=== PATIENT | female | born 1995 ===

== ENCOUNTER 2019-10-18 20:45 | Outpatient (REF) | payer BC, SELFPAY ==
[2019-10-18 21:41] LABS: HCT 42.5 % (36.0-46.0); HGB 13.4 g/dL (11.2-15.7); MCH 28.6 pg (27.0-33.0); MCHC 31.5 % (32.0-36.0); MCV 90.8 fL (80-95); MPV 10.8 fL (8.0-11.0); Platelet Count 353 10^3/uL (130-400); RBC 4.68 10^6/uL (3.93-5.22); RDW 13.4 % (11.7-14.6); RDW-SD 44.8 fL; WBC 8.22 10^3/uL (4.4-10.8)
[2019-10-18 22:00] LABS: Hemoglobin A1C 5.5 % (3.8-5.6)
[2019-10-18 22:03] LABS: TSH (W/Ref FT4) 2.41 uIU/mL (0.36-3.74)
== END 2019-10-18 21:05 ==
LOC: NCHCN 20:45
PROVIDERS: Visit Provider Nurse Practitioner Community Health
DX: F41.9 Anxiety disorder, unspecified (principal)
CPT/HCPCS: 85027; 83036; 84443

== ENCOUNTER 2020-11-20 17:23 | Outpatient (REF) | payer BC, SELFPAY ==
--- NOTE | 2020-11-20 17:05 | PAPFT_PTH ---
PATIENT: Saulo Mace LOC: [facility]#:[id number] AGE/SX: 24/F ROOM: RE11/20/[address]: Nova Pichardo : 1995 BED: DIS: 11/20/2020 SPEC #: [id number] RECD: 11/21/20 12:56 STATUS: CONNIE REQ #: [id number] JESSICA: 11/20/20 17:[address]: Nova Pichardo DEPT: [facility] Cytology RECD BY: Lyndsey Dutton ENTERED: 11/21/20 12:56 SP TYPE: PAPFT OTHR DR: Unknown,Unknown Tissues: 1 - CX/ENDOCX FOR PAP SMEARS Procedures: PAP THIN PREP/[facility] Screening Comments: [id number]
== END 2020-11-20 17:24 | disposition home or self-care (01) ==
LOC: NCHCN 17:23
PROVIDERS: Visit Provider Nurse Practitioner Community Health
DX: Z00.00 Encounter for general adult medical examination without abnormal findings (principal); Z12.4 Encounter for screening for malignant neoplasm of cervix
CPT/HCPCS: 88142

== ENCOUNTER 2021-01-01 16:48 | Outpatient (REF) | payer BC, SELFPAY ==
[2021-01-03 14:26] LABS: COVID-19 RT-PCR UVMMC Result Negative (Negative)
== END 2021-01-01 16:49 | disposition home or self-care (01) ==
LOC: NCHCN 16:48
PROVIDERS: Visit Provider Nurse Practitioner Community Health
DX: Z20.822 Contact with and (suspected) exposure to COVID-19 (principal); R05.8 Other specified cough
CPT/HCPCS: U0003

== ENCOUNTER 2021-07-23 20:17 | Outpatient (REF) | payer BC, SELFPAY ==
[2021-07-23 21:39] LABS: HCT 44.7 % (36.0-46.0); HGB 14.4 g/dL (11.2-15.7); MCH 28.6 pg (27.0-33.0); MCHC 32.2 % (32.0-36.0); MCV 89 fL (80-95); MPV 10.5 fL (8.0-11.0); Platelet Count 359 10^3/uL (130-400); RBC 5.03 10^6/uL (3.93-5.22); RDW 13.2 % (11.7-14.6); RDW-SD 43.1 fL; WBC 9.51 10^3/uL (4.4-10.8)
[2021-07-23 21:55] LABS: Hemoglobin A1C 5.6 % (<5.7)
[2021-07-23 22:16] LABS: Ferritin 44 ng/mL (8-252); TSH 2.12 uIU/mL (0.36-3.74)
== END 2021-07-23 20:18 | disposition home or self-care (01) ==
LOC: NCHCN 20:17
PROVIDERS: Visit Provider Internal Medicine
DX: R53.83 Other fatigue (principal)
CPT/HCPCS: 85027; 82728; 83036; 84443

== ENCOUNTER 2021-12-25 19:38 | Outpatient (REF) | payer BC, SELFPAY | END 2021-12-25 19:39 | disposition home or self-care (01) | LOC: NCHCN 19:38 | PROVIDERS: Visit Provider Family Medicine | DX: R30.0 Dysuria (principal); N89.8 Other specified noninflammatory disorders of vagina | CPT/HCPCS: 87086; 87480; 87510; 87660 ==

== ENCOUNTER 2021-12-27 13:57 | Outpatient (REF) | payer BC, SELFPAY | END 2021-12-27 13:58 | disposition home or self-care (01) | LOC: NCHCN 13:57 | PROVIDERS: Visit Provider Family Medicine | DX: R30.0 Dysuria (principal) | CPT/HCPCS: 87086 ==

== ENCOUNTER 2022-03-19 14:42 | Outpatient (REF) | payer BC, SELFPAY | END 2022-03-19 14:43 | disposition home or self-care (01) | LOC: NCHCN 14:42 | PROVIDERS: Visit Provider Nurse Practitioner Family | DX: J06.9 Acute upper respiratory infection, unspecified (principal) | CPT/HCPCS: 87081 ==

== ENCOUNTER 2024-01-26 18:09 | Outpatient (REF) | payer MEDICAID, SELFPAY ==
[2024-01-26 16:07] LABS: TSH 8.17 uIU/mL (0.36-3.74)
== END 2024-01-26 18:10 | disposition home or self-care (01) ==
LOC: NCHCN 18:09
PROVIDERS: Visit Provider Nurse Practitioner Family
DX: R94.6 Abnormal results of thyroid function studies (principal)
CPT/HCPCS: 84443

== ENCOUNTER 2024-02-18 12:47 | Outpatient (REF) | payer MEDICAID, SELFPAY ==
--- OUTSIDE RECORDS SUMMARY | 2024-02-18 12:49 | XMS_ITS | Clinical Summary ---
Author Organization [facility] Address [address] [place] [address] Care Team Providers Care Police Magistrate Name Role Phone Helen Carrion ANESTHESIOLOGY TECHNOLOGIST Primary Care Provider Allergies No known active allergies Medications norgestimate-eth inyl estradioL (ORTHO TRI-CYCLEN, 28,) 0.18/0.215/0.25 mg-35 mcg (28) tablet Take 1 Tab by mouth daily. 84 Tab 1 08/25/2019 Active Levothyroxine 100 mcg capsule Take 100 mcg by mouth daily. Active citalopram (CELEXA) 20 mg tablet Take 1 Tablet by mouth daily. Active VIT 10-IRON FUM-FOLIC ORAL Take by mouth. Active Active Problems Problem Noted Date Diagnosed Date Uterine leiomyoma 01/06/2024 Poor growth affecting management of mother in third trimester 05/07/2023 Overview (05/07/2023): Referred from [facility] suspected-pt thought needed induction 37 wks for FGR 05/07: AC 10% EFW 12% doppler nl [O] q3 wk grwoth with visit to follow Disc at this point routine care re: delivery timing; we will fu growth q3 wks and do fu to comment on delivery timing based on EFW Assessment & Plan (05/07/2023 15:24 EST): Referred from [facility] suspected-pt thought needed induction 37 wks for FGR 05/07: AC 10% EFW 12% doppler nl [O] q3 wk grwoth with visit to follow Disc at this point routine care re: delivery timing; we will fu growth q3 wks and do fu to comment on delivery timing based on EFW Uterine fibroid during , antepartum 07/2022 Overview (05/07/2023): 05/07: stable size Assessment & Plan (05/07/2023 15:24 EST): 05/07: stable size Encounters Date Type Department Care Team Description 02/13/2024 13:00 EST Office Visit [facility] OBGYN Services [address] [address] Ceferino Aguilera MD Abnormal uterine bleeding (AUB) (Primary Dx) 02/10/2024 15:20 EST - 02/10/2024 16:09 EST Hospital Encounter [facility] Pre-Surgical Testing [address] [place] [id number] 01/06/2024 Telephone [facility] OBGYN [facility] [address] [address] Ceferino Aguilera MD Follow-up 12/31/2023 17:55 EDT - 12/31/2023 23:59 EDT Hospital Encounter Steph Frye [facility] [address] [place] [address] Uterine leiomyoma, unspecified location Discharge Disposition: Home or Self Care 12/29/2023 Lab Requisition [facility] Pathology & Laboratory Medicine - [address] [address] Faith Mesa CNM Encounter for screening for malignant neoplasm of cervix 12/02/2023 Orders Only [facility] Radiology - [address] [address] Stevie Petty MD 12/01/2023 15:00 EDT Initial consult [facility] [address] [address] Ceferino Aguilera MD Uterine leiomyoma, unspecified location (Primary Dx) 12/01/2023 13:12 EDT - 12/01/2023 23:59 EDT Hospital Encounter [facility] OBGYN Services - [address] [address] Uterine leiomyoma, unspecified location Discharge Disposition: Home or Self Care from Last 3 Months Surgical History Surgery Date Site/Laterality Comments SECTION 06/30/2023 02/10/24-noted WISDOM TOOTH EXTRACTION 02/10/24-noted Medical History Medical History Date Comments 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13, no issues at this time some clicking History of epidural anesthesia 1 04/12/23- no issues Exercise involving walking - walks daily Exercise involving housework 02/10/24- able to do all housework Exercise involving jogging - noted sometimes Anxiety 02/10/24- well ma naged with medication Hypothyroidism Social History Tobacco Use Types Packs/Day Years Used Date Smoking Tobacco: Never Smokeless Tobacco: Never Tobacco Cessation:Counseling Given: Not Answered Alcohol Use Standard Drinks/Week Comments Not Currently 0 (1 standard drink = 0.6 oz pur e alcohol) Interpersonal Safety Answer Date Record ed Physically Hurt Never 10/10/2019 Verbally Threaten Not on file 10/10/2019 Comments No Sex and Gender Information Value Date Recorded Sex Assigned at Female 02/13/2024 9:15 EST Legal Sex Female 18:08 EST Gender Identity Female 08/31/2019 11:19 EDT Sexual Orientation Not on file Obstetrics History Para Term AB IAB SAB Ectopic Multiple Livin g Live Births 1 Date Outcome GA Total Labor Labor/2nd/3rd Weight Sex Type Anes PTL Luisana A1 A5 Name Clin Last Filed Vital Signs Vital Sign Reading Time Taken Comments Blood Pressure 122/86 02/13/2024 1254 EST Pulse 125 08/31/2019 1137 EDT Temperature 37.9 ??C (100.3 ??F) 08/31/2019 1137 EDT Respiratory Rate - - Oxygen Saturation 98% 08/31/2019 1137 EDT Inhaled Oxygen Concentration - - Weight 93.4 kg (206 lb) 02/13/2024 1254 EST Height 164.6 cm (5' 4.8) 02/10/2024 1512 EST Body Mass Index 34.49 02/10/2024 1512 EST Plan of Treatment Upcoming Encounters Date Type Department Care Team (Late st Contact Info) Description 02/19/2024 8:25 EST Hospital Encounter [facility] OR [address] [place] [phone] Ceferino Aguilera MD [address] [place] [address] [phone] 02/19/2024 8:25 EST - 02/19/2024 11:[address] [facility] OR [address] [place] [phone] Ceferino Aguilera MD [address] [place] [address] [phone] abdominal myomectomy [36323 (CPT??)] 03/08/2024 10:45 EST Post-op Visit [facility] OBGYN Services - [address] [id number] Ceferino Aguilera MD [address] [place] [address] [phone] Scheduled Procedures Name Priority Associated Diagnoses Date/Ti me MYOMECTOMY, UTERUS, 1-4 LEIOMYOMATA, ABDOMINAL APPROACH, FOR UTERUS 250 GRAMS OR LESS Uterine leiomyoma, unspecified location 02/19/2024 8:25 EST Health Maintenance Due Date Last Done Comments Hepatitis B Vaccine (1 of - 19+ 3-dose series) 11/21 COVID-19 Vaccine (2023- season) 2023 Hepatitis C Screen Completed 11/14/2022 Procedures Procedure Name Priority Date/Time Associated Diagnosis Comments SURGICAL PATHOLOGY STAT 02/13/2024 14 :16 EST Abnormal uterine bleeding (AUB) MR FEMALE PELVIS W WO CONTRAST Routine 12/31/2023 18:44 EDT Uterine leiomyoma, unspecified location PAP TEST Today 12/29/2023 18:10 EDT Encounter for screening for malignant neoplasm of cervix US PELVIS TRANSABDOMINAL AND TRANSVAGINAL COMPLETE Routine 12/01/2023 14:30 EDT Uterine leiomyoma, unspecified location HEPATITIS C AB W REFLEX TO HCV RNA BY PCR Routine 11/14/2022 15:17 EDT from Last 3 Months or Most Recently Relevant to Health Maintenance Results * SURGICAL PATHOLOGY (02/13/2024 14:16 EST) Note to Patient The following pathology results have been interpreted by your pathologist and may be available to you before your health provider has had the opportunity to review them. Please allow time for your provider to receive these results and explore management options, if applicable. 02/18/2024 11:11 [facility] Final Diagnosis A. ENDOMETRIUM, BIOPSY: - Menstrual-type endometrium. 02/18/2024 11:11 [facility] Attestation There was significant resident/fellow involvement in the diagnostic evaluation of this case. By the signature below, the attending physician certifies that they have personally conducted a gross and/or microscopic examination of the described specimens and rendered or confirmed the above diagnosis. 02/18/2024 11:11 [facility] at 1111 Clinical History Abnormal uterine bleeding; clinical diagnosis code: N93.9 02/18/2024 11:11 [facility] Gross Description A. Received in formalin labelled with proper patient identification (initials R, M) and endometrium is a 2.1 x 1.6 x 0.8 cm aggregate of john mucus. The specimen is entirely submitted in A1. CHAPO CALIX(ASCP) 02/16/2024 14:37 02/18/2024 11:11 [facility] Resident/Jovon w: Jacques Crabtree MD 02/18/2024 11:11 EST [facility] Performing Lab [facility] 02/18/2024 11:11 EST [facility] Scanned Images 02/18/2024 11:11 EST [facility] Tissue ENDOMETRIAL STRUCTURE / Unknown Collection, Other / Unknown 02/13/2024 14:16 EST 02/16/2024 13:11 EST us Ceferino Aguilera MD PATHOLOGY ORDERABLES Final Re sult [facility] [address] [place] [address] * MR FEMALE PELVIS W WO CONTRAST (12/31/2023 18:44 EDT) Anatomical Region Laterality Modality Body, Pelvis Magnetic Resonan ce 01/01/2024 11:5 8 EDT Impressions 01/01/2024 11:58 EDT Large centrally hemorrhagic mass arising from the anterior uterine body. The imaging features are most suggestive of a apoplectic type leiomyoma. Large size and central necrosis can be seen in leiomyosarcoma, however there are no additional suspicious features to suggest leiomyosarcoma. [id number] Narrative 01/01/2024 11:58 EDT MR FEMALE PELVIS W WO CONTRAST ??12/31/2023 6:09 PM Signs and Symptoms/Comments: fibroid uterus; fibroid uterus Technique: MR of the pelvis obtained with and without intravenous gadolinium. Comparison: Ultrasound December 01, 2023 Findings: Uterus/ Cervix: Arising from the anterior body there is a approximately 15 x 13 x 10 cm mass with heterogeneous peripheral T2 signal intensity, peripheral homogeneous enhancement, and a large area of central nonenhancing T1 and T2 heterogeneously hyperintense signal. No extrauterine invasive features. The lesion is subserosal and less than 50% intramural. No additional myometrial lesions. Endometrial stripe is normal for age at 0.8 cm in double thickness. Junctional zone is normal thickness at 0.7 cm. Vagina: Normal. Adnexa: Normal for age. Ureters, bladder, urethra: Normal. Bowel: Included bowel demonstrates no obstruction. Peritoneal cavity: Small amount of physiologic free fluid. Lymph nodes: No lymphadenopathy. Vascular: Extrinsic compression of the common iliac veins at the level of their confluence in the presacral space by the enlarged uterus. Pelvic wall/groin: Healed transverse incision in the suprapubic abdominal wall suggestive of prior . Musculoskeletal: No suspicious osseous lesion. Transitional anatomy at the lumbosacral junction. Localizer: No additional finding. Resulting Agency Comment [id number] Procedure Note Nathan Aquino MD - 01/01/2024 MR FEMALE PELVIS W WO CONTRAST 12/31/2023 6:09 PM Signs and Symptoms/Comments: fibroid uterus; fibroid uterus Technique: MR of the pelvis obtained with and without intravenousgadolinium. Comparison: Ultrasound December 01, 2023 Findings: Uterus/ Cervix: Arising from the anterior body there is a approximately 15x 13 x 10 cm mass with heterogeneous peripheral T2 signal intensity,peripheral homogeneous enhancement, and a large area of centralnonenhancing T1 and T2 heterogeneously hyperintense signal. Noextrauterine invasive features. The lesion is subserosal and less than 50%intramural. No additional myometrial lesions. Endometrial stripe is normalfor age at 0.8 cm in double thickness. Junctional zone is normal thicknessat 0.7 cm. Vagina: Normal. Adnexa: Normal for age. Ureters, bladder, urethra: Normal. Bowel: Included bowel demonstrates no obstruction. Peritoneal cavity: Small amount of physiologic free fluid. Lymph nodes: No lymphadenopathy. Vascular: Extrinsic compression of the common iliac veins at the level oftheir confluence in the presacral space by the enlarged uterus. Pelvic wall/groin: Healed transverse incision in the suprapubic abdominalwall suggestive of prior . Musculoskeletal: No suspicious osseous lesion. Transitional anatomy at thelumbosacral junction. Localizer: No additional finding. IMPRESSION Large centrally hemorrhagic mass arising from the anterior uterine body.The imaging features are most suggestive of a apoplectic type VIleiomyoma. Large size and central necrosis can be seen in leiomyosarcoma,however there are no additional suspicious features to suggestleiomyosarcoma. [id number] us Ceferino Aguilera MD IM MRI ORDERABLES Final Resu lt * PAP TEST (12/29/2023 18:10 EDT) Specimens A. Cervix and/or Endocervix , ThinPrep Imaging System with Manual Evaluation 01/06/2024 12:09 T [facility] Specimen Adequacy Satisfactory for Evaluation - transformation zone component present Scant squamous epithelial component 01/06/2024 12:09 EDT [facility] General Categorization Negative for intraepithelial lesion or malignancy 01/06/2024 12:09 T [facility] Attestation . 01/06/2024 12:09 T [facility] at 1209 Clinical History Clinical History, Signs, Symptoms, Chief Complaint, Pertaining to This Order: SEE BELOW Last Menstral Period: 12/27/2023 Hormone/Contracep tive Use?: Yes ?: No Post-?: No 01/06/2024 12:09 T [facility] Performing Lab [facility] 01/06/2024 12:09 T [facility] Scanned Images 01/06/2024 12:09 EDT [facility] Pap Test CERVIX UTERI STRUCTURE / Unknown 12/29/2023 18:10 EDT 12/30/2023 14:33 EDT Faith Mesa [facility] PATHOLOGY ORDERABLES Final R esult [facility] [address] [place] [address] * US PELVIS TRANSABDOMINAL AND TRANSVAGINAL COMPLETE (12/01/2023 14:30 EDT) Anatomical Region Laterality Modality Pelvis, Body Ultrasound 12/01/2023 13:5 5 EDT Narrative 12/01/2023 14:56 EDT Indication ======== Fibroid follow-up (21 x 17 x 17 cm in ) Assessment Contraception: Combined oral contraceptive pill Uterus ====== Uterus: ?Visualized Uterus position: ?? Axial Myometrium: ?Fibroid Endometrium: ?? Clearly visualized and no apparent abnormalities Cervix details: ?Normal appearance Uterus length ??185.6 mm Uterus width ?? 50.7 mm Uterus height ??118.3 mm Endometrial thickness, total ?? 8.1 mm Uterine fibroid D1 122.1 mm Uterine fibroid D2 109.5 mm Uterine fibroid D3 159.9 mm Uterine fibroid mean ?? 130.5 mm Uterine fibroid vol ?1,119.537 cm cubed Uterine fibroids findings: 6 - Subserosal < 50% Intramural, anterior fundal Right Ovary ========= Rt ovary: ??Visualized, normal appearance Outline: ?? Smooth Rt ovary morphology: ?? Normal physiologic changes, multifollicular Rt ovary D1 ?39.7 mm Rt ovary D2 ?20.0 mm Rt ovary D3 ?20.4 mm Rt ovary Vol ?? 8.5 cm cubed Left Ovary ======== Lt ovary: ??Visualized Outline: ?? Smooth Lt ovary morphology: ?? Normal physiologic changes, multifollicular Lt ovary D1 ?25.8 mm Lt ovary D2 ?24.8 mm Lt ovary D3 ?20.9 mm Lt ovary Vol ?? 7.0 cm cubed Cul de Sac ========= Appears normal. No free fluid visualized Method ====== Transabdominal and transvaginal ultrasound examination, Transducer # 7. View: Sufficient Impression ========= Transvaginal T Transabdominal (Limited) Pelvic - 26305 T [id number] 1. Uterus with fibroid as reported above (12 x 11 x 16 cm), significant interval decrease in size 2. Cervix is unremarkable. 3. Endometrium is unremarkable. 4. Bilateral ovaries are unremarkable in size and contour. Follow-up ======== Scheduled with Dr. Aguilera this afternoon. Comment ======== Ultrasound findings discussed w/patient. Prior ultrasounds reviewed and compared to today's ultrasound. Uterine leiomyoma, unspecified location [D25.9 DATE OF SERVICE: 12/01/2023 Procedure Note Josselyn Chang MD - 12/01/2023 Indication ======== Fibroid follow-up (21 x 17 x 17 cm in ) Assessment Contraception: Combined oral contraceptive pill Uterus ====== Uterus: Visualized Uterus position: Axial Myometrium: Fibroid Endometrium: Clearly visualized and no apparent abnormalities Cervix details: Normal appearance Uterus length 185.6 mm Uterus width 50.7 mm Uterus height 118.3 mm Endometrial thickness, total 8.1 mm Uterine fibroid D1 122.1 mm Uterine fibroid D2 109.5 mm Uterine fibroid D3 159.9 mm Uterine fibroid mean 130.5 mm Uterine fibroid vol 1,119.537 cm cubed Uterine fibroids findings: 6 - Subserosal < 50% Intramural, anteriorfundal Right Ovary ========= Rt ovary: Visualized, normal appearance Outline: Smooth Rt ovary morphology: Normal physiologic changes, multifollicular Rt ovary D1 39.7 mm Rt ovary D2 20.0 mm Rt ovary D3 20.4 mm Rt ovary Vol 8.5 cm cubed Left Ovary ======== Lt ovary: Visualized Outline: Smooth Lt ovary morphology: Normal physiologic changes, multifollicular Lt ovary D1 25.8 mm Lt ovary D2 24.8 mm Lt ovary D3 20.9 mm Lt ovary Vol 7.0 cm cubed Cul de Sac ========= Appears normal. No free fluid visualized Method ====== Transabdominal and transvaginal ultrasound examination, Transducer # 7.View: Sufficient Impression ========= Transvaginal T Transabdominal (Limited) Pelvic - 70183 T 24910 1. Uterus with fibroid as reported above (12 x 11 x 16 cm), significantinterval decrease in size 2. Cervix is unremarkable. 3. Endometrium is unremarkable. 4. Bilateral ovaries are unremarkable in size and contour. Follow-up ======== Scheduled with Dr. Aguilera this afternoon. Comment ======== Ultrasound findings discussed w/patient. Prior ultrasounds reviewed andcompared to today's ultrasound. Uterine leiomyoma, unspecified location [D25.9 DATE OF SERVICE: 12/01/2023 us Faith Mesa CNM IMG US OB ORDERABLES Final R esult * HEPATITIS C AB W REFLEX TO HCV RNA BY PCR (11/14/2022 15:17 EDT) Hep C Antibody Negative Negative 11/15/2022 10:05 EDT [facility] Blood VENOUS BLOOD / Unknown 11/14/2022 15:17 EDT 11/14/2022 21:40 EDT us Provider Outr Resulting Lab CHEMISTRY & BLOOD GA S ORDERABLES Final Result [facility] [address] [place] [address] from Last 3 Months or Most Recently Relevant to Health Maintenance Insurance [place]ICAID [place] [address] [place] [address] Care Teams Police Magistrate Relationship Specialty Start Date End Date Helen Carrion FNP [address] [place] [phone] PCP - General Family Medicine - Primary Care 02/13/24
--- OUTSIDE RECORDS SUMMARY | 2024-02-18 12:49 | XMS_ITS | Referral Summary ---
Author Organization [facility] Address [address] [place] [address] Care Team Providers Care Departmental Secretary Name Role Phone Helen Carrion [facility] Primary Care Provider [phone] Encounters Date Type Department Care Team Description 02/13/2024 13:00 EST Office Visit [facility] OBGYN Services - [facility] [address] [place], [place] [address] Ceferino Aguilera MD Abnormal uterine bleeding (AUB) (Primary Dx) 02/10/2024 15:20 EST - 02/10/2024 16:09 EST Hospital Encounter [facility] Pre-Surgical Testing [address] [place], [place] [address] 01/06/2024 Telephone [facility] [address] [place], [place] [address] Ceferino Aguilera MD Follow-up 12/31/2023 17:55 EDT - 12/31/2023 23:59 EDT Hospital Encounter [facility] [address] [place] [address] Uterine leiomyoma, unspecified location Discharge Disposition: Home or Self Care 12/29/2023 Lab Requisition [facility] Pathology & Laboratory Medicine - [facility] [address] [place] [address] Faith Mesa CNM Encounter for screening for malignant neoplasm of cervix 12/02/2023 Orders Only [facility] Radiology - [facility] [address] [place], [place] [address] [phone] Stevie Petty MD 12/01/2023 15:00 EDT Initial consult [facility] [address] [address] Ceferino Aguilera MD Uterine leiomyoma, unspecified location (Primary Dx) 12/01/2023 13:12 EDT - 12/01/2023 23:59 EDT Hospital Encounter [facility] [address] [address] Uterine leiomyoma, unspecified location Discharge Disposition: Home or Self Care from Last 3 Months Allergies No known active allergies Medications norgestimate-eth [...] Plan (05/07/2023 15:24 EST): 05/07: stable size Social History Tobacco Use Types Packs/Day Years [...] 11:19 EDT Sexual Orientation Not on file Last Filed Vital Signs Vital Sign Reading [...] Info) Description 02/19/2024 8:25 EST Hospital Encounter [facility] OR [address] [place] [phone] Ceferino Aguilera MD [address] [place] [address], Level [address] [place] [address] 02/19/2024 8:25 EST - 02/19/2024 11:55 EST Surgery [facility] OR [address] [place], [place] [phone] Ceferino Aguilera MD 111 [facility], [facility] 4 [place] [address] abdominal myomectomy [98145 (CPT??)] 03/08/2024 10:45 EST Post-op Visit [facility] - [address] [phone] Ceferino Aguilera MD 111 [facility], [facility] 4 [place] [address] Scheduled Procedures Name Priority Associated Diagnoses Date/Ti me MYOMECTOMY, UTERUS, 1-4 LEIOMYOMATA, ABDOMINAL APPROACH, FOR UTERUS 250 GRAMS OR LESS Uterine leiomyoma, unspecified location 02/19/2024 8:25 EST Procedures Procedure Name Priority Date/Time Associated Diagnosis [...] explore management options, if applicable. 02/18/2024 11:11 [facility] Final Diagnosis A. ENDOMETRIUM, BIOPSY: - Menstrual-type endometrium. 02/18/2024 11:11 [facility] Attestation There was significant resident/fellow involvement in the diagnostic evaluation of this case. By the signature below, the attending physician certifies that they have personally conducted a gross and/or microscopic examination of the described specimens and rendered or confirmed the above diagnosis. 02/18/2024 11:11 [facility] at 1111 Clinical History Abnormal uterine bleeding; clinical diagnosis code: N93.9 02/18/2024 11:11 [facility] Gross Description A. Received in formalin labelled with proper patient identification (initials R, M) and endometrium is a 2.1 x 1.6 x 0.8 cm aggregate of john mucus. The specimen is entirely submitted in A1. CHAPO CALIX(ASCP) 02/16/2024 14:37 02/18/2024 11:11 [facility] Resident/Jovon w: Jacques Crabtree MD 02/18/2024 11:11 [facility] Performing Lab [facility] [[email or web address] LAB 02/18/2024 11:11 [facility] Scanned Images 02/18/2024 11:11 [facility] Tissue ENDOMETRIAL STRUCTURE / Unknown Collection, Other / Unknown 02/13/2024 14:16 EST 02/16/2024 13:11 EST us Ceferino Aguilera MD PATHOLOGY ORDERABLES Final Re sult [facility] [address] [place] [address] * MR FEMALE PELVIS W WO CONTRAST [...] no additional suspicious features to suggest leiomyosarcoma. [id number] Narrative 01/01/2024 11:58 EDT MR FEMALE PELVIS [...] Localizer: No additional finding. Resulting Agency Comment [id number] Procedure Note Nathan Aquino MD - 01/01/2024 [...] are no additional suspicious features to suggestleiomyosarcoma. [id number] us Ceferino Aguilera MD IM MRI ORDERABLES Final Resu lt * PAP TEST (12/29/2023 18:10 EDT) Specimens A. Cervix and/or Endocervix , ThinPrep Imaging System with Manual Evaluation 01/06/2024 12:09 [facility] Specimen Adequacy Satisfactory for Evaluation - transformation zone component present Scant squamous epithelial component 01/06/2024 12:09 [facility] General Categorization Negative for intraepithelial lesion or malignancy 01/06/2024 12:09 [facility] Attestation . 01/06/2024 12:09 [facility] at 1209 Clinical History Clinical History, Signs, Symptoms, Chief Complaint, Pertaining to This Order: SEE BELOW Last Menstral Period: 12/27/2023 Hormone/Contracep tive Use?: Yes ?: No Post-?: No 01/06/2024 12:09 [facility] Performing Lab [facility] [[email or web address]] LAB 01/06/2024 12:09 [facility] Scanned Images 01/06/2024 12:09 EDT [facility] Pap Test CERVIX UTERI STRUCTURE / Unknown 12/29/2023 18:10 EDT 12/30/2023 14:33 EDT us Faith Mesa CNM PATHOLOGY ORDERABLES Final R esult [facility] [address] [place] [address] * US PELVIS TRANSABDOMINAL AND TRANSVAGINAL COMPLETE [...] ========= Transvaginal T Transabdominal (Limited) Pelvic - 78857 T 26453 1. Uterus with fibroid as reported above [...] ========= Transvaginal T Transabdominal (Limited) Pelvic - 91714 T 39986 1. Uterus with fibroid as reported above [...] unspecified location [D25.9 DATE OF SERVICE: 12/01/2023 Faith Mesa [facility] US OB ORDERABLES Final R esult * HEPATITIS C AB W REFLEX TO HCV RNA BY PCR (11/14/2022 15:17 EDT) Hep C Antibody Negative Negative 11/15/2022 10:05 EDT [facility] Blood VENOUS BLOOD / Unknown 11/14/2022 15:17 EDT 11/14/2022 21:40 EDT us Provider Outr Resulting Lab CHEMISTRY & BLOOD GA S ORDERABLES Final Result [facility] [address] [place] [address] from Last 3 Months or Most Recently Relevant to Health Maintenance Insurance [place] [address] [place] [address] Care Teams Departmental Secretary Relationship Specialty Start Date End Date Helen Carrion FNP [address] [place] [address] PCP - General Family Medicine - Primary Care 02/13/24
--- OUTSIDE RECORDS SUMMARY | 2024-02-18 12:50 | XMS_ITS | Encounter Summary ---
Author Organization [facility] Address [address] [place] [address] Care Team Providers Care Insulator Tester Name Role Phone Dari Yang [facility] Primary Care Provider [phone] Helen Carrion TALLOW PUMPER Primary Care Provider Encounter Details Date Type Department Care Team (Late st Contact Info) Description 11/14/2022 Lab Requisition [facility] Pathology & Laboratory Medicine - [address] [address] Outr Resulting Lab, Provider Social History Tobacco Use Types Packs/Day Years Used Date Smoking Tobacco: Never Assessed Interpersonal Safety Answer Date Record ed Physically Hurt Never 10/10/2019 Verbally Threaten Not on file 10/10/2019 Comments Unknown Sex and Gender Information Value Date Recorded Sex Assigned at Female 02/13/2024 9:15 EST Legal Sex Female 18:08 EST Gender Identity Female 08/31/2019 11:19 EDT Sexual Orientation Not on file documented as of this encounter Plan of Treatment Upcoming Encounters Date Type Department Care Team (Late st Contact Info) Description 02/19/2024 8:25 EST Hospital Encounter [facility] OR [address] [place], [place] [phone] Ceferino Aguilera MD 111 [facility], Level [address] [place] [phone] 02/19/2024 8:25 EST - 02/19/2024 11:55 EST Surgery [facility] OR [address] [place] [id number] Ceferino Aguilera MD [address] [place] [phone] abdominal myomectomy [06020 (CPT??)] 03/08/2024 10:45 EST Post-op Visit [facility] OBGYN Services - [address] [address] Ceferino Aguilera MD [address] [place] [address] Scheduled Procedures Name Priority Associated Diagnoses Date/Ti me MYOMECTOMY, UTERUS, 1-4 LEIOMYOMATA, ABDOMINAL APPROACH, FOR UTERUS 250 GRAMS OR LESS Uterine leiomyoma, unspecified location 02/19/2024 8:25 EST documented as of this encounter Procedures Procedure Name Priority Date/Time Associated Diagnosis Comments HEPATITIS B SURFACE ANTIGEN Routine 11/14/2022 15:17 EDT documented in this encounter Results * HEPATITIS B SURFACE ANTIGEN (11/14/2022 15:17 EDT) Hep B Surface Ag Negative Negative 11/15/2022 9:[address] [facility] Blood VENOUS BLOOD / Unknown 11/14/2022 15:17 EDT 11/14/2022 21:40 EDT us Provider Outr Resulting Lab CHEMISTRY & BLOOD GA S ORDERABLES Final Result [facility] [address] [place] [address] documented in this encounter Visit Diagnoses Not on filedocumented in this encounter Care Teams Insulator Tester Relationship Specialty Start Date End Date Celia [facility] [address] [place], [place] [phone] PCP - General 08/31/19 02/12/24 Helen Carrion FNP [address] [place] [phone] PCP - General Family Medicine - Primary Care 02/13/24 documented as of this encounter
--- OUTSIDE RECORDS SUMMARY | 2024-02-18 12:50 | XMS_ITS | Encounter Summary ---
Author Organization [facility] Address [address] [place] [address] Care Team Providers Care Veterinary Laboratory Technician Name Role Phone Dari Deutsch [facility]- Primary Care Provider [phone] Reason for Visit * Reason Onset Date Comments Coordination Of Care 05/15/2023 Encounter Details Date Type Department Care Team (Late st Contact Info) Description 05/15/2023 Telephone [facility] OBGYN Services - [facility] [address] [place], [place] [address] Sandra Lua MD 111 [facility], Level [address] [place] [address] Coordination Of Care Social History Tobacco Use Types Packs/Day Years Used Date Smoking Tobacco: Never Assessed Interpersonal Safety Answer Date Record ed Physically Hurt Never 10/10/2019 Verbally Threaten Not on file 10/10/2019 Comments Yes Sex and Gender Information Value Date Recorded Sex Assigned at Female 02/13/2024 9:15 EST Legal Sex Female 18:08 EST Gender Identity Female 08/31/2019 11:19 EDT Sexual Orientation Not on file documented as of this encounter Miscellaneous Notes * Telephone Encounter - Justine Chu RN - 05/15/2023 1043 EST Call back to Pt (34+2). No answer. Voicemail full. Weottat message sent. * Telephone Encounter - Ofe Gallo - 05/15/2023 1005 EST Pt is currently seen at [facility] for care and has seen us for some scans. She would like to continue seeing them for , but is interested in delivering here due to the fibroid she has. Wanted to see if she needs DIEUDONNE or how this could work. She is 34+2. Call [phone], detailed VM ok. Call anytime. documented in this encounter Plan of Treatment Upcoming Encounters Date Type Department Care Team (Late st Contact Info) Description 02/19/2024 8:25 EST Hospital Encounter [facility] OR [address] [place] [phone] Ceferino Aguilera MD [address] [place] [phone] 02/19/2024 8:25 EST - 02/19/2024 11:55 EST Surgery [facility] OR [address] [place] [phone] Ceferino Aguilera MD [address] [place] [phone] abdominal myomectomy [13086 (CPT??)] 03/08/2024 10:45 EST Post-op Visit [facility] OBGYN Services - [address] [phone] Ceferino Aguilera MD [address] [place] [phone] Scheduled Procedures Name Priority Associated Diagnoses Date/Ti me MYOMECTOMY, UTERUS, 1-4 LEIOMYOMATA, ABDOMINAL APPROACH, FOR UTERUS 250 GRAMS OR LESS Uterine leiomyoma, unspecified location 02/19/2024 8:25 EST documented as of this encounter Visit Diagnoses Not on filedocumented in this encounter Care Teams Veterinary Laboratory Technician Relationship Specialty Start Date End Date Celia [facility] [address] [place] [address] PCP - General 08/31/19 02/12/24 documented as of this encounter
--- OUTSIDE RECORDS SUMMARY | 2024-02-18 12:50 | XMS_ITS | Encounter Summary ---
Author Organization [facility] Address [address] [place] [address] Care Team Providers Care Gear Design Engineer Name Role Phone Dari Yang [facility]- Primary Care Provider [phone] Encounter Details Date Type Department Care Team (Late st Contact Info) Description 12/02/2023 Orders Only [facility] Radiology - [facility] [address] [place], [place] [phone] Stevie Petty MD [address] [place] [address] [address] [place] [address] Social History Tobacco Use Types Packs/Day Years [...] Info) Description 02/19/2024 8:25 EST Hospital Encounter [facility] OR [address] [place], [place] [phone] Ceferino Aguilera MD 111 [facility], [facility], Level [address] [place] [phone] 02/19/2024 8:25 EST - 02/19/2024 11:55 EST Surgery [facility] OR [address] [place] [phone] Ceferino Aguilera MD [address] [place] [address], [facility] 4 [place] [phone] abdominal myomectomy [43686 (CPT??)] 03/08/2024 10:45 EST Post-op Visit [facility] OBGYN Services - [address] [phone] Ceferino Aguilera MD [address] [place] [address], [facility] 4 [place] [phone] Scheduled Procedures Name Priority Associated Diagnoses Date/Ti me MYOMECTOMY, UTERUS, 1-4 LEIOMYOMATA, ABDOMINAL APPROACH, FOR UTERUS 250 GRAMS OR LESS Uterine leiomyoma, unspecified location 02/19/2024 8:25 EST documented as of this encounter Visit Diagnoses Not on filedocumented in this encounter Care Teams Gear Design Engineer Relationship Specialty Start Date End Date [facility] 4 [facility] [place] [address] PCP - General 08/31/19 02/12/24 documented as of this encounter
--- OUTSIDE RECORDS SUMMARY | 2024-02-18 12:50 | XMS_ITS | Encounter Summary ---
Author Organization [facility] Address [address] [place] [address] Care Team Providers Care Supervisory Geographer Name Role Phone Nick Qureshi MD Primary Care Provider [phone] Unknown, Provider Primary Care Provider Unava ilable Encounter Details Date Type Department Care Team (Late st Contact Info) Description 11/01/2016 Historical Results Only [facility] [address] [place] [address] Luis Felipe Reyes MD [address] [place] [phone] Social History Tobacco Use Types Packs/Day Years Used Date Smoking Tobacco: Never Assessed Comments Unknown Sex and Gender Information Value Date Recorded Sex Assigned at Female 02/13/2024 9:15 EST Legal Sex Female 18:08 EST Gender Identity Female 08/31/2019 11:19 EDT Sexual Orientation Not on file documented as of this encounter Plan of Treatment Upcoming Encounters Date Type Department Care Team (Late st Contact Info) Description 02/19/2024 8:25 EST Hospital Encounter [facility] OR [address] [place], [place] [phone] Ceferino Aguilera MD 111 [facility], Level [address] [place] [phone] 02/19/2024 8:25 EST - 02/19/2024 11:55 EST Surgery [facility] OR [address] [place] [phone] Ceferino Aguilera MD [address] [place] [address], [facility], [facility] 4 [place] [address] abdominal myomectomy [79712 (CPT??)] 03/08/2024 10:45 EST Post-op Visit [facility] OBGYN Services - [address] [phone] Ceferino Aguilera MD [address] [place] [address], [facility], [facility] [address] [place] [address] Scheduled Procedures Name Priority Associated Diagnoses Date/Ti me MYOMECTOMY, UTERUS, 1-4 LEIOMYOMATA, ABDOMINAL APPROACH, FOR UTERUS 250 GRAMS OR LESS Uterine leiomyoma, unspecified location 02/19/2024 8:25 EST documented as of this encounter Procedures Procedure Name Priority Date/Time Associated Diagnosis Comments CHLAMYDIA/N. GONORRHOEAE AMPLIFIED RNA, URINE Routine 11/01/2016 9:38 EDT documented in this encounter Results * CHLAMYDIA/N. GONORRHOEAE AMPLIFIED RNA, URINE (11/01/2016 9:38 EDT) MICRO SPECIMEN DESCRIPTION - PMC urine 11/05/2016 14:21 EDT [facility] Chlamydia trachomatis Result Negative Negative 11/05/2016 15:10 EDT [facility] Comment: This test was developed and its performance characteristics determined by [facility]. It has not been cleared or approved by the US Food and Drug Administration. FDA does not require this test to go through premarket FDA review. This test is used for clinical purposes. It should not be regarded as investigational or for research. This laboratory is certified under the Clinical Laboratory Improvement Amendments (CLIA) as qualified to perform high complexity clinical laboratory testing. A first catch urine specimen is acceptable for detection of Gonorrhea and Chlamydia, but might detect up to 10% fewer infections when compared with vaginal and endocervical swab samples. GC Result Negative 11/05/2016 15:10 EDT [facility] Comment: This test was developed and its performance characteristics determined by [facility]. It has not been cleared or approved by the US Food and Drug Administration. FDA does not require this test to go through premarket FDA review. This test is used for clinical purposes. It should not be regarded as investigational or for research. This laboratory is certified under the Clinical Laboratory Improvement Amendments (CLIA) as qualified to perform high complexity clinical laboratory testing. A first catch urine specimen is acceptable for detection of Gonorrhea and Chlamydia, but might detect up to 10% fewer infections when compared with vaginal and endocervical swab samples. Test Performed by: [place] [address] [employer] Lead: Rubens Alston MD , Ph D 11/01/2016 9:38 EDT 11/01/2016 9:38 EDT Luis Felipe Ashley Anderson MD MICROBIOLOGY - GENERAL ORDERABLES Final Result [facility] [address] [place] [address] documented in this encounter Visit Diagnoses Not on filedocumented in this encounter Care Teams Supervisory Geographer Relationship Specialty Start Date End Date Nick Qureshi MD PCP - General 01/15/15 11/18/17 Unknown, ProviderMD PCP - General 11/19/17 08/30/19 documented as of this encounter
--- OUTSIDE RECORDS SUMMARY | 2024-02-18 12:50 | XMS_ITS | Encounter Summary ---
Author Organization Health system Address [address] [place] [address] Care Team Providers Care Apple Sorter Name Role Phone Dari Yang [facility]- Primary Care Provider [phone] [phone] Encounter Details Date Type Department Care Team (Late st Contact Info) Description 02/10/2024 15:20 EST - 02/10/2024 16:09 EST Hospital Encounter [facility] Pre-Surgical Testing [address] [place] [address] Social History Tobacco Use Types Packs/Day Years [...] on file documented as of this encounter Last Filed Vital Signs Vital Sign Reading Time Taken Comments Blood Pressure - - Pulse - - Temperature - - Respiratory Rate - - Oxygen Saturation - - Inhaled Oxygen Concentration - - Weight 86.2 kg (190 lb) 02/10/2024 1512 EST Height 164.6 cm (5' 4.8) 02/10/2024 1512 EST Body Mass Index 31.81 02/10/2024 1512 EST documented in this encounter Medications at Time of Discharge citalopram (CELEXA) 20 mg tablet Take 1 Tablet by mouth daily. Levothyroxine 100 mcg capsule Take 100 mcg by mouth daily. norgestimate-ethi nyl estradioL (ORTHO TRI-CYCLEN, 28,) 0.18/0.215/0.25 mg-35 mcg (28) tablet Take 1 Tab by mouth daily. 84 Tab 1 08/25/2019 VIT 10-IRON FUM-FOLIC ORAL Take by mouth. documented as of this encounter OR Notes * Preprocedure Instructions - Jeffrey Weeks LPN - 02/10/2024 1520 EST Seracassiecarlosdeepthi Nakita has been instructed as follows regarding medication administration for the day of the scheduled procedure. Date of Surgery: 02/19/2024 Instructions for Taking Medications Day of Surgery Medication Dose and frequency Last Dose Hold Day of Surgery Take Day of Surgery citalopram (CELEXA) 20 mg tablet Take 1 Tablet by mouth daily. take Levothyroxine 100 mcg capsule Take 100 mcg by mouth daily. take norgestimate-ethinyl estradioL (ORTHO TRI-CYCLEN, 28,) 0.18/0.215/0.25 mg-35 mcg (28) tablet Take 1Tab by mouth daily. take VIT 10-IRON FUM-FOLIC ORAL Take by mouth. 02/11/24 hold JEFFREY WEEKS LPN Please call the PAT department at [phone] if you start any new medications or if you are taking any medications that were not reported at the time of your call Instructions: Call your surgeon prior to surgery date IF: You become ill. You have any new skin problems near the area where your surgery will be, such as a rash, blister, or infection. Your surgeon may have given you specific instructions to prepare for surgery. Please follow surgeonspecific instructions & call surgeon's office with any questions. Fasting: Follow the eating and drinking instructions below unless otherwise instructed by your surgeon. No solid food or liquids containing fats, including milk*, after midnight. On the day of your procedure, you should only have clear liquids (see ???Acceptable Liquids?? listed below). Stop drinking 2 hours before your arrival time to the hospital. Acceptable Liquids: DO NOT ADD THICKENERS TO ANY LIQUIDS Water Clear apple juice Clear white grape juice Clear sports drinks / Pedialyte (no protein or coconut water based sports drinks) *Children under 3 years of age: Water- up to 4 hours before surgical time Clear apple juice- up to 4 hours before surgical time Clear white grape juice- up to 4 hours before surgical time Clear sports drinks / Pedialyte- up to 4 hours before surgical time Breast milk - up to 4 hours before surgical time - *do not add cereals Non-human milk or formula - up to 6 hours before surgical time *do not add cereal or use formula with cereal already added Shower: with an ANTIBACTERIAL SOAP (or scrub sponge if provided by your surgeon's office) the nightbefore surgery and the morning of surgery. Do not shave your surgical site for 3 days prior to surgery. After your morning shower avoid using creams, lotion, powders, deodorant, makeup, hairspray, perfumes or colognes. Remove all fingernail sierra [place], makeup, jewelery and body piercings before surgery. Ride Home: We require you have a responsible adult to drive you home after surgery or to accompany you if getting home via Taxi or Bus. If your ride cannot wait for you at the hospital, they still need to come in to pick you up, to assist with medication pecan picker from pharmacy, review of discharge instructions and surgical consult. We ask that your ride stay within 15 minutes of the hospital for pecan picker. Medications: Take as directed above with a sip of water on day of surgery. (If a medication must betaken with something other than clear liquids or sips of water, please call the PreAdmission Testing Clinic at for guidance.) Bring a list of your medications to the hospital. Please list when you last took each of medication. Leave actual medications at home unless told otherwise. CPAP/BiPAP: Bring your cleaned CPAP/BiPAP machine into preop on the day of your surgery. Be sure toempty the water chamber prior to transport Smoking: Stop smoking tobacco and marijuana prior to surgery as much as possible, avoiding it for aminimum of 24 hours prior to surgery. Legal Guardianship: BRING Proof of Guardianship on Day of Surgery. Legal Guardian must be availableon the Day of Surgery by Telephone if not physically present on the Day of Surgery. Clothing: Wear loose fitting and comfortable clothing. For arm and hand surgery wear a zip up or button up shirt with short sleeves. For eye surgery, do not wear a shirt that pulls over the head unless it has a wide neck opening. Valuables: Do not bring any on day of surgery, except money you may need for you hospital co-pay orto purchase any prescriptions. Visitation: Typically, two visitors are allowed in the Preop and Recovery areas. Each area of the hospital may have different visitation guidelines. Contact Information: Prior to Day of Surgery, call Pre-Admission Testing Clinic: [phone]. PAT toll Free Number . For Day of Surgery: [facility]: [phone] [facility]; [phone]. Visit our website for more information: [email or web address] Advance Directives: You can get the forms in a doctor's office, a hospital, a law office, a state or local office for the aging, a senior center, a senior care, or online. For more information, including forms for your state, see the [employer] website (www.[employer].org/planning/advance-directives/). If not already done, please bring a signed copy of your Advance Directive with you to the hospital so that it may scanned into your electronic health record. documented in this encounter Plan of Treatment Upcoming Encounters Date Type Department Care Team (Late st Contact Info) Description 02/19/2024 8:25 EST Hospital Encounter [facility] OR [address] [place] [address] [id number] Ceferino Aguilera MD [address] [place] [address], [address] [place] [phone] 02/19/2024 8:25 EST - 02/19/2024 11:55 EST Surgery [facility] OR [address] [place] [address] [id number] Ceferino Aguilera MD [address] [facility] [address] [place] [phone] abdominal myomectomy [82702 (CPT??)] 03/08/2024 10:45 EST Post-op Visit [facility] OBGYN Services - [address] [id number] Ceferino Aguilera MD [address] [place] [address] 4 [place] [phone] Scheduled Procedures Name Priority Associated Diagnoses Date/Ti me MYOMECTOMY, UTERUS, 1-4 LEIOMYOMATA, ABDOMINAL APPROACH, FOR UTERUS 250 GRAMS OR LESS Uterine leiomyoma, unspecified location 02/19/2024 8:25 EST documented as of this encounter Visit Diagnoses Not on filedocumented in this encounter Historical Medications * This list may reflect changes made after this encounter. VIT 10-IRON FUM-FOLIC ORAL Take by mouth. added in this encounter Care Teams Apple Sorter Relationship Specialty Start Date End Date Celia [facility] [address] [place] [address] PCP - General 08/31/19 02/12/24 documented as of this encounter
--- OUTSIDE RECORDS SUMMARY | 2024-02-18 12:50 | XMS_ITS | Encounter Summary ---
Author Organization [facility] Address [address] [place] [address] Care Team Providers Care Bonded Strand Operator Name Role Phone Dari Yang [facility] Primary Care Provider [phone] Helen Carrion LEATHER TACKER Primary Care Provider Encounter Details Date Type Department Care Team (Late st Contact Info) Description 11/14/2022 Lab Requisition [facility] Pathology & Laboratory Medicine - [address] [address] Outr Resulting Lab, Provider Social History Tobacco [...] Info) Description 02/19/2024 8:25 EST Hospital Encounter [facility] OR [address] [place], [place] [phone] Ceferino Aguilera MD 111 [facility], Level [address] [place] [phone] 02/19/2024 8:25 EST - 02/19/2024 11:55 EST Surgery [facility] OR [address] [place], [place] 3432[address] Ceferino Aguilera MD [address] [place] [phone] abdominal myomectomy [67591 (CPT??)] 03/08/2024 10:45 EST Post-op Visit [facility] OBGYN Services - [address] [id number] Ceferino Aguilera MD [address] [place] [phone] Scheduled Procedures Name Priority Associated Diagnoses Date/Ti me MYOMECTOMY, UTERUS, 1-4 LEIOMYOMATA, ABDOMINAL APPROACH, FOR UTERUS 250 GRAMS OR LESS Uterine leiomyoma, unspecified location 02/19/2024 8:25 EST documented as of this encounter Procedures Procedure Name Priority Date/Time Associated Diagnosis Comments CHLAMYDIA/N. GONORRHOEAE AMPLIFIED NUCLEIC ACID Routine 11/14/2022 15:00 EDT documented in this encounter Results * CHLAMYDIA/N. GONORRHOEAE AMPLIFIED RNA (11/14/2022 15:00 EDT) Neisseria gonorrhoeae Result Negative Negative 11/15/2022 13:13 EDT [facility] Chlamydia trachomatis Result Negative Negative 11/15/2022 13:13 EDT [facility] Swab ENDOCERVICAL STRUCTURE / Unknown 11/14/2022 15:00 EDT 11/14/2022 22:44 EDT us Provider Outr Resulting Lab MICROBIOLOGY - GENER AL ORDERABLES Final Result [facility] [address] [place] [address] documented in this encounter Visit Diagnoses Not on filedocumented in this encounter Care Teams Bonded Strand Operator Relationship Specialty Start Date End Date [facility] [address] [place] [address] PCP - General 08/31/19 02/12/24 Helen Carrion FNP [address] [place] [phone] PCP - General Family Medicine - Primary Care 02/13/24 documented as of this encounter
--- OUTSIDE RECORDS SUMMARY | 2024-02-18 12:50 | XMS_ITS | Encounter Summary ---
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) - Authorization Not Required Specialty Diagnoses / Procedures [facility]erred To Contact Diagnoses Uterine leiomyoma, unspecified location Procedures US PELVIS TRANSABDOMINAL AND TRANSVAGINAL COMPLETE US PELVIS TRANSVAGINAL COMPLETE Faith Mesa, SARAH [address] [address] Phone: tel: fax: [facility] PHYSICAL GEOGRAPHER/ABDULKADIR Referral ID Status Reason Start Date Expiration Date Visits Requested Visits Authorized [id number] Authorization Not Required 08/19/2023 1 1 Encounter Details Date Type Department Care Team (Latest Contact Info) Description 12/01/2023 13:12 EDT - 12/01/2023 23:59 EDT Hospital Encounter [facility] OBGYN Services - Main [place] [address] [place], [place] [phone] Uterine leiomyoma, unspecified location Discharge Disposition: Home or Self Care Social History Tobacco Use Types Packs/Day [...] on file documented as of this encounter Medications at Time of Discharge citalopram (CELEXA) 20 mg tablet Take 1 Tablet by mouth daily. Levothyroxine 100 mcg capsule Take 100 mcg by mouth daily. norgestimate-ethi nyl estradioL (ORTHO TRI-CYCLEN, 28,) 0.18/0.215/0.25 mg-35 mcg (28) tablet Take 1 Tab by mouth daily. 84 Tab 1 08/25/2019 documented as of this encounter Discharge Disposition Disposition Code Departure Means Destination Home or Self Care documented in this encounter Plan of Treatment Upcoming Encounters Date Type Department Care Team (Late st Contact Info) Description 02/19/2024 8:25 EST Hospital Encounter [facility] [place] [address] [place] [address] [id number] Ceferino Aguilera MD [address] [place] [phone] 02/19/2024 8:25 EST - 02/19/2024 11:55 EST Surgery [facility] [place] [address] [place] [address] [id number] Ceferino Aguilera MD [address] [place] [phone] abdominal myomectomy [47824 (CPT??)] 03/08/2024 10:45 EST Post-op Visit [facility] OBGYN Services - [address] [phone] Ceferino Aguilera MD [address] [place] [phone] Scheduled Procedures Name Priority Associated Diagnoses Date/Ti me MYOMECTOMY, UTERUS, 1-4 LEIOMYOMATA, ABDOMINAL APPROACH, FOR UTERUS 250 GRAMS OR LESS Uterine leiomyoma, unspecified location 02/19/2024 8:25 EST documented as of this encounter Procedures Procedure Name Priority Date/Time Associated Diagnosis Comments US PELVIS TRANSABDOMINAL AND TRANSVAGINAL COMPLETE Routine 12/01/2023 14:30 EDT Uterine leiomyoma, unspecified location documented in this encounter Results * US PELVIS TRANSABDOMINAL AND TRANSVAGINAL COMPLETE [...] ========= Transvaginal T Transabdominal (Limited) Pelvic - 16906 T 48982 1. Uterus with fibroid as reported above [...] ========= Transvaginal T Transabdominal (Limited) Pelvic - 27003 T 95844 1. Uterus with fibroid as reported above [...] IMG US OB ORDERABLES Final R esult documented in this encounter Visit Diagnoses Diagnosis Uterine leiomyoma, unspecified location Uterine leiomyoma, unspecified location documented in this encounter Care Teams Janitor And Cleaner Relationship Specialty Start Date End Date Celia, [facility] 4 [facility] [place] [address] PCP - General 08/31/19 02/12/24 documented as of this encounter
--- OUTSIDE RECORDS SUMMARY | 2024-02-18 12:50 | XMS_ITS | Encounter Summary ---
Author Organization [facility] Address [address] [place] [address] Care Team Providers Care Exercise Manager Name Role Phone Dari Yang [facility] Primary Care Provider [phone] Helen Carrion PROMOTIONS DIRECTOR Primary Care Provider Encounter Details Date Type Department Care Team (Late st Contact Info) Description 12/29/2023 Lab Requisition [facility] Pathology & Laboratory Medicine - [facility] [address] [place] [address] Faith Mesa, CN [address] [facility] [address] [place] [address] Encounter for screening for malignant neoplasm of cervix Social History Tobacco Use Types Packs/Day Years [...] Info) Description 02/19/2024 8:25 EST Hospital Encounter [facility] OR [address] [place], [place] [phone] Ceferino Aguilera MD 111 [facility], [address] [place] [phone] 02/19/2024 8:25 EST - 02/19/2024 11:55 EST Surgery [facility] OR [address] [place] [phone] Ceferino Aguilera MD [address] [place] [address], [facility] 4 [place] [phone] abdominal myomectomy [71943 (CPT??)] 03/08/2024 10:45 EST Post-op Visit [facility] OBGYN Services - [address] [phone] Ceferino Aguilera MD [address] [place] [address], [facility] 4 [place] [phone] Scheduled Procedures Name Priority Associated Diagnoses Date/Ti mo MYOMECTOMY, UTERUS, 1-4 LEIOMYOMATA, ABDOMINAL APPROACH, FOR UTERUS 250 GRAMS OR LESS Uterine leiomyoma, unspecified location 02/19/2024 8:25 EST documented as of this encounter Procedures Procedure Name Priority Date/Time Associated Diagnosis Comments PAP TEST Today 12/29/2023 18:10 EDT Encounter for screening for malignant neoplasm of cervix documented in this encounter Results * PAP TEST (12/29/2023 18:10 EDT) Specimens A. Cervix and/or Endocervix , ThinPrep Imaging System with Manual Evaluation 01/06/2024 12:09 EDT [facility] Specimen Adequacy Satisfactory for Evaluation - transformation zone component present Scant squamous epithelial component 01/06/2024 12:09 EDT [facility] General Categorization Negative for intraepithelial lesion or malignancy 01/06/2024 12:09 T [facility] Attestation . 01/06/2024 12:09 EDT [facility] at 1209 Clinical History Clinical History, Signs, Symptoms, Chief Complaint, Pertaining to This Order: SEE BELOW Last Menstral Period: 12/27/2023 Hormone/Contracep tive Use?: Yes ?: No Post-?: No 01/06/2024 12:09 EDT [facility] Performing Lab [facility] 01/06/2024 12:09 EDT [facility] Scanned Images 01/06/2024 12:09 EDT [facility] Pap Test CERVIX UTERI STRUCTURE / Unknown 12/29/2023 18:10 EDT 12/30/2023 14:33 EDT us Faith BURRELL PATHOLOGY ORDERABLES Final R esult [facility] [address] [place], [place] [address] documented in this encounter Visit Diagnoses Diagnosis Encounter for screening for malignant neoplasm of cervix Screening for malignant neoplasm of the cervix Uterine leiomyoma, unspecified location documented in this encounter Care Teams Exercise Manager Relationship Specialty Start Date End Date [facility] [address] [place] [address] PCP - General 08/31/19 02/12/24 Helen Carrion FNP [address] [place] [phone] PCP - General Family Medicine - Primary Care 02/13/24 documented as of this encounter
--- OUTSIDE RECORDS SUMMARY | 2024-02-18 12:50 | XMS_ITS | Encounter Summary ---
Author Organization [facility] Address [address] [place] [address] Care Team Providers Care Educational Assistant Teacher Name Role Phone Celia [facility]- Primary Care Provider [phone] Reason for Referral * SQL ANALYST (Routine/Next Available) - Authorization Not Required Specialty Diagnoses / Procedures Referred By Contac t Referred To Contact Diagnoses Uterine fibroid during , antepartum Poor growth affecting management of mother in third trimester, single or unspecified fetus Procedures US OB UMB ART DOPPLER Sandra Lua MD Phone: tel: fax: [facility] Referral ID Status Reason Start Date Expiration Date Visits Requested Visits Authorized [id number] Authorization Not Required 05/07/2023 2 2 * SQL ANALYST (Routine/Next Available) - Authorization Not Required Specialty Diagnoses / Procedures Referred By Contac t Referred To Contact Diagnoses Uterine fibroid during , antepartum Poor growth affecting management of mother in third trimester, single or unspecified fetus Procedures US OB FOLLOWUP Sandra Lua MD Phone: tel: fax: [facility] Referral ID Status Reason Start Date Expiration Date Visits Requested Visits Authorized [id number] Authorization Not Required 05/07/2023 2 2 Reason for Visit * Reason Comments Advice Only Patient reports +FM. Denies any LOF/VB or contractions. Encounter Details Date Type Department Care Team (Late st Contact Info) Description 05/07/2023 14:15 EST Office Visit [facility] - [address] [phone] Sandra Lua MD [address] [facility], [address] [place] [address] Uterine fibroid during , antepartum (Primary Dx); Poor growth affecting management of mother in third trimester, single or unspecified fetus Social History Tobacco Use Types Packs/Day Years [...] Sign Reading Time Taken Comments Blood Pressure 110/70 05/07/2023 1518 EST Pulse - - Temperature - - Respiratory Rate - - Oxygen Saturation - - Inhaled Oxygen Concentration - - Weight - - Height - - Body Mass Index - - documented in this encounter Progress Notes * Sandra Lua MD - 05/07/2023 1415 EST [facility] FU Dear Ms Mesa, Thank you for asking MFM to see Saulo Mace She is a 27 y.o. at 33w1d with suspected FGR on outside scan (per pt). She through needed induction 37 wks for FGR. Today on US the fibroid is essentially unchanged. EFW is 12% AC 10% dopplers normal BP 110/70 LMP 09/07/2022 . At this point recommend: Routine OB care and timing of delivery at this point Will plan for fu growth [facility] q3 wks so we can assess all at one visit and comment on changes in delivery planning based on interval growth These US are scheduled MFMS Attending I saw and examined the patient. I agree with impression and plan as noted above. I spent 20-29 minutes of total time today on the encounter. In addition to providing routine care, I spent a total of 20-29 minutes on the date of this encounter actively managing one or more chronic medical conditions pre-dating the , including dose adjustment of at least one prescription medication, as described above. This time statement reflects only the proportion of my total time spent meeting with the patient, reviewing documentation and coordinating care that is directly attributable to the pre- condition(s). Sandra Lua MD documented in this encounter Miscellaneous Notes * Assessment & Plan Note - Sandra Lua MD - 05/07/2023 1524 ESTAssociated Problem(s): Uterine fibroid during , antepartum 05/07: stable size * Assessment & Plan Note - Sandra Lua MD - 05/07/2023 1524 ESTAssociated Problem(s): Poor growth affecting management of mother in third trimester Referred from [facility] FGR suspected-pt thought needed induction 37 wks for FGR 05/07: AC 10% EFW 12% doppler nl [O] q3 wk grwoth with visit to follow Disc at this point routine care re: delivery timing; we will fu growth q3 wks and do fu to comment on delivery timing based on EFW documented in this encounter Plan of Treatment Upcoming Encounters Date Type Department Care Team (Late st Contact Info) Description 02/19/2024 8:25 EST Hospital Encounter [facility] OR [address] [place] [address] Ceferino Aguilera MD [address] [facility], [address] [place] [address] 02/19/2024 8:25 EST - 02/19/2024 11:55 EST Surgery [facility] OR [address] [place] [phone] Ceferino Aguilera MD [address] [place] [phone] abdominal myomectomy [60143 (CPT??)] 03/08/2024 10:45 EST Post-op Visit [facility] - [address] [address] Ceferino Aguilera MD [address] [place] [phone] Scheduled Orders Name Type Priority Associated Diagnoses Orde r Schedule US OB FOLLOWUP Imaging Routine Uterine fibroid during , antepartum Poor growth affecting management of mother in third trimester, single or unspecified fetus q3 for 2 Occurrences starting 05/07/2023 until 05/28/2024, 1 completed US OB UMB ART DOPPLER Imaging Routine Uterine fibroid during , antepartum Poor growth affecting management of mother in third trimester, single or unspecified fetus q3 for 2 Occurrences starting 05/07/2023 until 05/07/2024, 1 completed Scheduled Procedures Name Priority Associated Diagnoses Date/Ti me MYOMECTOMY, UTERUS, 1-4 LEIOMYOMATA, ABDOMINAL APPROACH, FOR UTERUS 250 GRAMS OR LESS Uterine leiomyoma, unspecified location 02/19/2024 8:25 EST documented as of this encounter Results * US OB UMB ART DOPPLER (05/29/2023 10:39 EDT) Anatomical Region Laterality Modality Pelvis Ultrasound 05/29/2023 10:0 8 EDT Addenda Addendum by Parker Hoskins MD on 05/30/2023 9:05 EDT Addendum ========= Added the characterization of the fibroid as pedunculated. Indication ======== large fundal fibroid, EFW 10% on outside scan History ====== General History Height 163 cm Height (ft) ?5 ft Height (in) ?4 in Previous Outcomes ?1 Para ?? 0 Pregnancies delivered at term (T) ??0 Pregnancies delivered (P) ??0 Abortions (A) ??0 Living children (L) ?0 ========= Number of fetuses: 1 Maternal Assessment Height 163 cm Height (ft) ?5 ft Height (in) ?4 in Physical Exam Initial weight 104 kg Initial weight (lb) ?229 lb Initial BMI ?39.31 kg/m?? Dating ====== LMP on: ?09/07/2022 GA by LMP ??37 w + 5 d ROLA by LMP : ? 06/14/2023 Previous Ultrasound on: ?11/14/2022 Type of prior assessment: ??GA GA at prior assessment date ?8 w + 2 d GA by previous U/S 36 w + 2 d ROLA by previous Ultrasound: ?06/24/2023 Ultrasound examination on: 05/29/2023 GA by U/S based upon: ??AC, BPD, Femur, HC GA by U/S ??35 w + 3 d ROLA by U/S: ?06/30/2023 Assigned: ??based on ultrasound (GA), selected on 02/10/2023 Assigned GA ?36 w + 2 d Assigned ROLA: ??06/24/2023 General Evaluation Cardiac activity Present. FHR 144 bpm. movements: visualized Amniotic fluid: Amount of AF: normal. MVP 6.3 cm. EMILIANO 14.4 cm. Q1 2.5 cm, Q2 1.2 cm, Q3 4.4 cm, Q4 6.3 cm Anatomy Cranium: ?? normal Lateral ventricles: ?normal Midline falx: ??normal Head / Neck Cranium: ?? normal shape and size 4-chamber view: ?normal Stomach: ?? normal Kidneys: ?? normal Bladder: ?? normal sex: male Wants to know sex: ?? yes Biometry Standard BPD ?92.5 mm 37w 4d 89% Hadlock OFD ?112.8 mm ?38w 3d 78% Jose Miguel HC 324.7 mm ?36w 0d 45% Chervenak AC 308.8 mm ?34w 6d 21% Hadlock Femur ??64.7 mm 33w 1d 7% Jose Miguel Humerus ?58.1 mm 33w 4d 13% Jose Miguel HC / AC ?1.05 EFW ?2,544 g ??22% Anderson EFW (lb) ?? 5 lb EFW (oz) ?? 10 oz EFW by: ?Hadlock ([id number]) Extended Applied Computer Science Professor 7.3 mm Head / Face / Neck Cephalic index 0.82 ? 56% Nicolaides Extremities / Bony Struc FL / BPD ?? 0.70 FL / HC ?0.20 FL / AC ?0.21 Other Structures FHR ?144 bpm Doppler Arterial Umbilical A PI 1.01 ? 83% Henry Umbilical A RI 0.65 ? 83% Henry Umbilical A PS -36.53 cm/s Umbilical A ?ED ?-12.63 cm/s Umbilical A TAmax ??-23.61 cm/s Umbilical A MD -11.08 cm/s Umbilical A S / D ??2.91 ? 78% Henry Umbilical A HR 138 bpm Impression: ?Normal Doppler study Maternal Structures Uterus / Cervix Fibroids: ??Fibroids identified Uterine fibroid D1 209.2 mm Uterine fibroid D2 170.9 mm Uterine fibroid D3 170.2 mm Uterine fibroid mean ?? 183.4 mm Uterine fibroid vol ?3,186.118 cm cubed Uterine fibroids findings: Posterior. Fundal, Pedunculated Growth Overview Exam date ??GA ??BPD (mm) ?HC (mm) AC (mm) FL (mm) HL (mm) EFW (g) 02/10/2023 ??20w 6d ??52.9 ?89% 189.5 ?? 61% 156.2 ?? 41% 31.8 ?28% 31.8 ? 38% 359 05/07/2023 33w 1d ??87 ??92% 323.4 ?? 88% 274.1 ?? 10% 58.8 ?7% ??52.7 ?7% ?? 1885 ?12% 05/29/2023 36w 2d ??92.5 ?89% 324.7 ?? 45% 308.8 ?? 21% 64.7 ?7% ??58.1 ? 13% 2544 ?22% Method ====== Transabdominal ultrasound examination, Voluson E22. View: Sufficient Impression ========= [id number] Follow-up obstetrical ultrasound This is a jones gestation. Composite biometry is consistent with prior dating with the abdominal circumference 21%. The EFW is at the 22%. Except where noted above, the anatomy was not reviewed in detail as this is a follow-up study and the anatomy was previously assessed. Normal fluid and movement are noted. The previously identified fibroid is again noted, and that is unlikely to obstruct labor. It appears likely to be pedunculated. [id number] Umbilical artery Doppler study Doppler waveforms of the umbilical artery are normal. Follow-up ======== She has had EFW at 10% or larger for her last 2 scans, so I would discontinue further Doppler assessment. DATE OF SERVICE: ././<OBR Addendum by Parker Hoskins MD on 05/29/2023 11:22 EDT Addendum ========= Added the characterization of the fibroid as pedunculated. Indication ======== large fundal fibroid, EFW 10% on outside scan History ====== General History Height 163 cm Height (ft) ?5 ft Height (in) ?4 in Previous Outcomes ?1 Para ?? 0 Pregnancies delivered at term (T) ??0 Pregnancies delivered (P) ??0 Abortions (A) ??0 Living children (L) ?0 ========= Number of fetuses: 1 Maternal Assessment Height 163 cm Height (ft) ?5 ft Height (in) ?4 in Physical Exam Initial weight 104 kg Initial weight (lb) ?229 lb Initial BMI ?39.31 kg/m?? Dating ====== LMP on: ?09/07/2022 GA by LMP ??37 w + 5 d ROLA by LMP : ? 06/14/2023 Previous Ultrasound on: ?11/14/2022 Type of prior assessment: ??GA GA at prior assessment date ?8 w + 2 d GA by previous U/S 36 w + 2 d ROLA by previous Ultrasound: ?06/24/2023 Ultrasound examination on: 05/29/2023 GA by U/S based upon: ??AC, BPD, Femur, HC GA by U/S ??35 w + 3 d ROLA by U/S: ?06/30/2023 Assigned: ??based on ultrasound (GA), selected on 02/10/2023 Assigned GA ?36 w + 2 d Assigned ROLA: ??06/24/2023 General Evaluation Cardiac activity Present. FHR 144 bpm. movements: visualized Amniotic fluid: Amount of AF: normal. MVP 6.3 cm. EMILIANO 14.4 cm. Q1 2.5 cm, Q2 1.2 cm, Q3 4.4 cm, Q4 6.3 cm Anatomy Cranium: ?? normal Lateral ventricles: ?normal Midline falx: ??normal Head / Neck Cranium: ?? normal shape and size 4-chamber view: ?normal Stomach: ?? normal Kidneys: ?? normal Bladder: ?? normal sex: male Wants to know sex: ?? yes Biometry Standard BPD ?92.5 mm 37w 4d 89% Hadlock OFD ?112.8 mm ?38w 3d 78% Jose Miguel HC 324.7 mm ?36w 0d 45% Chervenak AC 308.8 mm ?34w 6d 21% Hadlock Femur ??64.7 mm 33w 1d 7% Jose Miguel Humerus ?58.1 mm 33w 4d 13% Jose Miguel HC / AC ?1.05 EFW ?2,544 g ??22% Anderson EFW (lb) ?? 5 lb EFW (oz) ?? 10 oz EFW by: ?Hadlock ([id number]) Extended Applied Computer Science Professor 7.3 mm Head / Face / Neck Cephalic index 0.82 ? 56% Nicolaides Extremities / Bony Struc FL / BPD ?? 0.70 FL / HC ?0.20 FL / AC ?0.21 Other Structures FHR ?144 bpm Doppler Arterial Umbilical A PI 1.01 ? 83% Henry Umbilical A RI 0.65 ? 83% Henry Umbilical A PS -36.53 cm/s Umbilical A ?ED ?-12.63 cm/s Umbilical A TAmax ??-23.61 cm/s Umbilical A MD -11.08 cm/s Umbilical A S / D ??2.91 ? 78% Henry Umbilical A HR 138 bpm Impression: ?Normal Doppler study Maternal Structures Uterus / Cervix Fibroids: ??Fibroids identified Uterine fibroid D1 20.9 mm Uterine fibroid D2 17.1 mm Uterine fibroid D3 17.2 mm Uterine fibroid mean ?? 18.4 mm Uterine fibroid vol ?3.219 cm cubed Uterine fibroids findings: Posterior. Fundal, Pedunculated Growth Overview Exam date ??GA ??BPD (mm) ?HC (mm) AC (mm) FL (mm) HL (mm) EFW (g) 02/10/2023 ??20w 6d ??52.9 ?89% 189.5 ?? 61% 156.2 ?? 41% 31.8 ?28% 31.8 ? 38% 359 05/07/2023 33w 1d ??87 ??92% 323.4 ?? 88% 274.1 ?? 10% 58.8 ?7% ??52.7 ?7% ?? 1885 ?12% 05/29/2023 36w 2d ??92.5 ?89% 324.7 ?? 45% 308.8 ?? 21% 64.7 ?7% ??58.1 ? 13% 2544 ?22% Method ====== Transabdominal ultrasound examination, Voluson E22. View: Sufficient Impression ========= [id number] Follow-up obstetrical ultrasound This is a jones gestation. Composite biometry is consistent with prior dating with the abdominal circumference 21%. The EFW is at the 22%. Except where noted above, the anatomy was not reviewed in detail as this is a follow-up study and the anatomy was previously assessed. Normal fluid and movement are noted. The previously identified fibroid is again noted, and that is unlikely to obstruct labor. It appears likely to be pedunculated. [id number] Umbilical artery Doppler study Doppler waveforms of the umbilical artery are normal. Follow-up ======== She has been 10% of larger for her last 2 scans, so I would discontinue further Doppler assessment. DATE OF SERVICE: .7/.1/<OBR Narrative 05/29/2023 11:11 EDT Indication ======== large fundal fibroid, EFW 10% on outside scan History ====== General History Height 163 cm Height (ft) ?5 ft Height (in) ?4 in Previous Outcomes ?1 Para ?? 0 Pregnancies delivered at term (T) ??0 Pregnancies delivered (P) ??0 Abortions (A) ??0 Living children (L) ?0 ========= Number of fetuses: 1 Maternal Assessment Height 163 cm Height (ft) ?5 ft Height (in) ?4 in Physical Exam Initial weight 104 kg Initial weight (lb) ?229 lb Initial BMI ?39.31 kg/m?? Dating ====== LMP on: ?09/07/2022 GA by LMP ??37 w + 5 d ROLA by LMP : ? 06/14/2023 Previous Ultrasound on: ?11/14/2022 Type of prior assessment: ??GA GA at prior assessment date ?8 w + 2 d GA by previous U/S 36 w + 2 d ROLA by previous Ultrasound: ?06/24/2023 Ultrasound examination on: 05/29/2023 GA by U/S based upon: ??AC, BPD, Femur, HC GA by U/S ??35 w + 3 d ROLA by U/S: ?06/30/2023 Assigned: ??based on ultrasound (GA), selected on 02/10/2023 Assigned GA ?36 w + 2 d Assigned ROLA: ??06/24/2023 General Evaluation Cardiac activity Present. FHR 144 bpm. movements: visualized Amniotic fluid: Amount of AF: normal. MVP 6.3 cm. EMILIANO 14.4 cm. Q1 2.5 cm, Q2 1.2 cm, Q3 4.4 cm, Q4 6.3 cm Anatomy Cranium: ?? normal Lateral ventricles: ?normal Midline falx: ??normal Head / Neck Cranium: ?? normal shape and size 4-chamber view: ?normal Stomach: ?? normal Kidneys: ?? normal Bladder: ?? normal sex: male Wants to know sex: ?? yes Biometry Standard BPD ?92.5 mm 37w 4d 89% Hadlock OFD ?112.8 mm ?38w 3d 78% Jose Miguel HC 324.7 mm ?36w 0d 45% Chervenak AC 308.8 mm ?34w 6d 21% Hadlock Femur ??64.7 mm 33w 1d 7% Jose Miguel Humerus ?58.1 mm 33w 4d 13% Jose Miguel HC / AC ?1.05 EFW ?2,544 g ??22% Anderson EFW (lb) ?? 5 lb EFW (oz) ?? 10 oz EFW by: ?Hadlock ([id number]) Extended Applied Computer Science Professor 7.3 mm Head / Face / Neck Cephalic index 0.82 ? 56% Nicolaides Extremities / Bony Struc FL / BPD ?? 0.70 FL / HC ?0.20 FL / AC ?0.21 Other Structures FHR ?144 bpm Doppler Arterial Umbilical A PI 1.01 ? 83% Henry Umbilical A RI 0.65 ? 83% Henry Umbilical A PS -36.53 cm/s Umbilical A ?ED ?-12.63 cm/s Umbilical A TAmax ??-23.61 cm/s Umbilical A MD -11.08 cm/s Umbilical A S / D ??2.91 ? 78% Henry Umbilical A HR 138 bpm Impression: ?Normal Doppler study Maternal Structures Uterus / Cervix Fibroids: ??Fibroids identified Uterine fibroid D1 20.9 mm Uterine fibroid D2 17.1 mm Uterine fibroid D3 17.2 mm Uterine fibroid mean ?? 18.4 mm Uterine fibroid vol ?3.219 cm cubed Uterine fibroids findings: Posterior. Fundal, Pedunculated Growth Overview Exam date ??GA ??BPD (mm) ?HC (mm) AC (mm) FL (mm) HL (mm) EFW (g) 02/10/2023 ??20w 6d ??52.9 ?89% 189.5 ?? 61% 156.2 ?? 41% 31.8 ?28% 31.8 ?38% 359 05/07/2023 33w 1d ??87 ??92% 323.4 ?? 88% 274.1 ?? 10% 58.8 ?7% ??52.7 ?7% ??1885 ?12% 05/29/2023 36w 2d ??92.5 ?89% 324.7 ?? 45% 308.8 ?? 21% 64.7 ?7% ??58.1 ?13% 2544 ?22% Method ====== Transabdominal ultrasound examination, Voluson E22. View: Sufficient Impression ========= 28680 Follow-up obstetrical ultrasound This is a jones gestation. Composite biometry is consistent with prior dating with the abdominal circumference 21%. The EFW is at the 22%. Except where noted above, the anatomy was not reviewed in detail as this is a follow-up study and the anatomy was previously assessed. Normal fluid and movement are noted. The previously identified fibroid is again noted, and that is unlikely to obstruct labor. [id number] Umbilical artery Doppler study Doppler waveforms of the umbilical artery are normal. Follow-up ======== She has been 10% of larger for her last 2 scans, so I would discontinue further Doppler assessment. DATE OF SERVICE: .7/.1/<OBR Procedure Note Parker Hoskins MD - 05/29/2023 Indication ======== large fundal fibroid, EFW 10% on outside scan History ====== General History Height 163 cm Height (ft) 5 ft Height (in) 4 in Previous Outcomes 1 Para 0 Pregnancies delivered at term (T) 0 Pregnancies delivered (P) 0 Abortions (A) 0 Living children (L) 0 ========= Number of fetuses: 1 Maternal Assessment Height 163 cm Height (ft) 5 ft Height (in) 4 in Physical Exam Initial weight 104 kg Initial weight (lb) 229 lb Initial BMI 39.31 kg/m?? Dating ====== LMP on: 09/07/2022 GA by LMP 37 w + 5 d ROLA by LMP : 06/14/2023 Previous Ultrasound on: 11/14/2022 Type of prior assessment: GA GA at prior assessment date 8 w + 2 d GA by previous U/S 36 w + 2 d ROLA by previous Ultrasound: 06/24/2023 Ultrasound examination on: 05/29/2023 GA by U/S based upon: AC, BPD, Femur, HC GA by U/S 35 w + 3 d ROLA by U/S: 06/30/2023 Assigned: based on ultrasound (GA), selected on 02/10/2023 Assigned GA 36 w + 2 d Assigned ROLA: 06/24/2023 General Evaluation Cardiac activity Present. FHR 144 bpm. movements: visualized Amniotic fluid: Amount of AF: normal. MVP 6.3 cm. EMILIANO 14.4 cm. Q1 2.5 cm,Q2 1.2 cm, Q3 4.4 cm, Q4 6.3 cm Anatomy Cranium: normal Lateral ventricles: normal Midline falx: normal Head / Neck Cranium: normal shape and size 4-chamber view: normal Stomach: normal Kidneys: normal Bladder: normal sex: male Wants to know sex: yes Biometry Standard BPD 92.5 mm 37w 4d 89% Hadlock OFD 112.8 mm 38w 3d 78% Jose Miguel HC 324.7 mm 36w 0d 45% Chervenak AC 308.8 mm 34w 6d 21% Hadlock Femur 64.7 mm 33w 1d 7% Jose Miguel Humerus 58.1 mm 33w 4d 13% Jose Miguel HC / AC 1.05 EFW 2,544 g 22% Anderson EFW (lb) 5 lb EFW (oz) 10 oz EFW by: Hadlock ([id number]) Extended Applied Computer Science Professor 7.3 mm Head / Face / Neck Cephalic index 0.82 56% Nicolaides Extremities / Bony Struc FL / BPD 0.70 FL / HC 0.20 FL / AC 0.21 Other Structures FHR 144 bpm Doppler Arterial Umbilical A PI 1.01 83% Henry Umbilical A RI 0.65 83% Henry Umbilical A PS -36.53 cm/s Umbilical A ED -12.63 cm/s Umbilical A TAmax -23.61 cm/s Umbilical A MD -11.08 cm/s Umbilical A S / D 2.91 78% Henry Umbilical A HR 138 bpm Impression: Normal Doppler study Maternal Structures Uterus / Cervix Fibroids: Fibroids identified Uterine fibroid D1 20.9 mm Uterine fibroid D2 17.1 mm Uterine fibroid D3 17.2 mm Uterine fibroid mean 18.4 mm Uterine fibroid vol 3.219 cm cubed Uterine fibroids findings: Posterior. Fundal, Pedunculated Growth Overview Exam date GA BPD (mm) HC (mm) AC (mm) FL (mm) HL (mm) EFW (g) 02/10/2023 20w 6d 52.9 89% 189.5 61% 156.2 41% 31.8 28% 31.838% 359 05/07/2023 33w 1d 87 92% 323.4 88% 274.1 10% 58.8 7% 52.7 7%1885 12% 05/29/2023 36w 2d 92.5 89% 324.7 45% 308.8 21% 64.7 7% 58.113% 2544 22% Method ====== Transabdominal ultrasound examination, Voluson E22. View: Sufficient Impression ========= 34096 Follow-up obstetrical ultrasound This is a jones gestation. Composite biometry is consistent with prior dating with theabdominal circumference 21%. The EFW is at the 22%. Except where noted above, the anatomy was not reviewed in detail asthis is a follow-up study and the anatomy was previously assessed. Normal fluid and movement are noted. The previously identified fibroid is again noted, and that is unlikely toobstruct labor. 56532 Umbilical artery Doppler study Doppler waveforms of the umbilical artery are normal. Follow-up ======== She has been 10% of larger for her last 2 scans, so I would discontinuefurther Doppler assessment. DATE OF SERVICE: .//<OBR us Sandra Lua MD IMG US OB ORDERABLES Edited Result - Final * US OB FOLLOWUP (05/29/2023 10:39 EDT) Anatomical Region Laterality Modality Pelvis Ultrasound 05/29/2023 10:0 8 EDT Addenda Addendum by Parker Hoskins MD on 05/30/2023 9:05 EDT Addendum ========= Added the characterization of the fibroid as pedunculated. Indication ======== large fundal fibroid, EFW 10% on outside scan History ====== General History Height 163 cm Height (ft) ?5 ft Height (in) ?4 in Previous Outcomes ?1 Para ?? 0 Pregnancies delivered at term (T) ??0 Pregnancies delivered (P) ??0 Abortions (A) ??0 Living children (L) ?0 ========= Number of fetuses: 1 Maternal Assessment Height 163 cm Height (ft) ?5 ft Height (in) ?4 in Physical Exam Initial weight 104 kg Initial weight (lb) ?229 lb Initial BMI ?39.31 kg/m?? Dating ====== LMP on: ?09/07/2022 GA by LMP ??37 w + 5 d ROLA by LMP : ? 06/14/2023 Previous Ultrasound on: ?11/14/2022 Type of prior assessment: ??GA GA at prior assessment date ?8 w + 2 d GA by previous U/S 36 w + 2 d ROLA by previous Ultrasound: ?06/24/2023 Ultrasound examination on: 05/29/2023 GA by U/S based upon: ??AC, BPD, Femur, HC GA by U/S ??35 w + 3 d ROLA by U/S: ?06/30/2023 Assigned: ??based on ultrasound (GA), selected on 02/10/2023 Assigned GA ?36 w + 2 d Assigned ROLA: ??06/24/2023 General Evaluation Cardiac activity Present. FHR 144 bpm. movements: visualized Amniotic fluid: Amount of AF: normal. MVP 6.3 cm. EMILIANO 14.4 cm. Q1 2.5 cm, Q2 1.2 cm, Q3 4.4 cm, Q4 6.3 cm Anatomy Cranium: ?? normal Lateral ventricles: ?normal Midline falx: ??normal Head / Neck Cranium: ?? normal shape and size 4-chamber view: ?normal Stomach: ?? normal Kidneys: ?? normal Bladder: ?? normal sex: male Wants to know sex: ?? yes Biometry Standard BPD ?92.5 mm 37w 4d 89% Hadlock OFD ?112.8 mm ?38w 3d 78% Jose Miguel HC 324.7 mm ?36w 0d 45% Chervenak AC 308.8 mm ?34w 6d 21% Hadlock Femur ??64.7 mm 33w 1d 7% Jose Miguel Humerus ?58.1 mm 33w 4d 13% Jose Miguel HC / AC ?1.05 EFW ?2,544 g ??22% Anderson EFW (lb) ?? 5 lb EFW (oz) ?? 10 oz EFW by: ?Hadlock ([id number]) Extended Applied Computer Science Professor 7.3 mm Head / Face / Neck Cephalic index 0.82 ? 56% Nicolaides Extremities / Bony Struc FL / BPD ?? 0.70 FL / HC ?0.20 FL / AC ?0.21 Other Structures FHR ?144 bpm Doppler Arterial Umbilical A PI 1.01 ? 83% Henry Umbilical A RI 0.65 ? 83% Henry Umbilical A PS -36.53 cm/s Umbilical A ?ED ?-12.63 cm/s Umbilical A TAmax ??-23.61 cm/s Umbilical A MD -11.08 cm/s Umbilical A S / D ??2.91 ? 78% Henry Umbilical A HR 138 bpm Impression: ?Normal Doppler study Maternal Structures Uterus / Cervix Fibroids: ??Fibroids identified Uterine fibroid D1 209.2 mm Uterine fibroid D2 170.9 mm Uterine fibroid D3 170.2 mm Uterine fibroid mean ?? 183.4 mm Uterine fibroid vol ?3,186.118 cm cubed Uterine fibroids findings: Posterior. Fundal, Pedunculated Growth Overview Exam date ??GA ??BPD (mm) ?HC (mm) AC (mm) FL (mm) HL (mm) EFW (g) 02/10/2023 ??20w 6d ??52.9 ?89% 189.5 ?? 61% 156.2 ?? 41% 31.8 ?28% 31.8 ? 38% 359 05/07/2023 33w 1d ??87 ??92% 323.4 ?? 88% 274.1 ?? 10% 58.8 ?7% ??52.7 ?7% ?? 1885 ?12% 05/29/2023 36w 2d ??92.5 ?89% 324.7 ?? 45% 308.8 ?? 21% 64.7 ?7% ??58.1 ? 13% 2544 ?22% Method ====== Transabdominal ultrasound examination, Voluson E22. View: Sufficient Impression ========= [id number] Follow-up obstetrical ultrasound This is a jones gestation. Composite biometry is consistent with prior dating with the abdominal circumference 21%. The EFW is at the 22%. Except where noted above, the anatomy was not reviewed in detail as this is a follow-up study and the anatomy was previously assessed. Normal fluid and movement are noted. The previously identified fibroid is again noted, and that is unlikely to obstruct labor. It appears likely to be pedunculated. 30236 Umbilical artery Doppler study Doppler waveforms of the umbilical artery are normal. Follow-up ======== She has had EFW at 10% or larger for her last 2 scans, so I would discontinue further Doppler assessment. DATE OF SERVICE: ../<OBR Addendum by Parker Hoskins MD on 05/29/2023 11:22 EDT Addendum ========= Added the characterization of the fibroid as pedunculated. Indication ======== large fundal fibroid, EFW 10% on outside scan History ====== General History Height 163 cm Height (ft) ?5 ft Height (in) ?4 in Previous Outcomes ?1 Para ?? 0 Pregnancies delivered at term (T) ??0 Pregnancies delivered (P) ??0 Abortions (A) ??0 Living children (L) ?0 ========= Number of fetuses: 1 Maternal Assessment Height 163 cm Height (ft) ?5 ft Height (in) ?4 in Physical Exam Initial weight 104 kg Initial weight (lb) ?229 lb Initial BMI ?39.31 kg/m?? Dating ====== LMP on: ?09/07/2022 GA by LMP ??37 w + 5 d ROLA by LMP : ? 06/14/2023 Previous Ultrasound on: ?11/14/2022 Type of prior assessment: ??GA GA at prior assessment date ?8 w + 2 d GA by previous U/S 36 w + 2 d ROLA by previous Ultrasound: ?06/24/2023 Ultrasound examination on: 05/29/2023 GA by U/S based upon: ??AC, BPD, Femur, HC GA by U/S ??35 w + 3 d ROLA by U/S: ?06/30/2023 Assigned: ??based on ultrasound (GA), selected on 02/10/2023 Assigned GA ?36 w + 2 d Assigned ROLA: ??06/24/2023 General Evaluation Cardiac activity Present. FHR 144 bpm. movements: visualized Amniotic fluid: Amount of AF: normal. MVP 6.3 cm. EMILIANO 14.4 cm. Q1 2.5 cm, Q2 1.2 cm, Q3 4.4 cm, Q4 6.3 cm Anatomy Cranium: ?? normal Lateral ventricles: ?normal Midline falx: ??normal Head / Neck Cranium: ?? normal shape and size 4-chamber view: ?normal Stomach: ?? normal Kidneys: ?? normal Bladder: ?? normal sex: male Wants to know sex: ?? yes Biometry Standard BPD ?92.5 mm 37w 4d 89% Hadlock OFD ?112.8 mm ?38w 3d 78% Jose Miguel HC 324.7 mm ?36w 0d 45% [place] AC 308.8 mm ?34w 6d 21% Hadlock Femur ??64.7 mm 33w 1d 7% Jose Miguel Humerus ?58.1 mm 33w 4d 13% Jose Miguel HC / AC ?1.05 EFW ?2,544 g ??22% Anderson EFW (lb) ?? 5 lb EFW (oz) ?? 10 oz EFW by: ?Hadlock ([id number]) Extended Applied Computer Science Professor 7.3 mm Head / Face / Neck Cephalic index 0.82 ? 56% Nicolaides Extremities / Bony Struc FL / BPD ?? 0.70 FL / HC ?0.20 FL / AC ?0.21 Other Structures FHR ?144 bpm Doppler Arterial Umbilical A PI 1.01 ? 83% Henry Umbilical A RI 0.65 ? 83% Henry Umbilical A PS -36.53 cm/s Umbilical A ?ED ?-12.63 cm/s Umbilical A TAmax ??-23.61 cm/s Umbilical A MD -11.08 cm/s Umbilical A S / D ??2.91 ? 78% Henry Umbilical A HR 138 bpm Impression: ?Normal Doppler study Maternal Structures Uterus / Cervix Fibroids: ??Fibroids identified Uterine fibroid D1 20.9 mm Uterine fibroid D2 17.1 mm Uterine fibroid D3 17.2 mm Uterine fibroid mean ?? 18.4 mm Uterine fibroid vol ?3.219 cm cubed Uterine fibroids findings: Posterior. Fundal, Pedunculated Growth Overview Exam date ??GA ??BPD (mm) ?HC (mm) AC (mm) FL (mm) HL (mm) EFW (g) 02/10/2023 ??20w 6d ??52.9 ?89% 189.5 ?? 61% 156.2 ?? 41% 31.8 ?28% 31.8 ? 38% 359 05/07/2023 33w 1d ??87 ??92% 323.4 ?? 88% 274.1 ?? 10% 58.8 ?7% ??52.7 ?7% ?? 1885 ?12% 05/29/2023 36w 2d ??92.5 ?89% 324.7 ?? 45% 308.8 ?? 21% 64.7 ?7% ??58.1 ? 13% 2544 ?22% Method ====== Transabdominal ultrasound examination, Voluson E22. View: Sufficient Impression ========= [id number] Follow-up obstetrical ultrasound This is a jones gestation. Composite biometry is consistent with prior dating with the abdominal circumference 21%. The EFW is at the 22%. Except where noted above, the anatomy was not reviewed in detail as this is a follow-up study and the anatomy was previously assessed. Normal fluid and movement are noted. The previously identified fibroid is again noted, and that is unlikely to obstruct labor. It appears likely to be pedunculated. [id number] Umbilical artery Doppler study Doppler waveforms of the umbilical artery are normal. Follow-up ======== She has been 10% of larger for her last 2 scans, so I would discontinue further Doppler assessment. DATE OF SERVICE: ../<OBR Narrative 05/29/2023 11:11 EDT Indication ======== large fundal fibroid, EFW 10% on outside scan History ====== General History Height 163 cm Height (ft) ?5 ft Height (in) ?4 in Previous Outcomes ?1 Para ?? 0 Pregnancies delivered at term (T) ??0 Pregnancies delivered (P) ??0 Abortions (A) ??0 Living children (L) ?0 ========= Number of fetuses: 1 Maternal Assessment Height 163 cm Height (ft) ?5 ft Height (in) ?4 in Physical Exam Initial weight 104 kg Initial weight (lb) ?229 lb Initial BMI ?39.31 kg/m?? Dating ====== LMP on: ?09/07/2022 GA by LMP ??37 w + 5 d ROLA by LMP : ? 06/14/2023 Previous Ultrasound on: ?11/14/2022 Type of prior assessment: ??GA GA at prior assessment date ?8 w + 2 d GA by previous U/S 36 w + 2 d ROLA by previous Ultrasound: ?06/24/2023 Ultrasound examination on: 05/29/2023 GA by U/S based upon: ??AC, BPD, Femur, HC GA by U/S ??35 w + 3 d ROLA by U/S: ?06/30/2023 Assigned: ??based on ultrasound (GA), selected on 02/10/2023 Assigned GA ?36 w + 2 d Assigned ROLA: ??06/24/2023 General Evaluation Cardiac activity Present. FHR 144 bpm. movements: visualized Amniotic fluid: Amount of AF: normal. MVP 6.3 cm. EMILIANO 14.4 cm. Q1 2.5 cm, Q2 1.2 cm, Q3 4.4 cm, Q4 6.3 cm Anatomy Cranium: ?? normal Lateral ventricles: ?normal Midline falx: ??normal Head / Neck Cranium: ?? normal shape and size 4-chamber view: ?normal Stomach: ?? normal Kidneys: ?? normal Bladder: ?? normal sex: male Wants to know sex: ?? yes Biometry Standard BPD ?92.5 mm 37w 4d 89% Hadlock OFD ?112.8 mm ?38w 3d 78% Jose Miguel HC 324.7 mm ?36w 0d 45% Cher[place] AC 308.8 mm ?34w 6d 21% Hadlock Femur ??64.7 mm 33w 1d 7% Jose Miguel Humerus ?58.1 mm 33w 4d 13% Jose Miguel HC / AC ?1.05 EFW ?2,544 g ??22% Anderson EFW (lb) ?? 5 lb EFW (oz) ?? 10 oz EFW by: ?Hadlock ([id number]) Extended Applied Computer Science Professor 7.3 mm Head / Face / Neck Cephalic index 0.82 ? 56% Nicolaides Extremities / Bony Struc FL / BPD ?? 0.70 FL / HC ?0.20 FL / AC ?0.21 Other Structures FHR ?144 bpm Doppler Arterial Umbilical A PI 1.01 ? 83% Henry Umbilical A RI 0.65 ? 83% Henry Umbilical A PS -36.53 cm/s Umbilical A ?ED ?-12.63 cm/s Umbilical A TAmax ??-23.61 cm/s Umbilical A MD -11.08 cm/s Umbilical A S / D ??2.91 ? 78% Henry Umbilical A HR 138 bpm Impression: ?Normal Doppler study Maternal Structures Uterus / Cervix Fibroids: ??Fibroids identified Uterine fibroid D1 20.9 mm Uterine fibroid D2 17.1 mm Uterine fibroid D3 17.2 mm Uterine fibroid mean ?? 18.4 mm Uterine fibroid vol ?3.219 cm cubed Uterine fibroids findings: Posterior. Fundal, Pedunculated Growth Overview Exam date ??GA ??BPD (mm) ?HC (mm) AC (mm) FL (mm) HL (mm) EFW (g) 02/10/2023 ??20w 6d ??52.9 ?89% 189.5 ?? 61% 156.2 ?? 41% 31.8 ?28% 31.8 ?38% 359 05/07/2023 33w 1d ??87 ??92% 323.4 ?? 88% 274.1 ?? 10% 58.8 ?7% ??52.7 ?7% ??1885 ?12% 05/29/2023 36w 2d ??92.5 ?89% 324.7 ?? 45% 308.8 ?? 21% 64.7 ?7% ??58.1 ?13% 2544 ?22% Method ====== Transabdominal ultrasound examination, Voluson E22. View: Sufficient Impression ========= [id number] Follow-up obstetrical ultrasound This is a jones gestation. Composite biometry is consistent with prior dating with the abdominal circumference 21%. The EFW is at the 22%. Except where noted above, the anatomy was not reviewed in detail as this is a follow-up study and the anatomy was previously assessed. Normal fluid and movement are noted. The previously identified fibroid is again noted, and that is unlikely to obstruct labor. 89987 Umbilical artery Doppler study Doppler waveforms of the umbilical artery are normal. Follow-up ======== She has been 10% of larger for her last 2 scans, so I would discontinue further Doppler assessment. DATE OF SERVICE: ../<OBR Procedure Note Parker Hoskins MD - 05/29/2023 Indication ======== large fundal fibroid, EFW 10% on outside scan History ====== General History Height 163 cm Height (ft) 5 ft Height (in) 4 in Previous Outcomes 1 Para 0 Pregnancies delivered at term (T) 0 Pregnancies delivered (P) 0 Abortions (A) 0 Living children (L) 0 ========= Number of fetuses: 1 Maternal Assessment Height 163 cm Height (ft) 5 ft Height (in) 4 in Physical Exam Initial weight 104 kg Initial weight (lb) 229 lb Initial BMI 39.31 kg/m?? Dating ====== LMP on: 09/07/2022 GA by LMP 37 w + 5 d ROLA by LMP : 06/14/2023 Previous Ultrasound on: 11/14/2022 Type of prior assessment: GA GA at prior assessment date 8 w + 2 d GA by previous U/S 36 w + 2 d ROLA by previous Ultrasound: 06/24/2023 Ultrasound examination on: 05/29/2023 GA by U/S based upon: AC, BPD, Femur, HC GA by U/S 35 w + 3 d ROLA by U/S: 06/30/2023 Assigned: based on ultrasound (GA), selected on 02/10/2023 Assigned GA 36 w + 2 d Assigned ROLA: 06/24/2023 General Evaluation Cardiac activity Present. FHR 144 bpm. movements: visualized Amniotic fluid: Amount of AF: normal. MVP 6.3 cm. EMILIANO 14.4 cm. Q1 2.5 cm,Q2 1.2 cm, Q3 4.4 cm, Q4 6.3 cm Anatomy Cranium: normal Lateral ventricles: normal Midline falx: normal Head / Neck Cranium: normal shape and size 4-chamber view: normal Stomach: normal Kidneys: normal Bladder: normal sex: male Wants to know sex: yes Biometry Standard BPD 92.5 mm 37w 4d 89% Hadlock OFD 112.8 mm 38w 3d 78% Jose Miguel HC 324.7 mm 36w 0d 45% Cher[place]ak AC 308.8 mm 34w 6d 21% Hadlock Femur 64.7 mm 33w 1d 7% Jose Miguel Humerus 58.1 mm 33w 4d 13% Jose Miguel HC / AC 1.05 EFW 2,544 g 22% Anderson EFW (lb) 5 lb EFW (oz) 10 oz EFW by: Hadlock ([id number]) Extended Applied Computer Science Professor 7.3 mm Head / Face / Neck Cephalic index 0.82 56% Nicolaides Extremities / Bony Struc FL / BPD 0.70 FL / HC 0.20 FL / AC 0.21 Other Structures FHR 144 bpm Doppler Arterial Umbilical A PI 1.01 83% Henry Umbilical A RI 0.65 83% Henry Umbilical A PS -36.53 cm/s Umbilical A ED -12.63 cm/s Umbilical A TAmax -23.61 cm/s Umbilical A MD -11.08 cm/s Umbilical A S / D 2.91 78% Henry Umbilical A HR 138 bpm Impression: Normal Doppler study Maternal Structures Uterus / Cervix Fibroids: Fibroids identified Uterine fibroid D1 20.9 mm Uterine fibroid D2 17.1 mm Uterine fibroid D3 17.2 mm Uterine fibroid mean 18.4 mm Uterine fibroid vol 3.219 cm cubed Uterine fibroids findings: Posterior. Fundal, Pedunculated Growth Overview Exam date GA BPD (mm) HC (mm) AC (mm) FL (mm) HL (mm) EFW (g) 02/10/2023 20w 6d 52.9 89% 189.5 61% 156.2 41% 31.8 28% 31.838% 359 05/07/2023 33w 1d 87 92% 323.4 88% 274.1 10% 58.8 7% 52.7 7%1885 12% 05/29/2023 36w 2d 92.5 89% 324.7 45% 308.8 21% 64.7 7% 58.113% 2544 22% Method ====== Transabdominal ultrasound examination, Voluson E22. View: Sufficient Impression ========= 37236 Follow-up obstetrical ultrasound This is a jones gestation. Composite biometry is consistent with prior dating with theabdominal circumference 21%. The EFW is at the 22%. Except where noted above, the anatomy was not reviewed in detail asthis is a follow-up study and the anatomy was previously assessed. Normal fluid and movement are noted. The previously identified fibroid is again noted, and that is unlikely toobstruct labor. 62463 Umbilical artery Doppler study Doppler waveforms of the umbilical artery are normal. Follow-up ======== She has been 10% of larger for her last 2 scans, so I would discontinuefurther Doppler assessment. DATE OF SERVICE: ..1/<OBR us Sandra Lua MD [facility] OB ORDERABLES Edited Result - Final documented in this encounter Visit Diagnoses Diagnosis Uterine fibroid during , antepartum- Primary Poor growth affecting management of mother in third trimester, single or unspecified fetus Uterine fibroid during , antepartum Poor growth affecting management of mother in third trimester, single or unspecified fetus Uterine leiomyoma, unspecified location documented in this encounter Care Teams Educational Assistant Teacher Relationship Specialty Start Date [facility] [address] [place] [address] PCP - General 08/31/19 02/12/24 documented as of this encounter
--- OUTSIDE RECORDS SUMMARY | 2024-02-18 12:50 | XMS_ITS | Encounter Summary ---
Author Organization [facility] Address [address] [place] [address] Care Team Providers Care Slot Machine Key Person Name Role Phone [facility] Primary Care Provider [phone] Helen Carrion [employer]ACATION PLANNER Primary Care Provider [phone] Encounter Details Date Type Department Care Team (Late st Contact Info) Description 11/14/2022 Lab Requisition [facility] Pathology & Laboratory Medicine - [address] [address] Outr Resulting Lab, Provider Social History Tobacco [...] Info) Description 02/19/2024 8:25 EST Hospital Encounter [facility] OR [address] [place], [place] [id number] Ceferino Aguilera MD [address] [facility], [address] [place] [phone] 02/19/2024 8:25 EST - 02/19/2024 11:55 EST Surgery [facility] OR [address] [place], [place] [address] Ceferino Aguilera MD [address] [place] [phone] abdominal myomectomy [05037 (CPT??)] 03/08/2024 10:45 EST Post-op Visit [facility] OBGYN Services - [address] [id number] Ceferino Aguilera MD [address] [place] [phone] Scheduled Procedures Name Priority Associated Diagnoses Date/Ti me MYOMECTOMY, UTERUS, 1-4 LEIOMYOMATA, ABDOMINAL APPROACH, FOR UTERUS 250 GRAMS OR LESS Uterine leiomyoma, unspecified location 02/19/2024 8:25 EST documented as of this encounter Procedures Procedure Name Priority Date/Time Associated Diagnosis Comments HIV 1/2 ANTIGEN AND ANTIBODY, 4TH GENERATION Routine 11/14/2022 15:17 EDT documented in this encounter Results * HIV 1/2 ANTIGEN AND ANTIBODY, 4TH GENERATION (11/14/2022 15:17 EDT) HIV 1 and 2 Antibody/p24 Antigen, 4th Generation Negative Negative 11/15/2022 10:29 EDT [facility] Comment:If acute HIV-1 infec tion is suspected in a high risk patient, submit plasma specimen for HIV-1 RNA quantitation test. Blood VENOUS BLOOD / Unknown 11/14/2022 15:17 EDT 11/14/2022 21:40 EDT Narrative [facility] - 11/15/2022 10:29 EDT Fourth Generation assay performed on the Whyteboardaur XPT. us Provider Outr Resulting Lab IMMUNOLOGY AND SEROL OGY ORDERABLES Final Result [facility] [address] [place] [address] documented in this encounter Visit Diagnoses Not on filedocumented in this encounter Care Teams Slot Machine Key Person Relationship Specialty Start Date End [facility] [address] [place] [address] PCP - General 08/31/19 02/12/24 Helen Carrion FNP [address] [place] [address] PCP - General Family Medicine - Primary Care 02/13/24 documented as of this encounter
--- OUTSIDE RECORDS SUMMARY | 2024-02-18 12:50 | XMS_ITS | Encounter Summary ---
Author Organization [facility] Address [address] [place] [address] Care Team Providers Care Business Systems Analyst Name Role Phone Dari [facility] Primary Care Provider [phone] Helen Carrion [facility] Primary Care Provider Encounter Details Date Type Department Care Team (Late st Contact Info) Description 11/23/2020 Lab Requisition [facility] Pathology & Laboratory Medicine - [facility] [address] [place] [address] Nova Pichardo FNP [address], [address] [place] [address] Encounter for general adult medical examination without abnormal findings; Encounter for screening for malignant neoplasm of [...] Description 02/19/2024 8:25 EST Hospital Encounter [facility] OR [address] [place] [address] Ceferino Aguilera MD 111 [facility], Main [address] [phone] 02/19/2024 8:25 EST - 02/19/2024 11:55 EST Surgery [facility] OR [address] [place] [id number] Ceferino Aguilera MD [address] [place] [phone] abdominal myomectomy [68499 (CPT??)] 03/08/2024 10:45 EST Post-op Visit [facility] OBGYN Services - [address] [address] Ceferino Aguilera MD [address] [place] [phone] Scheduled Procedures Name Priority Associated Diagnoses Date/Ti me MYOMECTOMY, UTERUS, 1-4 LEIOMYOMATA, ABDOMINAL APPROACH, FOR UTERUS 250 GRAMS OR LESS Uterine leiomyoma, unspecified location 02/19/2024 8:25 EST documented as of this encounter Procedures Procedure Name Priority Date/Time Associated Diagnosis Comments PAP TEST Today 11/20/2020 17:05 EDT Encounter for general adult medical examination without abnormal findings Encounter for screening for malignant neoplasm of cervix documented in this encounter Results * PAP TEST (11/20/2020 17:05 EDT) Specimens A. Cervix and/or Endocervix , ThinPrep Imaging System with Manual Evaluation 12/04/2020 10:[address] [facility] Specimen Adequacy Satisfactory for Evaluation - transformation zone component present 12/04/2020 10:[address] [facility] General Categorization Negative for intraepithelial lesion or malignancy 12/04/2020 10:15 [facility] Descriptive Diagnosis Reactive cellular changes associated with inflammation present (includes repair). 12/04/2020 10:15 [facility] Attestation By the signature below, the attending physician certifies that they have personally conducted a gross and/or microscopic examination of the described specimens and rendered or confirmed the above diagnosis. 12/04/2020 10:[address] [facility] at 1015 Clinical History See below 12/05/19 21 10:[address] [facility] Performing Lab [facility] 12/04/2020 10:[address] [facility] Scanned Images 12/04/2020 10:[address] [facility] Papanicolaou smear specimen (specimen) CERVIX UTERI STRUCTURE / Unknown 11/20/2020 17:05 EDT 11/23/2020 8:45 EDT us Nova Pichardo FINISHING RANGE OPERATOR PATHOLOGY ORDERABLES Final R esult Performing Organization Address City/State/[facility] Co de Phone Number [facility] [address] [place] [address] documented in this encounter Visit Diagnoses Diagnosis Encounter for general adult medical examination without abnormal findings Unspecified general medical examination Encounter for screening for malignant neoplasm of cervix Screening for malignant neoplasm of the cervix Uterine leiomyoma, unspecified location documented in this encounter Care Teams Business Systems Analyst Relationship Specialty Start Date End Date [facility] [address] [place] [address] PCP - General 08/31/19 02/12/24 Helen Carrion FNP [address] [place] [address] PCP - General Family Medicine - Primary Care 02/13/24 documented as of this encounter
--- OUTSIDE RECORDS SUMMARY | 2024-02-18 12:50 | XMS_ITS | Encounter Summary ---
Author Organization [facility] Address [address] [place] [address] Care Team Providers Care Molecular Pathologist Name Role Phone Dari Yang [facility]- Primary Care Provider [phone] Encounter Details Date Type Department Care Team (Latest Contact Info) Description 02/10/2023 12:44 EST - 02/10/2023 23:59 EST Hospital Encounter [facility] - [facility] [address] [place] [address] Medication exposure during first trimester of ; Obesity in ; Morbid obesity ([facility]ER[facility]) Discharge Disposition: Home or Self Care Social [...] Info) Description 02/19/2024 8:25 EST Hospital Encounter [facility] OR [address] [place] [id number] Ceferino Aguilera MD [address] [place] [phone] 02/19/2024 8:25 EST - 02/19/2024 11:55 EST Surgery [facility] OR [address] [place] [id number] Ceferino Aguilera MD [address] [place] [phone] abdominal myomectomy [26486 (CPT??)] 03/08/2024 10:45 EST Post-op Visit [facility] - [address] [phone] Ceferino Aguilera MD [address] [place] [phone] Scheduled Procedures Name Priority Associated Diagnoses Date/Ti me MYOMECTOMY, UTERUS, 1-4 LEIOMYOMATA, ABDOMINAL APPROACH, FOR UTERUS 250 GRAMS OR LESS Uterine leiomyoma, unspecified location 02/19/2024 8:25 EST documented as of this encounter Procedures Procedure Name Priority Date/Time Associated Diagnosis Comments US OB DETAILED Routine 02/10/2023 13:49 EST Medication exposure during first trimester of Obesity in Morbid obesity (HCC-CMS) documented in this encounter Results * US OB DETAILED (02/10/2023 13:49 EST) Anatomical Region Laterality Modality Pelvis Ultrasound 02/10/2023 13:0 9 EST Narrative 02/10/2023 16:03 EST Indication ======== BMI 39.3 Large fibroid History ====== General History Height 163 cm Height (ft) ?5 ft Height (in) ?4 in Previous Outcomes ?1 Para ?? 0 Pregnancies delivered at term (T) ??0 Pregnancies delivered (P) ??0 Abortions (A) ??0 Living children (L) ?0 Maternal Assessment Height 163 cm Height (ft) ?5 ft Height (in) ?4 in Physical Exam Initial weight 104 kg Initial weight (lb) ?229 lb Initial BMI ?39.31 kg/m?? ========= Number of fetuses: 1 Dating ====== LMP on: ?09/07/2022 GA by LMP ??22 w + 2 d ROLA by LMP : ? 06/14/2023 Method of dating: ??based on ultrasound Previous Ultrasound on: ?11/14/2022 Type of prior assessment: ??GA GA at prior assessment date ?8 w + 2 d GA by previous U/S 20 w + 6 d ROLA by previous Ultrasound: ?06/24/2023 Ultrasound examination on: 02/10/2023 GA by U/S based upon: ??AC, BPD, Femur, HC GA by U/S ??21 w + 0 d ROLA by U/S: ?06/23/2023 Assigned: ??based on ultrasound (GA), selected on 02/10/2023 Assigned GA ?20 w + 6 d Assigned ROLA: ??06/24/2023 General Evaluation Cardiac activity Present. FHR 152 bpm. movements: visualized. Presentation: cephalic Placenta: anterior Umbilical cord: Cord vessels: 3 vessel cord. Insertion site: placental insertion: normal Amniotic fluid: Amount of AF: normal. MVP 4.0 cm Biometry Standard BPD ?52.9 mm 22w 0d 89% Hadlock OFD ?65.8 mm 22w 1d 90% Jose Miguel HC 189.5 mm ?21w 2d 61% [place] Cerebellum tr ??21.4 mm 21w 0d 44% Wells Nuchal fold ?3.4 mm AC 156.2 mm ?20w 5d 41% Hadlock Femur ??31.8 mm 20w 0d 28% Jose Miguel Humerus ?31.8 mm 20w 4d 38% Jose Miguel HC / AC ?1.21 ? 85% Hadlock EFW ?359 g EFW (lb) ?? 0 lb EFW (oz) ?? 13 oz EFW by: ?Hadlock ([id number]) Extended Tibia ??30.4 mm 21w 1d 63% Jose Miguel Fibula 28.7 mm 20w 2d 33% Jose Miguel Foot ?? 33.8 mm ??29% Chitty Radius 27.3 mm 20w 1d 43% Jose Miguel Ulna ?? 29.8 mm 21w 1d 40% Jose Miguel Visitor Services Specialist 7.3 mm CM 5.7 mm ?? 66% Nicolaides Nasal bone 6.0 mm Rt Renal pelvis ap 1.5 mm Lt Renal pelvis ap 1.6 mm Head / Face / Neck Cephalic index 0.80 ? 69% Nicolaides Nasal bone: ?present Extremities / Bony Struc FL / BPD ?? 0.60 ? <1% Hadlock FL / HC ?0.17 ? <1% Hadlock FL / AC ?0.20 ? 8% Hadlock Other Structures FHR ?152 bpm Anatomy Cranium: ?? normal Lateral ventricles: ?normal Choroid plexus: ?normal Midline falx: ??normal Cavum septi pellucidi: normal Cerebellum: ?normal Cisterna magna: ?normal Head / Neck Parenchyma: ?normal Cerebellar lobes: ??normal Vermis: ?normal Neck: ??normal Nuchal fold: ?? normal Lips: ??normal Profile: ?? normal Nose: ??normal Face Nasal bone: ?present Maxilla: ?? normal Mandible: ??normal 4-chamber view: ?normal RVOT view: normal LVOT view: normal 3-vessel view: normal 3-mcnbwa-xscjzxc view: normal Heart / Thorax Aortic arch view: ??not adequately visualized SVC: ?? normal IVC: ?? normal Rt lung: ?? normal Lt lung: ?? normal Diaphragm: normal Cord insertion: ?normal Stomach: ?? normal Bladder: ?? normal Genitals: ??normal Abdomen Abdom. wall: ?? normal Rt kidney: normal Lt kidney: normal Liver: normal Cervical spine: ?normal Thoracic spine: ?normal Lumbar spine: ??normal Sacral spine: ??normal Arms: ??normal Legs: ??normal Rt arm: ?normal Lt arm: ?normal Rt hand: ?? normal Lt hand: ?? normal Rt leg: ?normal Lt leg: ?normal Rt foot: ?? normal Lt foot: ?? normal Skeleton: ??normal sex: male Wants to know sex: ?? yes Aneuploidy Screening Age ?27 yrs Echogenic focus: ?? no Include: ?? intracardiac echogenic focus Include: ?? ventriculomegaly Include: ?? nuchal fold Include: ?? echogenic bowel Include: ?? mild hydronephrosis Ventriculomegaly: ??no Nuchal fold: ?? normal Echogenic bowel: ?? no Pyelectasis: ?? no Short femur: ?? no Include: ?? short humerus Include: ?? nasal bone Short humerus: no Nasal bone: ?present Display risk: ??Risk at time of screening Maternal Structures Uterus / Cervix Uterus: ?Appears normal Fibroids: ??Fibroids identified Uterine fibroid D1 188.8 mm Uterine fibroid D2 102.7 mm Uterine fibroid D3 121.5 mm Uterine fibroid mean ?? 137.7 mm Uterine fibroid vol ?1,233.145 cm cubed Uterine fibroids findings: 7 - Subserosal Pedunculated. Fundal Cervix: ?Appears normal Cervical length ?37.2 mm Ovaries / Tubes / Adnexa Rt ovary: ??Visualized, normal appearance Rt ovary D1 ?25.8 mm Rt ovary D2 ?21.3 mm Rt ovary D3 ?15.0 mm Rt ovary Vol ?? 4.3 cm cubed Lt ovary: ??Visualized, normal appearance Lt ovary D1 ?34.5 mm Lt ovary D2 ?17.2 mm Lt ovary D3 ?15.7 mm Lt ovary Vol ?? 4.9 cm cubed Method ====== Transabdominal ultrasound examination, Voluson E22. View: Sufficient Impression ========= [id number] Obstetrical ultrasound with and maternal evaluation, including detailed anatomic examination This is a jones gestation. Biometry is consistent with prior ultrasound dating. The aortic arch was poorly visualized but appeared normal. Anatomy otherwise appears normal as noted above; however, ultrasound cannot detect all anomalies. As per the SMFM guidelines, the following were evaluated and were normal unless noted above: the cerebellum (including lobes and vermis), facial profile, the chest (including examination for masses, effusion, integrity of both sides of the diaphragm and lung parenchyma), abdomen for ascites, 12-long bones with normal architecture/position of limbs, hands and feet, placental insertion site of the umbilical cord and placenta for masses. The amniotic fluid volume is normal. There is trunk and extremity movement noted. A large fundal fibroid is seen as noted above. Follow-up ======== Patient has a consult with M to follow to discuss the large, fundal fibroid. DATE OF SERVICE: 02/10/2023 Procedure Note Candice Scott MD - 02/10/2023 Indication ======== BMI 39.3 Large fibroid History ====== General History Height 163 cm Height (ft) 5 ft Height (in) 4 in Previous Outcomes 1 Para 0 Pregnancies delivered at term (T) 0 Pregnancies delivered (P) 0 Abortions (A) 0 Living children (L) 0 Maternal Assessment Height 163 cm Height (ft) 5 ft Height (in) 4 in Physical Exam Initial weight 104 kg Initial weight (lb) 229 lb Initial BMI 39.31 kg/m?? ========= Number of fetuses: 1 Dating ====== LMP on: 09/07/2022 GA by LMP 22 w + 2 d ROLA by LMP : 06/14/2023 Method of dating: based on ultrasound Previous Ultrasound on: 11/14/2022 Type of prior assessment: GA GA at prior assessment date 8 w + 2 d GA by previous U/S 20 w + 6 d ROLA by previous Ultrasound: 06/24/2023 Ultrasound examination on: 02/10/2023 GA by U/S based upon: AC, BPD, Femur, HC GA by U/S 21 w + 0 d ROLA by U/S: 06/23/2023 Assigned: based on ultrasound (GA), selected on 02/10/2023 Assigned GA 20 w + 6 d Assigned ROLA: 06/24/2023 General Evaluation Cardiac activity Present. FHR 152 bpm. movements: visualized.Presentation: cephalic Placenta: anterior Umbilical cord: Cord vessels: 3 vessel cord. Insertion site: placentalinsertion: normal Amniotic fluid: Amount of AF: normal. MVP 4.0 cm Biometry Standard BPD 52.9 mm 22w 0d 89% Hadlock OFD 65.8 mm 22w 1d 90% Jsoe Miguel HC 189.5 mm 21w 2d 61% Chervenak Cerebellum tr 21.4 mm 21w 0d 44% Wells Nuchal fold 3.4 mm AC 156.2 mm 20w 5d 41% Hadlock Femur 31.8 mm 20w 0d 28% Jose Miguel Humerus 31.8 mm 20w 4d 38% Jose Miguel HC / AC 1.21 85% Hadlock EFW 359 g EFW (lb) 0 lb EFW (oz) 13 oz EFW by: Hadlock ([id number]) Extended Tibia 30.4 mm 21w 1d 63% Jose Miguel Fibula 28.7 mm 20w 2d 33% Jose Miguel Foot 33.8 mm 29% Chitty Radius 27.3 mm 20w 1d 43% Jose Miguel Ulna 29.8 mm 21w 1d 40% Jose Miguel Visitor Services Specialist 7.3 mm CM 5.7 mm 66% Nicolaides Nasal bone 6.0 mm Rt Renal pelvis ap 1.5 mm Lt Renal pelvis ap 1.6 mm Head / Face / Neck Cephalic index 0.80 69% Nicolaides Nasal bone: present Extremities / Bony Struc FL / BPD 0.60 <1% Hadlock FL / HC 0.17 <1% Hadlock FL / AC 0.20 8% Hadlock Other Structures FHR 152 bpm Anatomy Cranium: normal Lateral ventricles: normal Choroid plexus: normal Midline falx: normal Cavum septi pellucidi: normal Cerebellum: normal Cisterna magna: normal Head / Neck Parenchyma: normal Cerebellar lobes: normal Vermis: normal Neck: normal Nuchal fold: normal Lips: normal Profile: normal Nose: normal Face Nasal bone: present Maxilla: normal Mandible: normal 4-chamber view: normal RVOT view: normal LVOT view: normal 3-vessel view: normal 8-abdhzz-srewebn view: normal Heart / Thorax Aortic arch view: not adequately visualized SVC: normal IVC: normal Rt lung: normal Lt lung: normal Diaphragm: normal Cord insertion: normal Stomach: normal Bladder: normal Genitals: normal Abdomen Abdom. wall: normal Rt kidney: normal Lt kidney: normal Liver: normal Cervical spine: normal Thoracic spine: normal Lumbar spine: normal Sacral spine: normal Arms: normal Legs: normal Rt arm: normal Lt arm: normal Rt hand: normal Lt hand: normal Rt leg: normal Lt leg: normal Rt foot: normal Lt foot: normal Skeleton: normal sex: male Wants to know sex: yes Aneuploidy Screening Age 27 yrs Echogenic focus: no Include: intracardiac echogenic focus Include: ventriculomegaly Include: nuchal fold Include: echogenic bowel Include: mild hydronephrosis Ventriculomegaly: no Nuchal fold: normal Echogenic bowel: no Pyelectasis: no Short femur: no Include: short humerus Include: nasal bone Short humerus: no Nasal bone: present Display risk: Risk at time of screening Maternal Structures Uterus / Cervix Uterus: Appears normal Fibroids: Fibroids identified Uterine fibroid D1 188.8 mm Uterine fibroid D2 102.7 mm Uterine fibroid D3 121.5 mm Uterine fibroid mean 137.7 mm Uterine fibroid vol 1,233.145 cm cubed Uterine fibroids findings: 7 - Subserosal Pedunculated. Fundal Cervix: Appears normal Cervical length 37.2 mm Ovaries / Tubes / Adnexa Rt ovary: Visualized, normal appearance Rt ovary D1 25.8 mm Rt ovary D2 21.3 mm Rt ovary D3 15.0 mm Rt ovary Vol 4.3 cm cubed Lt ovary: Visualized, normal appearance Lt ovary D1 34.5 mm Lt ovary D2 17.2 mm Lt ovary D3 15.7 mm Lt ovary Vol 4.9 cm cubed Method ====== Transabdominal ultrasound examination, Voluson E22. View: Sufficient Impression ========= [id number] Obstetrical ultrasound with and maternal evaluation, includingdetailed anatomic examination This is a jones gestation. Biometry is consistent with prior ultrasound dating. The aortic arch waspoorly visualized but appeared normal. Anatomy otherwise appears normal asnoted above; however, ultrasound cannot detect all anomalies. As per the SMFM guidelines, the following were evaluated and were normalunless noted above: the cerebellum (including lobes and vermis), facialprofile, the chest (including examination for masses, effusion, integrity of both sides ofthe diaphragm and lung parenchyma), abdomen for ascites, 12-long boneswith normal architecture/position of limbs, hands and feet, placental insertion siteof the umbilical cord and placenta for masses. The amniotic fluid volume is normal. There is trunk and extremitymovement noted. A large fundal fibroid is seen as noted above. Follow-up ======== Patient has a consult with MFM to follow to discuss the large, fundalfibroid. DATE OF SERVICE: 02/10/2023 Faith Mesa CNM [facility] OB ORDERABLES Final R esult documented in this encounter Visit Diagnoses Diagnosis Medication exposure during first trimester of Supervision of other high-risk Obesity in Obesity complicating , childbirth, or the puerperium, unspecified as to episode of care or not applicable Morbid obesity ([facility]) Morbid obesity Uterine leiomyoma, unspecified location documented in this encounter Care Teams Molecular Pathologist Relationship Specialty Start Date End [facility] [address] [place] [id number] PCP - General 08/31/19 02/12/24 documented as of this encounter
--- OUTSIDE RECORDS SUMMARY | 2024-02-18 12:50 | XMS_ITS | Encounter Summary ---
Author Organization [facility] Address [address] [place] [address] Care Team Providers Care Cad Administrator Name Role Phone Nick Qureshi MD Primary Care Provider [phone] Unknown, Provider MD Primary Care Provider Unava ilable Encounter Details Date Type Department Care Team (Late st Contact Info) Description 10/17/2015 Historical Results Only [facility] [address] [place], [place] [phone] Lyndsey Freeman MD [facility] [place] [phone] Social History Tobacco Use Types Packs/Day Years [...] Hospital Encounter [facility] OR [address] [place], [place] [phone] Ceferino Aguilera MD [address] [facility], Level [address] [phone] 02/19/2024 8:25 EST - 02/19/2024 11:55 EST Surgery [facility] OR [address] [place], [place] [phone] Ceferino Aguilera MD [address] [place] [address], [facility] [address] [place] [phone] abdominal myomectomy [83082 (CPT??)] 03/08/2024 10:45 EST Post-op Visit [facility] OBGYN Services - [address] [phone] Ceferino Aguilera MD [address] [place] [address] 4 [place] [phone] Scheduled Procedures Name Priority Associated Diagnoses Date/Ti nj MYOMECTOMY, UTERUS, 1-4 LEIOMYOMATA, ABDOMINAL APPROACH, FOR UTERUS 250 GRAMS OR LESS Uterine leiomyoma, unspecified location 02/19/2024 8:25 EST documented as of this encounter Procedures Procedure Name Priority Date/Time Associated Diagnosis Comments FASTING GLUCOSE - [facility] Routine 10/17/2015 17:50 EDT HIV 1/2 AB (=/> 11 YRS OLD) - [facility] Routine 10/17/2015 17:50 EDT SYPHILIS SEROLOGY Routine 10/17/2015 17: 50 EDT HEMOGLOBIN A1C Routine 10/17/2015 17:50 EDT HEPATIC FUNCTION PANEL (ALB,ALK PHOS,ALT,AST,DBIL,TO T JORGE L,TOT PROT) Routine 10/17/2015 17:50 EDT LIPID PROFILE (INCLUDES CHOLESTEROL, TRIGLYCERIDES, HDL, LDL) Routine 10/17/2015 17:50 EDT documented in this encounter Results * (ABNORMAL) LIPID PROFILE (INCLUDES CHOLESTEROL, TRIGLYCERIDES, HDL, LDL) (10/17/2015 17:50 EDT) Triglyceride 105 <149 10/17/2015 19:07 [facility] Cholesterol 207(H) 0 - 200 10/17/2015 19:07 [facility] Comment: INTERPRETATION (NCEP GUIDELINES) Desirable: ? <200 mg/dL Borderline High: ??200-239 High: ? =/> 240 HDL 68 >/= 40 10/17/2015 19:07 [facility] Comment: INTERPRETATION (NCEP GUIDELINES) Low: ?<40 mg/dL Normal: ? 40-60 mg/dL Desirable: ??=/>60 mg/dL LDL, Calculated 118 <130 6 19:07 [facility] Comment: INTERPRETATION (NCEP GUIDELINES) Optimal: ?<100 mg/dL Low Risk: ?100-129 mg/dL Borderline High: 130-159 mg/dL High: ?160-189 mg/dL Very High: ? >/= 190 mg/dL Chol/HDL Ratio 3.04 10/17/2015 19:07 [facility] Non HDL Cholesterol 139(H) <130 10/17/2015 19:07 [facility] Comment: NCEP cutpoints for non-HDL cholesterol were set to be 30 mg/dL above the LDL-cholesterol cutpoints based on an assumed triglyceride level of 150 mg/dL. Desirable: ??100-129 mg/dl Borderline: 130-159 mg/dl High: ? 160-189 mg/dl Very High: ??>/= 190 mg/dl 10/17/2015 17:5 0 EDT 10/17/2015 17:58 EDT us Lyndsey Freeman MD CHEMISTRY & BLOOD GAS ORDERA BLES Final Result [facility] [address] [place] [address] * FASTING GLUCOSE - PMC (10/17/2015 17:50 EDT) FASTING GLUCOSE - PMC 81 70 - 99 10/17/2015 19:07 [facility] 10/17/2015 17:5 0 EDT 10/17/2015 17:58 EDT Lyndsey Freeman MD CHEMISTRY & BLOOD GAS ORDERA BLES Final Result [facility] [address] [place] [address] * (ABNORMAL) HEPATIC FUNCTION PANEL (ALB,ALK PHOS,ALT,AST,DBIL,TOT JORGE L,TOT PROT) (10/17/2015 17:50 EDT) BILIRUBIN - PMC 0.30 0.00 - 1.00 10/17/2015 19:07 [facility] DIRECT BILIRUBIN - PMC 0.10 0.00 - 0.30 10/17/2015 19:07 [facility] INDIRECT BILIRUBIN - PMC 0.20 0.00 - 0.80 10/17/2015 19:07 [facility] AST 13(L) 15 - 37 10/17/2015 19:07 [facility] ALT 23 12 - 78 10/17/2015 19:07 [facility] Alkaline Phosphatase 57 46 - 116 10/17/2015 19:07 [facility] Total Protein 7.6 6.4 - 8.2 10/17/2015 19:07 [facility] Albumin 3.8 3.4 - 5.0 10/17/2015 19:07 [facility] GLOBULIN - PMC 3.8 10/17/2015 19:07 [facility] ALBUMIN/GLOBULIN RATIO - PMC 1.0 10/17/2015 19:07 [facility] 10/17/2015 17:5 0 EDT 10/17/2015 17:58 EDT us Lyndsey Freeman MD CHEMISTRY & BLOOD GAS ORDERA BLES Final Result [facility] [address] [place] [address] * HIV 1/2 AB (=/> 11 YRS OLD) - PMC (10/17/2015 17:50 EDT) [facility] HIV (1 2) ANTIBODY RAPID - PMC Nonreactive Nonreactive 10/17/2015 19:57 EDT [facility] HIV P24 ANTIGEN - PMC Nonreactive Nonreactive 10/17/2015 19:57 EDT [facility] 10/17/2015 17:5 0 EDT 10/17/2015 17:57 EDT Lyndsey Freeman MD CHEMISTRY & BLOOD GAS ORDERA BLES Final Result Performing Organization Address [facility] Co de Phone Number [facility] [address] [place] [phone] * SYPHILIS SEROLOGY (10/17/2015 17:50 EDT) [facility] Syphilis Serology Negative () 10/19/2015 13:26 EDT [facility] Comment: Reference Range: Negative Test Performed by: [place] [address] Occupational Health Nurse Manager: Rubens Alston MD , Ph D 10/17/2015 17:5 0 EDT 10/17/2015 17:58 EDT Lyndsey Freeman MD IMMUNOLOGY AND SEROLOGY ORDE RABLES Final Result Performing Organization Address [facility]/ZIP Co de Phone Number [facility] [address] [place] [address] * HEMOGLOBIN A1C (10/17/2015 17:50 EDT) [facility] Hemoglobin A1c 5.2 4.8 - 5.6 10/17/2015 18:45 EDT [facility] Comment: INTERPRETIVE DATA (ADA Guidelines) ?<5.7% Normal 5.7-6.4% Increased risk for diabetes ?? =>6.5% Diagnostic for diabetes (if confirmed) The A1c goal for non adults in general is <7%. The A1c goal for selected patients may be significantly lower than 7% if this can be achieved without significant hypoglycemia or other adverse effects of treatment. EAG - PMC 103 70 - 180 10/17/2015 18:45 EDT [facility] 10/17/2015 17:5 0 EDT 10/17/2015 17:57 EDT us Lyndsey Freeman MD CHEMISTRY & BLOOD GAS ORDERA BLES Final Result [facility] [address] [place] [address] documented in this encounter Visit Diagnoses Not on filedocumented in this encounter Care Teams Cad Administrator Relationship Specialty Start Date End Date Nick Qureshi MD PCP - General 01/15/15 11/18/17 Unknown, MD Liane PCP - General 11/19/17 08/30/19 documented as of this encounter
--- OUTSIDE RECORDS SUMMARY | 2024-02-18 12:50 | XMS_ITS | Encounter Summary ---
Author Organization [facility] Address [address] [place] [address] Care Team Providers Care Liquid Waste Treatment Plant Operator Name Role Phone [facility] Primary Care Provider [phone] Helen Carrion WAREHOUSE MANAGER Primary Care Provider Encounter Details Date Type Department Care Team (Late st Contact Info) Description 11/14/2022 Lab Requisition [facility] Pathology & Laboratory Medicine - [address] [address] Outr Resulting Lab, Provider Social History Tobacco [...] Info) Description 02/19/2024 8:25 EST Hospital Encounter [facility] OR [address] [place], [place] [phone] Ceferino Aguilera MD [address] [facility], Level [address] [place] [phone] 02/19/2024 8:25 EST - 02/19/2024 11:55 EST Surgery [facility] OR [address] [place], [place] [phone] Ceferino Aguilera MD [address] [place] [phone] abdominal myomectomy [14772 (CPT??)] 03/08/2024 10:45 EST Post-op Visit [facility] OBGYN Services - [address] [phone] Ceferino Aguilera MD [address] [place] [phone] Scheduled Procedures Name Priority Associated Diagnoses Date/Ti me MYOMECTOMY, UTERUS, 1-4 LEIOMYOMATA, ABDOMINAL APPROACH, FOR UTERUS 250 GRAMS OR LESS Uterine leiomyoma, unspecified location 02/19/2024 8:25 EST documented as of this encounter Procedures Procedure Name Priority Date/Time Associated Diagnosis Comments RUBELLA IGG ANTIBODY Routine 11/14/2022 15:17 EDT documented in this encounter Results * RUBELLA IGG ANTIBODY (11/14/2022 15:17 EDT) Rubella IgG Ab Positive See Note 11/15/2022 10:03 EDT [facility] Comment:Positive for IgG ant ibodies to Rubella virus. Blood VENOUS BLOOD / Unknown 11/14/2022 15:17 EDT 11/14/2022 21:40 EDT us Provider Outr Resulting Lab CHEMISTRY & BLOOD GA S ORDERABLES Final Result [facility] [address] [place] [address] documented in this encounter Visit Diagnoses Not on filedocumented in this encounter Care Teams Liquid Waste Treatment Plant Operator Relationship Specialty Start Date End Date [facility] [address] [place] [address] PCP - General 08/31/19 02/12/24 Helen Carrion FNP [address] [place] [address] PCP - General Family Medicine - Primary Care 02/13/24 documented as of this encounter
--- OUTSIDE RECORDS SUMMARY | 2024-02-18 12:50 | XMS_ITS | Encounter Summary ---
Author Organization [facility] Address [address] [place] [address] Care Team Providers Care Heel Curver Name Role Phone Helen Carrion GRINDING WHEEL OPERATOR Primary Care Provider Reason for Visit * Reason Comments Pre-procedure Encounter Details Date Type Department Care Team (Late st Contact Info) Description 02/13/2024 13:00 EST Office Visit [facility] OBGYN Services - [address] [phone] Ki Aguilera MD [address] [facility], Level [address] [place] [address] Abnormal uterine bleeding (AUB) (Primary Dx) Social History Tobacco Use Types Packs/Day Years [...] Blood Pressure 122/86 02/13/2024 1254 EST Pulse - - Temperature - - Respiratory Rate - - Oxygen Saturation - - Inhaled Oxygen Concentration - - Weight 93.4 kg (206 lb) 02/13/2024 1254 EST Height - - Body Mass Index 34.49 02/10/2024 1512 EST documented in this encounter Progress Notes * Ki Aguilera MD - 02/13/2024 1300 EST CC: Pre-procedure HPI: Saulo Mace is a 28 y.o. who presents for pre op visit prior to scheduled abdominal myomectomy. Patient reports since last visit is having continued issues with bleeding changing tampon q2hr, for up to 7 days. No issues with bowel or bladder function. Continues to feel pressure/fullness in lower pelvis. Certain that she would like to proceed with surgery. No changes in health sincelast visit. Uterus/ Cervix: Arising from the anterior body there is a approximately 15 x 13 x 10 cm mass with heterogeneous peripheral T2 signal intensity, peripheral homogeneous enhancement, and a large area ofcentral nonenhancing T1 and T2 heterogeneously hyperintense signal. [...] the lumbosacral junction. Localizer: No additional finding. IMPRESSION Large centrally hemorrhagic mass arising from the anterior uterine body. The imaging features are most suggestive of a apoplectic type leiomyoma. Large size and central necrosis can be seen in leiomyosarcoma, however there are no additional suspicious features to suggest leiomyosarcoma. 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13, no issues at this time some clicking Past Surgical History: Procedure Laterality Date SECTION 06/30/2023 02/10/24-noted WISDOM TOOTH EXTRACTION 02/10/24-noted Obstetric History Gynecologic History OB History Para Term AB Living 1 SAB IAB Ectopic Multiple Live Births # Outcome Date GA Lbr Miguel/2nd Weight Sex Type Anes PTL Lv 1 Menses: As noted above Cervical cancer screening: NILM 2020 due with primary gynecogist for repeat pap Social History Family History Social History Tobacco Use Smoking status: Never Smokeless tobacco: Never Substance Use Topics Alcohol use: Not Currently Drug use: Not Currently Denies any history of known cancers or genetic conditions that run in her family. Medications Allergies Current Outpatient Medications Medication citalopram (CELEXA) 20 mg tablet Levothyroxine 100 mcg capsule norgestimate-ethinyl estradioL (ORTHO TRI-CYCLEN, 28,) 0.18/0.215/0.25 mg-35 mcg (28) tablet VIT 10-IRON FUM-FOLIC ORAL No current facility-administered medications for this visit. No Known Allergies Objective: BP 122/86 Wt 93.4 kg (206 lb) LMP 02/08/2024 (Exact Date) BMI 34.49 kg/m?? Physical Exam GEN: No acute distress CV: Regular rate and rhythm, no murmurs/rubs/gallops PULM: Clear to auscultation bilaterally, normal respiratory effort ABD: Soft, non-tender, palpable fibroid appreciated at level of umbilicus Pelvic exam: Normal appearing external genitalia without masses, tenderness or lesions. Normal appearing urethral meatus without masses or prolapse. Speculum exam reveals normal appearing vagina withnormal color and discharge, no lesions. Normal appearing cervix without discharge or lesions. On bimanual exam, uterus is enlarged with palpable mobile fibroid encompassing entire pelvis appreciated. EXT: Warm, well perfused, no edema Endometrial biopsy procedure note: Verbal informed consent obtained, risks and possible side effects reviewed. The patient has been informed and understands the information and situation provided to them about the procedure. They have capacity and ability to weigh risks, goals and benefits as well as the alternatives of proposed treatments including the option of not undergoing the procedure. The patient has expressed their rationale and executed the choice to proceed forward with the procedure with no undue influence or coercion. If the patient is DNR, a required reconsideration has been completed? N/A A timeout immediately prior to incision/procedure has been conducted by the attending provider/proceduralist, including all members of the surgical/procedural team as appropriate to their involvementin the procedure. The patient's identity, procedure, and when applicable the: fire risk assessment,pre-procedure checklist, side/site, patient position, medication strength and labeling, availability of implants and any special equipment or special requirements was verbally confirmed prior to the procedure. Speculum inserted, cervix cleansed with betadine x 3 Tenaculum placed on anterior lip of cervix Endometrial biopsy canula: 3 mm pipelle inserted through os, stopper withdrawn Curette rotated and withdrawn for collection of sample. Sample expressed into formalin Tenaculum removed. No bleeding from tenaculum sites. Speculum removed. Patient tolerated procedure well. ASSESSMENT: 28 y.o. with symptomatic large fibroid uterus presenting for pre op visit prior to scheduled abdominal myomectomy. Counseled patient extensively on the risks/benefits of this procedure. Reviewed potential for increased blood loss and requirement of blood transfusion. Discussed very small potential for hysterectomy in the setting if uncontrolled bleeding were to be encountered. PLAN: - Patient requires preop labs w/ CBC - plan for ancef on day of procedure and SCD for VTE prophylaxis - EMB performed today, will f/u results - Patient does not need preoperative clearance with her PCP - Patient does not need preoperative clearance with Anesthesia. We discussed the risks of surgery include, but are not limited to: 1) bleeding that may require a blood transfusion 2) infection of the surgical incision sites, lungs, urine, kidneys or IV site that may compromise healing or require IV antibiotics 3) injury to surrounding structures including the bladder, bowel, ureters, urethra, blood vessels, or nerves that may result in a loss of function 4) blood clots of the lower extermity or lungs 5) Very rarely seizures, paralysis or We discussed that to minimize risk of these complications she will receive IV antibiotics prior to skin incision in the operating room. She will also have sequential compression devices placed to avoid blood clots. Early ambulation will also be encouraged.Patient verbalized understanding and is in agreement of plan. Ki Aguilera MD documented in this encounter Miscellaneous Notes * Addendum Note - Ki Aguilera MD - 02/13/2024 1300 ESTAddended by: KI AGUILERA on: 02/13/2024 22:30 Modules accepted: Level of Service documented in this encounter Plan of Treatment Upcoming Encounters Date Type Department Care Team (Late st Contact Info) Description 02/19/2024 8:25 EST Hospital Encounter [facility] OR [address] [place] [address] [phone] Ki Aguilera MD [address] [place] [phone] 02/19/2024 8:25 EST - 02/19/2024 11:55 EST Surgery [facility] OR [address] [place] [address] [phone] Ki Aguilera MD [address] [place] [address] [phone] abdominal myomectomy [25843 (CPT??)] 03/08/2024 10:45 EST Post-op Visit [facility] OBGYN Services - [address] [phone] Ki Aguilera MD [address] [place] [phone] Scheduled Orders Name Type Priority Associated Diagnoses Orde r Schedule COMPLETE BLOOD COUNT AND DIFFERENTIAL Lab Routine Abnormal uterine bleeding (AUB) Expected: 02/13/2024 (Approximate), Expires: 02/12/2025 Scheduled Procedures Name Priority Associated Diagnoses Date/Ti me MYOMECTOMY, UTERUS, 1-4 LEIOMYOMATA, ABDOMINAL APPROACH, FOR UTERUS 250 GRAMS OR LESS Uterine leiomyoma, unspecified location 02/19/2024 8:25 EST documented as of this encounter Procedures Procedure Name Priority Date/Time Associated Diagnosis Comments SURGICAL PATHOLOGY STAT 02/13/2024 14 :16 EST Abnormal uterine bleeding (AUB) documented in this encounter Results * SURGICAL PATHOLOGY (02/13/2024 14:16 EST) Note to Patient The following pathology results have been interpreted by your pathologist and may be available to you before your health provider has had the opportunity to review them. Please allow time for your provider to receive these results and explore management options, if applicable. 02/18/2024 11:11 [facility] Final Diagnosis A. ENDOMETRIUM, BIOPSY: - Menstrual-type endometrium. 02/18/2024 11:11 [facility] Attestation There was significant resident/fellow involvement in the diagnostic evaluation of this case. By the signature below, the attending physician certifies that they have personally conducted a gross and/or microscopic examination of the described specimens and rendered or confirmed the above diagnosis. 02/18/2024 11:11 [facility] at 1111 Clinical History Abnormal uterine bleeding; clinical diagnosis code: N93.9 02/18/2024 11:11 [facility] Gross Description A. Received in formalin labelled with proper patient identification (initials R, M) and endometrium is a 2.1 x 1.6 x 0.8 cm aggregate of john mucus. The specimen is entirely submitted in A1. CHAPO CALIX(ASCP) 02/16/2024 14:37 02/18/2024 11:11 [facility] Resident/Jovon w: Jacques Crabtree MD 02/18/2024 11:11 [facility] Performing Lab [facility] 02/18/2024 11:11 [facility] Scanned Images 02/18/2024 11:11 [facility] Tissue ENDOMETRIAL STRUCTURE / Unknown Collection, Other / Unknown 02/13/2024 14:16 EST 02/16/2024 13:11 EST us Ki Aguilera MD PATHOLOGY ORDERABLES Final Re sult [facility] [address] [place], [place] [phone] documented in this encounter Visit Diagnoses Diagnosis Uterine leiomyoma- Primary Leiomyoma of uterus, unspecified Abnormal uterine bleeding (AUB)- Primary Uterine leiomyoma, unspecified location documented in this encounter Care Teams Heel Curver Relationship Specialty Start Date End Date Helen Carrion FNP [address] [place] [phone] PCP - General Family Medicine - Primary Care 02/13/24 documented as of this encounter
--- OUTSIDE RECORDS SUMMARY | 2024-02-18 12:50 | XMS_ITS | Encounter Summary ---
Author Organization [facility] Address [address] [place] [address] Care Team Providers Care Executive Producer Name Role Phone Dari Yang [facility]- Primary Care Provider [phone] Reason for Visit * Reason Comments Sore Throat Patient reports she developed a sore throat and swollen glands one day ago. Encounter Details Date Type Department Care Team (Late st Contact Info) Description 08/31/2019 11:30 EDT Office Visit [facility] [address] [place] [address] [phone] Zachary Cowan, RAILROAD DINING CAR STEWARD/STEWARDESS [address] [facility] [address] [place], [place] [phone] Exudative tonsillitis (Primary Dx) Social History Tobacco Use Types [...] Taken Comments Blood Pressure - - Pulse 125 08/31/2019 1137 EDT Temperature 37.9 ??C (100.3 ??F) 08/31/2019 1137 EDT Respiratory Rate - - Oxygen Saturation 98% 08/31/2019 1137 EDT Inhaled Oxygen Concentration - - Weight - - Height - - Body Mass Index - - documented in this encounter Patient Instructions * Patient Instructions* Zachary Cowan, VISION THERAPIST - 08/31/2019 11:30 EDT Images from the original note were not included. [facility] Patient Instructions Strep Throat: Care Instructions Your Care Instructions Strep throat is a bacterial infection that causes sudden, severe sore throat and fever. Strep throat, which is caused by bacteria called streptococcus, is treated with antibiotics. Sometimes a strep test is necessary to tell if the sore throat is caused by strep bacteria. Treatment can help ease symptoms and may prevent future problems. Follow-up care is a lindsey part of your treatment and safety. Be sure to make and go to all appointments, and call your doctor if you are having problems. It's also a good idea to know your test resultsand keep a list of the medicines you take. How can you care for yourself at home? ?? Take your antibiotics as directed. Do not stop taking them just because you feel better. You need to take the full course of antibiotics. ?? Strep throat can spread to others until 24 hours after you begin taking antibiotics. During thistime, you should avoid contact with other people at work or home, especially infants and children. Do not sneeze or cough on others, and wash your hands often. Keep your drinking glass and eating utensils separate from those of others, and wash these items well in hot, soapy water. ?? Gargle with warm salt water at least once each hour to help reduce swelling and make your throatfeel better. Use 1 teaspoon of salt mixed in 8 fluid ounces of warm water. ?? Take an qhkn-vzt-kqqqtmo pain medication, such as acetaminophen (Tylenol), ibuprofen (Advil, Motrin), or naproxen (Aleve). Read and follow all instructions on the label. ?? Try an iqdw-vmq-spvkwqg anesthetic throat spray or throat lozenges, which may help relieve throat pain. ?? Drink plenty of fluids. Fluids may help soothe an irritated throat. Hot fluids, such as tea or soup, may help your throat feel better. ?? Eat soft solids and drink plenty of clear liquids. Flavored ice pops, ice cream, scrambled eggs,sherbet, and gelatin dessert (such as Jell-O) may also soothe the throat. ?? Get lots of rest. ?? Do not smoke, and avoid secondhand smoke. If you need help quitting, talk to your doctor about stop-smoking programs and medicines. These can increase your chances of quitting for good. ?? Use a vaporizer or humidifier to add moisture to the air in your bedroom. Follow the directions for cleaning the machine. When should you call for help? Call your doctor now or seek immediate medical care if: ? You have a new or higher fever. ? You have a fever with a stiff neck or severe headache. ? You have new or worse trouble swallowing. ? Your sore throat gets much worse on one side. ? Your pain becomes much worse on one side of your throat. ??Watch closely for changes in your health, and be sure to contact your doctor if: ? You are not getting better after 2 days (48 hours). ? You do not get better as expected. Where can you learn more? Go to https://www.[employer].net/[employer] or log into your [employer] account at https://[email or web address] Enter K625 in the search box to learn more about Strep Throat: Care Instructions. Current as of: October 04, 2018Content Version: 12.4 ?? [employer]. Care instructions adapted under license by [facility]. If you have questions about a medical condition or this instruction, always ask your healthcare professional. [employer] disclaims any warranty or liability for your use of this information. documented in this encounter Ordered Prescriptions Prescription Sig Dispense Quantity Refills Last Filled Start Date End Date penicillin v potassium (VEETID) 500 mg tabletIndications:E xudative tonsillitis Take 1 Tab by mouth 2 times daily for 10 days. 20 Tab 08/31/2019 09/10/2019 documented in this encounter Progress Notes * Mile Schultz, KAZ - 08/31/2019 1130 EDT Covid Screening: Fever, chills, body aches: No Vomiting or diarrhea: No New or unusual cough, SOB: No Decrease/change in sense of taste or smell: No Sore throat or headache: Sore throat Have you been in close contact (less than 6 ft for more than 15 minutes) with suspected or confirmed person with Covid-19 in past 14 days: No Travel outside of [place] in last 14 days: No If yes, was it to a low risk location? Reference [facility] Travel Map to see if the location falls within a low risk area (<400 casesper million): https://accd.[place].gov/covid-19/restart/qunzw-tuntl-dbboor CC: Sore throat HPI: Patient reports she developed a sore throat and swollen glands one day ago. Healthcare worker: No Immunocompromised or on dialysis: No Previous Testing for Covid-19: No PMH: None Asthma/COPD/use of bronchodilators: No Smoking: No Work hx: PCP: [facility] Elen Yang Assessed patient's safety at home on 08/31/19. Patient reports that she feels safe at home. MILE SCHULTZ RN 08/31/19 11:26 * Zachary Cowan, VISION THERAPIST - 08/31/2019 1130 EDT [facility] Chief Complaint(s): Sore Throat (Patient reports she developed a sore throat and swollen glands oneday ago.) HPI: Reason for referral to [facility]: sore throat, fever Where patient was examined: [facility] tent Screened from: [facility] Saulo presents with boyfriend to [facility] for c/o sore throat, painful swallowing, and swollen glandssince yesterday. She reports that she had a history of frequent strep throat as a child, but no tonsillectomy. Symptoms consistent with strep throat for her. Denies choking/drooling, but very painful swallowing. No breathing concerns. She did not take anything prior to coming because she didn't want to mask her symptoms and not be treated. I have reviewed current problem list and current medications. ROS: Review of Systems Constitutional: Positive for fever. HENT: Positive for sore throat. Negative for congestion and sinus pain. Respiratory: Negative for shortness of breath. Skin: Negative for rash. Neurological: Positive for headaches. Negative for dizziness. Examination: Vitals: Pulse (!) 125 Temp 37.9 ??C (100.3 ??F) SpO2 98% Physical Exam Constitutional: She appears well-developed and well-nourished. She is cooperative. She appears ill.No distress. HENT: Head: Normocephalic. Nose: Nose normal. Mouth/Throat: Uvula is midline. Mucous membranes are not pale. No oral lesions. No trismus in the jaw. Uvula swelling present. Oropharyngeal exudate, posterior oropharyngeal edema and posterior oropharyngeal erythema present. No tonsillar abscesses. Tonsils are 3+ on the right. Tonsils are 3+ on the left. Tonsillar exudate. Neck: Normal range of motion. Neck supple. Pulmonary/Chest: Effort normal. Lymphadenopathy: She has cervical adenopathy. Neurological: She is alert. Skin: Skin is warm and dry. No rash noted. She is not diaphoretic. No pallor. Psychiatric: She has a normal mood and affect. Her behavior is normal. Nursing note reviewed. AGE (3-14yo = 1, 15-44yo = 0, >/=45yo = -1) EXUDATIVE TONSILS (yes = 1, no = 0) PRESENCE OF LAD (yes = 1, no = 0) ABSENCE OF COUGH (yes = 1, no = 0) FEVER > 38c (yes = 1, no = 0) SCORE = 4 = 51% - 53% likelihood of strep Results for orders placed or performed in visit on 08/31/19 POCT RAPID STREP SCREEN Result Value Ref Range Rapid Strep Test, POC Negative Negative Background Clear? Yes Control Line Present Yes Rgt A + Rgt B= Yellow: Culture Sent to Lab? Yes Assessment & Plan: 1. Exudative tonsillitis Saulo is a pleasant 23yo female with exudative pharyngitis c/w strep throat. Her RST is negative. Would be suspicious for Non-GAS. Culture is sent, but I recommended starting treatment today due to the severity of symptoms. Patient was encouraged to do supportive measures including salt water gargles, plenty of clear fluids, Ibuprofen or Tylenol as needed for pain or fever. Probiotic foods with antibiotics. Cepacol lozenges are also helpful for pain. Throw away toothbrush, sterilize anything shared that goes in the mouth. Patient was instructed to follow up if not turning a corner with treatment in 2- 3 days, or sooner for worsening or new symptoms or concerns such as difficulty handling secretions, dehydration, breathing concerns, or severe pain. Her concerns and questions today where sought and answered and she agrees to the above plan of care. - POCT RAPID STREP SCREEN - penicillin v potassium (VEETID) 500 mg tablet; Take 1 Tab by mouth 2 times daily for 10 days. Dispense: 20 Tab; Refill: 0 - GROUP A STREP CULTURE documented in this encounter Plan of Treatment Upcoming Encounters Date Type Department Care Team (Late st Contact Info) Description 02/19/2024 8:25 EST Hospital Encounter [facility] OR [address] [place] [address] [phone] Ceferino Aguilera MD [address] [place] [address] [phone] 02/19/2024 8:25 EST - 02/19/2024 11:55 EST Surgery [facility] OR [address] [place] [address] [phone] Ceferino Aguilera MD [address] [place] [address] [phone] abdominal myomectomy [23950 (CPT??)] 03/08/2024 10:45 EST Post-op Visit [facility] OBGYN Services - [address] [phone] Ceferino Aguilera MD [address] [place] [address] [phone] Scheduled Orders Name Type Priority Associated Diagnoses Orde r Schedule GROUP A STREP CULTURE Microbiology Routine Exudative tonsillitis Ordered: 08/31/2019 Scheduled Procedures Name Priority Associated Diagnoses Date/Ti me MYOMECTOMY, UTERUS, 1-4 LEIOMYOMATA, ABDOMINAL APPROACH, FOR UTERUS 250 GRAMS OR LESS Uterine leiomyoma, unspecified location 02/19/2024 8:25 EST documented as of this encounter Procedures Procedure Name Priority Date/Time Associated Diagnosis Comments PHARYNGITIS SCREEN - CV Routine 08/31/2019 11:50 EDT Exudative tonsillitis POCT RAPID STREP SCREEN Routine 08/31/2019 Exudative tonsillitis documented in this encounter Results * PHARYNGITIS SCREEN - CV (08/31/2019 11:50 EDT) BETA HEMOLYTIC STREP NOT GRP A - [facility] RISK [facility]CH 09/02/2019 11:16 EDT [facility] QUANT - [facility] MANY 09/02/2019 11:16 EDT [facility] USUAL ORAL/PHARYNGEA L VASILE - [facility] UTF 09/02/2019 11:16 EDT [facility] - [facility] PRESENT 09/02/2019 11:16 EDT [facility] Specimen from throat (specimen) 08/31/2019 11:50 EDT 08/31/2019 14:46 EDT us Zachary Cowan NP CHEMISTRY & BLOOD GAS ORDER GREGG Final Result Performing Organization Address City/[facility]/ZIP Co de Phone Number [facility] [address] [place] [address] * POCT RAPID STREP SCREEN (08/31/2019) Rapid Strep Test, POC Negative Negative [facility] Background Clear? Yes [facility] Control Line Present Yes [facility] Rgt A + Rgt B= Yellow: [facility] Culture Sent to Lab? Yes [facility] Swab ENTIRE PHARYNX / Unknown 08/31/2019 us Zachary Cowan NP POINT OF CARE TEST ORDERABL ES Final Result [facility] documented in this encounter Visit Diagnoses Diagnosis Exudative tonsillitis- Primary Uterine leiomyoma, unspecified location documented in this encounter Care Teams Executive Producer Relationship Specialty Start Date End Date Celia [facility] [address] [place] [address] PCP - General 08/31/19 02/12/24 documented as of this encounter
--- OUTSIDE RECORDS SUMMARY | 2024-02-18 12:50 | XMS_ITS | Encounter Summary ---
Author Organization [facility] Address [address] [place] [address] Care Team Providers Care Cashier Courtesy Booth Name Role Phone Dari Yang [facility]- Primary Care Provider [phone] Reason for Visit * Reason Comments Routine Visit Encounter Details Date Type Department Care Team (Late st Contact Info) Description 05/29/2023 11:45 EDT Office Visit [facility] Obstetrics & Midwifery - [facility] [address] [place], [place] [id number] Sheryl Yin MD [address] [place] [address], [address] [place] [address] Uterine fibroid during , antepartum (Primary Dx) Social History Tobacco Use Types [...] Sign Reading Time Taken Comments Blood Pressure 131/75 05/29/2023 1052 EDT Pulse - - Temperature - - Respiratory Rate - - Oxygen Saturation - - Inhaled Oxygen Concentration - - Weight 103.2 kg (227 lb 9.6 oz) 05/29/2023 1052 EDT Height - - Body Mass Index - - documented in this encounter Progress Notes * Sheryl Yin MD - 05/29/2023 1145 EDT Dear Dennis Mesa, Thank you for referring Ms Mace back to the Maternal Medicine clinic for follow up discussion around delivery planning. As you know, Ms Mace is a 27 year old at 36+2 weeks with a large fundal fibroid whom we have followed with serial ultrasound assessment. Her ultrasound is reported separately. Briefly, the EFW is at the 22% with a normal EMILIANO. The fibroid is virtually unchanged and appears pedunculated at the fundus. Blood pressure 131/75, weight (!) 103.2 kg (227 lb 9.6 oz), last menstrual period 09/07/2022. The fibroid is not expected to obstruct labor. There is no indication for induction of labor. Routine care is indicated at this time. Delivery is Lyndon is appropriate. I spent a total of 10 minutes on the date of this encounter meeting with the patient and reviewing documentation/coordinating care as described in the above note. This was separate from any procedures performed at the time of the visit. Sincerely, Sheryl Yin MD documented in this encounter Plan of Treatment Upcoming Encounters Date Type Department Care Team (Late st Contact Info) Description 02/19/2024 8:25 EST Hospital Encounter [facility] OR [address] [place] [id number] Ceferino Aguilera MD [address] [place] [phone] 02/19/2024 8:25 EST - 02/19/2024 11:55 EST Surgery [facility] OR [address] [place] [id number] Ceferino Aguilera MD [address] [place] [phone] abdominal myomectomy [34892 (CPT??)] 03/08/2024 10:45 EST Post-op Visit [facility] OBGYN Services - [facility] [address] [place], [place] [address] Ceferino Aguilera MD 111 [facility], Level 4 [place] [phone] Scheduled Procedures Name Priority Associated Diagnoses Date/Ti me MYOMECTOMY, UTERUS, 1-4 LEIOMYOMATA, ABDOMINAL APPROACH, FOR UTERUS 250 GRAMS OR LESS Uterine leiomyoma, unspecified location 02/19/2024 8:25 EST documented as of this encounter Visit Diagnoses Diagnosis Uterine fibroid during , antepartum- Primary Uterine leiomyoma, unspecified location documented in this encounter Care Teams Cashier Courtesy Booth Relationship Specialty Start Date End Date [facility] [place] [address] PCP - General 08/31/19 02/12/24 documented as of this encounter
--- OUTSIDE RECORDS SUMMARY | 2024-02-18 12:50 | XMS_ITS | Encounter Summary ---
Author Organization [facility] Address [address] [place] [address] Care Team Providers Care Topstitcher Zigzag Name Role Phone Nick Qureshi MD Primary Care Provider [phone] Unknown, Provider MD Primary Care Provider Unava ilable Encounter Details Date Type Department Care Team (Late st Contact Info) Description 09/14/2016 Historical Results Only [facility] [address] [place] [address] Luis Felipe Reyes MD [address] [place] [phone] Social History Tobacco Use Types Packs/Day [...] Description 02/19/2024 8:25 EST Hospital Encounter [facility] OR [address] [place], [place] [address] Ceferino Aguilera MD 111 [facility], Level [address] [place] [phone] 02/19/2024 8:25 EST - 02/19/2024 11:55 EST Surgery [facility] OR [address] [place] [id number] Ceferino Aguilera MD [address] [place] [address], [facility], [facility] [address] [place] [phone] abdominal myomectomy [01021 (CPT??)] 03/08/2024 10:45 EST Post-op Visit [facility] OBGYN Services - [address] [address] Ceferino Aguilera MD [address] [place] [address], [facility], [facility] [address] [place] [address] Scheduled Procedures Name Priority Associated Diagnoses Date/Ti me MYOMECTOMY, UTERUS, 1-4 LEIOMYOMATA, ABDOMINAL APPROACH, FOR UTERUS 250 GRAMS OR LESS Uterine leiomyoma, unspecified location 02/19/2024 8:25 EST documented as of this encounter Procedures Procedure Name Priority Date/Time Associated Diagnosis Comments BACTERIAL CULTURE, THROAT Routine 09/14/2016 11:08 EDT documented in this encounter Results * BACTERIAL CULTURE, THROAT (09/14/2016 11:08 EDT) BACTERIA THROAT CULT - PM[facility] No Beta hemolytic streptococci or 09/16/2016 10:30 EDT [facility] BACTERIA THROAT CULT - [facility] Arcanobacterium haemolyticum isolated. 09/16/2016 10:30 EDT [facility] 09/14/2016 11:0 8 EDT 09/14/2016 11:08 EDT Comment:SWAB us Luis Felipe Anderson MD MICROBIOLOGY - GENERAL ORDERABLES Final Result [facility] [address] [place] [address] documented in this encounter Visit Diagnoses Not on filedocumented in this encounter Care Teams Topstitcher Zigzag Relationship Specialty Start Date End Date Nick Qureshi MD PCP - General 01/15/15 11/18/17 Unknown, Provider, PCP - General 11/19/17 08/30/19 documented as of this encounter
--- OUTSIDE RECORDS SUMMARY | 2024-02-18 12:50 | XMS_ITS | Encounter Summary ---
Author Organization [facility] Address [address] [place] [address] Care Team Providers Care Safety Spec Name Role Phone Dari Yang [facility]- Primary Care Provider [phone] Reason for Visit * Reason Onset Date Comments Follow-up 01/06/2024 Encounter Details Date Type Department Care Team (Late st Contact Info) Description 01/06/2024 Telephone [facility] OBGYN Services - [facility] [address] [place], [place] [phone] Ceferino Aguilera MD 111 [facility], [address] [place] [address] Follow-up Social History Tobacco Use Types Packs/Day Years [...] encounter Miscellaneous Notes * Telephone Encounter - Shanika Meredith - 01/12/2024 1100 EST TC from pt, following up to schedule surgery with Dr. Aguilera, as she had previously been instructed to reach out to the office if she had not heard by the end of the week. Per MD ANAY is reviewing cases for limited OR time, and pt will receive a call when more info is available. * Telephone Encounter - Ceferino Aguilera MD - 01/06/2024 1516 EDT Called patient and discussed MRI results. Discussed next steps for fibroid management and advised open abdominal myomectomy given size of fibroid. Will have patient return for pre op visit, does not require PCP clearance. RTC for pre op Ceferino Aguilera MD documented in this encounter Plan of Treatment Upcoming Encounters Date Type Department Care Team (Late st Contact Info) Description 02/19/2024 8:25 EST Hospital Encounter [facility] OR [address] [place] [phone] Ceferino Aguilera MD [address] [place] [phone] 02/19/2024 8:25 EST - 02/19/2024 11:55 EST Surgery [facility] OR [address] [place] [phone] Ceferino Aguilera MD [address] [place] [phone] abdominal myomectomy [[id number] (CPT??)] 03/08/2024 10:45 EST Post-op Visit [facility] OBGYN Services - [address] [address] Ceferino Aguilera MD [address] [place] [phone] Scheduled Procedures Name Priority Associated Diagnoses Date/Ti me MYOMECTOMY, UTERUS, 1-4 LEIOMYOMATA, ABDOMINAL APPROACH, FOR UTERUS 250 GRAMS OR LESS Uterine leiomyoma, unspecified location 02/19/2024 8:25 EST documented as of this encounter Visit Diagnoses Diagnosis Uterine leiomyoma, unspecified location- Primary Uterine leiomyoma- Primary Leiomyoma of uterus, unspecified Uterine leiomyoma, unspecified location documented in this encounter Orders Case Request Count Last Ordered Date First Orde red Date CASE REQUEST OPERATING ROOM 1 01/06/2024 documented in this encounter Care Teams Safety Spec Relationship Specialty Start Date End Date Celia [facility] 4 [facility] [place] [address] PCP - General 08/31/19 02/12/24 documented as of this encounter
--- OUTSIDE RECORDS SUMMARY | 2024-02-18 12:50 | XMS_ITS | Encounter Summary ---
Author Organization [facility] Address [address] [place] [address] Care Team Providers Care Personnel Scheduler Name Role Phone Dari Yang [facility] Primary Care Provider [phone] Helen Carrion COMMUNICATIONS PROFESSOR Primary Care Provider [phone] Reason for Visit * Reason Onset Date Comments Strep Throat 08/31/2019 Encounter Details Date Type Department Care Team (Late st Contact Info) Description 08/31/2019 Telephone [facility] [address] [place] [address] Luis Felipe Reyes MD [address] [place] [address] Strep Throat Social History Tobacco Use Types Packs/Day Years Used Date Smoking Tobacco: Never Assessed Comments Unknown Sex and Gender Information Value Date Recorded Sex Assigned at Female 02/13/2024 9:15 EST Legal Sex Female 18:08 EST Gender Identity Female 08/31/2019 11:19 EDT Sexual Orientation Not on file documented as of this encounter Miscellaneous Notes * Telephone Encounter - Shruthi Huerta RN - 08/31/2019 0992 EDT TC to Saulo and recommended she be seen at [facility]. Thanked for the call. * Telephone Encounter - Patrica Lee - 08/31/2019 0943 EDT Patient contacted office, aware that she is over the age, but her new PCP office ([facility]) won't see her for strep throat because it is one of the symptoms for COVID. Patient was than transferred to their COVID line who relayed to her that she doesn't qualify to be tested for COVID because she doesn't have 2 symptoms or more. Patient relayed to her new PCP that she gets strep a couple times a year and she just needs to be evaluated to get treatment but is unable to and that she should contact Peds since we have seen her in the past. Patient is unsure what direction to go to get treated. Please advise and call patient at [phone] documented in this encounter Plan of Treatment Upcoming Encounters Date Type Department Care Team (Late st Contact Info) Description 02/19/2024 8:25 EST Hospital Encounter [facility] OR [address] [place] [phone] Ceferino Aguilera MD [address] [place] [phone] 02/19/2024 8:25 EST - 02/19/2024 11:55 EST Surgery [facility] OR [address] [place] [phone] Ceferino Aguilera MD [address] [place] [phone] abdominal myomectomy [34793 (CPT??)] 03/08/2024 10:45 EST Post-op Visit [facility] OBGYN Services - [address] [phone] Ceferino Aguilera MD [address] [place] [phone] Scheduled Procedures Name Priority Associated Diagnoses Date/Ti me MYOMECTOMY, UTERUS, 1-4 LEIOMYOMATA, ABDOMINAL APPROACH, FOR UTERUS 250 GRAMS OR LESS Uterine leiomyoma, unspecified location 02/19/2024 8:25 EST documented as of this encounter Visit Diagnoses Not on filedocumented in this encounter Care Teams Personnel Scheduler Relationship Specialty Start Date End Date [facility] [address] [place] [address] PCP - General 08/31/19 02/12/24 Helen Carrion FNP [address] [place] [phone] PCP - General Family Medicine - Primary Care 02/13/24 documented as of this encounter
--- OUTSIDE RECORDS SUMMARY | 2024-02-18 12:50 | XMS_ITS | Encounter Summary ---
Author Organization [facility] Address [address] [place] [address] Care Team Providers Care Manager Sales Support Name Role Phone [facility]- Primary Care Provider [phone] Reason for Referral * Radiology Services (Routine/Next Available) - Authorization Not Required Specialty Diagnoses / Procedures Referred By Contac t Referred To Contact Radiology Diagnoses Uterine leiomyoma, unspecified location Procedures MR FEMALE PELVIS W WO CONTRAST Ceferino Aguilera MD Phone: tel: fax: [facility] Referral ID Status Reason Start Date Expiration Date Visits Requested Visits Authorized [id number] Authorization Not Required 12/01/2023 1 1 Reason for Visit * Reason Comments Consult * Consult (Routine) - Pending Review Specialty Diagnoses / Procedures Referred By Contact Referred To Contact Obstetrics & Gynecology Diagnoses Subserous leiomyoma of uterus Faith Mesa, [address],[facility] [address] [place] [address] Phone: tel: fax: [facility] OBGYN Services - [facility] [address] [place] [address] Phone: tel: fax: Referral ID Status Reason Start Date Expiration Date V isits Requested Visits Authorized [id number] Pending Review 1 1 Encounter Details Date Type Department Care Team (Late st Contact Info) Description 12/01/2023 15:00 EDT Initial consult [facility] OBGYN Services - [facility] [address] [place], [place] [phone] Ceferino Aguilera MD 111 [facility], [facility], Level [address] [place] [address] Uterine leiomyoma, unspecified location (Primary Dx) Social History Tobacco Use Types [...] Sign Reading Time Taken Comments Blood Pressure 118/80 12/01/2023 1451 EDT Pulse - - Temperature - - Respiratory Rate - - Oxygen Saturation - - Inhaled Oxygen Concentration - - Weight - - Height 164.6 cm (5' 4.8) 12/01/2023 1451 EDT Body Mass Index - - documented in this encounter Progress Notes * Ceferino Aguilera MD - 12/01/2023 1500 EDT CC: No chief complaint on file. HPI: Saulo Mace is a 28 y.o. who presents for evaluation of large fibroid uterus. Fibroid uterus was discovered during first scan of patients . She states that before shemaybe felt some pressure/fullness but was unaware that she had fibroid. After she continues to feel issues with pressure/fullness. She is able to palpate the large fibroid when she is touching her stomach. States she intermittently has issues with not having daily BM but states she does not have constipation. Denies urinary concerns. Currently on GERONIMO which has been regulating cycles well with minimal bleeding. States outside of did not have issues with cycles and has been onCOC with good management of bleeding. Uterus: Visualized Uterus position: Axial Myometrium: Fibroid [...] anterior fundal Right Ovary ========= Rt ovary: Visualized, normal [...] ========= Transvaginal T Transabdominal (Limited) Pelvic - 01203 T 92154 1. Uterus with fibroid as reported above (12 x 11 x 16 cm), significant interval decrease in size 2. Cervix is unremarkable. 3. Endometrium is unremarkable. 4. Bilateral ovaries are unremarkable in size and contour. Past Medical History Past Surgical History No past medical history on file. No past surgical history on file. C/s Obstetric History Gynecologic History OB History Para Term AB Living 1 SAB IAB Ectopic Multiple Live Births # Outcome Date GA Lbr Miguel/2nd Weight Sex Type Anes PTL Lv 1 Current C/s x1 Menses: As noted above Cervical cancer screening: NILM 2020 due with primary gynecogist for repeat pap Social History Family History Denies any history of known cancers or genetic conditions that run in her family. Medications Allergies Current Outpatient Medications Medication citalopram (CELEXA) 20 mg tablet Levothyroxine 100 mcg capsule norgestimate-ethinyl estradioL (ORTHO TRI-CYCLEN, 28,) 0.18/0.215/0.25 mg-35 mcg (28) tablet No current facility-administered medications for this visit. No Known Allergies Objective: BP 118/80 Ht 164.6 cm (64.8) LMP 09/07/2022 BMI 38.11 kg/m?? Physical Exam GEN: No acute distress ABD: Soft, non-tender, fibroid palpated extending to umbilicus, encompasses entire pelvis, c/s [facility] Pelvic exam: Normal appearing external genitalia without masses, tenderness or lesions. Normal appearing urethral meatus without masses or prolapse. Speculum exam reveals normal appearing vagina withnormal color and discharge, no lesions. Normal appearing cervix without discharge or lesions. On bimanual exam, uterus is markedly enlarged given fibroid unable to discretely feel fibroid and uterus separately, fibroid overall mobile Adnexa are nontender and no masses are palpated. Bladder is nontender without masses. Exam transition rn declined. EXT: Warm, well perfused, no edema A/P 28 y.o. who presents for evaluation of large fibroid uterus. -today we reviewed her imaging notable for large fundal fibroid measuring [id number] -we discussed management options for fibroid uterus, given size of fibroid discussed that surgical intervention with myomectomy would be beneficial as patient desires future pregnancies -will obtain MRI for better characterization of fibroid. Discussed that if the fibroid is on a smaller stalk then there is potential for robotic intervention, removal of fibroid from stalk, and morcellation through minilap. Discussed is fibroid has broader base given size of fibroid would likely recommend open surgery -advised pt to reach out to jarod for her operative report from her c/s to see if they were able to exteriorize her uterus during the surgery as this will aid in my ability to understand if using her previous pfannenstiel would be an options or whether we would need to use a vertical midline incision for open surgery -will contact pt with results of MRI and coordinate care after imaging Ceferino Aguilera MD documented in this encounter Plan of Treatment Upcoming Encounters Date Type Department Care Team (Late st Contact Info) Description 02/19/2024 8:25 EST Hospital Encounter [facility] [place] [address] [place] [phone] Ceferino Aguilera MD [address] [place] [address], [facility] 4 [place] [phone] 02/19/2024 8:25 EST - 02/19/2024 11:55 EST Surgery [facility] OR [address] [place] [phone] Ceferino Aguilera MD [address] [place] [address], [facility] 4 [place] [phone] abdominal myomectomy [56358 (CPT??)] 03/08/2024 10:45 EST Post-op Visit [facility] OBGYN Services - [address] [address] Ceferino Aguilera MD [address] [place] [address], [address] [phone] Scheduled Procedures Name Priority Associated Diagnoses Date/Ti ct MYOMECTOMY, UTERUS, 1-4 LEIOMYOMATA, ABDOMINAL APPROACH, FOR UTERUS 250 GRAMS OR LESS Uterine leiomyoma, unspecified location 02/19/2024 8:25 EST documented as of this encounter Results * MR FEMALE PELVIS W WO CONTRAST [...] no additional suspicious features to suggest leiomyosarcoma. [id number] Narrative 01/01/2024 11:58 EDT MR FEMALE PELVIS [...] Localizer: No additional finding. Resulting Agency Comment [id number] Procedure Note Nathan Aquino MD - 01/01/2024 [...] are no additional suspicious features to suggestleiomyosarcoma. [id number] us Ceferino Aguilera MD IMG MRI ORDERABLES Final Resu lt documented in this encounter Visit Diagnoses Diagnosis Uterine leiomyoma, unspecified location- Primary Uterine leiomyoma, unspecified location Uterine leiomyoma, unspecified location documented in this encounter Care Teams Manager Sales Support Relationship Specialty Start Date End Date [facility] [address] [place] [address] PCP - General 08/31/19 02/12/24 documented as of this encounter
--- OUTSIDE RECORDS SUMMARY | 2024-02-18 12:50 | XMS_ITS | Encounter Summary ---
Author Organization [facility] Address [address] [place] [address] Care Team Providers Care Administrator Pesticide Name Role Phone [facility] Primary Care Provider [phone] Helen Carrion BLOCK CLEANER Primary Care Provider Encounter Details Date Type Department Care Team (Late st Contact Info) Description 01/02/2021 Lab Requisition [facility] Pathology & Laboratory Medicine - [address] [id number] Outr Resulting Lab, Provider Social History Tobacco [...] Info) Description 02/19/2024 8:25 EST Hospital Encounter [facility] OR [address] [place], [place] [phone] Ceferino Aguilera MD [address] [facility], [address] [place] [phone] 02/19/2024 8:25 EST - 02/19/2024 11:55 EST Surgery [facility] OR [address] [place] [phone] Ceferino Agiulera MD [address] [place] [phone] abdominal myomectomy [71767 (CPT??)] 03/08/2024 10:45 EST Post-op Visit [facility] OBGYN Services - [address] [phone] Ceferino Aguilera MD [address] [place] [phone] Scheduled Procedures Name Priority Associated Diagnoses Date/Ti me MYOMECTOMY, UTERUS, 1-4 LEIOMYOMATA, ABDOMINAL APPROACH, FOR UTERUS 250 GRAMS OR LESS Uterine leiomyoma, unspecified location 02/19/2024 8:25 EST documented as of this encounter Procedures Procedure Name Priority Date/Time Associated Diagnosis Comments ZZCOVID-19 TEST [facility] PCR Today 01/01/2021 16:15 EDT COVID-19 TESTING Routine 01/01/2021 16:1 5 EDT documented in this encounter Results * COVID-19 TEST [facility] PCR (01/01/2021 16:15 EDT) Swab ENTIRE NASOPHARYNX / Unknown 01/01/2021 16:15 EDT 01/02/2021 15:33 EDT us Provider Outr Resulting Lab MICROBIOLOGY - GENER AL ORDERABLES Final Result [facility] [address] [place] [address] * COVID-19 TESTING (01/01/2021 16:15 EDT) COVID-19 rt-PCR Result Negative Negative 01/03/2021 14:21 EDT [facility] Comment: This test has not been FDA cleared or approved. This test has been authorized by FDA under an EUA for use by authorized laboratories. This test has been authorized only for detection of nucleic acid from 2019-nCoV, not for any other viruses or pathogens. This test is only authorized for the duration of the declaration that circumstances exist justifying the authorization of emergency use of in vitro diagnostic tests for detection and/or diagnosis of 2019-nCoV under section 564(b)(1) of Act, 21 U.S.C ?? 360bbb-3(b) (1), unless the authorization is terminated or revoked sooner. Negative results do not preclude 2019-nCoV infection and should not be used as the sole basis for treatment or other patient management decisions. Negative results must be combined with clinical observations, patient history, and epidemiological information. This test was developed and its performance characteristics determined by [facility]. It has not been cleared or approved by the US Food and Drug Administration. FDA does not require this test to go through premarket FDA review. This test is used for clinical purposes. It should not be regarded as investigational or for research. This laboratory is certified under the Clinical Laboratory Improvement Amendments (CLIA) as qualified to perform high complexity clinical laboratory testing. This test is based on the CDC COVID-19 Emergency Use Authorization (EUA) assay, with minor modification as defined by the FDA Performed on the [employer] 7 Pro RT-PCR System. Performing Lab [facility] 01/03/2021 14:21 EDT [facility] Swab 01/01/2021 16:1 5 EDT 01/02/2021 15:33 EDT us Provider Outr Resulting Lab MICROBIOLOGY - GENER AL ORDERABLES Final Result [facility] [address] [place] [address] documented in this encounter Visit Diagnoses Not on filedocumented in this encounter Care Teams Administrator Pesticide Relationship Specialty Start Date [facility] [address] [place] [address] PCP - General 08/31/19 02/12/24 Helen Carrion, BLOCK CLEANER [address] [place] [phone] PCP - General Family Medicine - Primary Care 02/13/24 documented as of this encounter
--- OUTSIDE RECORDS SUMMARY | 2024-02-18 12:50 | XMS_ITS | Encounter Summary ---
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 Primary Care Provider Encounter Details Date Type Department Care Team (Late st Contact Info) Description 12/12/2022 Lab Requisition [facility] Pathology & Laboratory Medicine - [address] [address] Outr Resulting Lab, Provider Social History Tobacco [...] Info) Description 02/19/2024 8:25 EST Hospital Encounter [facility] OR [address] [place], [place] [phone] Ceferino Aguilera MD [address] [facility], [address] [place] [phone] 02/19/2024 8:25 EST - 02/19/2024 11:55 EST Surgery [facility] OR [address] [place], [place] [phone] Ceferino Aguilera MD [address] [phone] abdominal myomectomy [02392 (CPT??)] 03/08/2024 10:45 EST Post-op Visit [facility] OBGYN Services - [address] [address] Ceferino Aguilera MD [address] [place] [phone] Scheduled Procedures Name Priority Associated Diagnoses Date/Ti me MYOMECTOMY, UTERUS, 1-4 LEIOMYOMATA, ABDOMINAL APPROACH, FOR UTERUS 250 GRAMS OR LESS Uterine leiomyoma, unspecified location 02/19/2024 8:25 EST documented as of this encounter Procedures Procedure Name Priority Date/Time Associated Diagnosis Comments VARICELLA IGG ANTIBODY Routine 12/12/2022 11:00 EDT documented in this encounter Results * VARICELLA IGG ANTIBODY (12/12/2022 11:00 EDT) Varicella IgG Ab Negative See Note 12/13/2022 11:15 EDT [facility] Comment:Absence of detectabl e Varicella Zoster virus IgG antibodies. A negative result generally indicates no detectable antibody, but does not rule out acute infection. If VZV exposure is suspected, a second sample should be collected and tested no less than one or two weeks later. Blood VENOUS BLOOD / Unknown 12/12/2022 11:00 EDT 12/12/2022 18:03 EDT us Provider Outr Resulting Lab IMMUNOLOGY AND SEROL OGY ORDERABLES Final Result [facility] [address] [place] [address] documented in this encounter Visit Diagnoses Not on filedocumented in this encounter Care Teams Electric Organ Assembler Relationship Specialty Start Date End Date [facility] [address] [place] [address] PCP - General 08/31/19 02/12/24 Helen Carrion FNP [address] [place] [phone] PCP - General Family Medicine - Primary Care 02/13/24 documented as of this encounter
--- OUTSIDE RECORDS SUMMARY | 2024-02-18 12:50 | XMS_ITS | Encounter Summary ---
Author Organization [facility] Address [address] [place] [address] Care Team Providers Care Executive Officer Special Warfare Team Name Role Phone Dari Yang [facility]- Primary Care Provider [phone] Encounter Details Date Type Department Care Team (Latest Contact Info) Description 05/07/2023 14:15 EST - 05/07/2023 23:59 EST Hospital Encounter [facility] - [facility] [address] [place] [address] Uterine fibroid in ; Uterine size-date discrepancy in third trimester; Obesity (BMI 35.0-39.9 without comorbidity) Discharge Disposition: Home or Self Care Social [...] Info) Description 02/19/2024 8:25 EST Hospital Encounter [facility] OR [address] [place] [address] [phone] Ceferino Aguilera MD [address] [place] [address] [phone] 02/19/2024 8:25 EST - 02/19/2024 11:55 EST Surgery [facility] OR [address] [place] [address] [phone] Ceferino Aguilera MD [address] [place] [address] [phone] abdominal myomectomy [40457 (CPT??)] 03/08/2024 10:45 EST Post-op Visit [facility] - [address] [address] Ceferino Aguilera MD [address] [place] [phone] Scheduled Procedures Name Priority Associated Diagnoses Date/Ti me MYOMECTOMY, UTERUS, 1-4 LEIOMYOMATA, ABDOMINAL APPROACH, FOR UTERUS 250 GRAMS OR LESS Uterine leiomyoma, unspecified location 02/19/2024 8:25 EST documented as of this encounter Procedures Procedure Name Priority Date/Time Associated Diagnosis Comments US OB FOLLOWUP Routine 05/07/2023 14:57 EST Uterine fibroid in Uterine size-date discrepancy in third trimester Obesity (BMI 35.0-39.9 without comorbidity) US OB UMB ART DOPPLER Routine 05/07/2023 14:57 EST Uterine fibroid in Uterine size-date discrepancy in third trimester Obesity (BMI 35.0-39.9 without comorbidity) documented in this encounter Results * US OB UMB ART DOPPLER (05/07/2023 14:57 EST) Anatomical Region Laterality Modality Pelvis Ultrasound 05/07/2023 14:3 3 EST Addenda Addendum by Sandra Lua MD on 05/23/2023 18:08 EDT Indication ======== large fundal fibroid, EFW [...] ====== LMP on: ?09/07/2022 GA by LMP ??34 w + 4 d ROLA by LMP : ? 06/14/2023 Previous Ultrasound on: ?11/14/2022 Type of prior assessment: ??GA GA at prior assessment date ?8 w + 2 d GA by previous U/S 33 w + 1 d ROLA by previous Ultrasound: ?06/24/2023 Ultrasound examination on: 05/07/2023 GA by U/S based upon: ??AC, BPD, Femur, HC GA by U/S ??33 w + 2 d ROLA by U/S: ?06/23/2023 Assigned: ??based on ultrasound (GA), selected on 02/10/2023 Assigned GA ?33 w + 1 d Assigned ROLA: ??06/24/2023 General Evaluation Cardiac activity Present. FHR 148 bpm. movements: visualized, visualized. Presentation: cephalic Placenta: Anterior Amniotic fluid: Amount of AF: normal, normal. MVP 6.0 cm. EMILIANO 13.8 cm. Q1 1.4 cm, Q2 2.9 cm, Q3 6.0 cm, Q4 3.5 cm Anatomy Cranium: ?? normal Lateral ventricles: ?normal Midline falx: ??normal Head / Neck Cranium: ?? normal shape and size, normal shape and size 4-chamber view: ?normal Stomach: ?? normal Kidneys: ?? normal Bladder: ?? normal Abdomen Rt kidney: not adequately visualized sex: male Wants to know sex: ?? yes Biometry Standard BPD ?87.0 mm 35w 1d 92% Hadlock OFD ?114.8 mm ?39w 6d >99% Jose Miguel HC 323.4 mm ?35w 5d 88% Chervenak AC 274.1 mm ?31w 3d 10% Hadlock Femur ??58.8 mm 30w 4d 7% Jose Miguel Humerus ?52.7 mm 30w 5d 7% Jose Miguel HC / AC ?1.18 EFW ?1,885 g ??12% Anderson EFW (lb) ?? 4 lb EFW (oz) ?? 2 oz EFW by: ?Hadlock ([id number]) Extended Video Games Mechanic 8.1 mm Lt Renal pelvis ap 2.0 mm Head / Face / Neck Cephalic index 0.76 ? 11% Nicolaides Extremities / Bony Struc FL / BPD ?? 0.68 FL / HC ?0.18 FL / AC ?0.21 Other Structures FHR ?148 bpm Doppler Arterial Umbilical A PI 0.85 ? 43% Henry Umbilical A RI 0.59 ? 45% Henry Umbilical A PS 39.44 cm/s ?? 11% Ebbing Umbilical A ?ED ?16.13 cm/s Umbilical A TAmax ??27.53 cm/s ?? 21% Ebbing Umbilical A MD 15.70 cm/s Umbilical A S / D ??2.45 ? 39% Henry Umbilical A HR 143 bpm Impression: ?Normal Doppler study Maternal Structures Uterus / Cervix Fibroids: ??Fibroids identified Uterine fibroid D1 197.0 mm Uterine fibroid D2 226.0 mm Uterine fibroid D3 143.0 mm Uterine fibroid mean ?? 188.7 mm Uterine fibroid vol ?3,333.568 cm cubed Uterine fibroids findings: Fundal subserosal Growth Overview Exam date ??GA ??BPD (mm) ?HC (mm) AC (mm) FL (mm) HL (mm) EFW (g) 02/10/2023 ??20w 6d ??52.9 ?89% 189.5 ?? 61% 156.2 ?? 41% 31.8 ?28% 31.8 ? 38% 359 05/07/2023 33w 1d ??87 ??92% 323.4 ?? 88% 274.1 ?? 10% 58.8 ?7% ??52.7 ?7% ?? 1885 ?12% Method ====== Transabdominal ultrasound examination, Voluson E22. View: Sufficient Impression ========= 11244 Follow-up obstetrical ultrasound This is a jones gestation. Composite biometry is consistent with prior dating with the abdominal circumference 10%. The EFW is at the 12%. Except where noted above, the anatomy was not reviewed in detail as this is a follow-up study and the anatomy was previously assessed. Normal fluid and movement are noted. There is a [place]al subser[place] fib[place]. 50066 Umbilical artery Doppler study Doppler waveforms of the umbilical artery are normal. Follow-up ======== Follow-up growth and doppler [facility] q3 wks due to concerns but planing to deliver at [facility]. See ote. DATE OF SERVICE: .7/.1/<OBR Narrative 05/07/2023 17:23 EST Indication ======== large fundal fibroid, EFW 10% [...] ====== LMP on: ?09/07/2022 GA by LMP ??34 w + 4 d ROLA by LMP : ? 06/14/2023 Previous Ultrasound on: ?11/14/2022 Type of prior assessment: ??GA GA at prior assessment date ?8 w + 2 d GA by previous U/S 33 w + 1 d ROLA by previous Ultrasound: ?06/24/2023 Ultrasound examination on: 05/07/2023 GA by U/S based upon: ??AC, BPD, Femur, HC GA by U/S ??33 w + 2 d ROLA by U/S: ?06/23/2023 Assigned: ??based on ultrasound (GA), selected on 02/10/2023 Assigned GA ?33 w + 1 d Assigned ROLA: ??06/24/2023 General Evaluation Cardiac activity Present. FHR 148 bpm. movements: visualized, visualized. Presentation: cephalic Placenta: Anterior Amniotic fluid: Amount of AF: normal, normal. MVP 6.0 cm. EMILIANO 13.8 cm. Q1 1.4 cm, Q2 2.9 cm, Q3 6.0 cm, Q4 3.5 cm Anatomy Cranium: ?? normal Lateral ventricles: ?normal Midline falx: ??normal Head / Neck Cranium: ?? normal shape and size, normal shape and size 4-chamber view: ?normal Stomach: ?? normal Kidneys: ?? normal Bladder: ?? normal Abdomen Rt kidney: not adequately visualized sex: male Wants to know sex: ?? yes Biometry Standard BPD ?87.0 mm 35w 1d 92% Hadlock OFD ?114.8 mm ?39w 6d >99% Jose Miguel HC 323.4 mm ?35w 5d 88% Chervenak AC 274.1 mm ?31w 3d 10% Hadlock Femur ??58.8 mm 30w 4d 7% Jose Miguel Humerus ?52.7 mm 30w 5d 7% Jose Miguel HC / AC ?1.18 EFW ?1,885 g ??12% Anderson EFW (lb) ?? 4 lb EFW (oz) ?? 2 oz EFW by: ?Hadlock ([id number]) Extended Video Games Mechanic 8.1 mm Lt Renal pelvis ap 2.0 mm Head / Face / Neck Cephalic index 0.76 ? 11% Nicolaides Extremities / Bony Struc FL / BPD ?? 0.68 FL / HC ?0.18 FL / AC ?0.21 Other Structures FHR ?148 bpm Doppler Arterial Umbilical A PI 0.85 ? 43% Henry Umbilical A RI 0.59 ? 45% Henry Umbilical A PS 39.44 cm/s ?? 11% Ebbing Umbilical A ?ED ?16.13 cm/s Umbilical A TAmax ??27.53 cm/s ?? 21% Ebbing Umbilical A MD 15.70 cm/s Umbilical A S / D ??2.45 ? 39% Henry Umbilical A HR 143 bpm Impression: ?Normal Doppler study Maternal Structures Uterus / Cervix Fibroids: ??Fibroids identified Uterine fibroid D1 19.7 mm Uterine fibroid D2 22.6 mm Uterine fibroid D3 14.3 mm Uterine fibroid mean ?? 18.9 mm Uterine fibroid vol ?3.334 cm cubed Uterine fibroids findings: Fundal subserosal Growth Overview Exam date ??GA ??BPD (mm) ?HC (mm) AC (mm) FL (mm) HL (mm) EFW (g) 02/10/2023 ??20w 6d ??52.9 ?89% 189.5 ?? 61% 156.2 ?? 41% 31.8 ?28% 31.8 ?38% 359 05/07/2023 33w 1d ??87 ??92% 323.4 ?? 88% 274.1 ?? 10% 58.8 ?7% ??52.7 ?7% ??1885 ?12% Method ====== Transabdominal ultrasound examination, Voluson E22. View: Sufficient Impression ========= 05609 Follow-up obstetrical ultrasound This is a jones gestation. Composite biometry is consistent with prior dating with the abdominal circumference 10%. The EFW is at the 12%. Except where noted above, the anatomy was not reviewed in detail as this is a follow-up study and the anatomy was previously assessed. Normal fluid and movement are noted. There is a fundal subserosal fibroid. 17990 Umbilical artery Doppler study Doppler waveforms of the umbilical artery are normal. Follow-up ======== Follow-up growth and doppler [facility] q3 wks due to concerns but planing to deliver at [facility]. See ote. DATE OF SERVICE: .7/.1/<OBR Procedure Note Sandra Lua MD - 05/07/2023 Indication ======== large fundal fibroid, EFW 10% [...] ====== LMP on: 09/07/2022 GA by LMP 34 w + 4 d ROLA by LMP : 06/14/2023 Previous Ultrasound on: 11/14/2022 Type of prior assessment: GA GA at prior assessment date 8 w + 2 d GA by previous U/S 33 w + 1 d ROLA by previous Ultrasound: 06/24/2023 Ultrasound examination on: 05/07/2023 GA by U/S based upon: AC, BPD, Femur, HC GA by U/S 33 w + 2 d ROLA by U/S: 06/23/2023 Assigned: based on ultrasound (GA), selected on 02/10/2023 Assigned GA 33 w + 1 d Assigned ROLA: 06/24/2023 General Evaluation Cardiac activity Present. FHR 148 bpm. movements: visualized,visualized. Presentation: cephalic Placenta: Anterior Amniotic fluid: Amount of AF: normal, normal. MVP 6.0 cm. EMILIANO 13.8 cm. Q11.4 cm, Q2 2.9 cm, Q3 6.0 cm, Q4 3.5 cm Anatomy Cranium: normal Lateral ventricles: normal Midline falx: normal Head / Neck Cranium: normal shape and size, normal shape and size 4-chamber view: normal Stomach: normal Kidneys: normal Bladder: normal Abdomen Rt kidney: not adequately visualized sex: male Wants to know sex: yes Biometry Standard BPD 87.0 mm 35w 1d 92% Hadlock OFD 114.8 mm 39w 6d >99% Jose Miguel HC 323.4 mm 35w 5d 88% Chervenak AC 274.1 mm 31w 3d 10% Hadlock Femur 58.8 mm 30w 4d 7% Jose Miguel Humerus 52.7 mm 30w 5d 7% Jose Miguel HC / AC 1.18 EFW 1,885 g 12% Anderson EFW (lb) 4 lb EFW (oz) 2 oz EFW by: Hadlock ([id number]) Extended Video Games Mechanic 8.1 mm Lt Renal pelvis ap 2.0 mm Head / Face / Neck Cephalic index 0.76 11% Nicolaides Extremities / Bony Struc FL / BPD 0.68 FL / HC 0.18 FL / AC 0.21 Other Structures FHR 148 bpm Doppler Arterial Umbilical A PI 0.85 43% Henry Umbilical A RI 0.59 45% Henry Umbilical A PS 39.44 cm/s 11% Ebbing Umbilical A ED 16.13 cm/s Umbilical A TAmax 27.53 cm/s 21% Ebbing Umbilical A MD 15.70 cm/s Umbilical A S / D 2.45 39% Henry Umbilical A HR 143 bpm Impression: Normal Doppler study Maternal Structures Uterus / Cervix Fibroids: Fibroids identified Uterine fibroid D1 19.7 mm Uterine fibroid D2 22.6 mm Uterine fibroid D3 14.3 mm Uterine fibroid mean 18.9 mm Uterine fibroid vol 3.334 cm cubed Uterine fibroids findings: Fundal subserosal Growth Overview Exam date GA BPD (mm) HC (mm) AC (mm) FL (mm) HL (mm) EFW (g) 02/10/2023 20w 6d 52.9 89% 189.5 61% 156.2 41% 31.8 28% 31.838% 359 05/07/2023 33w 1d 87 92% 323.4 88% 274.1 10% 58.8 7% 52.7 7%1885 12% Method ====== Transabdominal ultrasound examination, Voluson E22. View: Sufficient Impression ========= 61335 Follow-up obstetrical ultrasound This is a jones gestation. Composite biometry is consistent with prior dating with theabdominal circumference 10%. The EFW is at the 12%. Except where noted above, the anatomy was not reviewed in detail asthis is a follow-up study and the anatomy was previously assessed. Normal fluid and movement are noted. There is a fundal subserosalfibroid. 80691 Umbilical artery Doppler study Doppler waveforms of the umbilical artery are normal. Follow-up ======== Follow-up growth and doppler [facility] q3 wks due to concerns but planing to[facility]iver [facility]. See ote. DATE OF SERVICE: ../<OBR us Faith Mesa CNM IMG US OB ORDERABLES Edited Result - Final * US OB FOLLOWUP (05/07/2023 14:57 EST) Anatomical Region Laterality Modality Pelvis Ultrasound 05/07/2023 14:3 3 EST Addenda Addendum by Sandra Lua MD on 05/23/2023 18:08 EDT Indication ======== large fundal fibroid, EFW [...] ====== LMP on: ?09/07/2022 GA by LMP ??34 w + 4 d ROLA by LMP : ? 06/14/2023 Previous Ultrasound on: ?11/14/2022 Type of prior assessment: ??GA GA at prior assessment date ?8 w + 2 d GA by previous U/S 33 w + 1 d ROLA by previous Ultrasound: ?06/24/2023 Ultrasound examination on: 05/07/2023 GA by U/S based upon: ??AC, BPD, Femur, HC GA by U/S ??33 w + 2 d ROLA by U/S: ?06/23/2023 Assigned: ??based on ultrasound (GA), selected on 02/10/2023 Assigned GA ?33 w + 1 d Assigned ROLA: ??06/24/2023 General Evaluation Cardiac activity Present. FHR 148 bpm. movements: visualized, visualized. Presentation: cephalic Placenta: Anterior Amniotic fluid: Amount of AF: normal, normal. MVP 6.0 cm. EMILIANO 13.8 cm. Q1 1.4 cm, Q2 2.9 cm, Q3 6.0 cm, Q4 3.5 cm Anatomy Cranium: ?? normal Lateral ventricles: ?normal Midline falx: ??normal Head / Neck Cranium: ?? normal shape and size, normal shape and size 4-chamber view: ?normal Stomach: ?? normal Kidneys: ?? normal Bladder: ?? normal Abdomen Rt kidney: not adequately visualized sex: male Wants to know sex: ?? yes Biometry Standard BPD ?87.0 mm 35w 1d 92% Hadlock OFD ?114.8 mm ?39w 6d >99% Jose Miguel HC 323.4 mm ?35w 5d 88% Chervenak AC 274.1 mm ?31w 3d 10% Hadlock Femur ??58.8 mm 30w 4d 7% Jose Miguel Humerus ?52.7 mm 30w 5d 7% Jose Miguel HC / AC ?1.18 EFW ?1,885 g ??12% Anderson EFW (lb) ?? 4 lb EFW (oz) ?? 2 oz EFW by: ?Hadlock ([id number]) Extended Video Games Mechanic 8.1 mm Lt Renal pelvis ap 2.0 mm Head / Face / Neck Cephalic index 0.76 ? 11% Nicolaides Extremities / Bony Struc FL / BPD ?? 0.68 FL / HC ?0.18 FL / AC ?0.21 Other Structures FHR ?148 bpm Doppler Arterial Umbilical A PI 0.85 ? 43% Henry Umbilical A RI 0.59 ? 45% Henry Umbilical A PS 39.44 cm/s ?? 11% Ebbing Umbilical A ?ED ?16.13 cm/s Umbilical A TAmax ??27.53 cm/s ?? 21% Ebbing Umbilical A MD 15.70 cm/s Umbilical A S / D ??2.45 ? 39% Henry Umbilical A HR 143 bpm Impression: ?Normal Doppler study Maternal Structures Uterus / Cervix Fibroids: ??Fibroids identified Uterine fibroid D1 197.0 mm Uterine fibroid D2 226.0 mm Uterine fibroid D3 143.0 mm Uterine fibroid mean ?? 188.7 mm Uterine fibroid vol ?3,333.568 cm cubed Uterine fibroids findings: Fundal subserosal Growth Overview Exam date ??GA ??BPD (mm) ?HC (mm) AC (mm) FL (mm) HL (mm) EFW (g) 02/10/2023 ??20w 6d ??52.9 ?89% 189.5 ?? 61% 156.2 ?? 41% 31.8 ?28% 31.8 ? 38% 359 05/07/2023 33w 1d ??87 ??92% 323.4 ?? 88% 274.1 ?? 10% 58.8 ?7% ??52.7 ?7% ?? 1885 ?12% Method ====== Transabdominal ultrasound examination, Voluson E22. View: Sufficient Impression ========= 39805 Follow-up obstetrical ultrasound This is a jones gestation. Composite biometry is consistent with prior dating with the abdominal circumference 10%. The EFW is at the 12%. Except where noted above, the anatomy was not reviewed in detail as this is a follow-up study and the anatomy was previously assessed. Normal fluid and movement are noted. There is a fundal subserosal fibroid. 66905 Umbilical artery Doppler study Doppler waveforms of the umbilical artery are normal. Follow-up ======== Follow-up growth and doppler [facility] q3 wks due to concerns but planing to deliver at [facility]. See ote. DATE OF SERVICE: ../<OBR Narrative 05/07/2023 17:23 EST Indication ======== large fundal fibroid, EFW 10% [...] ====== LMP on: ?09/07/2022 GA by LMP ??34 w + 4 d ROLA by LMP : ? 06/14/2023 Previous Ultrasound on: ?11/14/2022 Type of prior assessment: ??GA GA at prior assessment date ?8 w + 2 d GA by previous U/S 33 w + 1 d ROLA by previous Ultrasound: ?06/24/2023 Ultrasound examination on: 05/07/2023 GA by U/S based upon: ??AC, BPD, Femur, HC GA by U/S ??33 w + 2 d ROLA by U/S: ?06/23/2023 Assigned: ??based on ultrasound (GA), selected on 02/10/2023 Assigned GA ?33 w + 1 d Assigned ROLA: ??06/24/2023 General Evaluation Cardiac activity Present. FHR 148 bpm. movements: visualized, visualized. Presentation: cephalic Placenta: Anterior Amniotic fluid: Amount of AF: normal, normal. MVP 6.0 cm. EMILIANO 13.8 cm. Q1 1.4 cm, Q2 2.9 cm, Q3 6.0 cm, Q4 3.5 cm Anatomy Cranium: ?? normal Lateral ventricles: ?normal Midline falx: ??normal Head / Neck Cranium: ?? normal shape and size, normal shape and size 4-chamber view: ?normal Stomach: ?? normal Kidneys: ?? normal Bladder: ?? normal Abdomen Rt kidney: not adequately visualized sex: male Wants to know sex: ?? yes Biometry Standard BPD ?87.0 mm 35w 1d 92% Hadlock OFD ?114.8 mm ?39w 6d >99% Jose Miguel HC 323.4 mm ?35w 5d 88% Chervenak AC 274.1 mm ?31w 3d 10% Hadlock Femur ??58.8 mm 30w 4d 7% Jose Miguel Humerus ?52.7 mm 30w 5d 7% Jose Miguel HC / AC ?1.18 EFW ?1,885 g ??12% Anderson EFW (lb) ?? 4 lb EFW (oz) ?? 2 oz EFW by: ?Hadlock ([id number]) Extended Video Games Mechanic 8.1 mm Lt Renal pelvis ap 2.0 mm Head / Face / Neck Cephalic index 0.76 ? 11% Nicolaides Extremities / Bony Struc FL / BPD ?? 0.68 FL / HC ?0.18 FL / AC ?0.21 Other Structures FHR ?148 bpm Doppler Arterial Umbilical A PI 0.85 ? 43% Henry Umbilical A RI 0.59 ? 45% Henry Umbilical A PS 39.44 cm/s ?? 11% Ebbing Umbilical A ?ED ?16.13 cm/s Umbilical A TAmax ??27.53 cm/s ?? 21% Ebbing Umbilical A MD 15.70 cm/s Umbilical A S / D ??2.45 ? 39% Henry Umbilical A HR 143 bpm Impression: ?Normal Doppler study Maternal Structures Uterus / Cervix Fibroids: ??Fibroids identified Uterine fibroid D1 19.7 mm Uterine fibroid D2 22.6 mm Uterine fibroid D3 14.3 mm Uterine fibroid mean ?? 18.9 mm Uterine fibroid vol ?3.334 cm cubed Uterine fibroids findings: Fundal subserosal Growth Overview Exam date ??GA ??BPD (mm) ?HC (mm) AC (mm) FL (mm) HL (mm) EFW (g) 02/10/2023 ??20w 6d ??52.9 ?89% 189.5 ?? 61% 156.2 ?? 41% 31.8 ?28% 31.8 ?38% 359 05/07/2023 33w 1d ??87 ??92% 323.4 ?? 88% 274.1 ?? 10% 58.8 ?7% ??52.7 ?7% ??1885 ?12% Method ====== Transabdominal ultrasound examination, Voluson E22. View: Sufficient Impression ========= 13838 Follow-up obstetrical ultrasound This is a jones gestation. Composite biometry is consistent with prior dating with the abdominal circumference 10%. The EFW is at the 12%. Except where noted above, the anatomy was not reviewed in detail as this is a follow-up study and the anatomy was previously assessed. Normal fluid and movement are noted. There is a fundal subserosal fibroid. 33497 Umbilical artery Doppler study Doppler waveforms of the umbilical artery are normal. Follow-up ======== Follow-up growth and doppler [facility] q3 wks due to concerns but planing to deliver at [facility]. See ote. DATE OF SERVICE: /<OBR Procedure Note Sandra Lua MD - 05/07/2023 Indication ======== large fundal fibroid, EFW 10% [...] ====== LMP on: 09/07/2022 GA by LMP 34 w + 4 d ROLA by LMP : 06/14/2023 Previous Ultrasound on: 11/14/2022 Type of prior assessment: GA GA at prior assessment date 8 w + 2 d GA by previous U/S 33 w + 1 d ROLA by previous Ultrasound: 06/24/2023 Ultrasound examination on: 05/07/2023 GA by U/S based upon: AC, BPD, Femur, HC GA by U/S 33 w + 2 d ROLA by U/S: 06/23/2023 Assigned: based on ultrasound (GA), selected on 02/10/2023 Assigned GA 33 w + 1 d Assigned ROLA: 06/24/2023 General Evaluation Cardiac activity Present. FHR 148 bpm. movements: visualized,visualized. Presentation: cephalic Placenta: Anterior Amniotic fluid: Amount of AF: normal, normal. MVP 6.0 cm. EMILIANO 13.8 cm. Q11.4 cm, Q2 2.9 cm, Q3 6.0 cm, Q4 3.5 cm Anatomy Cranium: normal Lateral ventricles: normal Midline falx: normal Head / Neck Cranium: normal shape and size, normal shape and size 4-chamber view: normal Stomach: normal Kidneys: normal Bladder: normal Abdomen Rt kidney: not adequately visualized sex: male Wants to know sex: yes Biometry Standard BPD 87.0 mm 35w 1d 92% Hadlock OFD 114.8 mm 39w 6d >99% Jose Miguel HC 323.4 mm 35w 5d 88% Chervenak AC 274.1 mm 31w 3d 10% Hadlock Femur 58.8 mm 30w 4d 7% Jose Miguel Humerus 52.7 mm 30w 5d 7% Jose Miguel HC / AC 1.18 EFW 1,885 g 12% Anderson EFW (lb) 4 lb EFW (oz) 2 oz EFW by: Hadlock ([id number]) Extended Video Games Mechanic 8.1 mm Lt Renal pelvis ap 2.0 mm Head / Face / Neck Cephalic index 0.76 11% Nicolaides Extremities / Bony Struc FL / BPD 0.68 FL / HC 0.18 FL / AC 0.21 Other Structures FHR 148 bpm Doppler Arterial Umbilical A PI 0.85 43% Henry Umbilical A RI 0.59 45% Henry Umbilical A PS 39.44 cm/s 11% Ebbing Umbilical A ED 16.13 cm/s Umbilical A TAmax 27.53 cm/s 21% Ebbing Umbilical A MD 15.70 cm/s Umbilical A S / D 2.45 39% Henry Umbilical A HR 143 bpm Impression: Normal Doppler study Maternal Structures Uterus / Cervix Fibroids: Fibroids identified Uterine fibroid D1 19.7 mm Uterine fibroid D2 22.6 mm Uterine fibroid D3 14.3 mm Uterine fibroid mean 18.9 mm Uterine fibroid vol 3.334 cm cubed Uterine fibroids findings: Fundal subserosal Growth Overview Exam date GA BPD (mm) HC (mm) AC (mm) FL (mm) HL (mm) EFW (g) 02/10/2023 20w 6d 52.9 89% 189.5 61% 156.2 41% 31.8 28% 31.838% 359 05/07/2023 33w 1d 87 92% 323.4 88% 274.1 10% 58.8 7% 52.7 7%1885 12% Method ====== Transabdominal ultrasound examination, Voluson E22. View: Sufficient Impression ========= 77622 Follow-up obstetrical ultrasound This is a jones gestation. Composite biometry is consistent with prior dating with theabdominal circumference 10%. The EFW is at the 12%. Except where noted above, the anatomy was not reviewed in detail asthis is a follow-up study and the anatomy was previously assessed. Normal fluid and movement are noted. There is a fundal subserosalfibroid. 48246 Umbilical artery Doppler study Doppler waveforms of the umbilical artery are normal. Follow-up ======== Follow-up growth and doppler [facility] q3 wks due to concerns but planing to[facility]iver at [facility]. See ote. DATE OF SERVICE: ..1/<OBR Faith Mesa CNM [facility] OB ORDERABLES Edited Result - Final documented in this encounter Visit Diagnoses Diagnosis Uterine fibroid in Tumors of body of uterus, unspecified as to episode of care in Uterine size-date discrepancy in third trimester Uterine size date discrepancy, antepartum condition or complication Obesity (BMI 35.0-39.9 without comorbidity) Obesity, unspecified Uterine leiomyoma, unspecified location documented in this encounter Care Teams Executive Officer Special Warfare Team Relationship Specialty Start Date End Date Celia [facility] [place] [id number] PCP - General 08/31/19 02/12/24 documented as of this encounter
--- OUTSIDE RECORDS SUMMARY | 2024-02-18 12:50 | XMS_ITS | Encounter Summary ---
Author Organization [facility] Address [address] [place] [address] Care Team Providers Care Enterprise Solutions Architect Name Role Phone Dari Yang [facility] Primary Care Provider [phone] Helen Carrion SEXUAL ASSAULT COUNSELLOR Primary Care Provider Encounter Details Date Type Department Care Team (Late st Contact Info) Description 11/14/[address] [facility] Pathology & Laboratory Medicine - [address] [address] Outr Resulting Lab, Provider Social History Tobacco [...] Info) Description 02/19/2024 8:25 EST Hospital Encounter [facility] OR [address] [place], [place] [phone] Ceferino Aguilera MD 111 [facility], Level [address] [place] [phone] 02/19/2024 8:25 EST - 02/19/2024 11:55 EST Surgery [facility] OR [address] [place] [id number] Ceferino Aguilera MD [address] [place] [phone] abdominal myomectomy [12737 (CPT??)] 03/08/2024 10:45 EST Post-op Visit [facility] OBGYN Services - [address] [phone] Ceferino Aguilera MD [address] [place] [phone] Scheduled Procedures Name Priority Associated Diagnoses Date/Ti me MYOMECTOMY, UTERUS, 1-4 LEIOMYOMATA, ABDOMINAL APPROACH, FOR UTERUS 250 GRAMS OR LESS Uterine leiomyoma, unspecified location 02/19/2024 8:25 EST documented as of this encounter Procedures Procedure Name Priority Date/Time Associated Diagnosis Comments SYPHILIS SEROLOGY Routine 11/14/2022 15: 17 EDT documented in this encounter Results * SYPHILIS SEROLOGY (11/14/2022 15:17 EDT) Syphilis Serology Negative Negative 11/15/2022 9:58 EDT [facility] Blood VENOUS BLOOD / Unknown 11/14/2022 15:17 EDT 11/14/2022 21:40 EDT us Provider Outr Resulting Lab IMMUNOLOGY AND SEROL OGY ORDERABLES Final Result [facility] [address] [place] [address] documented in this encounter Visit Diagnoses Not on filedocumented in this encounter Care Teams Enterprise Solutions Architect Relationship Specialty Start Date End Date Celia [facility] [address] [place], [place] [address] PCP - General 08/31/19 02/12/24 Helen Carrion FNP [address] [place] [address] PCP - General Family Medicine - Primary Care 02/13/24 documented as of this encounter
--- OUTSIDE RECORDS SUMMARY | 2024-02-18 12:50 | XMS_ITS | Encounter Summary ---
Author Organization [facility] Address [address] [place] [address] Care Team Providers Care Building Custodial Supervisor Name Role Phone Nick Qureshi MD Primary Care Provider [phone] Unknown, Provider Primary Care Provider Unava ilable Encounter Details Date Type Department Care Team (Late st Contact Info) Description 11/18/2017 Historical Results Only [facility] Lab [address] [place] [address] Luis Felipe Reyes MD [address] [place] [phone] Social History Tobacco Use Types Packs/Day [...] Info) Description 02/19/2024 8:25 EST Hospital Encounter [facility] OR [address] [place], [place] [address] Ceferino Aguilera MD 111 [facility], Level [address] [place] [phone] 02/19/2024 8:25 EST - 02/19/2024 11:55 EST Surgery [facility] OR [address] [place] [phone] Ceferino Aguilera MD [address] [place] [address], [facility] [address] [place] [address] abdominal myomectomy [53169 (CPT??)] 03/08/2024 10:45 EST Post-op Visit [facility] OBGYN Services - [address] [address] Ceferino Aguilera MD [address] [place] [address], [address] [phone] Scheduled Procedures Name Priority Associated Diagnoses Date/Ti me MYOMECTOMY, UTERUS, 1-4 LEIOMYOMATA, ABDOMINAL APPROACH, FOR UTERUS 250 GRAMS OR LESS Uterine leiomyoma, unspecified location 02/19/2024 8:25 EST documented as of this encounter Procedures Procedure Name Priority Date/Time Associated Diagnosis Comments CHLAMYDIA/CG AMP RNA,GENITAL - PMC Routine 11/18/2017 19:36 EDT THIN PREP PAP W HPV - PMC Routine 11/18/2017 19:36 EDT documented in this encounter Results * THIN PREP PAP W HPV - PMC (11/18/2017 19:36 EDT) THIN PREP PAP SMEAR - PMC Results Below 11/26/2017 13:44 EDT [facility] Comment: CYTOPATHOLOGY REPORT Disclaimers: 1) ??Reports generated via electronic interface contain original data; however they are lacking the format of the original report. Caution should be taken when reading/interpreting unformatted reports. 2) ??Please reference the paper report if the text (End of Report) is not displayed. Name: ? LIDA, MELODY ? Accession #: ? [id number] : ? 1995 (Age: 21) ??F ?Collect Date: ? 11/18/2017 Location: ? [facility] ? Receive Date: ? 11/20/2017 Provider: ?LUIS FELIPE CEJA MD Copy to: Specimen/Source: ?Pap Test, Endocervix, ThinPrep Imaging System with manual evaluation Last Menstrual Period: UNKNOWN Hormonal/Contraceptive Status: Yes Other: Additional clinical information: Z11.3 Z01.419 SPECIMEN ADEQUACY ? Satisfactory for Evaluation - transformation zone component absent GENERAL CATEGORIZATION ? Negative for Intraepithelial Lesion or Malignancy Document reviewed and electronically signed by: ? Sumeet Gomez, CT(ASCP) ? Report Date: ??11/26/2017 13:27 End of Report Test Performed by: THE [address] [id number] 11/18/2017 19:3 6 EDT 11/18/2017 19:37 EDT Narrative [facility] - 11/26/2017 13:44 EDT Collection Time reflects the Date and Time specimen was received by Lab. No time was indicated on specimen. us Luis Felipe Anderson MD CHEMISTRY & BL OOD GAS ORDERABLES Final Result [facility] [address] [place] [address] * CHLAMYDIA/CG AMP RNA,GENITAL - PMC (11/18/2017 19:36 EDT) MICRO SPECIMEN DESCRIPTION - PMC endocervical 11/20/2017 14:01 EDT [facility] Chlamydia trachomatis Result Negative Negative 11/20/2017 14:01 EDT [facility] GC Result Negative Negative 11/20/2017 14:05 EDT [facility] Comment: Test Performed by: THE [address] [id number] 11/18/2017 19:3 6 EDT 11/18/2017 19:37 EDT Narrative [facility] - 11/20/2017 14:05 EDT Collection Time reflects the Date and Time specimen was received by Lab. No time was indicated on specimen. us Luis Felipe Anderson MD MICROBIOLOGY - GENERAL ORDERABLES Final Result [facility] [address] [place] [address] documented in this encounter Visit Diagnoses Not on filedocumented in this encounter Care Teams Building Custodial Supervisor Relationship Specialty Start Date End Date Nick Qureshi MD PCP - General 01/15/15 11/18/17 Unknown, ProviderMD PCP - General 11/19/17 08/30/19 documented as of this encounter
--- OUTSIDE RECORDS SUMMARY | 2024-02-18 12:50 | XMS_ITS | Encounter Summary ---
Author Organization [facility] Address [address] [place] [address] Care Team Providers Care Denture Waxer Name Role Phone Dari Yang [facility]- Primary Care Provider [phone] Reason for Visit * Reason Comments Advice Only * Consult (Routine) - Receiving Office to Obtain Authorization Specialty Diagnoses / Procedures Referred By Contkeith t Referred To Contact Obstetrics Diagnoses Uterine fibroids affecting in second trimester Faith Mesa CNM [address] [place] [address] Phone: tel: fax: [facility] [address] [address] Phone: tel: fax: Referral ID Status Reason Start Date Expiration Date Visits Requested Visits Authorized [id number] Receiving Office to Obtain Authorization 1 1 Encounter Details Date Type Department Care Team (Late st Contact Info) Description 02/10/2023 14:00 EST Initial consult [facility] [address] 828[address] Michelle Romero MD [address] [place] [address], [facility] [address] [place] [phone] Uterine fibroid during , antepartum (Primary Dx) [...] Sign Reading Time Taken Comments Blood Pressure 139/79 02/10/2023 1432 EST Pulse - - Temperature - - Respiratory Rate - - Oxygen Saturation - - Inhaled Oxygen Concentration - - Weight 101.2 kg (223 lb) 02/10/2023 1432 EST Height - - Body Mass Index - - documented in this encounter Progress Notes * Analia Chavez MD - 02/10/2023 1400 EST Dear Faith Mesa CNM Many thanks for referring Saulo Mace ( 1995) for MFM consultation at the [facility] MFM office. As you know, Saulo is a 27 y.o. at 20w6d gestation (dated by 8 wk ultrasound) with a complicated by a new finding of a large uterine fibroid at her initial ultrasound.She has not had any symptoms of abnormal uterine bleeding or bulk symptoms prior to this ultrasounddiagnosis in . No pain from this area in . PFSH ??? Past medical history: o Anxiety - taking citalopram 20mg, feeling stable in . Has good support o Hypothyroidism - taking 100mcg synthroid ??? Past surgical history: none ??? Contraceptive history: OCP's until current ??? Contraceptive plan: plans to resume OCP's ??? Denies h/o abnormal paps ??? Denies h/o STI's, genital HSV ??? 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 Lives with partner and step-son, no pets at home. ??? Patient's sister had preeclampsia in a recent , recently diagnosed with Graves Disease. ? ? Denies FHx of VTE <50-yo ??? FOB has webbed toes. Otherwise patient and partner deny family hx of structural anomalies, chromosomal aberrations or genetic syndromes Exposures ??? Caffeine: rare cup of coffee ??? Alcohol: none ??? Nicotine: none ??? Marijuana: none ??? Illicit substances: none OB History Para Term AB Living 1 SAB IAB Ectopic Multiple Live Births # Outcome Date GA Lbr Miguel/2nd Weight Sex Delivery Anes PTL Lv 1 Current Current Outpatient Medications: ?? Citalopram (CELEXA) 20 mg tablet, Take 1 Tablet by mouth daily., Disp: , Rfl: ?? Levothyroxine 100 mcg capsule, Take 100 mcg by mouth daily., Disp: , Rfl: ?? vitamin No Known Allergies BP 139/79 Wt (!) 101.2 kg (223 lb) LMP 09/07/2022 Ultrasound: Ibarra IUP in cephalic presentation. FHR 152 bpm. Anterior placenta. EFW 359g. Subserosal pedunculated fundal fibroid measuring 18.9 cm x 10.3 cm x 12.2 cm Assessment/Discussion: 1. Uterine Fibroid Ultrasound revealed that Jacob has a large subserosal pedunculated fibroid at the fundus measuring nearly 19 cm at its largest dimension. Given the extramural/pedunculated location of this fibroid, she is not at increased risk of complications such as growth restriction, pretermlabor, malposition. Given its current location, I suspect she will not have any issues havinga vaginal delivery and is at baseline risk for hemorrhage. The fibroid is not obstructing the lower uterine segment, nor does the ultrasound show any impingement on the uterine myometrium,thus it will likely retain is function in labor and , and I do not suspect she is significantly increased risk of uterine atony. We did discuss the risk of her fibroid to grow and/or degenerate in this . We recommend she be followed with monthly growth ultrasounds starting at 28 weeks to monitor the size of the fetus (given difficulty of fundal height measurements) and the fibroid. Additionally, we discussed the symptoms of fibroid degeneration including pain above the fundus, should this occur later in . She requested additional information regarding optimal timing for resection of the fibroid and if this is necessary. We discussed that resection surrounding delivery is suboptimal, and instead the earliest recommended time for myomectomy would be 8-12 weeks after her delivery. However, we also discussed that this would only be worthwhile if it were thought to likely improve outcomes in a future , which she desires, or for symptom resolution. It would be reasonable to undergo steeping press tender ultrasound after 8-12 weeks , and potential consultation with the MIGS service to discuss inter- fibroid resection pending her symptoms. Recommendations ??? Continue care at [facility]. Saulo can safely delivery at [facility]. Should you or she desire transfer of care to [facility] for delivery, she can follow with a low risk practice. ??? We recommend follow up growth ultrasounds monthly at 28, 32, and 36 weeks. These can be done [facility] or at [facility]. ??? Recommend referral back to [facility] [employer] Inspector imaging for ultrasound at 8-12 weeks , and subsequent consultation with minimally invasive steeping press tender surgery team for possible myomectomy pending symptoms . Thank you for the opportunity to participate in the care of Saulo. Please let me know if you have any questions or concerns. This patient was seen and discussed with Dr. Michelle Romero. Yours sincerely, Analia Chavez MD PGY5 Maternal Medicine Fellow [facility] 02/10/23 14:47 Attestation statement: I performed or was present during the lindsey or critical portions of the visit and participated in the management of the patient. I agree with the findings and plan of care documented in the resident's/fellow's note. Michelle Rmoero MD I spent a total of 15 minutes on the date of this encounter meeting with the patient and reviewing documentation/coordinating care as described in the above note. This was separate from any procedures performed at the time of the visit. documented in this encounter Plan of Treatment Upcoming Encounters Date Type Department Care Team (Late st Contact Info) Description 02/19/2024 8:25 EST Hospital Encounter [facility] OR [address] [place], [place] [phone] Ceferino Aguilera MD 111 [facility], Level [address] [place] [phone] 02/19/2024 8:25 EST - 02/19/2024 11:55 EST Surgery [facility] OR [address] [place], [place] [address] Ceferino Aguilera MD [address] [place] [address] 4 [place] [phone] abdominal myomectomy [20589 (CPT??)] 03/08/2024 10:45 EST Post-op Visit [facility] OBGYN Services - [address] [phone] Ceferino Aguilera MD [address] [place] [phone] Scheduled Procedures Name Priority Associated Diagnoses Date/Ti me MYOMECTOMY, UTERUS, 1-4 LEIOMYOMATA, ABDOMINAL APPROACH, FOR UTERUS 250 GRAMS OR LESS Uterine leiomyoma, unspecified location 02/19/2024 8:25 EST documented as of this encounter Visit Diagnoses Diagnosis Uterine fibroid during , antepartum- Primary Uterine leiomyoma, unspecified location documented in this encounter Historical Medications * This list may reflect changes made after this encounter. citalopram (CELEXA) 20 mg tablet Take 1 Tablet by mouth daily. Levothyroxine 100 mcg capsule Take 100 mcg by mouth daily. added in this encounter Care Teams Denture Waxer Relationship Specialty Start Date End Date [facility] 4 [facility] [place] [address] PCP - General 08/31/19 02/12/24 documented as of this encounter
--- OUTSIDE RECORDS SUMMARY | 2024-02-18 12:50 | XMS_ITS | Encounter Summary ---
Author Organization [facility] Address [address] [place] [address] Care Team Providers Care Crm Specialist Name Role Phone Unknown, Provider MD Primary Care Provider Unava ilable Reason for Visit * Reason Onset Date Comments Medications Refill 08/25/2019 Encounter Details Date Type Department Care Team (Late st Contact Info) Description 08/25/2019 Telephone [facility] Pediatric Primary Care [address] [place], [place] [phone] Luis Felipe Reyes MD [address] [place] [phone] Medications Refill Social History Tobacco Use Types Packs/Day Years Used Date Smoking Tobacco: Never Assessed Comments Unknown Sex and Gender Information Value Date Recorded Sex Assigned at Female 02/13/2024 9:15 EST Legal Sex Female 18:08 EST Gender Identity Female 08/31/2019 11:19 EDT Sexual Orientation Not on file documented as of this encounter Ordered Prescriptions Prescription Sig Dispense Quantity Refills Last Filled Start Date End Date norgestimate-ethiny l estradioL (ORTHO TRI-CYCLEN, 28,) 0.18/0.215/0.25 mg-35 mcg (28) tablet Take 1 Tab by mouth daily. 84 Tab 1 08/25/2019 norgestimate-ethiny l estradioL (ORTHO TRI-CYCLEN LO) 0.18/0.215/0.25 mg-25 mcg tablet Take 1 Tab by mouth daily. 84 Tab 1 08/25/2019 08/25/2019 documented in this encounter Miscellaneous Notes * Addendum Note - Bette Jim RN - 08/25/2019 1429 EDTAddended by: BETTE JIM on: 08/25/2019 14:29 Modules accepted: Orders * Telephone Encounter - Bette Jim RN - 08/25/2019 1420 EDT Last script 06/09/18 for #168 refill x 3. Last PE 11/18/17. Call to pt and let her know we sent in script. * Telephone Encounter - Waleska Partida - 08/25/2019 1414 EDT Pharmacy: [facility] Callers Name: Saulo Mace Relationship to patient: Self Medication: Control Message left on Refill Line: No Note: Patient called advising that she hasn't been seen hear for a year+. Patient advised that her control Rx has . Patient advised that she's currently seeking a new PCP, and wondering if DR SCRUGGS will refill her Rx one last time before switching. Please advise. documented in this encounter Plan of Treatment Upcoming Encounters Date Type Department Care Team (Late st Contact Info) Description 02/19/2024 8:25 EST Hospital Encounter [facility] OR [address] [place] [phone] Ceferino Aguilera MD [address] [place] [address], Level [address] [place] [phone] 02/19/2024 8:25 EST - 02/19/2024 11:55 EST Surgery [facility] OR [address] [place] [phone] Ceferino Aguilera MD 111 [facility] 4 [place] [phone] abdominal myomectomy [75569 (CPT??)] 03/08/2024 10:45 EST Post-op Visit [facility] OBGYN Services - [address] [phone] Ceferino Aguilera MD [address] [place] [phone] Scheduled Procedures Name Priority Associated Diagnoses Date/Ti me MYOMECTOMY, UTERUS, 1-4 LEIOMYOMATA, ABDOMINAL APPROACH, FOR UTERUS 250 GRAMS OR LESS Uterine leiomyoma, unspecified location 02/19/2024 8:25 EST documented as of this encounter Visit Diagnoses Not on filedocumented in this encounter Discontinued Medications Medication Sig Discontinue Reason Start Date End Da te norgestimate-ethinyl estradioL (ORTHO TRI-CYCLEN LO) 0.18/0.215/0.25 mg-25 mcg tablet Take 1 Tab by mouth daily. 08/25/2019 08/25/2019 documented as of this encounter Care Teams Crm Specialist Relationship Specialty Start Date End Date Unknown, Provider, PCP - General 11/19/17 08/30/19 documented as of this encounter
--- OUTSIDE RECORDS SUMMARY | 2024-02-18 12:50 | XMS_ITS | Encounter Summary ---
Author Organization [facility] Address [address] [place] [address] Care Team Providers Care Retail Receiving Clerk Name Role Phone Celia [facility]- Primary Care Provider [phone] Reason for Referral * Radiology Services (Routine/Next Available) - Authorization Not Required Specialty Diagnoses / Procedures Referred By Contac t Referred To Contact Radiology Diagnoses Uterine leiomyoma, unspecified location Procedures MR FEMALE PELVIS W WO CONTRAST Ceferino Aguilera MD Phone: tel: fax: [facility] Referral ID Status Reason Start Date Expiration Date Visits Requested Visits Authorized [id number] Authorization Not Required 12/01/2023 1 1 Reason for Visit * Radiology Services (Routine/Next Available) - Authorization Not Required Specialty Diagnoses / Procedures Referred By Contac t Referred To Contact Radiology Diagnoses Uterine leiomyoma, unspecified location Procedures MR FEMALE PELVIS W WO CONTRAST Ceferino Aguilera MD Phone: tel: fax: [facility] Referral ID Status Reason Start Date Expiration Date Visits Requested Visits Authorized [id number] Authorization Not Required 12/01/2023 1 1 Encounter Details Date Type Department Care Team (Latest Contact Info) Description 12/31/2023 17:55 EDT - 12/31/2023 23:59 EDT Hospital Encounter [facility] [address] [place], [place] [address] Uterine leiomyoma, unspecified location Discharge Disposition: Home [...] Info) Description 02/19/2024 8:25 EST Hospital Encounter [facility] OR [address] [place] [phone] Ceferino Aguilera MD [address] [place] [phone] 02/19/2024 8:25 EST - 02/19/2024 11:55 EST Surgery [facility] OR [address] [place] [phone] Ceferino Aguilera MD [address] [place] [phone] abdominal myomectomy [89111 (CPT??)] 03/08/2024 10:45 EST Post-op Visit [facility] OBGYN Services - [address] [phone] Ceferino Aguilera MD [address] [place] [address], Level [address] [place] [phone] Scheduled Procedures Name Priority Associated Diagnoses Date/Ti de MYOMECTOMY, UTERUS, 1-4 LEIOMYOMATA, ABDOMINAL APPROACH, FOR UTERUS 250 GRAMS OR LESS Uterine leiomyoma, unspecified location 02/19/2024 8:25 EST documented as of this encounter Procedures Procedure Name Priority Date/Time Associated Diagnosis Comments MR FEMALE PELVIS W WO CONTRAST Routine 12/31/2023 18:44 EDT Uterine leiomyoma, unspecified location documented in this encounter Results * MR FEMALE PELVIS [...] no additional suspicious features to suggest leiomyosarcoma. [id number] Narrative 01/01/2024 11:58 EDT MR FEMALE PELVIS [...] Localizer: No additional finding. Resulting Agency Comment [id number] Procedure Note Nathan Aquino MD - 01/01/2024 [...] are no additional suspicious features to suggestleiomyosarcoma. [id number] us Ceferino Aguilera MD IMG MRI ORDERABLES Final Resu lt documented in this encounter Visit Diagnoses Diagnosis Uterine leiomyoma, unspecified location Uterine leiomyoma, unspecified location documented in this encounter Administered Medications Inactive Administered Medications - up to 3 most recent administrations Medication Order MAR Action Action Date Dose Rate Site gadoterate meglumine solution 1-30 mL 1-30 mL, intravenous, Once in imaging, 1 dose, Starting on Fri12/31/23 at 1844, Until Fri12/31/23 at 1845, Routine, Imaging Protocol Orders Given 12/31/2023 18:45 EDT 20 mL documented in this encounter Orders Medications Ordered That Zurdo ht Not Have Been Administered Count Last Ordered Date First Ordered Date gadoterate meglumine solution 1-30 mL 1 documented in this encounter Care Teams Retail Receiving Clerk Relationship Specialty Start Date End Date [facility] [address] [place] [address] PCP - General 08/31/19 02/12/24 documented as of this encounter
--- OUTSIDE RECORDS SUMMARY | 2024-02-18 12:50 | XMS_ITS | Encounter Summary ---
Author Organization [facility] Address [address] [place] [address] Care Team Providers Care Director Of Social Work Name Role Phone Celia [facility]- Primary Care Provider [phone] [phone] Reason for Referral * CUSTOMS AND IMMIGRATION OFFICER (Routine/Next Available) - Authorization Not Required Specialty Diagnoses / Procedures Referred By Contac t Referred To Contact Diagnoses Uterine fibroid during , antepartum Poor growth affecting management of mother in third trimester, single or unspecified fetus Procedures US OB UMB ART DOPPLER Sandra Lua MD Phone: tel: fax: [facility] Referral ID Status Reason Start Date Expiration Date Visits Requested Visits Authorized [id number] Authorization Not Required 05/07/2023 2 2 * CUSTOMS AND IMMIGRATION OFFICER (Routine/Next Available) - Authorization Not Required Specialty Diagnoses / Procedures Referred By Contac t Referred To Contact Diagnoses Uterine fibroid during , antepartum Poor growth affecting management of mother in third trimester, single or unspecified fetus Procedures US OB FOLLOWUP Sandra Lua MD Phone: tel: fax: [facility] Referral ID Status Reason Start Date Expiration Date Visits Requested Visits Authorized [id number] Authorization Not Required 05/07/2023 2 2 Reason for Visit * CUSTOMS AND IMMIGRATION OFFICER (Routine/Next Available) - Authorization Not Required Specialty Diagnoses / Procedures Referred By Contac t Referred To Contact Diagnoses Uterine fibroid during , antepartum Poor growth affecting management of mother in third trimester, single or unspecified fetus Procedures US OB FOLLOWUP Sandra Lua MD Phone: tel: fax: [facility] Referral ID Status Reason Start Date Expiration Date Visits Requested Visits Authorized [id number] Authorization Not Required 05/07/2023 2 2 Encounter Details Date Type Department Care Team (Latest Contact Info) Description 05/29/2023 10:01 EDT - 05/29/2023 23:59 EDT Hospital Encounter [facility] Obstetrics Services - [address] [address] Uterine fibroid during , antepartum; Poor growth affecting management of mother in third trimester, single or unspecified fetus Discharge Disposition: Home or Self Care Social [...] Info) Description 02/19/2024 8:25 EST Hospital Encounter [facility] OR [address] [place] [address] Ceferino Aguilera MD [address] [place] [address], [facility] [address] [place] [address] 02/19/2024 8:25 EST - 02/19/2024 11:55 EST Surgery [facility] OR [address] [place] [phone] Ceferino Aguilera MD [address] [place] [address], [facility] [address] [place] [address] abdominal myomectomy [37184 (CPT??)] 03/08/2024 10:45 EST Post-op Visit [facility] OBGYN Services - [address] [address] Ceferino Aguilera MD [address] [place] [address] Scheduled Procedures Name Priority Associated Diagnoses Date/Ti me MYOMECTOMY, UTERUS, 1-4 LEIOMYOMATA, ABDOMINAL APPROACH, FOR UTERUS 250 GRAMS OR LESS Uterine leiomyoma, unspecified location 02/19/2024 8:25 EST documented as of this encounter Procedures Procedure Name Priority Date/Time Associated Diagnosis Comments US OB FOLLOWUP Routine 05/29/2023 10:39 EDT Uterine fibroid during , antepartum Poor growth affecting management of mother in third trimester, single or unspecified fetus US OB UMB ART DOPPLER Routine 05/29/2023 10:39 EDT Uterine fibroid during , antepartum Poor growth affecting management of mother in third trimester, single or unspecified fetus documented in this encounter Results * US [...] (oz) ?? 10 oz EFW by: ?Hadlock ([id number]) [employer] Technical Writer 7.3 mm Head / Face / Neck [...] examination, [place] E22. View: Sufficient Impression ========= 78985 Follow-up obstetrical ultrasound This is a jones [...] labor. It appears likely to be pedunculated. 45278 Umbilical artery Doppler study Doppler waveforms of the umbilical artery are normal. Follow-up ======== She has had EFW at 10% or larger for her last 2 scans, so I would discontinue further Doppler assessment. DATE OF SERVICE: .7/.1/<OBR Addendum by Parker Hoskins MD on 05/29/2023 [...] (oz) ?? 10 oz EFW by: ?Hadlock ([id number]) [employer] Technical Writer 7.3 mm Head / Face / Neck [...] examination, [place] E22. View: Sufficient Impression ========= 19647 Follow-up obstetrical ultrasound This is a jones [...] labor. It appears likely to be pedunculated. 99103 Umbilical artery Doppler study Doppler waveforms of the umbilical artery are normal. Follow-up ======== She has been 10% of larger for her last 2 scans, so I would discontinue further Doppler assessment. DATE OF SERVICE: ./<OBR Narrative 05/29/2023 11:11 EDT Indication ======== large [...] (oz) ?? 10 oz EFW by: ?Hadlock ([id number]) [employer] Technical Writer 7.3 mm Head / Face / Neck [...] examination, [place] E22. View: Sufficient Impression ========= 10225 Follow-up obstetrical ultrasound This is a jones [...] and that is unlikely to obstruct labor. 36382 Umbilical artery Doppler study Doppler waveforms of the umbilical artery are normal. Follow-up ======== She has been 10% of larger for her last 2 scans, so I would discontinue further Doppler assessment. DATE OF SERVICE: /<OBR Procedure Note Parker Hoskins MD - 05/29/2023 [...] EFW (oz) 10 oz EFW by: Hadlock ([id number]) [employer] Technical Writer 7.3 mm Head / Face / Neck [...] examination, [place] E22. View: Sufficient Impression ========= 57866 Follow-up obstetrical ultrasound This is a jones [...] noted, and that is unlikely toobstruct labor. 00928 Umbilical artery Doppler study Doppler waveforms of the umbilical artery are normal. Follow-up ======== She has been 10% of larger for her last 2 scans, so I would discontinuefurther Doppler assessment. DATE OF SERVICE: .7/.1/<OBR us Sandra Lua MD IMG US OB [...] (oz) ?? 10 oz EFW by: ?Hadlock ([id number]-FL) [employer] Technical Writer 7.3 mm Head / Face / Neck [...] examination, [place] E22. View: Sufficient Impression ========= 23447 Follow-up obstetrical ultrasound This is a jones [...] labor. It appears likely to be pedunculated. 11951 Umbilical artery Doppler study Doppler waveforms of the umbilical artery are normal. Follow-up ======== She has had EFW at 10% or larger for her last 2 scans, so I would discontinue further Doppler assessment. DATE OF SERVICE: ./<OBR Addendum by Parker Hoskins MD on 05/29/2023 [...] (oz) ?? 10 oz EFW by: ?Hadlock ([id number]-FL) [employer] Technical Writer 7.3 mm Head / Face / Neck [...] examination, [place] E22. View: Sufficient Impression ========= 66873 Follow-up obstetrical ultrasound This is a jones [...] labor. It appears likely to be pedunculated. 14776 Umbilical artery Doppler study Doppler waveforms of the umbilical artery are normal. Follow-up ======== She has been 10% of larger for her last 2 scans, so I would discontinue further Doppler assessment. DATE OF SERVICE: .7/./<OBR Narrative 05/29/2023 11:11 EDT Indication ======== large [...] (oz) ?? 10 oz EFW by: ?Hadlock ([id number]-ZA-BA-FL) Extended Health Technical Writer 7.3 mm Head / Face / Neck [...] examination, [place] E22. View: Sufficient Impression ========= 64997 Follow-up obstetrical ultrasound This is a jones [...] and that is unlikely to obstruct labor. 00115 Umbilical artery Doppler study Doppler waveforms of the umbilical artery are normal. Follow-up ======== She has been 10% of larger for her last 2 scans, so I would discontinue further Doppler assessment. DATE OF SERVICE: ./<OBR Procedure Note Parker Hoskins MD - 05/29/2023 [...] EFW (oz) 10 oz EFW by: Hadlock (VAL-ED-WX-FL) Extended [employer] Technical Writer 7.3 mm Head / Face / Neck [...] examination, [place] E22. View: Sufficient Impression ========= 57877 Follow-up obstetrical ultrasound This is a jones [...] noted, and that is unlikely toobstruct labor. 88446 Umbilical artery Doppler study Doppler waveforms of the umbilical artery are normal. Follow-up ======== She has been 10% of larger for her last 2 scans, so I would discontinuefurther Doppler assessment. DATE OF SERVICE: ../<OBR us Sandra Lua MD [facility] OB ORDERABLES Edited Result - Final documented in this encounter Visit Diagnoses Diagnosis Uterine fibroid during , antepartum Poor growth affecting management of mother in third trimester, single or unspecified fetus Uterine leiomyoma, unspecified location documented in this encounter Care Teams Director Of Social Work Relationship Specialty Start Date End Date [facility] [address] [facility] [place] [address] PCP - General 08/31/19 02/12/24 documented as of this encounter
--- OUTSIDE RECORDS SUMMARY | 2024-02-18 12:50 | XMS_ITS | Encounter Summary ---
Author Organization [facility] Address [address] [place] [address] Care Team Providers Care Core Placer Name Role Phone Dari Yang [facility]- Primary Care Provider [phone] Reason for Visit * Reason Onset Date Comments Follow-up 05/16/2023 Encounter Details Date Type Department Care Team (Late st Contact Info) Description 05/16/2023 Telephone [facility] OBGYN Services - [facility] [address] [place], [place] [address] Sandra Lua MD [address] [facility], Level [address] [place] [address] Follow-up Social History Tobacco Use [...] encounter Miscellaneous Notes * Telephone Encounter - Birdie Lan RN - 05/19/2023 1002 EDT Reviewed patient's question with Dr. Lua and spoke with RN at [facility]. Providers at [facility] have concerns about patient's ability to safely deliver locally due to resources in blood bank should patient have heavy bleeding as result of fibroid. They would prefer delivery at [facility] if fibroid cannot be confirmed to be pedunculated due to fibroid's large size (19.7mm x 22.6mm x 14.3mm) and possible impingement on growth. Patient returning to clinic on 05/28 for repeat scan and MFM visit. Will include note for more details outlaying risks for delivery as needed. * Telephone Encounter - Birdie Lan RN - 05/16/2023 1632 EST Return call to Saulo who expressed some concern over the labeling of her fibroid as being subserosal instead of pedunculated. Has been told / under the impression that her fibroid was pedunculated this entire time and was told by her [facility] provider if fibroid is in fact subserosal, then shewould need to deliver at [facility]. Patient strongly prefers delivery at [facility]. Will clarify / confirm findings with reading , Dr. Lua and follow up with patient. She is agreeable to plan. * Telephone Encounter - Shanika Meredith - 05/16/2023 1621 EST TC from pt, requesting to discuss recent imaging completed here. When she went to [facility] this week for an APV, they reviewed the imaging report from [facility], and gaveher a different answer than previously stated on the report. Pt expressed concern that her fibroid has been subserosal the entire time, instead of just a fundal fibroid. Please reach out to f/u, phone and/or [email or web address] ok. [phone] documented in this encounter Plan of Treatment Upcoming Encounters Date Type Department Care Team (Late st Contact Info) Description 02/19/2024 8:25 EST Hospital Encounter [facility] OR [address] [place] [address] Ceferino Aguilera MD 111 [facility] [address] [place] [phone] 02/19/2024 8:25 EST - 02/19/2024 11:55 EST Surgery [facility] OR [address] [place] [phone] Ceferino Aguilera MD [address] [place] [phone] abdominal myomectomy [49372 (CPT??)] 03/08/2024 10:45 EST Post-op Visit [facility] OBGYN Services - [address] [phone] Ceferino Aguilera MD [address] [place] [phone] Scheduled Procedures Name Priority Associated Diagnoses Date/Ti me MYOMECTOMY, UTERUS, 1-4 LEIOMYOMATA, ABDOMINAL APPROACH, FOR UTERUS 250 GRAMS OR LESS Uterine leiomyoma, unspecified location 02/19/2024 8:25 EST documented as of this encounter Visit Diagnoses Not on filedocumented in this encounter Care Teams Core Placer Relationship Specialty Start Date End Date [facility] 4 [facility] [place] [address] PCP - General 08/31/19 02/12/24 documented as of this encounter
--- OUTSIDE RECORDS SUMMARY | 2024-02-18 12:50 | XMS_ITS | Encounter Summary ---
Author Organization [facility] Address [address] [place] [address] Care Team Providers Care Revenue Stamp Cutter Name Role Phone Dari Yang [facility] Primary Care Provider [phone] Helen Carrion CDS SALES ADVISOR Primary Care Provider Encounter Details Date Type Department Care Team (Late st Contact Info) Description 11/14/2022 Lab Requisition [facility] Pathology & Laboratory Medicine - [address] [address] Outr Resulting Lab, Provider Social History Tobacco [...] Hospital Encounter [facility] OR [address] [place], [place] [phone] Ceferino Aguilera MD 111 [facility], Level [address] [place] [phone] 02/19/2024 8:25 EST - 02/19/2024 11:55 EST Surgery [facility] OR [address] [place] [phone] Ceferino Aguilera MD [address] [place] [phone] abdominal myomectomy [51354 (CPT??)] 03/08/2024 10:45 EST Post-op Visit [facility] OBGYN Services - [address] [phone] Ceferino Aguilera MD [address] [place] [phone] Scheduled Procedures Name Priority Associated Diagnoses Date/Ti me MYOMECTOMY, UTERUS, 1-4 LEIOMYOMATA, ABDOMINAL APPROACH, FOR UTERUS 250 GRAMS OR LESS Uterine leiomyoma, unspecified location 02/19/2024 8:25 EST documented as of this encounter Procedures Procedure Name Priority Date/Time Associated Diagnosis Comments HEPATITIS C AB W REFLEX TO HCV RNA BY PCR Routine 11/14/2022 15:17 EDT documented in this encounter Results * HEPATITIS C AB W REFLEX TO HCV RNA BY PCR (11/14/2022 15:17 EDT) Hep C Antibody Negative Negative 11/15/2022 10:05 EDT [facility] Blood VENOUS BLOOD / Unknown 11/14/2022 15:17 EDT 11/14/2022 21:40 EDT us Provider Outr Resulting Lab CHEMISTRY & BLOOD GA S ORDERABLES Final Result [facility] [address] [place] [address] documented in this encounter Visit Diagnoses Not on filedocumented in this encounter Care Teams Revenue Stamp Cutter Relationship Specialty Start Date End Date D[facility] Yang [facility] [address] [place] [address] PCP - General 08/31/19 02/12/24 Helen Carrion FNP [address] [place] [address] PCP - General Family Medicine - Primary Care 02/13/24 documented as of this encounter
--- OUTSIDE RECORDS SUMMARY | 2024-02-18 12:50 | XMS_ITS ---
Author Organization Unknown Address [address] [place] [phone] Phone Care Team Providers Care Area Director Name Role Phone COLBY IGNACIO Bose Attending Unavailable JAYCE Stacy Primary Unavailable Social History Type Status Start Date End Date Code Code Syst em Smoking History Unknown if ever smoked [id number] Sex Female Medications Medication Start Date End Date Route Frequency Dose Code Code System Medication Instructions Home Meds Ibuprofen 600MG Oral Tablet 07/03/2023 Unknown ORAL NEEDED EVERY 6 HOURS 600 MILLIGRAMS 805363 RxNorm TAKE 600 MILLIGRAMS ORAL NEEDED EVERY 6 HOURS HYDROcodone bitartrate-aicha taminophen 5MG-325MG Oral Tablet 07/03/2023 Unknown ORAL NEEDED EVERY 4 HOURS 1 TABLET 478389 RxNorm TAKE 1 TABLET ORAL NEEDED EVERY 4 HOURS Ferrous Sulfate 325MG Oral Tablet 07/03/2023 4 ORAL DAILY 1 TABLET 897941 RxNorm TAKE 1 TABLET ORAL DAILY Ferrous Sulfate 325MG Oral Tablet 07/03/2023 Unknown ORAL DAILY 1 TABLET 166803 RxNorm TAKE 1 TABLET ORAL DAILY Hospital Discharge Instructions Should you have any questions prior to discharge, please contact a member of your healthcare team. If you have left the hospital and have any questions, please contact your primary care physician. Reason For Referral No Data Found Allergies and Adverse Reactions Allergy Substance Reaction Severity Start Date Concern Status Co de Code System No Known Drug Allergies Active [id number] SNOMED-CT Plan of Treatment US OB COMPLETE 04/28/2023 US OB COMPLETE 03/31/2023 US OB / TV 12/17/2022 Encounters Encounter Diagnosis Start Date Code Code Sys tem Snoring 08/03/2021 SNOMED-CT Personal Care Team Section Performer Name Performer Role Active Date Inactive Da te
--- OUTSIDE RECORDS SUMMARY | 2024-02-18 12:50 | XMS_ITS | Encounter Summary ---
Author Organization [facility] Address [address] [place] [address] Care Team Providers Care Domestic Freight Forwarder Name Role Phone Dari Yang [facility] Primary Care Provider [phone] Helen Carrion [employer] Primary Care Provider Encounter Details Date Type Department Care Team (Late st Contact Info) Description 12/12/2022 Lab Requisition [facility] Pathology & Laboratory Medicine - [address] [address] Outr Resulting Lab, Provider Social History Tobacco [...] Info) Description 02/19/2024 8:25 EST Hospital Encounter [facility] OR [address] [place], [place] [phone] Ceferino Aguilera MD 111 [facility], Level [address] [place] [phone] 02/19/2024 8:25 EST - 02/19/2024 11:55 EST Surgery [facility] OR [address] [place], [place] [address] Ceferino Aguilera MD [address] [place] [phone] abdominal myomectomy [23873 (CPT??)] 03/08/2024 10:45 EST Post-op Visit [facility] OBGYN Services - [facility] [address] [place], [place] [phone] Ceferino Aguilera MD [address] [place] [phone] Scheduled Procedures Name Priority Associated Diagnoses Date/Ti me MYOMECTOMY, UTERUS, 1-4 LEIOMYOMATA, ABDOMINAL APPROACH, FOR UTERUS 250 GRAMS OR LESS Uterine leiomyoma, unspecified location 02/19/2024 8:25 EST documented as of this encounter Procedures Procedure Name Priority Date/Time Associated Diagnosis Comments THYROID ANTIBODIES Routine 12/12/2022 11 :00 EDT documented in this encounter Results * (ABNORMAL) THYROID ANTIBODIES (12/12/2022 11:00 EDT) Anti-Thyroglobulin <15 <=60 U/mL 2022 19:47 EDT [facility] Thyroperoxidase Ab 104(H) <=60 U/mL 2022 19:47 EDT [facility] Blood VENOUS BLOOD / Unknown 12/12/2022 11:00 EDT 12/12/2022 18:04 EDT us Provider Outr Resulting Lab CHEMISTRY & BLOOD GA S ORDERABLES Final Result [facility] [address] [place] [address] documented in this encounter Visit Diagnoses Not on filedocumented in this encounter Care Teams Domestic Freight Forwarder Relationship Specialty Start Date End Date [facility] [address] [place] [address] PCP - General 08/31/19 02/12/24 Helen Carrion FNP [address] [place] [phone] PCP - General Family Medicine - Primary Care 02/13/24 documented as of this encounter
--- OUTSIDE RECORDS SUMMARY | 2024-02-18 12:50 | XMS_ITS | Encounter Summary ---
Author Organization [facility] Address [address] [place] [address] Care Team Providers Care Carpet Measurer Name Role Phone Nick Qureshi MD Primary Care Provider [phone] Unknown, Provider MD Primary Care Provider Unava ilable Encounter Details Date Type Department Care Team (Late st Contact Info) Description 11/18/2017 Results Only [facility]- [facility] [phone] Luis Felipe Reyes MD [address] [place] [phone] Social History Tobacco Use Types Packs/Day [...] Info) Description 02/19/2024 8:25 EST Hospital Encounter [facility] OR [address] [place] [phone] Ceferino Aguilera MD 111 [facility], Level [address] [place] [address] 02/19/2024 8:25 EST - 02/19/2024 11:55 EST Surgery [facility] OR [address] [place] [phone] Ceferino Aguilera MD [address] [place] [address], [facility] 4 [place] [address] abdominal myomectomy [86397 (CPT??)] 03/08/2024 10:45 EST Post-op Visit [facility] OBGYN Services - [address] [address] Ceferino Aguilera MD [address] [place] [address], [facility] 4 [place] [address] Scheduled Procedures Name Priority Associated Diagnoses Date/Ti me MYOMECTOMY, UTERUS, 1-4 LEIOMYOMATA, ABDOMINAL APPROACH, FOR UTERUS 250 GRAMS OR LESS Uterine leiomyoma, unspecified location 02/19/2024 8:25 EST documented as of this encounter Procedures Procedure Name Priority Date/Time Associated Diagnosis Comments PAP TEST- RESULT ONLY Routine 11/18/2017 0:00 EDT documented in this encounter Results * PAP TEST- RESULT ONLY (11/18/2017 0:00 EDT) Pathology Report: CYTOPATHOLOGY REPORT Reports generated via electronic interface contain original data; however they are lacking the format of the original report. Caution should be taken when reading/interpretin g unformatted reports. Name: ? MELODY HILTON ? Accession #: ? [id number] : ? 1995 (Age: 21) ??F ?Collect Date: ? 11/18/2017 Location: ? [facility] ? Receive Date: ? 11/20/2017 Provider: ?LUIS FELIPE CEJA MD Copy to: ? Specimen/Source: ?Pap Test, Endocervix, ThinPrep Imaging System with manual evaluation Last Menstrual Period: ? UNKNOWN Hormonal/Contracept alessia Status: ? Yes Other: ? Additional clinical information: Z11.3 Z01.419 ? SPECIMEN ADEQUACY ? Satisfactory for Evaluation - transformation zone component absent GENERAL CATEGORIZATION ? Negative for Intraepithelial Lesion or Malignancy ? Document reviewed and electronically signed by: ? JORGE Carter(ASCP) ? Report Date: ??11/26/2017 13:27 End of Report [facility] 11/18/2017 11/20/2017 us Luis Felipe [place] MD PATHOLOGY LISSETH CLARK Final Result [facility] [address] [place] [address] documented in this encounter Visit Diagnoses Not on filedocumented in this encounter Care Teams Carpet Measurer Relationship Specialty Start Date End Date Nick Qureshi MD PCP - General 01/15/15 11/18/17 Unknown, MD Liane PCP - General 11/19/17 08/30/19 documented as of this encounter
--- OUTSIDE RECORDS SUMMARY | 2024-02-18 12:51 | XMS_ITS ---
Author Organization Unknown Address [address] [place] [phone] Phone Care Team Providers Care Nurse General Duty Name Role Phone RUBY WILSON Attending Unavailable JAYCE Stacy Primary Unavailable Social History Type Status Start Date End Date Code Code Syst em Smoking History Unknown if ever smoked [id number] Sex Female Medications Medication Start Date End Date Route Frequency Dose Code Code System Medication Instructions Home Meds Ibuprofen 600MG Oral Tablet 07/03/2023 Unknown ORAL NEEDED EVERY 6 HOURS 600 MILLIGRAMS 891988 RxNorm TAKE 600 MILLIGRAMS ORAL NEEDED EVERY 6 HOURS HYDROcodone bitartrate-aicha taminophen 5MG-325MG Oral Tablet 07/03/2023 Unknown ORAL NEEDED EVERY 4 HOURS 1 TABLET 674914 RxNorm TAKE 1 TABLET ORAL NEEDED EVERY 4 HOURS Ferrous Sulfate 325MG Oral Tablet 07/03/2023 4 ORAL DAILY 1 TABLET 008350 RxNorm TAKE 1 TABLET ORAL DAILY Ferrous Sulfate 325MG Oral Tablet 07/03/2023 Unknown ORAL DAILY 1 TABLET 970492 RxNorm TAKE 1 TABLET ORAL DAILY Hospital [...] Code System No Known Drug Allergies Active [id number] SNOMED-CT Plan of Treatment US OB COMPLETE 04/28/2023 US OB COMPLETE 03/31/2023 US OB / TV 12/17/2022 Encounters Encounter Diagnosis Start Date Code Code Sys tem Canceled operative procedure 11/14/2022 [id number] SNOMED-CT Personal Care Team Section Performer Name Performer Role Active Date Inactive Da te
--- OUTSIDE RECORDS SUMMARY | 2024-02-18 12:51 | XMS_ITS ---
Author Organization Unknown Address [address] [place] [address] [phone] Phone Care Team Providers Care Glass Unloading Equipment Tender Name Role Phone ROLYCHAPOTawanna ROSELORIN Attending Unavailable JAYCE Stacy Primary Unavailable Results HIV 1/2 ANTIGEN AND ANTIBODY SCREEN - Collect Date/Time: 11/14/2022 15:17 [facility] ID: [id number] [address] [place] [address], [id number] LOINC: 46808-7 Test Value Unit Reference Range Code Code System Flag HIV 1/2 Antigen andAntibody Negative Negative TYPE AND ANTIBODY S CREEN* - Collect Date/Time: 11/14/2022 15:17 [facility] ID: [id number] [address] [place] [address], [id number] LOINC: 882-1 Test Value Unit Reference Range Code Code System Flag Blood Group O 883-9 LOINC Rh (D) POSITIVE 01809-0 LOINC Antibody Screen NEGATIVE 1005-8 LOINC HEMATOLOGY* - Colle ct Date/Time: 11/14/2022 15:17 [facility] ID: [id number] [address] [place] [address], [phone] LOINC: 58670-2 Test Value Unit Reference Range Code Code System Flag WBC 9.78 th/cmm L=5.00 H=10.00 6690-2 LOINC NEUT % 64.7 % L=40.0 H=80.0 LYMPH % 26.5 % L=10.0 H=50.0 MONO % 7.2 % L=2.0 H=12.0 79117-6 LOINC EOS % 0.7 % L=0.0 H=8.0 BASO % 0.6 % L=0.0 H=3.0 IG % 0.3 % L=0.0 H=1.1 2514-8 LOINC NRBC % 0.0 % L=0.0 H=0.0 24200-3 LOINC NEUT abs count 6.3 th/cmm L=1.6 H=8.4 751-8 LOINC LYMPH abs count 2.6 th/cmm L=1.5 H=4.0 731-0 LOINC MONO abs count 0.7 th/cmm L=0.2 H=1.0 742-7 LOINC EOS abs count 0.1 th/cmm L=0.0 H=0.5 711-2 LOINC BASO abs count 0.1 th/cmm L=0.0 H=0.2 704-7 LOINC IG abs count 0.0 th/cmm L=0.0 H=0.1 00854-6 LOINC NRBC abs count 0.0 mil/cmm L=0.0 H=0.0 31294-8 LOINC RBC 4.46 mil/cmm L=3.90 H=5.40 789-8 LOINC HEMOGLOBIN 14.1 gm/dL L=12.0 H=16.0 718-7 LOINC HEMATOCRIT 39 % L=37 H=47 4544-3 LOINC MCV 88 fL L=82 H=92 787-2 LOINC MCH 31.6 pg L=27.0 H=31.0 785-6 LOINC H MCHC 35.9 % L=32.0 H=36.0 786-4 LOINC RDW-SD 43.4 fL L=39.0 H=49.0 788-0 LOINC PLATELET COUNT 366 th/cmm L=150 H=450 777-3 LOINC HEMOGLOBIN A1C* - Collect Da te/Time: 11/14/2022 15:17 [facility] ID: [id number] [address] [place], [place], [address] LOINC: 4548-4 Test Value Unit Reference Range Code Code System Flag Hgb A1c 5.6 % L=3.8 H=5.7 4548-4 LOINC MEAN BLOOD GLUCOSE 100 mg/dL 13732-7 LOINC THYROID TESTING CASCADE* - C ollect Date/Time: 11/14/2022 15:17 [facility] ID: [id number] [address] [place] [address], [address]661 LOINC: 3016-3 Test Value Unit Reference Range Code Code System Flag TSH. 3.141 uIU/mL L=0.360 H=3.740 3014-8 LOINC HEP B SURF ANTIGEN* - Collec t Date/Time: 11/14/2022 15:17 [facility] ID: [id number] [address] [place] [address], [id number] LOINC: 5196-1 Test Value Unit Reference Range Code Code System Flag Hep B Surface Ag Negative Negative HEP C ANTIBODY WITH REFLEX P CR - Collect Date/Time: 11/14/2022 15:17 [facility] ID: [id number] [address] [place] [address], [id number] LOINC: 82073-4 Test Value Unit Reference Range Code Code System Flag Hep C Ab w Rfx PCR Negative Negative SYPHILIS SEROLOGY* - Collect Date/Time: 11/14/2022 15:17 [facility] ID: [id number] [address] [place] [address], [id number] LOINC: 49728-6 Test Value Unit Reference Range Code Code System Flag Syphilis Serology Negative Negative RUBELLA IGG ANTIBODY - Colle ct Date/Time: 11/14/2022 15:17 [facility] ID: [id number] [address] [place] [address], [id number] LOINC: 92629-3 Test Value Unit Reference Range Code Code System Flag Rubella IgG Ab Positive See Note CHLAMYDIA/GC AMPLIFIED PROBE * - Collect Date/Time: 11/14/2022 15:00 [facility] ID: [id number] [address] [place], [place], [id number] LOINC: 50693-2 Test Value Unit Reference Range Code Code System Flag Chlamydia Result Negative Negative GC Result Negative Negative CULT URINE CULTURE* - [facility] t Date/Time: 11/14/2022 13:45 [facility] ID: [id number] [address] [place], [place], [id number] LOINC: 630-4 Test Value Unit Reference Range Code Code System Flag COLLECTION MODE: NOT STATED 10191-5 LOINC Social History Type Status Start Date End Date Code Code Syst em Smoking History Unknown if ever smoked [address] Sex Female Medications Medication Start Date End Date Route Frequency Dose Code Code System Medication Instructions Home Meds Ibuprofen 600MG Oral Tablet 07/03/2023 Unknown ORAL NEEDED EVERY 6 HOURS 600 MILLIGRAMS 480020 RxNorm TAKE 600 MILLIGRAMS ORAL NEEDED EVERY 6 HOURS HYDROcodone bitartrate-aicha taminophen 5MG-325MG Oral Tablet 07/03/2023 Unknown ORAL NEEDED EVERY 4 HOURS 1 TABLET 354918 RxNorm TAKE 1 TABLET ORAL NEEDED EVERY 4 HOURS Ferrous Sulfate 325MG Oral Tablet 07/03/2023 4 ORAL DAILY 1 TABLET 930863 RxNorm TAKE 1 TABLET ORAL DAILY Ferrous Sulfate 325MG Oral Tablet 07/03/2023 Unknown ORAL DAILY 1 TABLET 505410 RxNorm TAKE 1 TABLET ORAL DAILY Hospital [...] Code System No Known Drug Allergies Active 595970448 SNOMED-CT Plan of Treatment US OB COMPLETE 04/28/2023 US OB COMPLETE 03/31/2023 US OB / TV 12/17/2022 Encounters Encounter Diagnosis Start Date Code Code Sys tem Encounter for other specified screening 09/2022 SNOMED-CT Personal Care Team Section Performer Name Performer Role Active Date Inactive Da te
--- OUTSIDE RECORDS SUMMARY | 2024-02-18 12:52 | XMS_ITS ---
Author Organization Unknown Address [address] [place] [address] [phone] Phone Care Team Providers Care Artificial Breeding Technician Name Role Phone RUBY WILSON Attending Unavailable JAYCE Stacy Primary Unavailable Social History Type Status Start Date End Date Code Code Syst em Smoking History Unknown if ever smoked [address] Sex Female Medications Medication Start Date End Date Route Frequency Dose Code Code System Medication Instructions Home Meds Ibuprofen 600MG Oral Tablet 07/03/2023 Unknown ORAL NEEDED EVERY 6 HOURS 600 MILLIGRAMS 603593 RxNorm TAKE 600 MILLIGRAMS ORAL NEEDED EVERY 6 HOURS HYDROcodone bitartrate-aicha taminophen 5MG-325MG Oral Tablet 07/03/2023 Unknown ORAL NEEDED EVERY 4 HOURS 1 TABLET 078311 RxNorm TAKE 1 TABLET ORAL NEEDED EVERY 4 HOURS Ferrous Sulfate 325MG Oral Tablet 07/03/2023 4 ORAL DAILY 1 TABLET 082307 RxNorm TAKE 1 TABLET ORAL DAILY Ferrous Sulfate 325MG Oral Tablet 07/03/2023 Unknown ORAL DAILY 1 TABLET 230655 RxNorm TAKE 1 TABLET ORAL DAILY Hospital [...] Code System No Known Drug Allergies Active 010076590 SNOMED-CT Plan of Treatment US OB COMPLETE 04/28/2023 US OB COMPLETE 03/31/2023 US OB / TV 12/17/2022 Encounters Encounter Diagnosis Start Date Code Code Sys tem screening 11/27/2022 839175560 SNOMED-C T Personal Care Team Section Performer Name Performer Role Active Date Inactive Da te
--- OUTSIDE RECORDS SUMMARY | 2024-02-18 12:52 | XMS_ITS ---
Author Organization Unknown Address [address] [place] [address] [phone] Phone Care Team Providers Care Bench Assembler Battery Name Role Phone LYNNETTE Corrales Attending Unavailable JAYCE Stacy Primary Unavailable Results US OB LESS THAN 14 WEEKS - C ompleted: 12/17/2022 10:52 LOINC: [place], [place] [address] [facility] [employer] AGENT REPORT Patient Name: MELODY HILTON MRN: Sex: : Age: [id number] F 1995 [id number] Account: Accession: Admit: StayType: [id number] 12/17/2022 O/P Ordered: Order ID: Submitted: Ordering Provider: 12/17/2022 10:22 [id number] ULISES DOTY Completed: Technologist: Resulted: 12/17/2022 10:52 [facility] 12/23/2022 14:42 Study Description: US OB LESS THAN 14 WEEKS Study Reason: DATING VIABILITY TECHNIQUE: First trimester obstetrical ultrasound was performed. COMPARISON: No exams were available for comparison FINDINGS: There is an intrauterine gestational sac which contains a yolk sac and viable pole which exhibits heart rate of 163 bpm. Kenly-rump length measurement is 73 mm, corresponding to 13 weeks 3 days gestational age. There is no evidence of subchorionic hemorrhage. The uterus measures 14.8 x 10.4 x 16.7 cm. Maternal ovaries: Not visualized. There is no fluid in the cul-de-sac and adnexal regions. IMPRESSION: Single viable intrauterine gestation which is approximately 13 weeks 3 days gestational age by crown rump length measurement, implying ROLA of 21 June 2023 Report Digitally Signed by Carly Fernandez on 12/17/2022 11:13 AM EDT Addendum ------ Addendum dictated 12/23/2022: There is a large left of center uterine fibroid measuring 14 x 8 x 10 0.4 x 16.7 cm. Recommend appropriate imaging follow-up during the . Addendum Digitally Signed by Rolando Denise on 12/23/2022 02:42 PM EDT Social History Type Status Start Date End Date Code Code Syst em Smoking History Unknown if ever smoked [address] Sex Female Medications Medication Start Date End Date Route Frequency Dose Code Code System Medication Instructions Home Meds Ibuprofen 600MG Oral Tablet 07/03/2023 Unknown ORAL NEEDED EVERY 6 HOURS 600 MILLIGRAMS 328962 RxNorm TAKE 600 MILLIGRAMS ORAL NEEDED EVERY 6 HOURS HYDROcodone bitartrate-aicha taminophen 5MG-325MG Oral Tablet 07/03/2023 Unknown ORAL NEEDED EVERY 4 HOURS 1 TABLET 083785 RxNorm TAKE 1 TABLET ORAL NEEDED EVERY 4 HOURS Ferrous Sulfate 325MG Oral Tablet 07/03/2023 4 ORAL DAILY 1 TABLET 284906 RxNorm TAKE 1 TABLET ORAL DAILY Ferrous Sulfate 325MG Oral Tablet 07/03/2023 Unknown ORAL DAILY 1 TABLET 444249 RxNorm TAKE 1 TABLET ORAL DAILY Hospital [...] Code System No Known Drug Allergies Active 312867907 SNOMED-CT Plan of Treatment US OB COMPLETE 04/28/2023 US OB COMPLETE 03/31/2023 US OB / TV 12/17/2022 Encounters Encounter Diagnosis Start Date Code Code Sys tem Uterine size-date discrepancy, second trimester 2022 SNOMED-CT Personal Care Team Section Performer Name Performer Role Active Date Inactive Da te
--- OUTSIDE RECORDS SUMMARY | 2024-02-18 12:52 | XMS_ITS ---
Author Organization Unknown Address [address] [place] [address] [phone] Phone Care Team Providers Care Merchandise Complaint Adjuster Name Role Phone LYNNETTE Corrales Attending Unavailable JAYCE Stacy Primary Unavailable Results VARICELLA IGG ANTIBODY* - Co llect Date/Time: 12/12/2022 11:00 [facility] ID: [id number] [address] [place] [address], [phone] LOINC: 32730-7 Test Value Unit Reference Range Code Code System Flag Varicella IgG Antibody Negative See Note FREE THYROXINE (FREE T4)* - Collect Date/Time: 12/12/2022 11:00 [facility] ID: [id number] [address] [place] [address], [address] LOINC: 3024-7 Test Value Unit Reference Range Code Code System Flag FREE THYROXINE 0.86 ng/dL L=0.76 H=1.46 3024-7 LOINC Social History Type Status Start Date End Date Code Code Syst em Smoking History Unknown if ever smoked [address] Sex Female Medications Medication Start Date End Date Route Frequency Dose Code Code System Medication Instructions Home Meds Ibuprofen 600MG Oral Tablet 07/03/2023 Unknown ORAL NEEDED EVERY 6 HOURS 600 MILLIGRAMS 668852 RxNorm TAKE 600 MILLIGRAMS ORAL NEEDED EVERY 6 HOURS HYDROcodone bitartrate-aicha taminophen 5MG-325MG Oral Tablet 07/03/2023 Unknown ORAL NEEDED EVERY 4 HOURS 1 TABLET 723145 RxNorm TAKE 1 TABLET ORAL NEEDED EVERY 4 HOURS Ferrous Sulfate 325MG Oral Tablet 07/03/2023 4 ORAL DAILY 1 TABLET 739997 RxNorm TAKE 1 TABLET ORAL DAILY Ferrous Sulfate 325MG Oral Tablet 07/03/2023 Unknown ORAL DAILY 1 TABLET 025249 RxNorm TAKE 1 TABLET ORAL DAILY Hospital [...] Code System No Known Drug Allergies Active 077182365 [employer]OMED-CT Plan of Treatment US OB COMPLETE 04/28/2023 US OB COMPLETE 03/31/2023 US OB / TV 12/17/2022 Encounters Encounter Diagnosis Start Date Code Code Sys tem Thyroid function tests abnormal 12/12/2022 [id number] [employer]-CT Personal Care Team Section Performer Name Performer Role Active Date Inactive Da isabel
--- OUTSIDE RECORDS SUMMARY | 2024-02-18 12:53 | XMS_ITS ---
Author Organization Unknown Address [address] [place] [address] [phone] Phone Care Team Providers Care Purse Maker Name Role Phone ROLYCHAPOTawanna WILSON Attending Unavailable JAYCE Stacy Primary Unavailable Results HEMOGRAM + PLATELET WO DIFF - Collect Date/Time: 04/03/2023 10:48 [facility] ID: [id number] [address] [place], [place], [id number] LOINC: 13266-0 Test Value Unit Reference Range Code Code System Flag WBC 7.96 th/cmm L=5.00 H=10.00 6690-2 LOINC NRBC % 0.0 % L=0.0 H=0.0 84570-2 LOINC NRBC abs count 0.0 mil/cmm L=0.0 H=0.0 12729-0 LOINC RBC 4.18 mil/cmm L=3.90 H=5.40 789-8 LOINC HEMOGLOBIN 12.0 gm/dL L=12.0 H=16.0 718-7 LOINC HEMATOCRIT 37 % L=37 H=47 4544-3 LOINC MCV 88 fL L=82 H=92 787-2 LOINC MCH 28.7 pg L=27.0 H=31.0 785-6 LOINC MCHC 32.8 % L=32.0 H=36.0 786-4 LOINC RDW-SD 48.2 fL L=39.0 H=49.0 788-0 LOINC PLATELET COUNT 322 th/cmm L=150 H=450 777-3 LOINC GLUCOSE - 1 HOUR AFTER 50GM GLUCOLA - Collect Date/Time: 04/03/2023 10:48 [facility] ID: [id number] [address] [place], [place], [address] LOINC: 1504-0 Test Value Unit Reference Range Code Code System Flag GLUCOSE 1 HOUR 114 mg/dL L=0 H=135 1504-0 LOINC Social History Type Status Start Date End Date Code Code Syst em Smoking History Unknown if ever smoked [address] Sex Female Medications Medication Start Date End Date Route Frequency Dose Code Code System Medication Instructions Home Meds Ibuprofen 600MG Oral Tablet 07/03/2023 Unknown ORAL NEEDED EVERY 6 HOURS 600 MILLIGRAMS 411165 RxNorm TAKE 600 MILLIGRAMS ORAL NEEDED EVERY 6 HOURS HYDROcodone bitartrate-aicha taminophen 5MG-325MG Oral Tablet 07/03/2023 Unknown ORAL NEEDED EVERY 4 HOURS 1 TABLET 200523 RxNorm TAKE 1 TABLET ORAL NEEDED EVERY 4 HOURS Ferrous Sulfate 325MG Oral Tablet 07/03/2023 4 ORAL DAILY 1 TABLET 875078 RxNorm TAKE 1 TABLET ORAL DAILY Ferrous Sulfate 325MG Oral Tablet 07/03/2023 Unknown ORAL DAILY 1 TABLET 505922 RxNorm TAKE 1 TABLET ORAL DAILY Hospital [...] Code System No Known Drug Allergies Active 738527081 SNOMED-CT Plan of Treatment US OB COMPLETE 04/28/2023 US OB COMPLETE 03/31/2023 US OB / TV 12/17/2022 Encounters Encounter Diagnosis Start Date Code Code Sys tem Abnormality of organs AND/OR soft tissues of pelvis affecting 04/03/2023 6499513 SNOMED-CT Personal Care Team Section Performer Name Performer Role Active Date Inactive Da te
--- OUTSIDE RECORDS SUMMARY | 2024-02-18 12:53 | XMS_ITS ---
Author Organization Unknown Address [address] [place] [address] [phone] Phone Care Team Providers Care Real Estate Valuer Name Role Phone MAMI Stacy Attending Unavailable JAYCE Stacy Primary Unavailable Social History Type Status Start Date End Date Code Code Syst em Smoking History Unknown if ever smoked [address] Sex Female Medications Medication Start Date End Date Route Frequency Dose Code Code System Medication Instructions Home Meds Ibuprofen 600MG Oral Tablet 07/03/2023 Unknown ORAL NEEDED EVERY 6 HOURS 600 MILLIGRAMS 897065 RxNorm TAKE 600 MILLIGRAMS ORAL NEEDED EVERY 6 HOURS HYDROcodone bitartrate-aicha taminophen 5MG-325MG Oral Tablet 07/03/2023 Unknown ORAL NEEDED EVERY 4 HOURS 1 TABLET 492412 RxNorm TAKE 1 TABLET ORAL NEEDED EVERY 4 HOURS Ferrous Sulfate 325MG Oral Tablet 07/03/2023 4 ORAL DAILY 1 TABLET 671071 RxNorm TAKE 1 TABLET ORAL DAILY Ferrous Sulfate 325MG Oral Tablet 07/03/2023 Unknown ORAL DAILY 1 TABLET 148707 RxNorm TAKE 1 TABLET ORAL DAILY Hospital [...] Code System No Known Drug Allergies Active 414923665 SNOMED-CT Plan of Treatment US OB COMPLETE 04/28/2023 US OB COMPLETE 03/31/2023 US OB / TV 12/17/2022 Encounters Encounter Diagnosis Start Date Code Code Sys tem Uterine size for dates discrepancy 02/05/2023 317036 008 SNOMED-CT Personal Care Team Section Performer Name Performer Role Active Date Inactive Da te
--- OUTSIDE RECORDS SUMMARY | 2024-02-18 12:53 | XMS_ITS ---
Author Organization Unknown Address [address] [place] [address] [phone] Phone Care Team Providers Care Optometric Assistant Name Role Phone ZELALEMNAVEED JUNE Attending Unavailable JAYCE Stacy Primary Unavailable Results TSH THYROID STIMULATING HORM ONE* - Collect Date/Time: 01/08/2023 11:06 [facility] ID: [id number] [address] [place] [address], [address] LOINC: 3014-8 Test Value Unit Reference Range Code Code System Flag TSH 2.852 uIU/mL L=0.360 H=3.740 3014-8 LOINC AFP (OB) ALPHA FETOPROTEIN* - Collect Date/Time: 01/08/2023 11:06 [facility] ID: [id number] [address] [place] [address], [id number] LOINC: 38444-1 Test Value Unit Reference Range Code Code System Flag Results Summary Normal risk 44422-8 LOINC Neural tube defect riskestimate 03/20,000 35229-3 LOINC AFP 21.7 ng/mL 05002-7 [facility] AFP MoM 0.82 MoM <2.50 48480-7 [facility] INTERPRETATION Screen negative for neural tube defects. 38476-6 [facility] RECOMMENDED FOLLOW UP None. 09921-9 LOINC Specimen collection date 01/08/23 75777-4 LOINC Maternal date of [birth year] 29476-6 LOINC Calculated age at ROLA 27 years 75496-8 LOINC Maternal Weight 224 lbs 02145-2 [place] [address]-3 LOINC Patient race non-Black 64842-1 LOINC Current cigarettesmoking status non-Smoker 12595-1 [facility] ROLA by U/S scan 06/24/2023 13597-2 [facility] [place] on collection by U/Sscan 16,1 05789-7 [facility] [place] used in risk estimate Scan estimate 63596-6 [facility] Number of Fetuses 1 87927-8 [facility] Number of Chorions Not applicable 30450-0 [facility] [place] [place] [address]-5 [facility] Prev w/ [place] [address]-3 [facility] Patient or [place] [address]-9 [facility] Initial or repeat testing Initial testing 34504-4 [facility] Physician Phone Number [phone] 82599-8 [facility] GENERAL TEST INFORMATION See Comments 05862-5 [facility] Social History Type Status Start Date End Date Code Code Syst em Smoking History Unknown if ever smoked [address] Sex Female Medications Medication Start Date End Date Route Frequency Dose Code Code System Medication Instructions Home Meds Ibuprofen 600MG Oral Tablet 07/03/2023 Unknown ORAL NEEDED EVERY 6 HOURS 600 MILLIGRAMS 119010 RxNorm TAKE 600 MILLIGRAMS ORAL NEEDED EVERY 6 HOURS HYDROcodone bitartrate-aicha taminophen 5MG-325MG Oral Tablet 07/03/2023 Unknown ORAL NEEDED EVERY 4 HOURS 1 TABLET 419400 RxNorm TAKE 1 TABLET ORAL NEEDED EVERY 4 HOURS Ferrous Sulfate 325MG Oral Tablet 07/03/2023 4 ORAL DAILY 1 TABLET 373596 RxNorm TAKE 1 TABLET ORAL DAILY Ferrous Sulfate 325MG Oral Tablet 07/03/2023 Unknown ORAL DAILY 1 TABLET 135536 RxNorm TAKE 1 TABLET ORAL DAILY Hospital [...] Code System No Known Drug Allergies Active 639515653 SNOMED-CT Plan of Treatment US OB COMPLETE 04/28/2023 US OB COMPLETE 03/31/2023 US OB / TV 12/17/2022 Encounters Encounter Diagnosis Start Date Code Code Sys tem General symptom 01/08/2023 507639595 SNOMED-CT Personal Care Team Section Performer Name Performer Role Active Date Inactive Da te
--- OUTSIDE RECORDS SUMMARY | 2024-02-18 12:53 | XMS_ITS ---
Author Organization Unknown Address [address] [place] [address] [phone] Phone Care Team Providers Care Senior Accountant Name Role Phone MAMI Stacy Attending Unavailable JAYCE Stacy Primary Unavailable Social History Type Status Start Date End Date Code Code Syst em Smoking History Unknown if ever smoked [address] Sex Female Medications Medication Start Date End Date Route Frequency Dose Code Code System Medication Instructions Home Meds Ibuprofen 600MG Oral Tablet 07/03/2023 Unknown ORAL NEEDED EVERY 6 HOURS 600 MILLIGRAMS 917840 RxNorm TAKE 600 MILLIGRAMS ORAL NEEDED EVERY 6 HOURS HYDROcodone bitartrate-aicha taminophen 5MG-325MG Oral Tablet 07/03/2023 Unknown ORAL NEEDED EVERY 4 HOURS 1 TABLET 619316 RxNorm TAKE 1 TABLET ORAL NEEDED EVERY 4 HOURS Ferrous Sulfate 325MG Oral Tablet 07/03/2023 4 ORAL DAILY 1 TABLET 224204 RxNorm TAKE 1 TABLET ORAL DAILY Ferrous Sulfate 325MG Oral Tablet 07/03/2023 Unknown ORAL DAILY 1 TABLET 179475 RxNorm TAKE 1 TABLET ORAL DAILY Hospital [...] Code System No Known Drug Allergies Active 705689747 SNOMED-CT Plan of Treatment US OB COMPLETE 04/28/2023 US OB COMPLETE 03/31/2023 US OB / TV 12/17/2022 Encounters Encounter Diagnosis Start Date Code Code Sys tem Tumor of body of uterus affecting 03/13/2023 637567 SNOMED-CT Personal Care Team Section Performer Name Performer Role Active Date Inactive Da te
--- OUTSIDE RECORDS SUMMARY | 2024-02-18 12:54 | XMS_ITS ---
Author Organization Unknown Address [address] [place] [address] [phone] Phone Care Team Providers Care Lockstitch Sleeve Setter Name Role Phone MAMI Stacy Attending Unavailable JAYCE Stacy Primary Unavailable Results US OB GREATER THAN 14 WEEKS - Completed: 04/28/2023 15:55 LOINC: [facility] [place], [place] [address] PACS KILN PUSHER REPORT Patient Name: MELODY HILTON MRN: Sex: : Age: [id number] F 1995 27 Account: Accession: Admit: StayType: [id number] 04/28/2023 O/P Ordered: Order ID: Submitted: Ordering Provider: 04/28/2023 15:17 [id number] KT JON BOLAÑOS Completed: Technologist: Resulted: 04/28/2023 15:55 RXT 04/28/2023 16:46 Study Description: US OB GREATER THAN 14 WEEKS Study Reason: GROWTH TECHNIQUE: Transabdominal obstetrical ultrasound was performed. COMPARISON: Prior ultrasound examination 03/31/2023 reviewed. FINDINGS: There is a single viable intrauterine gestation with cardiac activity identified-136 bpm. Fetus is present cephalic position with spine pointing towards maternal right side. Amniotic fluid: There is a normal amount of amniotic fluid. EMILIANO is 14.6 cm Placental location: The placenta is anterior grade 1,with no evidence of placenta previa. Very large fundal uterine fibroid again noted. This measures 21.7 x 13.7 x 17.9 cm on the present study ANATOMY: Four-chamber cardiac view obtained. Right and left cardiac outflow tracts not seen on the present study. stomach and kidneys are seen. No hydronephrosis evident. Dating parameters place this at approximately 31 weeks and 5 days gestational age. BPD measures 33 weeks and 3 days/84th percentile HC measures 34 weeks and 4 days/83rd percentile AC measures 29 weeks and 6 days / 6th percentile FL measures 30 weeks and 0 days/5th percentile HL measures 30 weeks and 3 days Estimated weight is 1613 gm -3 pounds 9 ounces Fetus is at the 10th percentile on the Hadlock scale. On the [place] hybrid schedule fetus is also at the 10th percentile IMPRESSION: Single viable intrauterine gestation which is approximately 31 weeks and 5 days gestational age, implying an ROLA of 06/25/2023. There are no obvious anomalies evident on today's study. The placenta is anterior with no evidence of placenta previa. There is a normal amount of amniotic fluid. Very large uterine fundal fibroid again noted. Report Digitally Signed by Rolando Denise on 04/28/2023 04:46 PM EST Social History Type Status Start Date End Date Code Code Syst em Smoking History Unknown if ever smoked [id number] Sex Female Medications Medication Start Date End Date Route Frequency Dose Code Code System Medication Instructions Home Meds Ibuprofen 600MG Oral Tablet 07/03/2023 Unknown ORAL NEEDED EVERY 6 HOURS 600 MILLIGRAMS 631066 RxNorm TAKE 600 MILLIGRAMS ORAL NEEDED EVERY 6 HOURS HYDROcodone bitartrate-aicha taminophen 5MG-325MG Oral Tablet 07/03/2023 Unknown ORAL NEEDED EVERY 4 HOURS 1 TABLET 828838 RxNorm TAKE 1 TABLET ORAL NEEDED EVERY 4 HOURS Ferrous Sulfate 325MG Oral Tablet 07/03/2023 4 ORAL DAILY 1 TABLET 790047 RxNorm TAKE 1 TABLET ORAL DAILY Ferrous Sulfate 325MG Oral Tablet 07/03/2023 Unknown ORAL DAILY 1 TABLET 826251 RxNorm TAKE 1 TABLET ORAL DAILY Hospital [...] Code System No Known Drug Allergies Active 156945858 SNOMED-CT Plan of Treatment US OB COMPLETE 04/28/2023 US OB COMPLETE 03/31/2023 US OB / TV 12/17/2022 Encounters Encounter Diagnosis Start Date Code Code Sys tem Tumor of body of uterus affecting 04/28/2023 319420 SNOMED-CT Personal Care Team Section Performer Name Performer Role Active Date Inactive Da te
--- OUTSIDE RECORDS SUMMARY | 2024-02-18 12:54 | XMS_ITS ---
Author Organization Unknown Address [address] [place] [address] [phone] Phone Care Team Providers Care Canceling Machine Operator Name Role Phone LYNNETTE Corrales Attending Unavailable JAYCE Stacy Primary Unavailable Social History Type Status Start Date End Date Code Code Syst em Smoking History Unknown if ever smoked [address] Sex Female Medications Medication Start Date End Date Route Frequency Dose Code Code System Medication Instructions Home Meds Ibuprofen 600MG Oral Tablet 07/03/2023 Unknown ORAL NEEDED EVERY 6 HOURS 600 MILLIGRAMS 757416 RxNorm TAKE 600 MILLIGRAMS ORAL NEEDED EVERY 6 HOURS HYDROcodone bitartrate-aicha taminophen 5MG-325MG Oral Tablet 07/03/2023 Unknown ORAL NEEDED EVERY 4 HOURS 1 TABLET 541722 RxNorm TAKE 1 TABLET ORAL NEEDED EVERY 4 HOURS Ferrous Sulfate 325MG Oral Tablet 07/03/2023 4 ORAL DAILY 1 TABLET 777452 RxNorm TAKE 1 TABLET ORAL DAILY Ferrous Sulfate 325MG Oral Tablet 07/03/2023 Unknown ORAL DAILY 1 TABLET 115305 RxNorm TAKE 1 TABLET ORAL DAILY Hospital [...] Code System No Known Drug Allergies Active 475695810 SNOMED-CT Plan of Treatment US OB COMPLETE 04/28/2023 US OB COMPLETE 03/31/2023 US OB / TV 12/17/2022 Encounters Encounter Diagnosis Start Date Code Code Sys tem Tumor of body of uterus affecting 04/29/2023 559025 SNOMED-CT Personal Care Team Section Performer Name Performer Role Active Date Inactive Da te
--- OUTSIDE RECORDS SUMMARY | 2024-02-18 12:54 | XMS_ITS ---
Author Organization Unknown Address [address] [place] [address] [phone] Phone Care Team Providers Care Conversion Man Name Role Phone MAMI Stacy Attending Unavailable JAYCE Stacy Primary Unavailable Results US OB GREATER THAN 14 WEEKS - Completed: 03/31/2023 16:02 LOINC: [facility] [place], [place] [address] PACS SPECIAL DIET COOK REPORT Patient Name: MELODY HILTON MRN: Sex: : Age: [id number] F 1995 27 Account: Accession: Admit: StayType: [id number] 03/31/2023 O/P Ordered: Order ID: Submitted: Ordering Provider: 03/31/2023 15:18 [id number] KT JON BOLAÑOS Completed: Technologist: Resulted: 03/31/2023 16:02 RXT 03/31/2023 16:30 Study Description: US OB GREATER THAN 14 WEEKS Study Reason: GROWTH FINDINGS: Transabdominal obstetrical ultrasound performed. FINDINGS: Transabdominal obstetrical ultrasound performed. FINDINGS: Number of fetuses: One. position: Cephalic. The spine is to the right. heart rate: 144 bpm. Placental location: There is a grade 1 anterior placenta. No evidence of previa. Amniotic fluid index: 10.6 cm. Visually, amount of fluid is within normal limits. BIOMETRIC DATA: BPD: 75 mm consistent with 30 weeks 0 days. 94th percentile. HC: 272 mm consistent with 29 weeks 4 days. 76th percentile. AC: 225 mm consistent with 26 weeks 6 days. 17th percentile. FL: 50 mm consistent with 26 weeks 6 days. 11th percentile. HUM: 46 mm consistent with 27 weeks 1 day. ANATOMICAL SURVEY: There is a limited anatomic survey. The urinary bladder and stomach were visualized well. EFW: 1057 g. This is a 20th percentile. EGA: 28 weeks 1 days ROLA: 06/22/2023 Note is again made of a large uterine fibroid just to the left of center in the fundus. It measures 19.8 x 15.7 x 11.7 cm. IMPRESSION: 1. Single live intrauterine gestation as above. 2. Large fundal uterine fibroid. Report Digitally Signed by Stevie Rios on 03/31/2023 04:30 PM EST Social History Type Status Start Date End Date Code Code Syst em Smoking History Unknown if ever smoked [address] Sex Female Medications Medication Start Date End Date Route Frequency Dose Code Code System Medication Instructions Home Meds Ibuprofen 600MG Oral Tablet 07/03/2023 Unknown ORAL NEEDED EVERY 6 HOURS 600 MILLIGRAMS 496231 RxNorm TAKE 600 MILLIGRAMS ORAL NEEDED EVERY 6 HOURS HYDROcodone bitartrate-aicha taminophen 5MG-325MG Oral Tablet 07/03/2023 Unknown ORAL NEEDED EVERY 4 HOURS 1 TABLET 963963 RxNorm TAKE 1 TABLET ORAL NEEDED EVERY 4 HOURS Ferrous Sulfate 325MG Oral Tablet 07/03/2023 4 ORAL DAILY 1 TABLET 829918 RxNorm TAKE 1 TABLET ORAL DAILY Ferrous Sulfate 325MG Oral Tablet 07/03/2023 Unknown ORAL DAILY 1 TABLET 391406 RxNorm TAKE 1 TABLET ORAL DAILY Hospital [...] Code System No Known Drug Allergies Active 083017840 [facility] Plan of Treatment US OB COMPLETE 04/28/2023 US OB COMPLETE 03/31/2023 US OB / TV 12/17/2022 Encounters Encounter Diagnosis Start Date Code Code Sys tem Tumor of body of uterus affecting 03/31/2023 313716 [facility] Personal Care Team Section Performer Name Performer Role Active Date Inactive Da te
--- OUTSIDE RECORDS SUMMARY | 2024-02-18 12:54 | XMS_ITS ---
Author Organization Unknown Address [address] [place] [address] [phone] Phone Care Team Providers Care Usability Engineer Name Role Phone ZELALEMNAVEED JUNE Attending Unavailable JAYCE Stacy Primary Unavailable Results TSH THYROID STIMULATING HORM ONE* - Collect Date/Time: 04/17/2023 15:56 [facility] ID: [id number] [address] [place], [place], [address] LOINC: 3014-8 Test Value Unit Reference Range Code Code System Flag TSH 1.346 uIU/mL L=0.360 H=3.740 3014-8 LOINC Social History Type Status Start Date End Date Code Code Syst em Smoking History Unknown if ever smoked [address] Sex Female Medications Medication Start Date End Date Route Frequency Dose Code Code System Medication Instructions Home Meds Ibuprofen 600MG Oral Tablet 07/03/2023 Unknown ORAL NEEDED EVERY 6 HOURS 600 MILLIGRAMS 521146 RxNorm TAKE 600 MILLIGRAMS ORAL NEEDED EVERY 6 HOURS HYDROcodone bitartrate-aicha taminophen 5MG-325MG Oral Tablet 07/03/2023 Unknown ORAL NEEDED EVERY 4 HOURS 1 TABLET 431018 RxNorm TAKE 1 TABLET ORAL NEEDED EVERY 4 HOURS Ferrous Sulfate 325MG Oral Tablet 07/03/2023 4 ORAL DAILY 1 TABLET 638297 RxNorm TAKE 1 TABLET ORAL DAILY Ferrous Sulfate 325MG Oral Tablet 07/03/2023 Unknown ORAL DAILY 1 TABLET 639884 RxNorm TAKE 1 TABLET ORAL DAILY Hospital [...] Code System No Known Drug Allergies Active 692271058 SNOMED-CT Plan of Treatment US OB COMPLETE 04/28/2023 US OB COMPLETE 03/31/2023 US OB / TV 12/17/2022 Encounters Encounter Diagnosis Start Date Code Code Sys tem Thyroid function tests abnormal 04/17/2023 804987391 SNOMED-CT Personal Care Team Section Performer Name Performer Role Active Date Inactive Da te
--- OUTSIDE RECORDS SUMMARY | 2024-02-18 12:55 | XMS_ITS ---
Author Organization Unknown Address [address] [place] [address] [phone] Phone Care Team Providers Care Assurance Manager Name Role Phone RUBY ROSE LOU Attending Unavailable JAYCE Stacy Primary Unavailable Results TSH THYROID STIMULATING HORM ONE* - Collect Date/Time: 05/30/2023 12:30 [facility] ID: [id number] [address] [place] [address], [address] LOINC: 3014-8 Test Value Unit Reference Range Code Code System Flag TSH 1.934 uIU/mL L=0.360 H=3.740 3014-8 LOINC GROUP B STREP DNA BY PCR - C ollect Date/Time: 05/30/2023 12:16 [facility] ID: [id number] [address] [place] [address], [id number] LOINC: 76274-7 Test Value Unit Reference Range Code Code System Flag GROUP B STREP NEGATIVE Normal: Negative OTHER SOURCE: VAG/RECTA PCN ALLERGY? NO Copy Sent to OB? YES Social History Type Status Start Date End Date Code Code Syst em Smoking History Unknown if ever smoked [address] Sex Female Medications Medication Start Date End Date Route Frequency Dose Code Code System Medication Instructions Home Meds Ibuprofen 600MG Oral Tablet 07/03/2023 Unknown ORAL NEEDED EVERY 6 HOURS 600 MILLIGRAMS 950049 RxNorm TAKE 600 MILLIGRAMS ORAL NEEDED EVERY 6 HOURS HYDROcodone bitartrate-aicha taminophen 5MG-325MG Oral Tablet 07/03/2023 Unknown ORAL NEEDED EVERY 4 HOURS 1 TABLET 257964 RxNorm TAKE 1 TABLET ORAL NEEDED EVERY 4 HOURS Ferrous Sulfate 325MG Oral Tablet 07/03/2023 4 ORAL DAILY 1 TABLET 664772 RxNorm TAKE 1 TABLET ORAL DAILY Ferrous Sulfate 325MG Oral Tablet 07/03/2023 Unknown ORAL DAILY 1 TABLET 941413 RxNorm TAKE 1 TABLET ORAL DAILY Hospital [...] Code System No Known Drug Allergies Active 312731688 SNOMED-CT Plan of Treatment US OB COMPLETE 04/28/2023 US OB COMPLETE 03/31/2023 US OB / TV 12/17/2022 Encounters Encounter Diagnosis Start Date Code Code Sys tem Endocrine, nutritional and m etabolic disease complicating , childbirth and puerperium 05/30/2023 588005823 SNOMED-CT Personal Care Team Section Performer Name Performer Role Active Date Inactive Da isabel
--- OUTSIDE RECORDS SUMMARY | 2024-02-18 12:55 | XMS_ITS ---
Author Organization Unknown Address [address] [place] [address] [phone] Phone Care Team Providers Care Toll Line Repairer Name Role Phone MAMI Stacy Attending Unavailable JAYCE Stacy Primary Unavailable Social History Type Status Start Date End Date Code Code Syst em Smoking History Unknown if ever smoked [address] Sex Female Medications Medication Start Date End Date Route Frequency Dose Code Code System Medication Instructions Home Meds Ibuprofen 600MG Oral Tablet 07/03/2023 Unknown ORAL NEEDED EVERY 6 HOURS 600 MILLIGRAMS 677302 RxNorm TAKE 600 MILLIGRAMS ORAL NEEDED EVERY 6 HOURS HYDROcodone bitartrate-aicha taminophen 5MG-325MG Oral Tablet 07/03/2023 Unknown ORAL NEEDED EVERY 4 HOURS 1 TABLET 652556 RxNorm TAKE 1 TABLET ORAL NEEDED EVERY 4 HOURS Ferrous Sulfate 325MG Oral Tablet 07/03/2023 4 ORAL DAILY 1 TABLET 899146 RxNorm TAKE 1 TABLET ORAL DAILY Ferrous Sulfate 325MG Oral Tablet 07/03/2023 Unknown ORAL DAILY 1 TABLET 304923 RxNorm TAKE 1 TABLET ORAL DAILY Hospital [...] Code System No Known Drug Allergies Active 918460650 SNOMED-CT Plan of Treatment US OB COMPLETE 04/28/2023 US OB COMPLETE 03/31/2023 US OB / TV 12/17/2022 Encounters Encounter Diagnosis Start Date Code Code Sys tem Tumor of body of uterus affecting 05/15/2023 417983 SNOMED-CT Personal Care Team Section Performer Name Performer Role Active Date Inactive Da te
--- OUTSIDE RECORDS SUMMARY | 2024-02-18 12:55 | XMS_ITS ---
Author Organization Unknown Address [address] [place] [address] [phone] Phone Care Team Providers Care Bottle Cleaner Name Role Phone RUBY WILSON Attending Unavailable JAYCE Stacy Primary Unavailable Social History Type Status Start Date End Date Code Code Syst em Smoking History Unknown if ever smoked [address] Sex Female Medications Medication Start Date End Date Route Frequency Dose Code Code System Medication Instructions Home Meds Ibuprofen 600MG Oral Tablet 07/03/2023 Unknown ORAL NEEDED EVERY 6 HOURS 600 MILLIGRAMS 128269 RxNorm TAKE 600 MILLIGRAMS ORAL NEEDED EVERY 6 HOURS HYDROcodone bitartrate-aicha taminophen 5MG-325MG Oral Tablet 07/03/2023 Unknown ORAL NEEDED EVERY 4 HOURS 1 TABLET 708739 RxNorm TAKE 1 TABLET ORAL NEEDED EVERY 4 HOURS Ferrous Sulfate 325MG Oral Tablet 07/03/2023 4 ORAL DAILY 1 TABLET 135737 RxNorm TAKE 1 TABLET ORAL DAILY Ferrous Sulfate 325MG Oral Tablet 07/03/2023 Unknown ORAL DAILY 1 TABLET 766756 RxNorm TAKE 1 TABLET ORAL DAILY Hospital [...] Code System No Known Drug Allergies Active 264636550 SNOMED-CT Plan of Treatment US OB COMPLETE 04/28/2023 US OB COMPLETE 03/31/2023 US OB / TV 12/17/2022 Encounters Encounter Diagnosis Start Date Code Code Sys tem care: primigravida 06/03/2023 739859423 SNOMED-CT Personal Care Team Section Performer Name Performer Role Active Date Inactive Da te
--- OUTSIDE RECORDS SUMMARY | 2024-02-18 12:56 | XMS_ITS ---
Author Organization Unknown Address [address] [place] [address] [phone] Phone Care Team Providers Care Brassiere Cup Mold Cutter Name Role Phone LYNNETTE Corrales Attending Unavailable JAYCE Stacy Primary Unavailable Social History Type Status Start Date End Date Code Code Syst em Smoking History Unknown if ever smoked [address] Sex Female Medications Medication Start Date End Date Route Frequency Dose Code Code System Medication Instructions Home Meds Ibuprofen 600MG Oral Tablet 07/03/2023 Unknown ORAL NEEDED EVERY 6 HOURS 600 MILLIGRAMS 527839 RxNorm TAKE 600 MILLIGRAMS ORAL NEEDED EVERY 6 HOURS HYDROcodone bitartrate-aicha taminophen 5MG-325MG Oral Tablet 07/03/2023 Unknown ORAL NEEDED EVERY 4 HOURS 1 TABLET 930265 RxNorm TAKE 1 TABLET ORAL NEEDED EVERY 4 HOURS Ferrous Sulfate 325MG Oral Tablet 07/03/2023 4 ORAL DAILY 1 TABLET 564634 RxNorm TAKE 1 TABLET ORAL DAILY Ferrous Sulfate 325MG Oral Tablet 07/03/2023 Unknown ORAL DAILY 1 TABLET 566202 RxNorm TAKE 1 TABLET ORAL DAILY Hospital [...] Code System No Known Drug Allergies Active 249451674 SNOMED-CT Plan of Treatment US OB COMPLETE 04/28/2023 US OB COMPLETE 03/31/2023 US OB / TV 12/17/2022 Encounters Encounter Diagnosis Start Date Code Code Sys tem Tumor of body of uterus affecting 06/10/2023 613413 SNOMED-CT Personal Care Team Section Performer Name Performer Role Active Date Inactive Da te
--- OUTSIDE RECORDS SUMMARY | 2024-02-18 12:56 | XMS_ITS ---
Author Organization Unknown Address [address] [place] [address] [phone] Phone Care Team Providers Care Executive Steward Name Role Phone LYNNETTE Corrales Attending Unavailable JAYCE Stacy Primary Unavailable Social History Type Status Start Date End Date Code Code Syst em Smoking History Unknown if ever smoked [address] Sex Female Medications Medication Start Date End Date Route Frequency Dose Code Code System Medication Instructions Home Meds Ibuprofen 600MG Oral Tablet 07/03/2023 Unknown ORAL NEEDED EVERY 6 HOURS 600 MILLIGRAMS 939311 RxNorm TAKE 600 MILLIGRAMS ORAL NEEDED EVERY 6 HOURS HYDROcodone bitartrate-aicha taminophen 5MG-325MG Oral Tablet 07/03/2023 Unknown ORAL NEEDED EVERY 4 HOURS 1 TABLET 325029 RxNorm TAKE 1 TABLET ORAL NEEDED EVERY 4 HOURS Ferrous Sulfate 325MG Oral Tablet 07/03/2023 4 ORAL DAILY 1 TABLET 556094 RxNorm TAKE 1 TABLET ORAL DAILY Ferrous Sulfate 325MG Oral Tablet 07/03/2023 Unknown ORAL DAILY 1 TABLET 185961 RxNorm TAKE 1 TABLET ORAL DAILY Hospital [...] Code System No Known Drug Allergies Active 178883717 SNOMED-CT Plan of Treatment US OB COMPLETE 04/28/2023 US OB COMPLETE 03/31/2023 US OB / TV 12/17/2022 Encounters Encounter Diagnosis Start Date Code Code Sys tem Tumor of body of uterus affecting 06/18/2023 117005 SNOMED-CT Personal Care Team Section Performer Name Performer Role Active Date Inactive Da te
--- OUTSIDE RECORDS SUMMARY | 2024-02-18 12:56 | XMS_ITS ---
Author Organization Unknown Address [address] [place] [address] [phone] Phone Care Team Providers Care Seamless Tube Drawer Name Role Phone MAMI Stacy Attending Unavailable JAYCE Stacy Primary Unavailable Social History Type Status Start Date End Date Code Code Syst em Smoking History Unknown if ever smoked [address] Sex Female Medications Medication Start Date End Date Route Frequency Dose Code Code System Medication Instructions Home Meds Ibuprofen 600MG Oral Tablet 07/03/2023 Unknown ORAL NEEDED EVERY 6 HOURS 600 MILLIGRAMS 524324 RxNorm TAKE 600 MILLIGRAMS ORAL NEEDED EVERY 6 HOURS HYDROcodone bitartrate-aicha taminophen 5MG-325MG Oral Tablet 07/03/2023 Unknown ORAL NEEDED EVERY 4 HOURS 1 TABLET 788163 RxNorm TAKE 1 TABLET ORAL NEEDED EVERY 4 HOURS Ferrous Sulfate 325MG Oral Tablet 07/03/2023 4 ORAL DAILY 1 TABLET 621970 RxNorm TAKE 1 TABLET ORAL DAILY Ferrous Sulfate 325MG Oral Tablet 07/03/2023 Unknown ORAL DAILY 1 TABLET 125410 RxNorm TAKE 1 TABLET ORAL DAILY Hospital [...] Code System No Known Drug Allergies Active 119735918 SNOMED-CT Plan of Treatment US OB COMPLETE 04/28/2023 US OB COMPLETE 03/31/2023 US OB / TV 12/17/2022 Encounters Encounter Diagnosis Start Date Code Code Sys tem Tumor of body of uterus affecting 06/24/2023 897099 SNOMED-CT Personal Care Team Section Performer Name Performer Role Active Date Inactive Da te
--- OUTSIDE RECORDS SUMMARY | 2024-02-18 12:57 | XMS_ITS ---
Author Organization Unknown Address [address] [place] [address] [phone] Phone Care Team Providers Care Falafel Cart Cook Name Role Phone Unavailable Xwatchlist Unavailable LYNNETTE Corrales Attending Unavailable LANDON Vargas SLOT MACHINE REPAIRER Unavailable JAYCE Stacy Primary Unavailable MAMI Stacy Secondary Unavailable CHRISTOPH BALDWIN Surgeon Unavailable Results CBC W/ DIFFERENTIAL* - Colle ct Date/Time: 07/02/2023 06:40 [facility] ID: [id number] [address] [place] [address], [address] LOINC: 39234-0 Test Value Unit Reference Range Code Code System Flag WBC 9.80 th/cmm L=5.00 H=10.00 6690-2 LOINC NEUT % 67.4 % L=40.0 H=80.0 LYMPH % 23.8 % L=10.0 H=50.0 MONO % 7.0 % L=2.0 H=12.0 85008-4 LOINC EOS % 1.0 % L=0.0 H=8.0 BASO % 0.4 % L=0.0 H=3.0 IG % 0.4 % L=0.0 H=1.1 2514-8 LOINC NRBC % 0.0 % L=0.0 H=0.0 32044-4 LOINC NEUT abs count 6.6 th/cmm L=1.6 H=8.4 751-8 LOINC LYMPH abs count 2.3 th/cmm L=1.5 H=4.0 731-0 LOINC MONO abs count 0.7 th/cmm L=0.2 H=1.0 742-7 LOINC EOS abs count 0.1 th/cmm L=0.0 H=0.5 711-2 LOINC BASO abs count 0.0 th/cmm L=0.0 H=0.2 704-7 LOINC IG abs count 0.0 th/cmm L=0.0 H=0.1 19009-5 LOINC NRBC abs count 0.0 mil/cmm L=0.0 H=0.0 51927-8 LOINC RBC 3.02 mil/cmm L=3.90 H=5.40 789-8 LOINC L HEMOGLOBIN 8.4 gm/dL L=12.0 H=16.0 718-7 LOINC L HEMATOCRIT 27 % L=37 H=47 4544-3 LOINC L MCV 88 fL L=82 H=92 787-2 LOINC MCH 27.8 pg L=27.0 H=31.0 785-6 LOINC MCHC 31.7 % L=32.0 H=36.0 786-4 LOINC L RDW-SD 50.2 fL L=39.0 H=49.0 788-0 LOINC H PLATELET COUNT 194 th/cmm L=150 H=450 777-3 LOINC CBC W/ DIFFERENTIAL* - Colle ct Date/Time: 07/01/2023 07:35 [facility] ID: [id number] [address] [place], [place], [address] LOINC: 94513-8 Test Value Unit Reference Range Code Code System Flag WBC 13.59 th/cmm L=5.00 H=10.00 6690-2 LOINC H NEUT % 75.2 % L=40.0 H=80.0 LYMPH % 18.9 % L=10.0 H=50.0 MONO % 5.2 % L=2.0 H=12.0 02529-3 LOINC EOS % 0.1 % L=0.0 H=8.0 BASO % 0.4 % L=0.0 H=3.0 IG % 0.2 % L=0.0 H=1.1 2514-8 LOINC NRBC % 0.0 % L=0.0 H=0.0 79982-1 LOINC NEUT abs count 10.2 th/cmm L=1.6 H=8.4 751-8 LOINC H LYMPH abs count 2.6 th/cmm L=1.5 H=4.0 731-0 LOINC MONO abs count 0.7 th/cmm L=0.2 H=1.0 742-7 LOINC EOS abs count 0.0 th/cmm L=0.0 H=0.5 711-2 LOINC BASO abs count 0.1 th/cmm L=0.0 H=0.2 704-7 LOINC IG abs count 0.0 th/cmm L=0.0 H=0.1 39970-5 LOINC NRBC abs count 0.0 mil/cmm L=0.0 H=0.0 50249-5 LOINC RBC 3.36 mil/cmm L=3.90 H=5.40 789-8 LOINC L HEMOGLOBIN 9.3 gm/dL L=12.0 H=16.0 718-7 LOINC L HEMATOCRIT 29 % L=37 H=47 4544-3 LOINC L MCV 85 fL L=82 H=92 787-2 LOINC MCH 27.7 pg L=27.0 H=31.0 785-6 LOINC MCHC 32.6 % L=32.0 H=36.0 786-4 LOINC RDW-SD 46.4 fL L=39.0 H=49.0 788-0 LOINC PLATELET COUNT 211 th/cmm L=150 H=450 777-3 INC BLOOD BANK REPORT OF UNITS A VAILABLE* - Collect Date/Time: 06/30/2023 22:22 [facility] ID: [id number] [address] [place], [place], [id number] LOINC: Test Value Unit Reference Range Code Code System Flag Component Packed RBCs Leukopoor Blood Group O 883-9 LOINC Rh (D) POSITIVE 29417-7 LOINC Antibody Screen. NEGATIVE PROTEIN/CREATININE RATIO RAN DOM URINE* - Collect Date/Time: 06/30/2023 20:07 [facility] ID: [id number] [address] [place], [place], [id number] LOINC: 24384-0 Test Value Unit Reference Range Code Code System Flag CREAT. CONC. URINE 95.9 mg/dL PROTEIN CONC. URINE 10.0 mg/dL PROTEIN/CREATININE 0.10 Ratio L=0.00 H=0.29 COMPREHENSIVE METABOLIC PANE L (CMP) - Collect Date/Time: 06/30/2023 12:38 [facility] ID: [id number] [address] [place], [place], [address] LOINC: 65396-4 Test Value Unit Reference Range Code Code System Flag GLUCOSE 91 mg/dL L=70 H=116 2345-7 LOINC BUN 10 mg/dL L=6 H=25 3094-0 LOINC CREATININE 0.65 mg/dL L=0.51 H=0.95 2160-0 LOINC SODIUM SERUM 140 mmol/L L=136 H=145 2951-2 LOINC POTASSIUM SERUM 4.4 mmol/L L=3.4 H=5.2 2823-3 LOINC CHLORIDE SERUM 104 mmol/L L=96 H=110 2075-0 LOINC CARBON DIOXIDE (CO2) 22 mmol/L L=22 H=34 2028-9 LOINC ANION GAP 14.3 mmol/L 26821-0 LOINC CALCIUM SERUM 9.5 mg/dL L=8.2 H=10.2 30682-5 LOINC BILIRUBIN TOTAL 0.2 mg/dL L=0.0 H=1.3 1975-2 LOINC ALK. PHOS. 126 U/L L=46 H=116 6768-6 LOINC H SGOT (AST) 24 U/L L=15 H=37 1920-8 LOINC SGPT (ALT) 26 U/L L=12 H=78 1742-6 LOINC TOTAL PROTEIN 6.2 gm/dL L=6.0 H=8.0 2885-2 LOINC ALBUMIN 2.5 gm/dL L=3.4 H=5.0 1751-7 LOINC L AGE 27 years eGFR (non-Afr.Amer.) 109 mL/min 66106-8 LOINC eGFR (Afr-Cambodian) > 120 mL/min 55271-8 LOINC URIC ACID SERUM - Collect Da te/Time: 06/30/2023 12:38 [facility] ID: [id number] [address] [place], [place], [address] LOINC: 3084-1 Test Value Unit Reference Range Code Code System Flag URIC ACID SERUM 5.5 mg/dL L=2.0 H=7.0 CBC W/ DIFFERENTIAL* - Colle ct Date/Time: 06/30/2023 12:38 [facility] ID: [id number] [address] [place] [address], [address] LOINC: 26177-2 Test Value Unit Reference Range Code Code System Flag WBC 6.95 th/cmm L=5.00 H=10.00 6690-2 LOINC NEUT % 63.9 % L=40.0 H=80.0 LYMPH % 29.1 % L=10.0 H=50.0 MONO % 6.0 % L=2.0 H=12.0 20840-8 LOINC EOS % 0.3 % L=0.0 H=8.0 BASO % 0.6 % L=0.0 H=3.0 IG % 0.1 % L=0.0 H=1.1 2514-8 LOINC NRBC % 0.0 % L=0.0 H=0.0 40013-7 LOINC NEUT abs count 4.4 th/cmm L=1.6 H=8.4 751-8 LOINC LYMPH abs count 2.0 th/cmm L=1.5 H=4.0 731-0 LOINC MONO abs count 0.4 th/cmm L=0.2 H=1.0 742-7 LOINC EOS abs count 0.0 th/cmm L=0.0 H=0.5 711-2 LOINC BASO abs count 0.0 th/cmm L=0.0 H=0.2 704-7 LOINC IG abs count 0.0 th/cmm L=0.0 H=0.1 28627-9 LOINC NRBC abs count 0.0 mil/cmm L=0.0 H=0.0 36955-9 LOINC RBC 4.08 mil/cmm L=3.90 H=5.40 789-8 LOINC HEMOGLOBIN 11.3 gm/dL L=12.0 H=16.0 718-7 LOINC L HEMATOCRIT 35 % L=37 H=47 4544-3 LOINC L MCV 86 fL L=82 H=92 787-2 LOINC MCH 27.7 pg L=27.0 H=31.0 785-6 LOINC MCHC 32.4 % L=32.0 H=36.0 786-4 LOINC RDW-SD 47.7 fL L=39.0 H=49.0 788-0 LOINC PLATELET COUNT 265 th/cmm L=150 H=450 777-3 LOINC TYPE AND SCREEN* - Collect D ate/Time: 06/30/2023 12:38 [facility] ID: [id number] [address] [place], [place], [id number] LOINC: Test Value Unit Reference Range Code Code System Flag Blood Group O 883-9 LOINC Rh (D) POSITIVE 68071-2 LOINC Antibody Screen NEGATIVE 1005-8 LOINC Social History Type Status Start Date End Date Code Code Syst em Smoking History Unknown if ever smoked [id number] Sex Female Vital Signs Vital Sign Value Unit Petroleum Value Petroleum Unit Date/Time Recent/Initial? Code Code System Body Mass Index 39.82 kg/m2 06/30/2023 12:22 Initial 03365 -5 LOINC Systolic Blood Pressure 128 mm[Hg] 07/03/2023 10:59 Most Recent 8480- 6 LOINC Diastolic Blood Pressure 76 mm[Hg] 07/03/2023 10:59 Most Recent 8462- 4 LOINC Systolic Blood Pressure 119 mm[Hg] 06/30/2023 11:35 Initial 8480- 6 LOINC Diastolic Blood Pressure 84 mm[Hg] 06/30/2023 11:35 Initial 8462- 4 LOINC Body Surface Area 2.18 m2 06/30/2023 12:22 Initial 3140- 1 LOINC Height 162.560 0 cm 64.00 in 06/30/2023 12:22 Initial 8302- 2 LOINC O2 Saturation 98 % 2023 10:59 Most Recent 18382 -5 LOINC O2 Saturation 97 % 2023 20:30 Initial 91524 -5 LOINC Pulse 111.0 /min 07/03/2023 10:59 Most Recent 8867- 4 LOINC Pulse 93.0 /min 06/30/2023 11:35 Initial 8867- 4 LOINC Respiration 16 /min 07/03/19 10:59 Most Recent 9279- 1 LOINC Respiration 20 /min 06/30/19 11:35 Initial 9279- 1 LOINC Temperature 36.7 Roselyn 98.1 F 07/03/19 10:59 Most Recent 8310- 5 LOINC Temperature 36.8 Roselyn 98.2 F 06/30/19 11:35 Initial 8310- 5 LOINC Weight 105.23 kg 232.00 lbs 06/30/2023 12:22 Initial 68764 -7 [facility] Medication Start Date End Date Route Frequency Dose Code Code System Medication Instructions Home Meds Ibuprofen 600MG Oral Tablet 07/03/2023 Unknown ORAL NEEDED EVERY 6 HOURS 600 MILLIGRAMS 326716 RxNorm TAKE 600 MILLIGRAMS ORAL NEEDED EVERY 6 HOURS HYDROcodone bitartrate-aicha taminophen 5MG-325MG Oral Tablet 07/03/2023 Unknown ORAL NEEDED EVERY 4 HOURS 1 TABLET 038845 RxNorm TAKE 1 TABLET ORAL NEEDED EVERY 4 HOURS Ferrous Sulfate 325MG Oral Tablet 07/03/2023 4 ORAL DAILY 1 TABLET 442171 RxNorm TAKE 1 TABLET ORAL DAILY Ferrous Sulfate 325MG Oral Tablet 07/03/2023 Unknown ORAL DAILY 1 TABLET 570267 RxNorm TAKE 1 TABLET ORAL DAILY Hospital Discharge Instructions Should you have any questions prior to discharge, please contact a member of your healthcare team. If you have left the hospital and have any questions, please contact your primary care physician. Reason For Referral No Data Found Procedures Procedure Name Date Status Code Code Syste m Extraction of Products of Co nception, Low, Open Approach 06/30/2023 completed [id number] Introduction of Other Hormon e into Peripheral Vein, Percutaneous Approach 06/30/2023 completed [id number] [id number] Anesthesia For Delivery Only 06/30/2023 completed 88745 CPT Allergies and Adverse Reactions Allergy Substance Reaction Severity Start Date Concern Status Co de Code System No Known Drug Allergies Active [id number] SNOMED-CT Plan of Treatment US OB COMPLETE 04/28/2023 US OB COMPLETE 03/31/2023 OB / TV 12/17/2022 Plan Discharged to home for office followup Medications given this visit: Ordered & Completed Meds Table Ordered Medication Start Date/Time Dosage Route Frequency Status OXYTOCIN IN NS PREMIXED: 30 UNITS/500ML 06/30/2023 13:30 INTRAVENOUS CONT completed SODIUM CHLORIDE 0.9% FLUSH 10ML SYRINGE 06/30/2023 14:33 2 ML IV PUSH Q8H completed CITALOPRAM TABLET: 20MG 06/30/2023 19:04 20 MG ORAL BEDTIME active LEVOTHYROXINE TABLET: 100MCG 06/30/2023 19:04 100 MCG ORAL Q7AM active CITRIC ACID/SOD CITRATE ORAL SOLN 30ML 06/30/2023 20:25 30 ML ORAL X1 completed CeFAZolin IVPB FROZEN PREMIX: 2GM/100ML 06/30/2023 20:25 200 ml/hr IV PIGGYBACK X1 completed ACETAMINOPHEN INJ IVPB: 1000MG/100ML 06/30/2023 20:49 400 ml/hr IV PIGGYBACK PRN IN PACU X1 completed LACTATED RINGERS 1000ML 07/01/2023 00:14 150 ml/hr INTRAVENOUS CONT active KETOROLAC INJ SDV: 30MG/1ML 07/01/2023 00:43 30 MG IV PUSH Q6H completed IBUPROFEN TABLET: 600MG 07/01/2023 00:43 600 MG ORAL PRN Q6H active ACETAMINOPHEN TABLET: 325MG 07/01/2023 00:44 650 MG ORAL Q4H active OxyCODONE TABLET no apap added: 5mg 07/01/2023 00:44 5 MG ORAL Q4H completed DOCUSATE SODIUM CAPSULE: 100MG 07/01/2023 00:44 100 MG ORAL BID active ONDANSETRON INJ SDV: 4MG/2ML 07/01/2023 00:44 4 MG IV PUSH PRN Q4H active ONDANSETRON TABLET ORAL DISINTEGRAT: 4MG 07/01/2023 00:44 4 MG ORAL PRN Q4H active DiphenhydrAMINE INJ SDV: 50MG/ML 07/01/2023 00:44 25 MG IV PUSH PRN Q6H active DiphenhydrAMINE CAP: 25MG 07/01/2023 00:44 25 MG ORAL PRN Q6H active CALCIUM CARBONATE TAB CHEWABLE UD: 500MG 07/01/2023 00:45 1000 MG CHEW PRN Q2H active ZOLPIDEM TABLET: 5MG 07/01/2023 00:45 5 MG ORAL PRN BEDTIME active LANSINOH CREAM SAMPLES PACKET (OB) 07/01/2023 00:45 1 JARED TOPICALLY PRN active OxyCODONE TABLET no apap added: 5mg 07/02/2023 00:46 5 MG ORAL PRN Q4H active HYDROmorphone INJ SYRINGE: 1MG/ML 07/01/2023 01:32 1 MG IV PUSH PRN Q3H active LACTATED RINGERS 1000ML 06/30/2023 22:00 125 ml/hr INTRAVENOUS CONT completed OxyCODONE TABLET no apap added: 5mg 07/01/2023 00:01 5 MG ORAL Q4H active HYDROCORTISONE CREAM 1% 30GM TUBE 07/02/2023 12:38 1 JARED TOPICALLY PRN QID active Discharge Medications: Discharge Medications: Iron supplements, oxycodone 5/acetaminophen 325, Ibuprofen 600 mg, colace bid. Encounters Encounter Diagnosis Start Date Code Code Sys tem Maternal care for benign carmen or of corpus uteri, third trimester 06/30/2023 SNOMED-CT Personal Care Team Section Performer Name Performer Role Active Date Inactive Da te Discharge Summary Notes [facility] 07/03/2023 11:15 POD #3 for intolerance of labor, large fibroid All Demographics Patient Name Age Sex Visit Number Admission Date/Time Attending Physician Date of Service Room and Bed Emergency Contact MELODY HILTON 1995 27 years Unknown [id number] 06/30/2023 13:34 ULISES CHURCH 06/30/2023 [id number] ILA MELO - [id number] 07/03/2023 10:52 Discharge Date: 07/03/23 Reason for Admission: Induction of labor for non-reactive NST at 40.6 weeks Final Diagnosis: intolerance of labor remote from delivery, large uterine fibroid Problem List: No Problems Available Attending Physician: Christoph Primary Care Physician: Primary Care Physician: JAYCE Stacy Referring Physician: Consulting Physician(s): Procedures: Primary low transverse Consultations: History of Present Illness Patient presented for routine office visit at 40.6 weeks after a complicated only by known presence of large L fundal fibroid. NST was non-reactive and she was sent to the [facility] for induction of labor. Reportedly GBS negative and 2//-1. Hospital Course Pitocin was chosed for induction due to concerns about status. Upon initiating 2 miu of pitocin the fetus had a combination of variable and late decelerations. These resolved when pitocin was discontinued but recurred with a 2nd attempt at starting pitocin. After an extensive discussion and counseling the patient and spouse wished to proceed with section due to concerns of labor intolerance remote from delivery and likely outcome of emergent due to decels if induction attempted. Low transverse under spinal anesthesia was performed. Fibroid at roughly 22 cm was confirmed coming off of L fundal/cornual area. The lower uterine segment note to be very vascular even before incision made, presumabaly related to hypervascularity related to fibroid. Blood loss (officially 2000 but didn't account for amniotic fluid) occurred almost imediately upon incision. 6#14 oz viable male delivered uneventfully from OP deep in pelvis position. Once bleeders in hysterotomy were secured by clamps and additional suturing there was little additional blood loss and finished uneventfully. Patient did well postop with hb 11.3 preop, 9.3 POD1, 8.4 POD2. She was hemodynamically stable, tolerating general diet, up and about and bowel, bladder, and function all well established as of POD #1. She is discharged home with oxycodone/acetaminophen 5/325 due to concerns that fibroid may start degenerating as well as iron supplements, stool softeners, and ibuprofen 600 mg for pain. Lab Results: This Visit Test Results Units Reference Range Ordered Collected Status WBC 9.80 th/cmm L=5.00 H=10.00 07/02/2023 10:55 07/02/2023 06:40 final NEUT % 67.4 % L=40.0 H=80.0 07/02/2023 10:55 07/02/2023 06:40 final LYMPH % 23.8 % L=10.0 H=50.0 07/02/2023 10:55 07/02/2023 06:40 final MONO % 7.0 % L=2.0 H=12.0 07/02/2023 10:55 07/02/2023 06:40 final EOS % 1.0 % L=0.0 H=8.0 07/02/2023 10:55 07/02/2023 06:40 final BASO % 0.4 % L=0.0 H=3.0 07/02/2023 10:55 07/02/2023 06:40 final IG % 0.4 % L=0.0 H=1.1 07/02/2023 10:55 07/02/2023 06:40 final NRBC % 0.0 % L=0.0 H=0.0 07/02/2023 10:55 07/02/2023 06:40 final NEUT abs count 6.6 th/cmm L=1.6 H=8.4 07/02/2023 10:55 07/02/2023 06:40 final LYMPH abs count 2.3 th/cmm L=1.5 H=4.0 07/02/2023 10:55 07/02/2023 06:40 final MONO abs count 0.7 th/cmm L=0.2 H=1.0 07/02/2023 10:55 07/02/2023 06:40 final EOS abs count 0.1 th/cmm L=0.0 H=0.5 07/02/2023 10:55 07/02/2023 06:40 final BASO abs count 0.0 th/cmm L=0.0 H=0.2 07/02/2023 10:55 07/02/2023 06:40 final IG abs count 0.0 th/cmm L=0.0 H=0.1 07/02/2023 10:55 07/02/2023 06:40 final NRBC abs count 0.0 mil/cmm L=0.0 H=0.0 07/02/2023 10:55 07/02/2023 06:40 final RBC 3.02 L mil/cmm L=3.90 H=5.40 07/02/2023 10:55 07/02/2023 06:40 final HEMOGLOBIN 8.4 L gm/dL L=12.0 H=16.0 07/02/2023 10:55 07/02/2023 06:40 final HEMATOCRIT 27 L % L=37 H=47 07/02/2023 10:55 07/02/2023 06:40 final MCV 88 fL L=82 H=92 07/02/2023 10:55 07/02/2023 06:40 final MCH 27.8 pg L=27.0 H=31.0 07/02/2023 10:55 07/02/2023 06:40 final MCHC 31.7 L % L=32.0 H=36.0 07/02/2023 10:55 07/02/2023 06:40 final RDW-SD 50.2 H fL L=39.0 H=49.0 07/02/2023 10:55 07/02/2023 06:40 final PLATELET COUNT 194 th/cmm L=150 H=450 07/02/2023 10:55 07/02/2023 06:40 final WBC 13.59 H th/cmm L=5.00 H=10.00 07/01/2023 06:42 07/01/2023 07:35 final NEUT % 75.2 % L=40.0 H=80.0 07/01/2023 06:42 07/01/2023 07:35 final LYMPH % 18.9 % L=10.0 H=50.0 07/01/2023 06:42 07/01/2023 07:35 final MONO % 5.2 % L=2.0 H=12.0 07/01/2023 06:42 07/01/2023 07:35 final EOS % 0.1 % L=0.0 H=8.0 07/01/2023 06:42 07/01/2023 07:35 final BASO % 0.4 % L=0.0 H=3.0 07/01/2023 06:42 07/01/2023 07:35 final IG % 0.2 % L=0.0 H=1.1 07/01/2023 06:42 07/01/2023 07:35 final NRBC % 0.0 % L=0.0 H=0.0 07/01/2023 06:42 07/01/2023 07:35 final NEUT abs count 10.2 H th/cmm L=1.6 H=8.4 07/01/2023 06:42 07/01/2023 07:35 final LYMPH abs count 2.6 th/cmm L=1.5 H=4.0 07/01/2023 06:42 07/01/2023 07:35 final MONO abs count 0.7 th/cmm L=0.2 H=1.0 07/01/2023 06:42 07/01/2023 07:35 final EOS abs count 0.0 th/cmm L=0.0 H=0.5 07/01/2023 06:42 07/01/2023 07:35 final BASO abs count 0.1 th/cmm L=0.0 H=0.2 07/01/2023 06:42 07/01/2023 07:35 final IG abs count 0.0 th/cmm L=0.0 H=0.1 07/01/2023 06:42 07/01/2023 07:35 final NRBC abs count 0.0 mil/cmm L=0.0 H=0.0 07/01/2023 06:42 07/01/2023 07:35 final RBC 3.36 L mil/cmm L=3.90 H=5.40 07/01/2023 06:42 07/01/2023 07:35 final HEMOGLOBIN 9.3 L gm/dL L=12.0 H=16.0 07/01/2023 06:42 07/01/2023 07:35 final HEMATOCRIT 29 L % L=37 H=47 07/01/2023 06:42 07/01/2023 07:35 final MCV 85 fL L=82 H=92 07/01/2023 06:42 07/01/2023 07:35 final MCH 27.7 pg L=27.0 H=31.0 07/01/2023 06:42 07/01/2023 07:35 final MCHC 32.6 % L=32.0 H=36.0 07/01/2023 06:42 07/01/2023 07:35 final RDW-SD 46.4 fL L=39.0 H=49.0 07/01/2023 06:42 07/01/2023 07:35 final PLATELET COUNT 211 th/cmm L=150 H=450 07/01/2023 06:42 07/01/2023 07:35 final Component Packed RBCs Leukopoor Packed RBCs Leukopoor 06/30/2023 21:39 06/30/2023 22:22 final Blood Group O O 06/30/2023 21:39 06/30/2023 22:22 final Rh (D) POSITIVE POSITIVE 06/30/2023 21:39 06/30/2023 22:22 final Antibody Screen. NEGATIVE NEGATIVE 06/30/2023 21:39 06/30/2023 22:22 final Component Packed RBCs Leukopoor Packed RBCs Leukopoor 06/30/2023 21:12 06/30/2023 21:12 [id number] Blood Group O O 06/30/2023 21:12 06/30/2023 21:12 [id number] Rh (D) POSITIVE POSITIVE 06/30/2023 21:12 06/30/2023 21:12 [id number] Antibody Screen. NEGATIVE NEGATIVE 06/30/2023 21:12 06/30/2023 21:12 [id number] CREAT. CONC. URINE 95.9 mg/dL 06/30/2023 19:04 06/30/2023 20:07 final PROTEIN CONC. URINE 10.0 mg/dL 06/30/2023 19:04 06/30/2023 20:07 final PROTEIN/CREATININE 0.10 Ratio L=0.00 H=0.29 06/30/2023 19:04 06/30/2023 20:07 final WBC 6.95 th/cmm L=5.00 H=10.00 06/30/2023 19:03 06/30/2023 12:38 final NEUT % 63.9 % L=40.0 H=80.0 06/30/2023 19:03 06/30/2023 12:38 final LYMPH % 29.1 % L=10.0 H=50.0 06/30/2023 19:03 06/30/2023 12:38 final MONO % 6.0 % L=2.0 H=12.0 06/30/2023 19:03 06/30/2023 12:38 final EOS % 0.3 % L=0.0 H=8.0 06/30/2023 19:03 06/30/2023 12:38 final BASO % 0.6 % L=0.0 H=3.0 06/30/2023 19:03 06/30/2023 12:38 final IG % 0.1 % L=0.0 H=1.1 06/30/2023 19:03 06/30/2023 12:38 final NRBC % 0.0 % L=0.0 H=0.0 06/30/2023 19:03 06/30/2023 12:38 final NEUT abs count 4.4 th/cmm L=1.6 H=8.4 06/30/2023 19:03 06/30/2023 12:38 final LYMPH abs count 2.0 th/cmm L=1.5 H=4.0 06/30/2023 19:03 06/30/2023 12:38 final MONO abs count 0.4 th/cmm L=0.2 H=1.0 06/30/2023 19:03 06/30/2023 12:38 final EOS abs count 0.0 th/cmm L=0.0 H=0.5 06/30/2023 19:03 06/30/2023 12:38 final BASO abs count 0.0 th/cmm L=0.0 H=0.2 06/30/2023 19:03 06/30/2023 12:38 final IG abs count 0.0 th/cmm L=0.0 H=0.1 06/30/2023 19:03 06/30/2023 12:38 final NRBC abs count 0.0 mil/cmm L=0.0 H=0.0 06/30/2023 19:03 06/30/2023 12:38 final RBC 4.08 mil/cmm L=3.90 H=5.40 06/30/2023 19:03 06/30/2023 12:38 final HEMOGLOBIN 11.3 L gm/dL L=12.0 H=16.0 06/30/2023 19:03 06/30/2023 12:38 final HEMATOCRIT 35 L % L=37 H=47 06/30/2023 19:03 06/30/2023 12:38 final MCV 86 fL L=82 H=92 06/30/2023 19:03 06/30/2023 12:38 final MCH 27.7 pg L=27.0 H=31.0 06/30/2023 19:03 06/30/2023 12:38 final MCHC 32.4 % L=32.0 H=36.0 06/30/2023 19:03 06/30/2023 12:38 final RDW-SD 47.7 fL L=39.0 H=49.0 06/30/2023 19:03 06/30/2023 12:38 final PLATELET COUNT 265 th/cmm L=150 H=450 06/30/2023 19:03 06/30/2023 12:38 final GLUCOSE 91 mg/dL L=70 H=116 06/30/2023 19:04 06/30/2023 12:38 final BUN 10 mg/dL L=6 H=25 06/30/2023 19:04 06/30/2023 12:38 final CREATININE 0.65 mg/dL L=0.51 H=0.95 06/30/2023 19:04 06/30/2023 12:38 final SODIUM SERUM 140 mmol/L L=136 H=145 06/30/2023 19:04 06/30/2023 12:38 final POTASSIUM SERUM 4.4 mmol/L L=3.4 H=5.2 06/30/2023 19:04 06/30/2023 12:38 final CHLORIDE SERUM 104 mmol/L L=96 H=110 06/30/2023 19:04 06/30/2023 12:38 final CARBON DIOXIDE (CO2) 22 mmol/L L=22 H=34 06/30/2023 19:04 06/30/2023 12:38 final ANION GAP 14.3 mmol/L 06/30/2023 19:04 06/30/2023 12:38 final CALCIUM SERUM 9.5 mg/dL L=8.2 H=10.2 06/30/2023 19:04 06/30/2023 12:38 final BILIRUBIN TOTAL 0.2 mg/dL L=0.0 H=1.3 06/30/2023 19:04 06/30/2023 12:38 final ALK. PHOS. 126 H U/L L=46 H=116 06/30/2023 19:04 06/30/2023 12:38 final SGOT (AST) 24 U/L L=15 H=37 06/30/2023 19:04 06/30/2023 12:38 final SGPT (ALT) 26 U/L L=12 H=78 06/30/2023 19:04 06/30/2023 12:38 final TOTAL PROTEIN 6.2 gm/dL L=6.0 H=8.0 06/30/2023 19:04 06/30/2023 12:38 final ALBUMIN 2.5 L gm/dL L=3.4 H=5.0 06/30/2023 19:04 06/30/2023 12:38 final AGE 27 years 06/30/2023 19:04 06/30/2023 12:38 final eGFR (non-Afr.Amer.) 109 mL/min 06/30/2023 19:04 06/30/2023 12:38 final eGFR (Afr-Cambodian) >120 mL/min 06/30/2023 19:04 06/30/2023 12:38 final Blood Group O O 06/30/2023 19:03 06/30/2023 12:38 final Rh (D) POSITIVE POSITIVE 06/30/2023 19:03 06/30/2023 12:38 final Antibody Screen NEGATIVE NEGATIVE 06/30/2023 19:03 06/30/2023 12:38 final URIC ACID SERUM 5.5 mg/dL L=2.0 H=7.0 06/30/2023 19:04 06/30/2023 12:38 final TYPE AND SCREEN* 06/30/2023 20:25 cancelled Assessment Problem List: No Problems Available Plan Discharged to home for office followup Medications given this visit: Ordered & Completed Meds Table Ordered Medication Start Date/Time Dosage Route Frequency Status OXYTOCIN IN NS PREMIXED: 30 UNITS/500ML 06/30/2023 13:30 INTRAVENOUS CONT completed SODIUM CHLORIDE 0.9% FLUSH 10ML SYRINGE 06/30/2023 14:33 2 ML IV PUSH Q8H completed CITALOPRAM TABLET: 20MG 06/30/2023 19:04 20 MG ORAL BEDTIME active LEVOTHYROXINE TABLET: 100MCG 06/30/2023 19:04 100 MCG ORAL Q7AM active CITRIC ACID/SOD CITRATE ORAL SOLN 30ML 06/30/2023 20:25 30 ML ORAL X1 completed CeFAZolin IVPB FROZEN PREMIX: 2GM/100ML 06/30/2023 20:25 200 ml/hr IV PIGGYBACK X1 completed ACETAMINOPHEN INJ IVPB: 1000MG/100ML 06/30/2023 20:49 400 ml/hr IV PIGGYBACK PRN IN PACU X1 completed LACTATED RINGERS 1000ML 07/01/2023 00:14 150 ml/hr INTRAVENOUS CONT active KETOROLAC INJ SDV: 30MG/1ML 07/01/2023 00:43 30 MG IV PUSH Q6H completed IBUPROFEN TABLET: 600MG 07/01/2023 00:43 600 MG ORAL PRN Q6H active ACETAMINOPHEN TABLET: 325MG 07/01/2023 00:44 650 MG ORAL Q4H active OxyCODONE TABLET no apap added: 5mg 07/01/2023 00:44 5 MG ORAL Q4H completed DOCUSATE SODIUM CAPSULE: 100MG 07/01/2023 00:44 100 MG ORAL BID active ONDANSETRON INJ SDV: 4MG/2ML 07/01/2023 00:44 4 MG IV PUSH PRN Q4H active ONDANSETRON TABLET ORAL DISINTEGRAT: 4MG 07/01/2023 00:44 4 MG ORAL PRN Q4H active DiphenhydrAMINE INJ SDV: 50MG/ML 07/01/2023 00:44 25 MG IV PUSH PRN Q6H active DiphenhydrAMINE CAP: 25MG 07/01/2023 00:44 25 MG ORAL PRN Q6H active CALCIUM CARBONATE TAB CHEWABLE UD: 500MG 07/01/2023 00:45 1000 MG CHEW PRN Q2H active ZOLPIDEM TABLET: 5MG 07/01/2023 00:45 5 MG ORAL PRN BEDTIME active LANSINOH CREAM SAMPLES PACKET (OB) 07/01/2023 00:45 1 JARED TOPICALLY PRN active OxyCODONE TABLET no apap added: 5mg 07/02/2023 00:46 5 MG ORAL PRN Q4H active HYDROmorphone INJ SYRINGE: 1MG/ML 07/01/2023 01:32 1 MG IV PUSH PRN Q3H active LACTATED RINGERS 1000ML 06/30/2023 22:00 125 ml/hr INTRAVENOUS CONT completed OxyCODONE TABLET no apap added: 5mg 07/01/2023 00:01 5 MG ORAL Q4H active HYDROCORTISONE CREAM 1% 30GM TUBE 07/02/2023 12:38 1 JARED TOPICALLY PRN QID active Discharge Medications: Discharge Medications: Iron supplements, oxycodone 5/acetaminophen 325, Ibuprofen 600 mg, colace bid. History and Physical Notes [facility] 06/30/2023 19:15 L&D INDUCTION OF LABOR Admission H&P Note 06/30/2023 13:21 SUBJECTIVE/HPI: Patient Name: MELODY HILTON is a Age: 27 years year old at 39weeks 6days gestation with an estimated due date of 06/24/23 who presents to the [facility] for induction of labor for post due date with a nonreactive NST during routine surveillance. Fetus is active as per usual. Denies any bleeding, leaking of fluid or regular uterine contractions. Has eaten and felt well, denies URI, fever, s/s illness. Had one elevated BP today at her PN visit earlier today: 142/92 at 10:30am. All other BPs have been normal in and she is without s/s Pre- eclampsia. Current : Diagnosed with 22cm pedunculated fundal fibroid. New diagnosis of subclinical hypothyroid in and on 100mcg levothyroxine, +thyroid antibody. 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 Cardiovascular: normal HR, normal rate, rhythm, no murmurs or extra sounds Respiratory: lungs clear to auscultation, no cough Neuro: grossly normal Lower extremities: tr edema Heart Rate: Baseline: 150 bpm Variability: moderate after period of minimal Acccelerations: none Decelerations: isolated late decel x1 , variable decels to 105 x 15 -20sec Contractions: mild and irregx 40- 50sec, q6+ min, occas 20-30 sec irritibility Abdomen: Gravid, soft, non-tender, will large palpable fibroid in LUQ, nontender position: Vertex, LOT, Est Weight: 7.5lbs Cervical exam at 12:57: 2/70/-1.5, soft, midline Avendaño Score: 8 Labs: Blood type O pos, neg, antibody neg Rubella: immune Varicella: NOT immune GBS:neg FAS wnl with limited views of aortic arch, Ant placenta ASSESSMENT: 1. 27year old here at 40w6d gestation for induction of labor for post due date with nonreactive NST. Elevated BP in office x1. 2. heart rate Category 2 3. GBS negative, membranes intact 4. 22cm pedunculated fundal uterine fibroid Shoulder dystocia risk: at risk per BMI but EFW 22% Hemorrhage risk: mod for BMI and IOL, but pedunculated location of fibroid should not impact PPH risk PLAN: 1. Admit to [facility] for induction of labor but start with IV access, hydration and hydrotherapy. CBC, T&S drawn. Discussed R/B/A of cervidil, misoprostol, balloon catheter and Pitocin. CNM recommended Pitocin to have most control since Avendaño score already 8. Seralayndeepthi agrees. Plan to start when partner arrives for support and answer any questions. 2. FHR monitoring: continuous, per protocol 3. Anticipate spontaneous vaginal but pt aware that we will watch status closely and recommend primary C/S if fetus does not tolerate process. Plan active management of third stage labor (AMTSL). 4. Consider Pre-E labs if blood pressures are elevated 5. Reassess in 4-6 hours or sooner prn 6. Dr. Hawthorne notified and concurs with plan. Progress Notes [facility] 06/30/2023 23:13 TRANSFER OF CARE TO MD [facility] 06/30/2023 20:35 Patient Name: MELODY HILTON Age: 27 years S:Feeling somewhat crampy but hard to distinguish from movement. Saw some bloody show with wiping since last exam. OBJECTIVE: Repeat BP after 161/89 at 1749 was 127/80 at 1811 BP at 1856 151/80 P 80 BP at 1919 109/62 P101 General: No change in affect with cramping Abdomen: Continuous FHR tracing: Baseline: 160, mod variability, some stints of minimal, no accels, intermittent variable decels to 90-125 x 20-80sec off baseline with variable shape but late timing and intermittent late decels Pitocin was at 2mU/min, stopped at 1939 Contractions: 3-5min with some irritability between, x50-70 sec Vag exam: 2.5/80/-1, scant show, intact membranes LABS: Lab Results: This Visit Test Results Units Reference Range Ordered Collected Status CREAT. CONC. URINE 95.9 mg/dL 06/30/2023 19:04 06/30/2023 20:07 final PROTEIN CONC. URINE 10.0 mg/dL 06/30/2023 19:04 06/30/2023 20:07 final PROTEIN/CREATININE 0.10 Ratio L=0.00 H=0.29 06/30/2023 19:04 06/30/2023 20:07 final WBC 6.95 th/cmm L=5.00 H=10.00 06/30/2023 19:03 06/30/2023 12:38 final NEUT % 63.9 % L=40.0 H=80.0 06/30/2023 19:03 06/30/2023 12:38 final LYMPH % 29.1 % L=10.0 H=50.0 06/30/2023 19:03 06/30/2023 12:38 final MONO % 6.0 % L=2.0 H=12.0 06/30/2023 19:03 06/30/2023 12:38 final EOS % 0.3 % L=0.0 H=8.0 06/30/2023 19:03 06/30/2023 12:38 final BASO % 0.6 % L=0.0 H=3.0 06/30/2023 19:03 06/30/2023 12:38 final IG % 0.1 % L=0.0 H=1.1 06/30/2023 19:03 06/30/2023 12:38 final NRBC % 0.0 % L=0.0 H=0.0 06/30/2023 19:03 06/30/2023 12:38 final NEUT abs count 4.4 th/cmm L=1.6 H=8.4 06/30/2023 19:03 06/30/2023 12:38 final LYMPH abs count 2.0 th/cmm L=1.5 H=4.0 06/30/2023 19:03 06/30/2023 12:38 final MONO abs count 0.4 th/cmm L=0.2 H=1.0 06/30/2023 19:03 06/30/2023 12:38 final EOS abs count 0.0 th/cmm L=0.0 H=0.5 06/30/2023 19:03 06/30/2023 12:38 final BASO abs count 0.0 th/cmm L=0.0 H=0.2 06/30/2023 19:03 06/30/2023 12:38 final IG abs count 0.0 th/cmm L=0.0 H=0.1 06/30/2023 19:03 06/30/2023 12:38 final NRBC abs count 0.0 mil/cmm L=0.0 H=0.0 06/30/2023 19:03 06/30/2023 12:38 final RBC 4.08 mil/cmm L=3.90 H=5.40 06/30/2023 19:03 06/30/2023 12:38 final HEMOGLOBIN 11.3 L gm/dL L=12.0 H=16.0 06/30/2023 19:03 06/30/2023 12:38 final HEMATOCRIT 35 L % L=37 H=47 06/30/2023 19:03 06/30/2023 12:38 final MCV 86 fL L=82 H=92 06/30/2023 19:03 06/30/2023 12:38 final MCH 27.7 pg L=27.0 H=31.0 06/30/2023 19:03 06/30/2023 12:38 final MCHC 32.4 % L=32.0 H=36.0 06/30/2023 19:03 06/30/2023 12:38 final RDW-SD 47.7 fL L=39.0 H=49.0 06/30/2023 19:03 06/30/2023 12:38 final PLATELET COUNT 265 th/cmm L=150 H=450 06/30/2023 19:03 06/30/2023 12:38 final GLUCOSE 91 mg/dL L=70 H=116 06/30/2023 19:04 06/30/2023 12:38 final BUN 10 mg/dL L=6 H=25 06/30/2023 19:04 06/30/2023 12:38 final CREATININE 0.65 mg/dL L=0.51 H=0.95 06/30/2023 19:04 06/30/2023 12:38 final SODIUM SERUM 140 mmol/L L=136 H=145 06/30/2023 19:04 06/30/2023 12:38 final POTASSIUM SERUM 4.4 mmol/L L=3.4 H=5.2 06/30/2023 19:04 06/30/2023 12:38 final CHLORIDE SERUM 104 mmol/L L=96 H=110 06/30/2023 19:04 06/30/2023 12:38 final CARBON DIOXIDE (CO2) 22 mmol/L L=22 H=34 06/30/2023 19:04 06/30/2023 12:38 final ANION GAP 14.3 mmol/L 06/30/2023 19:04 06/30/2023 12:38 final CALCIUM SERUM 9.5 mg/dL L=8.2 H=10.2 06/30/2023 19:04 06/30/2023 12:38 final BILIRUBIN TOTAL 0.2 mg/dL L=0.0 H=1.3 06/30/2023 19:04 06/30/2023 12:38 final ALK. PHOS. 126 H U/L L=46 H=116 06/30/2023 19:04 06/30/2023 12:38 final SGOT (AST) 24 U/L L=15 H=37 06/30/2023 19:04 06/30/2023 12:38 final SGPT (ALT) 26 U/L L=12 H=78 06/30/2023 19:04 06/30/2023 12:38 final TOTAL PROTEIN 6.2 gm/dL L=6.0 H=8.0 06/30/2023 19:04 06/30/2023 12:38 final ALBUMIN 2.5 L gm/dL L=3.4 H=5.0 06/30/2023 19:04 06/30/2023 12:38 final AGE 27 years 06/30/2023 19:04 06/30/2023 12:38 final eGFR (non-Afr.Amer.) 109 mL/min 06/30/2023 19:04 06/30/2023 12:38 final eGFR (Afr-Cambodian) >120 mL/min 06/30/2023 19:04 06/30/2023 12:38 final Blood Group O O 06/30/2023 19:03 06/30/2023 12:38 final Rh (D) POSITIVE POSITIVE 06/30/2023 19:03 06/30/2023 12:38 final Antibody Screen NEGATIVE NEGATIVE 06/30/2023 19:03 06/30/2023 12:38 final URIC ACID SERUM 5.5 mg/dL L=2.0 H=7.0 06/30/2023 19:04 06/30/2023 12:38 final TYPE AND SCREEN* 06/30/2023 20:25 cancelled T&S is O+, antibody neg, confirmed. ASSESSMENT: IOL with pitocin at 40w6d for post due date and nonreactive NST (Cat 2) resolved to Cat 1. Now Cat 2 remote from labor. Pitocin off. Criteria met for Gestational Hypertension, labile BPs, no evidence of Pre-E, normal labs P: Dr. Hawthorne on unit for update and further decels occurred. MD into room and discussed possibility of C/S now vs trying to continue with labor and risks and benefits of each plan. Pt and partner strongly desire to proceed with primary C/S. Pitocin off, IV bolus. Initiating pre-op orders. Transfer of care to . [facility] 06/30/2023 19:14 LABOR PROGRESS NOTE 06/30/2023 18:00 Patient Name: MELODY HILTON Age: 27 years S: Eating dinner and sitting with Newt (FOB). Pt had IV access at received LR bolus then into tub and FHR Cat 1 following. Pt pleased, feeling some mild cramping/pressure. Tried to apply Novii but without success. Pitocin started once FOB here at 17:15. Sitting forward and back to adjust FHR US and decel of FHR noted at 17:45 while CNM in the room then one elevated BP while likely anxious. OBJECTIVE: Vital Signs: Last 3 Hours Date/Time BP (mm/Hg) BP Position/Site MAP (mm/Hg) Heart Rate Pulse Site Resp Temp (C) Temp (F) SPO2% O2 L/min FiO2 O2 Device Blood Sugar Pain Score Height (cm) Height (in) Weight (kg) Weight (lbs/ozs) Scale BMI BSA Head Cir (cm) 06/30/2023 16:30 129/76 SITTING/L ARM 94 82 BRACHIAL 16 36.7 ORAL 98.1 ORAL Vital Signs at 17:49: BP 161/89, P 74 General: No change in affect with cramping Abdomen: Continuous FHR tracing: Baseline: 140, mod variability, +accels, decel x1 down to 70 x 60-70sec, quick return to baseline Contractions: Q 3.5, x 50-70 sec with some irritability between. Mild Pitocin at 1mU/min Vag exam: deferred LABS: CBC, T&S pending, drawn ASSESSMENT: IOL with pitocin at 40w6d for post due date and initially nonreactive NST (Cat 2) resolved to Cat 1. Now Cat 2 after 1 moderate variable decel, nonrecurrent Elevated BP- severe range x1 P: Repeat BP in 15min, if elevated plan labs and IV labetalol prn. Increase low dose pitocin as able for cervical ripening though the night. Dr. Hawthorne previously aware and will update. Reassess in 2 hours or prn [facility] 07/01/2023 10:54 POD 1 (1/2) from low transverse for intolerance of labor, large fibroid. Patient appears well, sitting up in bed, voices no c/o. Tolerating fluids. Galeana still in. Required supplemental pain meds early this am but dilaudid 1 mg IV was effective. Vital Signs: Last 24 Hours Date/Time BP (mm/Hg) BP Position/Site MAP (mm/Hg) Heart Rate Pulse Site Resp Temp (C) Temp (F) SPO2% O2 L/min FiO2 O2 Device Blood Sugar Pain Score Weight (kg) Weight (lbs/ozs) Scale BSA 07/01/2023 00:22 126/78 SITTING/R ARM 94 78 APICAL 16 36 TEMPORAL SCANNING 96.8 TEMPORAL SCANNING 100 % 06/30/2023 18:59 109/84 SITTING/L ARM 92 78 BRACHIAL 16 36.8 ORAL 98.2 ORAL 06/30/2023 16:30 129/76 SITTING/L ARM 94 82 BRACHIAL 16 36.7 ORAL 98.1 ORAL 06/30/2023 15:30 127/76 LYING/L ARM 93 81 BRACHIAL 16 36.7 ORAL 98.1 ORAL 06/30/2023 13:57 135/79 SITTING/L ARM 98 71 BRACHIAL 17 36.9 ORAL 98.4 ORAL 06/30/2023 12:22 87 APICAL 18 36.7 ORAL 98.1 ORAL 105.23 kg 232 lbs 2.18 06/30/2023 11:35 119/84 SITTING/R ARM 96 93 BRACHIAL 20 36.8 TEMPORAL SCANNING 98.2 TEMPORAL SCANNING HEENT: Normocephalic Pulm: unlabored breathing CV NSR Abd. soft, fibroid 4 cm above umbilicus on L, fundus below umbilicus and firm and non-tender on R side of abdomen Minimal lochia Ext unremarkable Intake/Output: Last 24 Hours Description 07/01/2023 06/30/2023 Visit Totals Intake 240 mL 965 mL 1205 P.O. ORAL 240 mL 240 mL 480 LACTATED RINGERS 100 725 mL 725 Output 250 mL 2400 mL 2650 CATHETER URINE 250 mL 400 mL 650 ESTIMATED BLOOD LOSS 2000 mL 2000 Other VOIDED URINE 3 # 3 Balance -10 mL -1435 mL -1445 Lab Results: Last 24 Hours Test Results Units Reference Range Ordered Collected Status WBC 13.59 H th/cmm L=5.00 H=10.00 07/01/2023 06:42 07/01/2023 07:35 final NEUT % 75.2 % L=40.0 H=80.0 07/01/2023 06:42 07/01/2023 07:35 final LYMPH % 18.9 % L=10.0 H=50.0 07/01/2023 06:42 07/01/2023 07:35 final MONO % 5.2 % L=2.0 H=12.0 07/01/2023 06:42 07/01/2023 07:35 final EOS % 0.1 % L=0.0 H=8.0 07/01/2023 06:42 07/01/2023 07:35 final BASO % 0.4 % L=0.0 H=3.0 07/01/2023 06:42 07/01/2023 07:35 final IG % 0.2 % L=0.0 H=1.1 07/01/2023 06:42 07/01/2023 07:35 final NRBC % 0.0 % L=0.0 H=0.0 07/01/2023 06:42 07/01/2023 07:35 final NEUT abs count 10.2 H th/cmm L=1.6 H=8.4 07/01/2023 06:42 07/01/2023 07:35 final LYMPH abs count 2.6 th/cmm L=1.5 H=4.0 07/01/2023 06:42 07/01/2023 07:35 final MONO abs count 0.7 th/cmm L=0.2 H=1.0 07/01/2023 06:42 07/01/2023 07:35 final EOS abs count 0.0 th/cmm L=0.0 H=0.5 07/01/2023 06:42 07/01/2023 07:35 final BASO abs count 0.1 th/cmm L=0.0 H=0.2 07/01/2023 06:42 07/01/2023 07:35 final IG abs count 0.0 th/cmm L=0.0 H=0.1 07/01/2023 06:42 07/01/2023 07:35 final NRBC abs count 0.0 mil/cmm L=0.0 H=0.0 07/01/2023 06:42 07/01/2023 07:35 final RBC 3.36 L mil/cmm L=3.90 H=5.40 07/01/2023 06:42 07/01/2023 07:35 final HEMOGLOBIN 9.3 L gm/dL L=12.0 H=16.0 07/01/2023 06:42 07/01/2023 07:35 final HEMATOCRIT 29 L % L=37 H=47 07/01/2023 06:42 07/01/2023 07:35 final MCV 85 fL L=82 H=92 07/01/2023 06:42 07/01/2023 07:35 final MCH 27.7 pg L=27.0 H=31.0 07/01/2023 06:42 07/01/2023 07:35 final MCHC 32.6 % L=32.0 H=36.0 07/01/2023 06:42 07/01/2023 07:35 final RDW-SD 46.4 fL L=39.0 H=49.0 07/01/2023 06:42 07/01/2023 07:35 final PLATELET COUNT 211 th/cmm L=150 H=450 07/01/2023 06:42 07/01/2023 07:35 final Component Packed RBCs Leukopoor Packed RBCs Leukopoor 06/30/2023 21:39 06/30/2023 22:22 final Blood Group O O 06/30/2023 21:39 06/30/2023 22:22 final Rh (D) POSITIVE POSITIVE 06/30/2023 21:39 06/30/2023 22:22 final Antibody Screen. NEGATIVE NEGATIVE 06/30/2023 21:39 06/30/2023 22:22 final Component Packed RBCs Leukopoor Packed RBCs Leukopoor 06/30/2023 21:12 06/30/2023 21:12 [id number] Blood Group O O 06/30/2023 21:12 06/30/2023 21:12 [id number] Rh (D) POSITIVE POSITIVE 06/30/2023 21:12 06/30/2023 21:12 [id number] Antibody Screen. NEGATIVE NEGATIVE 06/30/2023 21:12 06/30/2023 21:12 [id number] CREAT. CONC. URINE 95.9 mg/dL 06/30/2023 19:04 06/30/2023 20:07 final PROTEIN CONC. URINE 10.0 mg/dL 06/30/2023 19:04 06/30/2023 20:07 final PROTEIN/CREATININE 0.10 Ratio L=0.00 H=0.29 06/30/2023 19:04 06/30/2023 20:07 final WBC 6.95 th/cmm L=5.00 H=10.00 06/30/2023 19:03 06/30/2023 12:38 final NEUT % 63.9 % L=40.0 H=80.0 06/30/2023 19:03 06/30/2023 12:38 final LYMPH % 29.1 % L=10.0 H=50.0 06/30/2023 19:03 06/30/2023 12:38 final MONO % 6.0 % L=2.0 H=12.0 06/30/2023 19:03 06/30/2023 12:38 final EOS % 0.3 % L=0.0 H=8.0 06/30/2023 19:03 06/30/2023 12:38 final BASO % 0.6 % L=0.0 H=3.0 06/30/2023 19:03 06/30/2023 12:38 final IG % 0.1 % L=0.0 H=1.1 06/30/2023 19:03 06/30/2023 12:38 final NRBC % 0.0 % L=0.0 H=0.0 06/30/2023 19:03 06/30/2023 12:38 final NEUT abs count 4.4 th/cmm L=1.6 H=8.4 06/30/2023 19:03 06/30/2023 12:38 final LYMPH abs count 2.0 th/cmm L=1.5 H=4.0 06/30/2023 19:03 06/30/2023 12:38 final MONO abs count 0.4 th/cmm L=0.2 H=1.0 06/30/2023 19:03 06/30/2023 12:38 final EOS abs count 0.0 th/cmm L=0.0 H=0.5 06/30/2023 19:03 06/30/2023 12:38 final BASO abs count 0.0 th/cmm L=0.0 H=0.2 06/30/2023 19:03 06/30/2023 12:38 final IG abs count 0.0 th/cmm L=0.0 H=0.1 06/30/2023 19:03 06/30/2023 12:38 final NRBC abs count 0.0 mil/cmm L=0.0 H=0.0 06/30/2023 19:03 06/30/2023 12:38 final RBC 4.08 mil/cmm L=3.90 H=5.40 06/30/2023 19:03 06/30/2023 12:38 final HEMOGLOBIN 11.3 L gm/dL L=12.0 H=16.0 06/30/2023 19:03 06/30/2023 12:38 final HEMATOCRIT 35 L % L=37 H=47 06/30/2023 19:03 06/30/2023 12:38 final MCV 86 fL L=82 H=92 06/30/2023 19:03 06/30/2023 12:38 final MCH 27.7 pg L=27.0 H=31.0 06/30/2023 19:03 06/30/2023 12:38 final MCHC 32.4 % L=32.0 H=36.0 06/30/2023 19:03 06/30/2023 12:38 final RDW-SD 47.7 fL L=39.0 H=49.0 06/30/2023 19:03 06/30/2023 12:38 final PLATELET COUNT 265 th/cmm L=150 H=450 06/30/2023 19:03 06/30/2023 12:38 final GLUCOSE 91 mg/dL L=70 H=116 06/30/2023 19:04 06/30/2023 12:38 final BUN 10 mg/dL L=6 H=25 06/30/2023 19:04 06/30/2023 12:38 final CREATININE 0.65 mg/dL L=0.51 H=0.95 06/30/2023 19:04 06/30/2023 12:38 final SODIUM SERUM 140 mmol/L L=136 H=145 06/30/2023 19:04 06/30/2023 12:38 final POTASSIUM SERUM 4.4 mmol/L L=3.4 H=5.2 06/30/2023 19:04 06/30/2023 12:38 final CHLORIDE SERUM 104 mmol/L L=96 H=110 06/30/2023 19:04 06/30/2023 12:38 final CARBON DIOXIDE (CO2) 22 mmol/L L=22 H=34 06/30/2023 19:04 06/30/2023 12:38 final ANION GAP 14.3 mmol/L 06/30/2023 19:04 06/30/2023 12:38 final CALCIUM SERUM 9.5 mg/dL L=8.2 H=10.2 06/30/2023 19:04 06/30/2023 12:38 final BILIRUBIN TOTAL 0.2 mg/dL L=0.0 H=1.3 06/30/2023 19:04 06/30/2023 12:38 final ALK. PHOS. 126 H U/L L=46 H=116 06/30/2023 19:04 06/30/2023 12:38 final SGOT (AST) 24 U/L L=15 H=37 06/30/2023 19:04 06/30/2023 12:38 final SGPT (ALT) 26 U/L L=12 H=78 06/30/2023 19:04 06/30/2023 12:38 final TOTAL PROTEIN 6.2 gm/dL L=6.0 H=8.0 06/30/2023 19:04 06/30/2023 12:38 final ALBUMIN 2.5 L gm/dL L=3.4 H=5.0 06/30/2023 19:04 06/30/2023 12:38 final AGE 27 years 06/30/2023 19:04 06/30/2023 12:38 final eGFR (non-Afr.Amer.) 109 mL/min 06/30/2023 19:04 06/30/2023 12:38 final eGFR (Afr-Cambodian) >120 mL/min 06/30/2023 19:04 06/30/2023 12:38 final Blood Group O O 06/30/2023 19:03 06/30/2023 12:38 final Rh (D) POSITIVE POSITIVE 06/30/2023 19:03 06/30/2023 12:38 final Antibody Screen NEGATIVE NEGATIVE 06/30/2023 19:03 06/30/2023 12:38 final URIC ACID SERUM 5.5 mg/dL L=2.0 H=7.0 06/30/2023 19:04 06/30/2023 12:38 final Imp: day 1 c/s. Large EBL due to large vessels in lower uterine segment. Patient states net technical architect had told her large fibroid had large vascularities from uterus so presumably lower uterine segment shared some of the hypervascularity. While stated EBL from CS was 2000, patient remained stable. Also postop course as well as hb drop from 11.3 ->9.3 would suggest EBL somewhat lower (as well as amniotic fluid not accounted for). At any rate will repeat CBC tomorrow and follow clinically as no sign of active or ongoing bleeding and patient hemodynamically stable. Discussed briefly repercussions of both and presumed future myomectomy on route of future deliveries at present patient not anticipating large family. Her primary would not contraindicate TOLAC as closure good and fibroid did not appear to impinge on uterine cavity however in light of size of fibroid and two uterine scars future OB might recommend repeat . Currently anticipate discharge 07/03/23 [facility] 06/30/2023 20:41 OB Attending: I have been kept apprised of situation of this 27 yo sent from office at 40.6 weeks' gestation for non-reactive tracing. Due to concerns about status plan for attempted IOL was pitocin. However with minimal 1 miu/min pitocin patient had significant variable decelerations x 2. Discussed situation with patient and with CNM and RN present; our choices are: 1. Proceed with since very remote from delivery and concerning findings on several fronts. 2. Proceed with additional attempts at inducing labor; baby is fine at the moment with moderate variability and cat I tracing with no contractions however significant decelerations with any attempt at triggering contractions. Parents are actually completely on board for proceeding with section; she had presented to office today instead of scheduled appointment tomorrow with hunch about well-being. 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 Additional issue is 20 cm pedunculated fibroid; if this has a thin stalk could consider removal but if in surgical judgement likely to add significant morbidity to case will not try to remove. Ami Hawthorne MD [facility] 07/02/2023 12:38 POD #2 for intolerance of labor, large fibroid Patient walking around room nursing at same time. States was tired this am but feels better now. Passing gas, tolerating general diet, no stool yet. Moderate pain in R abd (where uterine fundus is displaced) none on L where fibroid is. Vital Signs: Last 24 Hours Date/Time BP (mm/Hg) BP Position/Site MAP (mm/Hg) Heart Rate Pulse Site Resp Temp (C) Temp (F) SPO2% O2 L/min FiO2 O2 Device Blood Sugar Pain Score Weight (kg) Weight (lbs/ozs) Scale BSA 07/02/2023 08:30 111/65 LYING/L ARM 80 90 BRACHIAL 16 36.6 ORAL 97.9 ORAL 96 % 07/02/2023 00:15 120/68 LYING/R ARM 85 87 BRACHIAL 16 36.1 TEMPORAL SCANNING 97 TEMPORAL SCANNING 07/01/2023 20:30 116/59 LYING/R ARM 78 93 BRACHIAL 16 37.1 TEMPORAL SCANNING 98.8 TEMPORAL SCANNING 07/01/2023 16:30 118/61 SITTING/R ARM 80 78 BRACHIAL 16 36.2 TEMPORAL 97.2 TEMPORAL HEENT normal grossly Moving air well CV NSR Abd. soft, non-tender fundus on R well contracted and non-tender fibroid on L easily palpable non-tender. Bandage removed incision c/d/i itchy and 1+ rash where tape had been will order cortisone cream. Extremity unremarkable. Intake/Output: Last 24 Hours Description 07/02/2023 07/01/2023 Visit Totals Output 1470 mL 4645 VOIDED URINE 1020 mL 1020 CATHETER URINE 450 mL 1625 Other VOIDED URINE 2 # 5 Balance 0 mL -1470 mL -3440 Lab Results: Last 72 Hours Test Results Units Reference Range Ordered Collected Status WBC 9.80 th/cmm L=5.00 H=10.00 07/02/2023 10:55 07/02/2023 06:40 final NEUT % 67.4 % L=40.0 H=80.0 07/02/2023 10:55 07/02/2023 06:40 final LYMPH % 23.8 % L=10.0 H=50.0 07/02/2023 10:55 07/02/2023 06:40 final MONO % 7.0 % L=2.0 H=12.0 07/02/2023 10:55 07/02/2023 06:40 final EOS % 1.0 % L=0.0 H=8.0 07/02/2023 10:55 07/02/2023 06:40 final BASO % 0.4 % L=0.0 H=3.0 07/02/2023 10:55 07/02/2023 06:40 final IG % 0.4 % L=0.0 H=1.1 07/02/2023 10:55 07/02/2023 06:40 final NRBC % 0.0 % L=0.0 H=0.0 07/02/2023 10:55 07/02/2023 06:40 final NEUT abs count 6.6 th/cmm L=1.6 H=8.4 07/02/2023 10:55 07/02/2023 06:40 final LYMPH abs count 2.3 th/cmm L=1.5 H=4.0 07/02/2023 10:55 07/02/2023 06:40 final MONO abs count 0.7 th/cmm L=0.2 H=1.0 07/02/2023 10:55 07/02/2023 06:40 final EOS abs count 0.1 th/cmm L=0.0 H=0.5 07/02/2023 10:55 07/02/2023 06:40 final BASO abs count 0.0 th/cmm L=0.0 H=0.2 07/02/2023 10:55 07/02/2023 06:40 final IG abs count 0.0 th/cmm L=0.0 H=0.1 07/02/2023 10:55 07/02/2023 06:40 final NRBC abs count 0.0 mil/cmm L=0.0 H=0.0 07/02/2023 10:55 07/02/2023 06:40 final RBC 3.02 L mil/cmm L=3.90 H=5.40 07/02/2023 10:55 07/02/2023 06:40 final HEMOGLOBIN 8.4 L gm/dL L=12.0 H=16.0 07/02/2023 10:55 07/02/2023 06:40 final HEMATOCRIT 27 L % L=37 H=47 07/02/2023 10:55 07/02/2023 06:40 final MCV 88 fL L=82 H=92 07/02/2023 10:55 07/02/2023 06:40 final MCH 27.8 pg L=27.0 H=31.0 07/02/2023 10:55 07/02/2023 06:40 final MCHC 31.7 L % L=32.0 H=36.0 07/02/2023 10:55 07/02/2023 06:40 final RDW-SD 50.2 H fL L=39.0 H=49.0 07/02/2023 10:55 07/02/2023 06:40 final PLATELET COUNT 194 th/cmm L=150 H=450 07/02/2023 10:55 07/02/2023 06:40 final WBC 13.59 H th/cmm L=5.00 H=10.00 07/01/2023 06:42 07/01/2023 07:35 final NEUT % 75.2 % L=40.0 H=80.0 07/01/2023 06:42 07/01/2023 07:35 final LYMPH % 18.9 % L=10.0 H=50.0 07/01/2023 06:42 07/01/2023 07:35 final MONO % 5.2 % L=2.0 H=12.0 07/01/2023 06:42 07/01/2023 07:35 final EOS % 0.1 % L=0.0 H=8.0 07/01/2023 06:42 07/01/2023 07:35 final BASO % 0.4 % L=0.0 H=3.0 07/01/2023 06:42 07/01/2023 07:35 final IG % 0.2 % L=0.0 H=1.1 07/01/2023 06:42 07/01/2023 07:35 final NRBC % 0.0 % L=0.0 H=0.0 07/01/2023 06:42 07/01/2023 07:35 final NEUT abs count 10.2 H th/cmm L=1.6 H=8.4 07/01/2023 06:42 07/01/2023 07:35 final LYMPH abs count 2.6 th/cmm L=1.5 H=4.0 07/01/2023 06:42 07/01/2023 07:35 final MONO abs count 0.7 th/cmm L=0.2 H=1.0 07/01/2023 06:42 07/01/2023 07:35 final EOS abs count 0.0 th/cmm L=0.0 H=0.5 07/01/2023 06:42 07/01/2023 07:35 final BASO abs count 0.1 th/cmm L=0.0 H=0.2 07/01/2023 06:42 07/01/2023 07:35 final IG abs count 0.0 th/cmm L=0.0 H=0.1 07/01/2023 06:42 07/01/2023 07:35 final NRBC abs count 0.0 mil/cmm L=0.0 H=0.0 07/01/2023 06:42 07/01/2023 07:35 final RBC 3.36 L mil/cmm L=3.90 H=5.40 07/01/2023 06:42 07/01/2023 07:35 final HEMOGLOBIN 9.3 L gm/dL L=12.0 H=16.0 07/01/2023 06:42 07/01/2023 07:35 final HEMATOCRIT 29 L % L=37 H=47 07/01/2023 06:42 07/01/2023 07:35 final MCV 85 fL L=82 H=92 07/01/2023 06:42 07/01/2023 07:35 final MCH 27.7 pg L=27.0 H=31.0 07/01/2023 06:42 07/01/2023 07:35 final MCHC 32.6 % L=32.0 H=36.0 07/01/2023 06:42 07/01/2023 07:35 final RDW-SD 46.4 fL L=39.0 H=49.0 07/01/2023 06:42 07/01/2023 07:35 final PLATELET COUNT 211 th/cmm L=150 H=450 07/01/2023 06:42 07/01/2023 07:35 final Component Packed RBCs Leukopoor Packed RBCs Leukopoor 06/30/2023 21:39 06/30/2023 22:22 final Blood Group O O 06/30/2023 21:39 06/30/2023 22:22 final Rh (D) POSITIVE POSITIVE 06/30/2023 21:39 06/30/2023 22:22 final Antibody Screen. NEGATIVE NEGATIVE 06/30/2023 21:39 06/30/2023 22:22 final Component Packed RBCs Leukopoor Packed RBCs [place]ukopoor 06/30/2023 21:12 06/30/2023 21:12 [id number] Blood Group O O 06/30/2023 21:12 06/30/2023 21:12 [id number] Rh (D) POSITIVE POSITIVE 06/30/2023 21:12 06/30/2023 21:12 [id number] Antibody Screen. NEGATIVE NEGATIVE 06/30/2023 21:12 06/30/2023 21:12 [id number] CREAT. CONC. URINE 95.9 mg/dL 06/30/2023 19:04 06/30/2023 20:07 final PROTEIN CONC. URINE 10.0 mg/dL 06/30/2023 19:04 06/30/2023 20:07 final PROTEIN/CREATININE 0.10 Ratio L=0.00 H=0.29 06/30/2023 19:04 06/30/2023 20:07 final WBC 6.95 th/cmm L=5.00 H=10.00 06/30/2023 19:03 06/30/2023 12:38 final NEUT % 63.9 % L=40.0 H=80.0 06/30/2023 19:03 06/30/2023 12:38 final LYMPH % 29.1 % L=10.0 H=50.0 06/30/2023 19:03 06/30/2023 12:38 final MONO % 6.0 % L=2.0 H=12.0 06/30/2023 19:03 06/30/2023 12:38 final EOS % 0.3 % L=0.0 H=8.0 06/30/2023 19:03 06/30/2023 12:38 final BASO % 0.6 % L=0.0 H=3.0 06/30/2023 19:03 06/30/2023 12:38 final IG % 0.1 % L=0.0 H=1.1 06/30/2023 19:03 06/30/2023 12:38 final NRBC % 0.0 % L=0.0 H=0.0 06/30/2023 19:03 06/30/2023 12:38 final NEUT abs count 4.4 th/cmm L=1.6 H=8.4 06/30/2023 19:03 06/30/2023 12:38 final LYMPH abs count 2.0 th/cmm L=1.5 H=4.0 06/30/2023 19:03 06/30/2023 12:38 final MONO abs count 0.4 th/cmm L=0.2 H=1.0 06/30/2023 19:03 06/30/2023 12:38 final EOS abs count 0.0 th/cmm L=0.0 H=0.5 06/30/2023 19:03 06/30/2023 12:38 final BASO abs count 0.0 th/cmm L=0.0 H=0.2 06/30/2023 19:03 06/30/2023 12:38 final IG abs count 0.0 th/cmm L=0.0 H=0.1 06/30/2023 19:03 06/30/2023 12:38 final NRBC abs count 0.0 mil/cmm L=0.0 H=0.0 06/30/2023 19:03 06/30/2023 12:38 final RBC 4.08 mil/cmm L=3.90 H=5.40 06/30/2023 19:03 06/30/2023 12:38 final HEMOGLOBIN 11.3 L gm/dL L=12.0 H=16.0 06/30/2023 19:03 06/30/2023 12:38 final HEMATOCRIT 35 L % L=37 H=47 06/30/2023 19:03 06/30/2023 12:38 final MCV 86 fL L=82 H=92 06/30/2023 19:03 06/30/2023 12:38 final MCH 27.7 pg L=27.0 H=31.0 06/30/2023 19:03 06/30/2023 12:38 final MCHC 32.4 % L=32.0 H=36.0 06/30/2023 19:03 06/30/2023 12:38 final RDW-SD 47.7 fL L=39.0 H=49.0 06/30/2023 19:03 06/30/2023 12:38 final PLATELET COUNT 265 th/cmm L=150 H=450 06/30/2023 19:03 06/30/2023 12:38 final GLUCOSE 91 mg/dL L=70 H=116 06/30/2023 19:04 06/30/2023 12:38 final BUN 10 mg/dL L=6 H=25 06/30/2023 19:04 06/30/2023 12:38 final CREATININE 0.65 mg/dL L=0.51 H=0.95 06/30/2023 19:04 06/30/2023 12:38 final SODIUM SERUM 140 mmol/L L=136 H=145 06/30/2023 19:04 06/30/2023 12:38 final POTASSIUM SERUM 4.4 mmol/L L=3.4 H=5.2 06/30/2023 19:04 06/30/2023 12:38 final CHLORIDE SERUM 104 mmol/L L=96 H=110 06/30/2023 19:04 06/30/2023 12:38 final CARBON DIOXIDE (CO2) 22 mmol/L L=22 H=34 06/30/2023 19:04 06/30/2023 12:38 final ANION GAP 14.3 mmol/L 06/30/2023 19:04 06/30/2023 12:38 final CALCIUM SERUM 9.5 mg/dL L=8.2 H=10.2 06/30/2023 19:04 06/30/2023 12:38 final BILIRUBIN TOTAL 0.2 mg/dL L=0.0 H=1.3 06/30/2023 19:04 06/30/2023 12:38 final ALK. PHOS. 126 H U/L L=46 H=116 06/30/2023 19:04 06/30/2023 12:38 final SGOT (AST) 24 U/L L=15 H=37 06/30/2023 19:04 06/30/2023 12:38 final SGPT (ALT) 26 U/L L=12 H=78 06/30/2023 19:04 06/30/2023 12:38 final TOTAL PROTEIN 6.2 gm/dL L=6.0 H=8.0 06/30/2023 19:04 06/30/2023 12:38 final ALBUMIN 2.5 L gm/dL L=3.4 H=5.0 06/30/2023 19:04 06/30/2023 12:38 final AGE 27 years 06/30/2023 19:04 06/30/2023 12:38 final eGFR (non-Afr.Amer.) 109 mL/min 06/30/2023 19:04 06/30/2023 12:38 final eGFR (Afr-Cambodian) >120 mL/min 06/30/2023 19:04 06/30/2023 12:38 final Blood Group O O 06/30/2023 19:03 06/30/2023 12:38 final Rh (D) POSITIVE POSITIVE 06/30/2023 19:03 06/30/2023 12:38 final Antibody Screen NEGATIVE NEGATIVE 06/30/2023 19:03 06/30/2023 12:38 final URIC ACID SERUM 5.5 mg/dL L=2.0 H=7.0 06/30/2023 19:04 06/30/2023 12:38 final Imp: POD #2 primary for intolerance, large fibroid. Large EBL from vascularity in lower uterine segment (presumed related to very vascular uterine blood supply noted with fibroid). No evidence for active bleed and equilibration as expected. Discussed pros and cons of po iron, IV iron w patient would not transfuse w hb 8.4 unless patient were to be highly symptomatic. Itchy where tape from bandage was, otherwise incision looks fine. Plan: Anticipating discharge tomorrow. Will send home with narcotic containing med because anticipate could have severe pain if fibroid starts to degenerate typically 2-3 weeks after delivery when patient otherwise might find it difficult to obtain adequate pain relief. Cortisone cream to tape rash. May shower given precautions for incision itself. PO iron after GI function well established ie in a week or two.
--- OUTSIDE RECORDS SUMMARY | 2024-02-18 12:57 | XMS_ITS ---
Author Organization Unknown Address [address] [place] [address] [phone] Phone Care Team Providers Care Plate Fitter Name Role Phone RON ABERNATHY Registered Nurse Unavailable CHRISTOPH BALDWIN Attending Unavailable JESICA Bose ER Unavailable JAYCE Stacy Primary Unavailable UNLISTED PROVIDER - REQUESTED Xhandoff Un available Results URINALYSIS WITH REFLEX CULT IF POSITIVE* - Collect Date/Time: 07/03/2023 21:56 [facility] ID: [id number] [address] [place], [place], [id number] LOINC: 92032-7 Test Value Unit Reference Range Code Code System Flag COLLECTION MODE: CLEAN CATCH 46467-1 LOINC Color STRAW yellow 5778-6 LOINC Appearance CLEAR clear 5767-9 LOINC Glucose urine NEGATIVE negative mg/dl 33526-5 LOINC Bilirubin NEGATIVE negative 5770-3 LOINC Ketones NEGATIVE negative mg/dl 2514-8 LOINC Spec gravity <=1.005 1.003 - 1.030 5811-5 LOINC pH urine 6.0 5.0 - 7.0 2756-5 LOINC Protein NEGATIVE negative mg/dl 11849-6 LOINC Urobilinogen 0.2 <or= 1 EU/dl 84124-0 LOINC Nitrite. NEGATIVE negative 5802-4 LOINC Blood LARGE negative 5794-3 LOINC A Leukocytes. NEGATIVE negative MICROSCOPIC INDICATED WBCs. 0-5 0-5 / hpf 04544-2 LOINC RBCs 10-25 0-5 / hpf 20824-0 LOINC Epith cells 0-5 0-5 / hpf 58277-7 LOINC Cell types squamous Crystals none none Bacteria none none Mucus none none 8247-9 LOINC Casts none none /lpf 49744-1 LOINC Other 10542-0 LOINC CORRECTED TROPONIN HIGH SENSITIVITY* - Collect Date/Time: 07/03/2023 21:21 [facility] ID: [id number] [address] [place] [address], [address] LOINC: 62163-3 Test Value Unit Reference Range Code Code System Flag TROPONIN HS 17.3 pg/mL L=0.0 H=60.4 Specimen seq. RANDOM MAGNESIUM SERUM* - Collect D ate/Time: 07/03/2023 21:21 [facility] ID: [id number] [address] [place] [address], [address] LOINC: 65702-5 Test Value Unit Reference Range Code Code System Flag MAGNESIUM 2.0 mg/dL L=1.8 H=2.4 98110-6 LOINC COMPREHENSIVE METABOLIC PANE L (CMP) - Collect Date/Time: 07/03/2023 21:21 [facility] ID: [id number] [address] [place] [address], [address] LOINC: 18064-8 Test Value Unit Reference Range Code Code System Flag GLUCOSE 135 mg/dL L=70 H=116 2345-7 LOINC H BUN 11 mg/dL L=6 H=25 3094-0 LOINC CREATININE 0.73 mg/dL L=0.51 H=0.95 2160-0 LOINC SODIUM SERUM 138 mmol/L L=136 H=145 2951-2 LOINC POTASSIUM SERUM 3.9 mmol/L L=3.4 H=5.2 2823-3 LOINC CHLORIDE SERUM 103 mmol/L L=96 H=110 2075-0 LOINC CARBON DIOXIDE (CO2) 28 mmol/L L=22 H=34 2028-9 LOINC ANION GAP 7.2 mmol/L 32627-5 LOINC CALCIUM SERUM 8.6 mg/dL L=8.2 H=10.2 43302-0 LOINC BILIRUBIN TOTAL 0.2 mg/dL L=0.0 H=1.3 1975-2 LOINC ALK. PHOS. 116 U/L L=46 H=116 6768-6 LOINC SGOT (AST) 74 U/L L=15 H=37 1920-8 LOINC H SGPT (ALT) 55 U/L L=12 H=78 1742-6 LOINC TOTAL PROTEIN 6.8 gm/dL L=6.0 H=8.0 2885-2 LOINC ALBUMIN 2.3 gm/dL L=3.4 H=5.0 1751-7 LOINC L AGE 27 years eGFR (non-Afr.Amer.) 95 mL/min 88753-2 LOINC eGFR (Afr-Lao) 115 mL/min 40524-8 LOINC CBC W/ DIFFERENTIAL* - Colle ct Date/Time: 07/03/2023 21:21 [facility] ID: [id number] [address] [place], [place], [address] LOINC: 73754-1 Test Value Unit Reference Range Code Code System Flag WBC 10.82 th/cmm L=5.00 H=10.00 6690-2 LOINC H NEUT % 70.4 % L=40.0 H=80.0 LYMPH % 19.8 % L=10.0 H=50.0 MONO % 7.0 % L=2.0 H=12.0 75289-7 LOINC EOS % 1.6 % L=0.0 H=8.0 BASO % 0.6 % L=0.0 H=3.0 IG % 0.6 % L=0.0 H=1.1 2514-8 LOINC NRBC % 0.0 % L=0.0 H=0.0 23786-8 LOINC NEUT abs count 7.6 th/cmm L=1.6 H=8.4 751-8 LOINC LYMPH abs count 2.1 th/cmm L=1.5 H=4.0 731-0 LOINC MONO abs count 0.8 th/cmm L=0.2 H=1.0 742-7 LOINC EOS abs count 0.2 th/cmm L=0.0 H=0.5 711-2 LOINC BASO abs count 0.1 th/cmm L=0.0 H=0.2 704-7 LOINC IG abs count 0.1 th/cmm L=0.0 H=0.1 51095-3 LOINC NRBC abs count 0.0 mil/cmm L=0.0 H=0.0 58718-1 LOINC RBC 3.32 mil/cmm L=3.90 H=5.40 789-8 LOINC L HEMOGLOBIN 9.2 gm/dL L=12.0 H=16.0 718-7 LOINC L HEMATOCRIT 29 % L=37 H=47 4544-3 LOINC L MCV 88 fL L=82 H=92 787-2 LOINC MCH 27.7 pg L=27.0 H=31.0 785-6 LOINC MCHC 31.4 % L=32.0 H=36.0 786-4 LOINC L RDW-SD 52.1 fL L=39.0 H=49.0 788-0 LOINC H PLATELET COUNT 272 th/cmm L=150 H=450 777-[address] ABD PELVIS W IV CONTRAST ONLY - Completed: 07/03/2023 23:23 LOINC: [facility] [place], [place] [address] 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 Patient Name: MELODY HILTON MRN: Sex: : Age: [id number] F 1995 27 Account: Accession: Admit: StayType: [id number] 07/03/2023 E/R Ordered: Order ID: Submitted: Ordering Provider: 07/03/2023 21:48 [id number] EMELI JOHNSON Completed: Technologist: Resulted: 07/03/2023 23:23 AT 07/04/2023 08:58 Study Description: CT ABD PELVIS W IV CONTRAST ONLY Study Reason: Pain TECHNIQUE: Imaging Protocol: Axial computed tomography images with coronal and sagittal reformatted images were created and reviewed CONTRAST MATERIAL: Intravenous Omnipaque 100cc Oral: None COMPARISON: No exams were available for comparison FINDINGS: VISUALIZED LUNG BASES: No nodules nor pleural effusions evident. Heart size normal ABDOMEN: There is no ascites. There is some free intraperitoneal air in this patient who had recent . There is a huge mass arising in the pelvis which appears to be coming off of the left side of the uterine fundus and extending up to just below the stomach. This mass measures 24 cm wide by 17 cm AP by 23 cm craniocaudal. This mass is heterogeneous. Suspect that it is a huge uterine fibroid. LIVER: There are no focal hepatic lesions evident. No dilated intrahepatic ducts. GALLBLADDER/BILIARY: No obvious gallbladder pathology. CBD is not dilated. PANCREAS: No evidence of pancreatic mass nor dilatation of the pancreatic duct. SPLEEN: Spleen is not enlarged. No obvious intrasplenic lesions. Splenic and portal veins are patent. ADRENALS: There are no significant adrenal masses. KIDNEYS: Left kidney unremarkable mild right-sided hydronephrosis most probably related to status. There are no renal masses. No calculi. No cyst. Urinary bladder is compressed by the above described mass. ABDOMINAL AORTA: Abdominal aorta is not enlarged. LYMPH NODES: There is no retroperitoneal nor paraaortic adenopathy ABDOMINAL WALL/GI: Postsurgical changes. Some gas seen in the subcutaneous fat and there appears to be a cellulitis pattern over the anterior pannus. No bowel obstruction. PELVIS: GI: No evidence of appendicitis.No evidence of sigmoid diverticulitis. LYMPH NODES: There is no intrapelvic nor inguinal adenopathy. REPRODUCTIVE: Huge solid heterogeneous predominantly solid mass coming off the left side of the uterine fundus and extending up into the abdomen as described above. Cannot identify your ovaries as separate structures in the pelvis. No free fluid. URINARY BLADDER: No calculi nor obvious masses evident compressed by the large mass. OSSEOUS: No significant osseous lesions and no acute fractures evident. IMPRESSION: 1. Enlarged uterus (recent ). There is a large heterogeneous solid mass emanating from the left side of the uterine fundus and extending up into the abdomen, this mass measuring 24 x 17 x 23 cm. First consideration is for huge fibroid with internal degenerative changes. Cannot exclude other pathology. Correlation with prior history and prior imaging recommended. 2. Mild right-sided hydronephrosis is probably related to status and the mass in the pelvis. There is no intrinsic abnormality in the urinary bladder. 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 Multi planar reconstructions were performed. CONTRAST MATERIAL Intravenous: Omnipaque 350 Contrast volume: 100 cc COMPARISON: No exams were available for comparison FINDINGS: CHEST: PULMONARY ARTERIES: There is no intravenous contrast in the pulmonary arteries and therefore cannot assess for the presence of pulmonary emboli. LUNGS: There are no infiltrates nor evidence of pulmonary infarction.. There are no pleural effusions. No ominous pulmonary nodules. MEDIASTINUM: There is no hilar nor mediastinal adenopathy. CARDIAC: Heart size is normal. There is no pericardial effusion.Caliber of the thoracic aorta is within normal limits. No evidence of aortic dissection. There is no evidence of shift of the interventricular septum. PARTIALLY VISUALIZED UPPERMOST ABDOMEN: No obvious findings OSSEOUS: No significant osseous lesions and no fractures evident. IMPRESSION: 1. Nondiagnostic study for presence of pulmonary emboli as there is no contrast in the pulmonary arterial tree. 2. No evidence of thoracic aortic aneurysm, dissection, nor pericardial effusion. 3. No infiltrates nor pleural effusions. No intrathoracic adenopathy Report Digitally Signed by Rolando Denise on 07/04/2023 09:48 AM EDT Social History Type Status Start Date End Date Code Code Syst em Smoking History Unknown if ever smoked [id number] Sex Female Vital Signs Vital Sign Value Unit [place]strand Value [place]strand Unit Date/Time Recent/Initial? Code Code System Body Mass Index 39.82 kg/m2 07/03/2023 21:15 Initial 71246 -5 LOINC Systolic Blood Pressure 129 mm[Hg] 07/04/2023 10:30 Most Recent 8480- 6 LOINC Diastolic Blood Pressure 80 mm[Hg] 07/04/2023 10:30 Most Recent 8462- 4 LOINC Systolic Blood Pressure 150 mm[Hg] 07/03/2023 21:15 Initial 8480- 6 LOINC Diastolic Blood Pressure 87 mm[Hg] 07/03/2023 21:15 Initial 8462- 4 LOINC Body Surface Area 2.18 m2 07/03/2023 21:15 Initial 3140- 1 LOINC Height 162.560 0 cm 64.00 in 07/03/2023 21:15 Initial 8302- 2 LOINC O2 Saturation 100 % 2023 10:30 Most Recent 87136 -5 LOINC O2 Saturation 100 % 2023 21:15 Initial 71642 -5 LOINC Pulse 89.0 /min 07/04/2023 10:30 Most Recent 8867- 4 LOINC Pulse 113.0 /min 07/03/2023 21:15 Initial 8867- 4 LOINC Respiration 21 /min 07/04/19 10:30 Most Recent 9279- 1 LOINC Respiration 24 /min 07/03/19 21:15 Initial 9279- 1 LOINC Temperature 36.7 Roselyn 98.1 F 07/04/19 10:30 Most Recent 8310- 5 LOINC Temperature 37.0 Roselyn 98.6 F 07/03/19 21:15 Initial 8310- 5 LOINC Weight 105.23 kg 232.00 lbs 07/03/2023 21:15 Initial 29065 -7 [facility] Medications Medication Start Date End Date Route Frequency Dose Code Code System Medication Instructions Home Meds Ibuprofen 600MG Oral Tablet 07/03/2023 Unknown ORAL NEEDED EVERY 6 HOURS 600 MILLIGRAMS 895170 RxNorm TAKE 600 MILLIGRAMS ORAL NEEDED EVERY 6 HOURS HYDROcodone bitartrate-aicha taminophen 5MG-325MG Oral Tablet 07/03/2023 Unknown ORAL NEEDED EVERY 4 HOURS 1 TABLET 248992 RxNorm TAKE 1 TABLET ORAL NEEDED EVERY 4 HOURS Ferrous Sulfate 325MG Oral Tablet 07/03/2023 Unknown ORAL DAILY 1 TABLET 557639 RxNorm TAKE 1 TABLET ORAL DAILY Hospital [...] Code System No Known Drug Allergies Active [id number] [facility] Plan of Treatment US OB COMPLETE 04/28/2023 US OB COMPLETE 03/31/2023 US OB / TV 12/17/2022 Encounters Encounter Diagnosis Start Date Code Code Sys tem Other specified diseases and conditions complicating puerperium 07/03/2023 SNOMED-CT Personal Care Team Section Performer Name Performer Role Active Date Inactive Da te History and Physical Notes [facility] 07/04/2023 00:32 Patient brought in for observation after following complex history. She had a late evening 06/30/23 for intolerance of labor and known large fibroid; complicated by vascularity of lower uterine segment. Happily, she did well and was discharged home PPD #3 early afternoon 07/03/23. She had done well as of 1900 however at approximately 1999 she experienced dizziness, shortness of breath and returned to ER. All Demographics Patient Name Age Sex Visit Number Admission Date/Time Attending Physician Date of Service Room and Bed Emergency Contact MELODY HILTON 1995 27 years Unknown [id number] 07/03/2023 21:10 EMELI MOONEY 07/03/2023 ILA HUERTA - [id number] 07/04/2023 00:07 Admission Date: Date of Service: 07/03/2023 Reason for Admission: Chief Complaint: DIZZINESS AFTER C SECTION Code Status: Full Attending Physician: Christoph Primary Care Physician: Primary Care Physician: JAYCE Stacy Referring Physician: Consulting Physician(s): History of Present Illness Chief Complaint: Chief Complaint: DIZZINESS AFTER C SECTION Past Medical/Surgical/Family/Social History Past Medical History: All Problems: No Problems Available Past Surgical History: Surgery List: No Surgical History Available Past Family History: Family History List: No Family History Available Smoking Status: neg Smoking Status: Tobacco consumption unknown, Cessation Education: Smoking Status: Unknown if ever smoked, Cessation Education: Allergies: Allergy List No Known Drug Allergies, Medication Current Medications: Home Meds: Dose and Freq Medication Dosage Frequency Citalopram 20MG Oral Tablet 20 MILLIGRAMS DAILY Oral Tablet 1 EACH DAILY Levothyroxine Sodium 100MCG Oral Tablet 100 MCG DAILY Ferrous Sulfate 325MG Oral Tablet 1 TABLET DAILY HYDROcodone bitartrate-acetaminophen 5MG-325MG Oral Tablet 1 TABLET NEEDED EVERY 4 HOURS Ibuprofen 600MG Oral Tablet 600 MILLIGRAMS NEEDED EVERY 6 HOURS Review of Systems Pertinent Positives: Had bowel movements x 2 prior to discharge; patient states had normal BM while in ER and at that time felt better. Pertinent Negatives: No headache, epigastric pain, overall postop pain well controlled. Physical Exam Most Recent Vital Signs BP (mm/Hg) BP Position/Site MAP (mm/Hg) Heart Rate Resp Temp (C) Temp (F) SPO2% O2 Device Pain Score Height (cm) Height (in) Weight (kg) Weight (lbs/ozs) 150/94 113 105 19 37 Tympanic 98.6 Tympanic 97 % Room Air 21% 162.6 cm 64 in 105.23 kg 232.0 GENERAL: Well appearing and well nourished. In no apparent distress. SKIN: No rashes. No jaundice. Baylis and warm with good turgor. Good color. No erythema or nodules noted. No petechia, bulla or ecchymosis. HEAD: Normocephalic, atraumatic, with no visible or palpable masses, depressions, or scaring NOSE: No external lesions. MOUTH/THROAT: No obvious abnormalities NECK: Supple, CHEST/LUNGS: Symmetrical HEART: Regular rate and rhythm. BREAST: lactational. ABDOMEN: Soft, non-tender and non-distended. Normal bowel sounds. No hepatosplenomegaly or hernias or masses noted. No guarding, rigidity or rebound tenderness. Palpable mass LUQ presumptive known fibroid. GENITOURINARY (FEMALE): External genitalia without erythema, exudate or discharge. Normal lochia EXTREMITIES: No obvious abnormalities specifically no calf swelling or tenderness NEUROLOGIC: Cranial nerves II through XII are grossly intact. Sensation to pain, touch, and proprioception are normal. PSYCHIATRIC: The patient is oriented x4. Mood and affect are appropriate. Memory is intact with good short- and long-term memory recall. Judgment and insight appear normal. Pre-Admission Studies: Lab Results: Last Week Test Results Units Reference Range Ordered Collected Status COLLECTION MODE: CLEAN CATCH CLEAN CATCH 07/03/2023 21:53 07/03/2023 21:56 final Color STRAW STRAW yellow 07/03/2023 21:53 07/03/2023 21:56 final Appearance CLEAR CLEAR clear 07/03/2023 21:53 07/03/2023 21:56 final Glucose urine NEGATIVE NEGATIVE negative mg/dl 07/03/2023 21:53 07/03/2023 21:56 final Bilirubin NEGATIVE NEGATIVE negative 07/03/2023 21:53 07/03/2023 21:56 final Ketones NEGATIVE NEGATIVE negative mg/dl 07/03/2023 21:53 07/03/2023 21:56 final Spec gravity <=1.005 <=1.005 1.003 - 1.030 07/03/2023 21:53 07/03/2023 21:56 final pH urine 6.0 6.0 5.0 - 7.0 07/03/2023 21:53 07/03/2023 21:56 final Protein NEGATIVE NEGATIVE negative mg/dl 07/03/2023 21:53 07/03/2023 21:56 final Urobilinogen 0.2 0.2 07/03/2023 21:53 07/03/2023 21:56 final Nitrite. NEGATIVE NEGATIVE negative 07/03/2023 21:53 07/03/2023 21:56 final Blood LARGE A LARGE negative 07/03/2023 21:53 07/03/2023 21:56 final Leukocytes. NEGATIVE NEGATIVE negative 07/03/2023 21:53 07/03/2023 21:56 final MICROSCOPIC INDICATED INDICATED 07/03/2023 21:53 07/03/2023 21:56 final WBCs. 0-5 0-5 0-5 / hpf 07/03/2023 21:53 07/03/2023 21:56 final RBCs 5-10 5-10 0-5 / hpf 07/03/2023 21:53 07/03/2023 21:56 final Epith cells 0-5 0-5 0-5 / hpf 07/03/2023 21:53 07/03/2023 21:56 final Cell types squamous squamous 07/03/2023 21:53 07/03/2023 21:56 final Crystals none none none 07/03/2023 21:53 07/03/2023 21:56 final Bacteria none none none 07/03/2023 21:53 07/03/2023 21:56 final Mucus none none none 07/03/2023 21:53 07/03/2023 21:56 final Casts none none none /lpf 07/03/2023 21:53 07/03/2023 21:56 final Other 07/03/2023 21:53 07/03/2023 21:56 final EKG ORDER TRACING 12 LEAD 07/03/2023 21:16 07/03/2023 21:50 final WBC 10.82 H th/cmm L=5.00 H=10.00 07/03/2023 21:20 07/03/2023 21:21 final NEUT % 70.4 % L=40.0 H=80.0 07/03/2023 21:20 07/03/2023 21:21 final LYMPH % 19.8 % L=10.0 H=50.0 07/03/2023 21:20 07/03/2023 21:21 final MONO % 7.0 % L=2.0 H=12.0 07/03/2023 21:20 07/03/2023 21:21 final EOS % 1.6 % L=0.0 H=8.0 07/03/2023 21:20 07/03/2023 21:21 final BASO % 0.6 % L=0.0 H=3.0 07/03/2023 21:20 07/03/2023 21:21 final IG % 0.6 % L=0.0 H=1.1 07/03/2023 21:20 07/03/2023 21:21 final NRBC % 0.0 % L=0.0 H=0.0 07/03/2023 21:20 07/03/2023 21:21 final NEUT abs count 7.6 th/cmm L=1.6 H=8.4 07/03/2023 21:20 07/03/2023 21:21 final LYMPH abs count 2.1 th/cmm L=1.5 H=4.0 07/03/2023 21:20 07/03/2023 21:21 final MONO abs count 0.8 th/cmm L=0.2 H=1.0 07/03/2023 21:20 07/03/2023 21:21 final EOS abs count 0.2 th/cmm L=0.0 H=0.5 07/03/2023 21:20 07/03/2023 21:21 final BASO abs count 0.1 th/cmm L=0.0 H=0.2 07/03/2023 21:20 07/03/2023 21:21 final IG abs count 0.1 th/cmm L=0.0 H=0.1 07/03/2023 21:20 07/03/2023 21:21 final NRBC abs count 0.0 mil/cmm L=0.0 H=0.0 07/03/2023 21:20 07/03/2023 21:21 final RBC 3.32 L mil/cmm L=3.90 H=5.40 07/03/2023 21:20 07/03/2023 21:21 final HEMOGLOBIN 9.2 L gm/dL L=12.0 H=16.0 07/03/2023 21:20 07/03/2023 21:21 final HEMATOCRIT 29 L % L=37 H=47 07/03/2023 21:20 07/03/2023 21:21 final MCV 88 fL L=82 H=92 07/03/2023 21:20 07/03/2023 21:21 final MCH 27.7 pg L=27.0 H=31.0 07/03/2023 21:20 07/03/2023 21:21 final MCHC 31.4 L % L=32.0 H=36.0 07/03/2023 21:20 07/03/2023 21:21 final RDW-SD 52.1 H fL L=39.0 H=49.0 07/03/2023 21:20 07/03/2023 21:21 final PLATELET COUNT 272 th/cmm L=150 H=450 07/03/2023 21:20 07/03/2023 21:21 final GLUCOSE 135 H mg/dL L=70 H=116 07/03/2023 21:20 07/03/2023 21:21 final BUN 11 mg/dL L=6 H=25 07/03/2023 21:20 07/03/2023 21:21 final CREATININE 0.73 mg/dL L=0.51 H=0.95 07/03/2023 21:20 07/03/2023 21:21 final SODIUM SERUM 138 mmol/L L=136 H=145 07/03/2023 21:20 07/03/2023 21:21 final POTASSIUM SERUM 3.9 mmol/L L=3.4 H=5.2 07/03/2023 21:20 07/03/2023 21:21 final CHLORIDE SERUM 103 mmol/L L=96 H=110 07/03/2023 21:20 07/03/2023 21:21 final CARBON DIOXIDE (CO2) 28 mmol/L L=22 H=34 07/03/2023 21:20 07/03/2023 21:21 final ANION GAP 7.2 mmol/L 07/03/2023 21:20 07/03/2023 21:21 final CALCIUM SERUM 8.6 mg/dL L=8.2 H=10.2 07/03/2023 21:20 07/03/2023 21:21 final BILIRUBIN TOTAL 0.2 mg/dL L=0.0 H=1.3 07/03/2023 21:20 07/03/2023 21:21 final ALK. PHOS. 116 U/L L=46 H=116 07/03/2023 21:20 07/03/2023 21:21 final SGOT (AST) 74 H U/L L=15 H=37 07/03/2023 21:20 07/03/2023 21:21 final SGPT (ALT) 55 U/L L=12 H=78 07/03/2023 21:20 07/03/2023 21:21 final TOTAL PROTEIN 6.8 gm/dL L=6.0 H=8.0 07/03/2023 21:20 07/03/2023 21:21 final ALBUMIN 2.3 L gm/dL L=3.4 H=5.0 07/03/2023 21:20 07/03/2023 21:21 final AGE 27 years 07/03/2023 21:20 07/03/2023 21:21 final eGFR (non-Afr.Amer.) 95 mL/min 07/03/2023 21:20 07/03/2023 21:21 final eGFR (Afr-Lao) 115 mL/min 07/03/2023 21:20 07/03/2023 21:21 final MAGNESIUM 2.0 mg/dL L=1.8 H=2.4 07/03/2023 21:20 07/03/2023 21:21 final TROPONIN HS 17.3 pg/mL L=0.0 H=60.4 07/03/2023 23:34 07/03/2023 21:21 final Specimen seq. RANDOM RANDOM 07/03/2023 23:34 07/03/2023 21:21 final WBC 9.80 th/cmm L=5.00 H=10.00 07/02/2023 10:55 [...] Packed RBCs Leukopoor 06/30/2023 21:12 06/30/2023 21:12 [id number]-tm-flafd Blood Group O O 06/30/2023 21:12 06/30/2023 21:12 [id number]-st-salwb Rh (D) POSITIVE POSITIVE 06/30/2023 21:12 06/30/2023 21:12 iadeton-ed-quhld Antibody Screen. NEGATIVE NEGATIVE 06/30/2023 21:12 06/30/2023 21:12 [id number]-er-pwvno CREAT. CONC. URINE 95.9 mg/dL 06/30/2023 19:04 [...] mL/min 06/30/2023 19:04 06/30/2023 12:38 final eGFR (Afr-Lao) >120 mL/min 06/30/2023 19:04 06/30/2023 12:38 final Blood Group O O 06/30/2023 19:03 06/30/2023 12:38 final Rh (D) POSITIVE POSITIVE 06/30/2023 19:03 06/30/2023 12:38 final Antibody Screen NEGATIVE NEGATIVE 06/30/2023 19:03 06/30/2023 12:38 final URIC ACID SERUM 5.5 mg/dL L=2.0 H=7.0 06/30/2023 19:04 06/30/2023 12:38 final Assessment: Sudden onset dizziness 3 days postop complicated primary section. Obvious concerns would be intraabdominal bleeding however stable cbc and vs and hemodynamic stability speak against such a process. Cardiac or pulmonary complications need to be considered. Initial imaging studies reassuring. Plan: Observation status; repeat labs and possible imaging in am Problem List: No Problems Available Ordered Meds List: No Current Medications Available Progress Notes [facility] 07/04/2023 10:20 POD #4 ; patient discharged yesterday in stable condition and kept for observation last night after an episode of dizziness at home. Patient stated that upon presentation in ER she felt like she needed to use bathroom, had a full bowel movement, and since then has felt better. No clinical or scanning signs of bleeding, infection. All Demographics Patient Name Age Sex Visit Number Admission Date/Time Attending Physician Date of Service Room and Bed Emergency Contact MELODY HILTON 1995 27 years Unknown [id number] 07/03/2023 23:57 DENNY LEBRON 07/03/2023 [id number] KAMERONILA - [id number] 07/04/2023 10:06 Subjective Feels well this am; slept well Objective Vital Signs: Last 24 Hours Date/Time BP (mm/Hg) BP Position/Site MAP (mm/Hg) Heart Rate Pulse Site Resp Temp (C) Temp (F) SPO2% O2 L/min FiO2 O2 Device Blood Sugar Pain Score Weight (kg) Weight (lbs/ozs) Scale BSA 07/04/2023 08:25 127/75 SITTING/L ARM 92 92 BRACHIAL 16 36.7 TEMPORAL SCANNING 98.1 TEMPORAL SCANNING 97 % 07/04/2023 06:38 128/93 LYING/L ARM 105 103 BRACHIAL 16 37.1 TEMPORAL 98.8 TEMPORAL 98 % 07/04/2023 04:34 140/85 LYING/L ARM 103 87 BRACHIAL 18 36.3 TEMPORAL 97.3 TEMPORAL 98 % 07/04/2023 02:25 138/85 LYING/L ARM 103 97 BRACHIAL 20 37 ORAL 98.6 ORAL 98 % 07/04/2023 01:12 145/85 105 104 16 98 % Room Air 21% 07/04/2023 00:10 160/94 116 117 23 96 % Room Air 21% 07/03/2023 22:43 150/94 113 105 19 97 % Room Air 21% 07/03/2023 21:15 150/87 108 113 24 37 Tympanic 98.6 Tympanic 100 % Room Air 21% 105.23 kg 232.0 Stated 2.18 07/03/2023 10:59 128/76 SITTING/L ARM 93 111 BRACHIAL 16 36.7 TEMPORAL 98.1 TEMPORAL 98 % Physical Exam GENERAL: Well appearing and well nourished, in no apparent distress. CHEST/LUNGS: Symmetrical with equal breath sounds. Clear to auscultation bilaterally. No rales, rhonchi or wheezes are appreciated. Good air movement is auscultated in all 4 lung quintero. There is no tenderness on palpation of the chest. HEART: Regular rate and rhythm. No murmurs, rubs or gallop. No S3, S4 or rub is auscultated. ABDOMEN: Soft, non-tender and non-distended. Normal bowel sounds. No hepatosplenomegaly or hernias. Known large fibroid on L of abdomen is non-tender and is well-contracted fundus. Lochia is almost gone. No guarding, rigidity or rebound tenderness. Abdominal aorta is not palpable. MUSCULOSKELETAL: Normal gait and station. NEUROLOGIC: Cranial nerves II through XII are grossly intact. Well oriented and articulate. Lab Results: Last 24 Hours Test Results Units Reference Range Ordered Collected Status COLLECTION MODE: CLEAN CATCH CLEAN CATCH 07/03/2023 21:53 07/03/2023 21:56 final Color STRAW STRAW yellow 07/03/2023 21:53 07/03/2023 21:56 final Appearance CLEAR CLEAR clear 07/03/2023 21:53 07/03/2023 21:56 final Glucose urine NEGATIVE NEGATIVE negative mg/dl 07/03/2023 21:53 07/03/2023 21:56 final Bilirubin NEGATIVE NEGATIVE negative 07/03/2023 21:53 07/03/2023 21:56 final Ketones NEGATIVE NEGATIVE negative mg/dl 07/03/2023 21:53 07/03/2023 21:56 final Spec gravity <=1.005 <=1.005 1.003 - 1.030 07/03/2023 21:53 07/03/2023 21:56 final pH urine 6.0 6.0 5.0 - 7.0 07/03/2023 21:53 07/03/2023 21:56 final Protein NEGATIVE NEGATIVE negative mg/dl 07/03/2023 21:53 07/03/2023 21:56 final Urobilinogen 0.2 0.2 07/03/2023 21:53 07/03/2023 21:56 final Nitrite. NEGATIVE NEGATIVE negative 07/03/2023 21:53 07/03/2023 21:56 final Blood LARGE A LARGE negative 07/03/2023 21:53 07/03/2023 21:56 final Leukocytes. NEGATIVE NEGATIVE negative 07/03/2023 21:53 07/03/2023 21:56 final MICROSCOPIC INDICATED INDICATED 07/03/2023 21:53 07/03/2023 21:56 final WBCs. 0-5 0-5 0-5 / hpf 07/03/2023 21:53 07/03/2023 21:56 final RBCs 5-10 5-10 0-5 / hpf 07/03/2023 21:53 07/03/2023 21:56 final Epith cells 0-5 0-5 0-5 / hpf 07/03/2023 21:53 07/03/2023 21:56 final Cell types squamous squamous 07/03/2023 21:53 07/03/2023 21:56 final Crystals none none none 07/03/2023 21:53 07/03/2023 21:56 final Bacteria none none none 07/03/2023 21:53 07/03/2023 21:56 final Mucus none none none 07/03/2023 21:53 07/03/2023 21:56 final Casts none none none /lpf 07/03/2023 21:53 07/03/2023 21:56 final Other 07/03/2023 21:53 07/03/2023 21:56 final EKG ORDER TRACING 12 LEAD 07/03/2023 21:16 07/03/2023 21:50 final WBC 10.82 H th/cmm L=5.00 H=10.00 07/03/2023 21:20 07/03/2023 21:21 final NEUT % 70.4 % L=40.0 H=80.0 07/03/2023 21:20 07/03/2023 21:21 final LYMPH % 19.8 % L=10.0 H=50.0 07/03/2023 21:20 07/03/2023 21:21 final MONO % 7.0 % L=2.0 H=12.0 07/03/2023 21:20 07/03/2023 21:21 final EOS % 1.6 % L=0.0 H=8.0 07/03/2023 21:20 07/03/2023 21:21 final BASO % 0.6 % L=0.0 H=3.0 07/03/2023 21:20 07/03/2023 21:21 final IG % 0.6 % L=0.0 H=1.1 07/03/2023 21:20 07/03/2023 21:21 final NRBC % 0.0 % L=0.0 H=0.0 07/03/2023 21:20 07/03/2023 21:21 final NEUT abs count 7.6 th/cmm L=1.6 H=8.4 07/03/2023 21:20 07/03/2023 21:21 final LYMPH abs count 2.1 th/cmm L=1.5 H=4.0 07/03/2023 21:20 07/03/2023 21:21 final MONO abs count 0.8 th/cmm L=0.2 H=1.0 07/03/2023 21:20 07/03/2023 21:21 final EOS abs count 0.2 th/cmm L=0.0 H=0.5 07/03/2023 21:20 07/03/2023 21:21 final BASO abs count 0.1 th/cmm L=0.0 H=0.2 07/03/2023 21:20 07/03/2023 21:21 final IG abs count 0.1 th/cmm L=0.0 H=0.1 07/03/2023 21:20 07/03/2023 21:21 final NRBC abs count 0.0 mil/cmm L=0.0 H=0.0 07/03/2023 21:20 07/03/2023 21:21 final RBC 3.32 L mil/cmm L=3.90 H=5.40 07/03/2023 21:20 07/03/2023 21:21 final HEMOGLOBIN 9.2 L gm/dL L=12.0 H=16.0 07/03/2023 21:20 07/03/2023 21:21 final HEMATOCRIT 29 L % L=37 H=47 07/03/2023 21:20 07/03/2023 21:21 final MCV 88 fL L=82 H=92 07/03/2023 21:20 07/03/2023 21:21 final MCH 27.7 pg L=27.0 H=31.0 07/03/2023 21:20 07/03/2023 21:21 final MCHC 31.4 L % L=32.0 H=36.0 07/03/2023 21:20 07/03/2023 21:21 final RDW-SD 52.1 H fL L=39.0 H=49.0 07/03/2023 21:20 07/03/2023 21:21 final PLATELET COUNT 272 th/cmm L=150 H=450 07/03/2023 21:20 07/03/2023 21:21 final GLUCOSE 135 H mg/dL L=70 H=116 07/03/2023 21:20 07/03/2023 21:21 final BUN 11 mg/dL L=6 H=25 07/03/2023 21:20 07/03/2023 21:21 final CREATININE 0.73 mg/dL L=0.51 H=0.95 07/03/2023 21:20 07/03/2023 21:21 final SODIUM SERUM 138 mmol/L L=136 H=145 07/03/2023 21:20 07/03/2023 21:21 final POTASSIUM SERUM 3.9 mmol/L L=3.4 H=5.2 07/03/2023 21:20 07/03/2023 21:21 final CHLORIDE SERUM 103 mmol/L L=96 H=110 07/03/2023 21:20 07/03/2023 21:21 final CARBON DIOXIDE (CO2) 28 mmol/L L=22 H=34 07/03/2023 21:20 07/03/2023 21:21 final ANION GAP 7.2 mmol/L 07/03/2023 21:20 07/03/2023 21:21 final CALCIUM SERUM 8.6 mg/dL L=8.2 H=10.2 07/03/2023 21:20 07/03/2023 21:21 final BILIRUBIN TOTAL 0.2 mg/dL L=0.0 H=1.3 07/03/2023 21:20 07/03/2023 21:21 final ALK. PHOS. 116 U/L L=46 H=116 07/03/2023 21:20 07/03/2023 21:21 final SGOT (AST) 74 H U/L L=15 H=37 07/03/2023 21:20 07/03/2023 21:21 final SGPT (ALT) 55 U/L L=12 H=78 07/03/2023 21:20 07/03/2023 21:21 final TOTAL PROTEIN 6.8 gm/dL L=6.0 H=8.0 07/03/2023 21:20 07/03/2023 21:21 final ALBUMIN 2.3 L gm/dL L=3.4 H=5.0 07/03/2023 21:20 07/03/2023 21:21 final AGE 27 years 07/03/2023 21:20 07/03/2023 21:21 final eGFR (non-Afr.Amer.) 95 mL/min 07/03/2023 21:20 07/03/2023 21:21 final eGFR (Afr-Lao) 115 mL/min 07/03/2023 21:20 07/03/2023 21:21 final MAGNESIUM 2.0 mg/dL L=1.8 H=2.4 07/03/2023 21:20 07/03/2023 21:21 final TROPONIN HS 17.3 pg/mL L=0.0 H=60.4 07/03/2023 23:34 07/03/2023 21:21 final Specimen seq. RANDOM RANDOM 07/03/2023 23:34 07/03/2023 21:21 final Assessment Observation admit for episode of dizziness at home pod 3 after complicated by large EBL and large fibroid pelvic mass. Resolved with stool so retrospectively may have been vasovagal. Patient kept for observation due to abundance of caution and chest CT ordered but for unclear reason contrast not adequate so not reported out. Given that patient is at this point asymptomatic and moving air well, pulse ox normal, I don't think necessary. She did have a couple of borderline high bps on presentation to ER but at that time having pain from surgery as well as the anxiety one would expect from being in the ER and the bps have been fine since postop pain controlled. Labs not suggestive of preeclampsia. Plan: discharge home with precautions. Medications given this visit: Ordered & Completed Meds Table Ordered Medication Start Date/Time Dosage Route Frequency Status SODIUM CHLORIDE 0.9% 1000ML 07/03/2023 21:47 INTRAVENOUS X1 completed LACTATED RINGERS 1000ML 07/03/2023 23:57 150 ml/hr INTRAVENOUS CONT active HYDROcodone/ACETAMINOPHEN TAB: 5/325MG 07/03/2023 23:57 1 TAB ORAL PRN Q4H active IBUPROFEN TABLET: 600MG 07/03/2023 23:57 600 MG ORAL PRN Q6H active DOCUSATE SODIUM CAPSULE: 100MG 07/03/2023 23:57 100 MG ORAL BID active ONDANSETRON TABLET ORAL DISINTEGRAT: 4MG 07/03/2023 23:57 4 MG ORAL PRN Q6H active LACTATED RINGERS 1000ML 07/04/2023 00:01 150 ml/hr INTRAVENOUS CONT active OxyCODONE TABLET no apap added: 5mg 07/04/2023 00:01 5 MG ORAL PRN Q4H active HYDROcodone/ACETAMINOPHEN TAB: 5/325MG 07/04/2023 00:01 1 TAB ORAL PRN Q4H active IBUPROFEN TABLET: 600MG 07/04/2023 00:01 600 MG ORAL PRN Q6H active ONDANSETRON TABLET ORAL DISINTEGRAT: 4MG 07/04/2023 00:01 4 MG ORAL PRN Q6H active DOCUSATE SODIUM CAPSULE: 100MG 07/04/2023 00:01 100 MG ORAL BID active LEVOTHYROXINE TABLET: 100MCG 07/04/2023 07:17 100 MCG ORAL Q7AM active Discharge Medications: Discharge Medications Ibuprofen 600MG Oral Tablet q 6hr prn HYDROcodone bitartrate-acetaminophen 5MG-325MG Oral Tablet q 6 hr prn. Ferrous Sulfate 325MG Oral Tablet bid Colace 100 bid [facility] 07/03/2023 22:49 OB Attending: Patient had 3 days (really 2 1/2 days) ago for intolerance of labor complicated by large fibroid, very vascular uterus, large EBL. Happily she did well postop and was discharged home early this afternoon. I had actually talked with her at approximately 700 pm having called her about prescription question and she was fine. However at roughly 8 pm I was called that patient had called birthing center with feeling short of breath, not well. I called her and instructed her to go to ER immediately. Obviously immediate concern would be of intraabdominal bleeding related to recent or acute event (AL, PE). Happily, on arrival in ER vital signs stable, not in shock, Hemoglobin reassuring and stable. Patient states to me that she had BM shortly after arrival in ER and feels better. Vital Signs: Last 24 Hours Date/Time BP (mm/Hg) BP Position/Site MAP (mm/Hg) Heart Rate Pulse Site Resp Temp (C) Temp (F) SPO2% O2 L/min FiO2 O2 Device Blood Sugar Pain Score Weight (kg) Weight (lbs/ozs) Scale BSA 07/03/2023 21:15 150/87 108 113 24 37 Tympanic 98.6 Tympanic 100 % Room Air 21% 105.23 kg 232.0 Stated 2.18 07/03/2023 10:59 128/76 SITTING/L ARM 93 111 BRACHIAL 16 36.7 TEMPORAL 98.1 TEMPORAL 98 % 07/03/2023 03:00 109/66 LYING/R ARM 80 68 RADIAL 18 36.8 ORAL 98.2 ORAL 98 % Lab Results: Last 72 Hours Test Results Units Reference Range Ordered Collected Status COLLECTION MODE: CLEAN CATCH CLEAN CATCH 07/03/2023 21:53 07/03/2023 21:56 final Color STRAW STRAW yellow 07/03/2023 21:53 07/03/2023 21:56 final Appearance CLEAR CLEAR clear 07/03/2023 21:53 07/03/2023 21:56 final Glucose urine NEGATIVE NEGATIVE negative mg/dl 07/03/2023 21:53 07/03/2023 21:56 final Bilirubin NEGATIVE NEGATIVE negative 07/03/2023 21:53 07/03/2023 21:56 final Ketones NEGATIVE NEGATIVE negative mg/dl 07/03/2023 21:53 07/03/2023 21:56 final Spec gravity <=1.005 <=1.005 1.003 - 1.030 07/03/2023 21:53 07/03/2023 21:56 final pH urine 6.0 6.0 5.0 - 7.0 07/03/2023 21:53 07/03/2023 21:56 final Protein NEGATIVE NEGATIVE negative mg/dl 07/03/2023 21:53 07/03/2023 21:56 final Urobilinogen 0.2 0.2 07/03/2023 21:53 07/03/2023 21:56 final Nitrite. NEGATIVE NEGATIVE negative 07/03/2023 21:53 07/03/2023 21:56 final Blood LARGE A LARGE negative 07/03/2023 21:53 07/03/2023 21:56 final Leukocytes. NEGATIVE NEGATIVE negative 07/03/2023 21:53 07/03/2023 21:56 final MICROSCOPIC INDICATED INDICATED 07/03/2023 21:53 07/03/2023 21:56 final WBCs. 0-5 0-5 0-5 / hpf 07/03/2023 21:53 07/03/2023 21:56 final RBCs 5-10 5-10 0-5 / hpf 07/03/2023 21:53 07/03/2023 21:56 final Epith cells 0-5 0-5 0-5 / hpf 07/03/2023 21:53 07/03/2023 21:56 final Cell types squamous squamous 07/03/2023 21:53 07/03/2023 21:56 final Crystals none none none 07/03/2023 21:53 07/03/2023 21:56 final Bacteria none none none 07/03/2023 21:53 07/03/2023 21:56 final Mucus none none none 07/03/2023 21:53 07/03/2023 21:56 final Casts none none none /lpf 07/03/2023 21:53 07/03/2023 21:56 final Other 07/03/2023 21:53 07/03/2023 21:56 final EKG ORDER TRACING 12 LEAD 07/03/2023 21:16 07/03/2023 21:50 final WBC 10.82 H th/cmm L=5.00 H=10.00 07/03/2023 21:20 07/03/2023 21:21 final NEUT % 70.4 % L=40.0 H=80.0 07/03/2023 21:20 07/03/2023 21:21 final LYMPH % 19.8 % L=10.0 H=50.0 07/03/2023 21:20 07/03/2023 21:21 final MONO % 7.0 % L=2.0 H=12.0 07/03/2023 21:20 07/03/2023 21:21 final EOS % 1.6 % L=0.0 H=8.0 07/03/2023 21:20 07/03/2023 21:21 final BASO % 0.6 % L=0.0 H=3.0 07/03/2023 21:20 07/03/2023 21:21 final IG % 0.6 % L=0.0 H=1.1 07/03/2023 21:20 07/03/2023 21:21 final NRBC % 0.0 % L=0.0 H=0.0 07/03/2023 21:20 07/03/2023 21:21 final NEUT abs count 7.6 th/cmm L=1.6 H=8.4 07/03/2023 21:20 07/03/2023 21:21 final LYMPH abs count 2.1 th/cmm L=1.5 H=4.0 07/03/2023 21:20 07/03/2023 21:21 final MONO abs count 0.8 th/cmm L=0.2 H=1.0 07/03/2023 21:20 07/03/2023 21:21 final EOS abs count 0.2 th/cmm L=0.0 H=0.5 07/03/2023 21:20 07/03/2023 21:21 final BASO abs count 0.1 th/cmm L=0.0 H=0.2 07/03/2023 21:20 07/03/2023 21:21 final IG abs count 0.1 th/cmm L=0.0 H=0.1 07/03/2023 21:20 07/03/2023 21:21 final NRBC abs count 0.0 mil/cmm L=0.0 H=0.0 07/03/2023 21:20 07/03/2023 21:21 final RBC 3.32 L mil/cmm L=3.90 H=5.40 07/03/2023 21:20 07/03/2023 21:21 final HEMOGLOBIN 9.2 L gm/dL L=12.0 H=16.0 07/03/2023 21:20 07/03/2023 21:21 final HEMATOCRIT 29 L % L=37 H=47 07/03/2023 21:20 07/03/2023 21:21 final MCV 88 fL L=82 H=92 07/03/2023 21:20 07/03/2023 21:21 final MCH 27.7 pg L=27.0 H=31.0 07/03/2023 21:20 07/03/2023 21:21 final MCHC 31.4 L % L=32.0 H=36.0 07/03/2023 21:20 07/03/2023 21:21 final RDW-SD 52.1 H fL L=39.0 H=49.0 07/03/2023 21:20 07/03/2023 21:21 final PLATELET COUNT 272 th/cmm L=150 H=450 07/03/2023 21:20 07/03/2023 21:21 final GLUCOSE 135 H mg/dL L=70 H=116 07/03/2023 21:20 07/03/2023 21:21 final BUN 11 mg/dL L=6 H=25 07/03/2023 21:20 07/03/2023 21:21 final CREATININE 0.73 mg/dL L=0.51 H=0.95 07/03/2023 21:20 07/03/2023 21:21 final SODIUM SERUM 138 mmol/L L=136 H=145 07/03/2023 21:20 07/03/2023 21:21 final POTASSIUM SERUM 3.9 mmol/L L=3.4 H=5.2 07/03/2023 21:20 07/03/2023 21:21 final CHLORIDE SERUM 103 mmol/L L=96 H=110 07/03/2023 21:20 07/03/2023 21:21 final CARBON DIOXIDE (CO2) 28 mmol/L L=22 H=34 07/03/2023 21:20 07/03/2023 21:21 final ANION GAP 7.2 mmol/L 07/03/2023 21:20 07/03/2023 21:21 final CALCIUM SERUM 8.6 mg/dL L=8.2 H=10.2 07/03/2023 21:20 07/03/2023 21:21 final BILIRUBIN TOTAL 0.2 mg/dL L=0.0 H=1.3 07/03/2023 21:20 07/03/2023 21:21 final ALK. PHOS. 116 U/L L=46 H=116 07/03/2023 21:20 07/03/2023 21:21 final SGOT (AST) 74 H U/L L=15 H=37 07/03/2023 21:20 07/03/2023 21:21 final SGPT (ALT) 55 U/L L=12 H=78 07/03/2023 21:20 07/03/2023 21:21 final TOTAL PROTEIN 6.8 gm/dL L=6.0 H=8.0 07/03/2023 21:20 07/03/2023 21:21 final ALBUMIN 2.3 L gm/dL L=3.4 H=5.0 07/03/2023 21:20 07/03/2023 21:21 final AGE 27 years 07/03/2023 21:20 07/03/2023 21:21 final eGFR (non-Afr.Amer.) 95 mL/min 07/03/2023 21:20 07/03/2023 21:21 final eGFR (Afr-Lao) 115 mL/min 07/03/2023 21:20 07/03/2023 21:21 final MAGNESIUM 2.0 mg/dL L=1.8 H=2.4 07/03/2023 21:20 07/03/2023 21:21 final WBC 9.80 th/cmm L=5.00 H=10.00 07/02/2023 10:55 [...] L=150 H=450 07/01/2023 06:42 07/01/2023 07:35 final Exam: Abdomen full, no rebound no guarding. Lochia minimal. Incision c/d/i. Ext unremarkable. Imp: physical exam and presentation not suggestive of massive intraperitoneal bleeding. Patient now appears well. Plan: imaging for PE, abdomen. Consider toponins. Hydrate, pain meds as necessary
--- OUTSIDE RECORDS SUMMARY | 2024-02-18 12:58 | XMS_ITS ---
Author Organization Unknown Address [address] [place] [address] [phone] Phone Care Team Providers Care Public Works Manager Name Role Phone ANH Biggs Attending Unavailable JAYCE Stacy Primary Unavailable Results THYROID TESTING CASCADE* - C ollect Date/Time: 07/16/2023 15:22 [facility] ID: [id number] - [id number] [address] [place], [place], [address] LOINC: 3016-3 Test Value Unit Reference Range Code Code System Flag TSH. 0.660 uIU/mL L=0.360 H=3.740 3014-8 LOINC Social History Type Status Start Date End Date Code Code Syst em Smoking History Unknown if ever smoked [id number] Sex Female Medications Medication Start Date End Date Route Frequency Dose Code Code System Medication Instructions Home Meds Ibuprofen 600MG Oral Tablet 07/03/2023 Unknown ORAL NEEDED EVERY 6 HOURS 600 MILLIGRAMS 804930 RxNorm TAKE 600 MILLIGRAMS ORAL NEEDED EVERY 6 HOURS HYDROcodone bitartrate-aicha taminophen 5MG-325MG Oral Tablet 07/03/2023 Unknown ORAL NEEDED EVERY 4 HOURS 1 TABLET 179930 RxNorm TAKE 1 TABLET ORAL NEEDED EVERY 4 HOURS Ferrous Sulfate 325MG Oral Tablet 07/03/2023 Unknown ORAL DAILY 1 TABLET 013056 RxNorm TAKE 1 TABLET ORAL DAILY Hospital [...] Code System No Known Drug Allergies Active 202611569 SNOMED-CT Plan of Treatment US OB COMPLETE 04/28/2023 US OB COMPLETE 03/31/2023 US OB / TV 12/17/2022 Encounters Encounter Diagnosis Start Date Code Code Sys tem Follow-up visit 07/16/2023 [id number] SNOMED-CT Personal Care Team Section Performer Name Performer Role Active Date Inactive Da te
--- OUTSIDE RECORDS SUMMARY | 2024-02-18 12:58 | XMS_ITS ---
Author Organization Unknown Address [address] [place] [address] [phone] Phone Care Team Providers Care Wafer Slicer Name Role Phone LEBRONMiles HEREDIAA Attending Unavailable Social History Type Status Start Date End Date Code Code Syst em Smoking History Unknown if ever smoked [id number] Sex Female Medications Medication Start Date End Date Route Frequency Dose Code Code System Medication Instructions Home Meds Ibuprofen 600MG Oral Tablet 07/03/2023 Unknown ORAL NEEDED EVERY 6 HOURS 600 MILLIGRAMS 640734 RxNorm TAKE 600 MILLIGRAMS ORAL NEEDED EVERY 6 HOURS HYDROcodone bitartrate-aicha taminophen 5MG-325MG Oral Tablet 07/03/2023 Unknown ORAL NEEDED EVERY 4 HOURS 1 TABLET 688525 RxNorm TAKE 1 TABLET ORAL NEEDED EVERY 4 HOURS Ferrous Sulfate 325MG Oral Tablet 07/03/2023 4 ORAL DAILY 1 TABLET 593607 RxNorm TAKE 1 TABLET ORAL DAILY Ferrous Sulfate 325MG Oral Tablet 07/03/2023 Unknown ORAL DAILY 1 TABLET 005426 RxNorm TAKE 1 TABLET ORAL DAILY Hospital [...] Code System No Known Drug Allergies Active [id number] SNOMED-CT Plan of Treatment US OB COMPLETE 04/28/2023 US OB COMPLETE 03/31/2023 US OB / TV 12/17/2022 Encounters Encounter Diagnosis Start Date Code Code Sys tem stress in labor or del khari due to drug administration 06/30/2023 SNOMED-CT Personal Care Team Section Performer Name Performer Role Active Date Inactive Da te
--- OUTSIDE RECORDS SUMMARY | 2024-02-18 12:58 | XMS_ITS ---
Author Organization Unknown Address [address] [place] [address] [phone] Phone Care Team Providers Care Loan Operations Manager Name Role Phone LEBRON DENNY Attending Unavailable Social History Type Status Start Date End Date Code Code Syst em Smoking History Unknown if ever smoked [id number] Sex Female Medications Medication Start Date End Date Route Frequency Dose Code Code System Medication Instructions Home Meds Ibuprofen 600MG Oral Tablet 07/03/2023 Unknown ORAL NEEDED EVERY 6 HOURS 600 MILLIGRAMS 392009 RxNorm TAKE 600 MILLIGRAMS ORAL NEEDED EVERY 6 HOURS HYDROcodone bitartrate-aicha taminophen 5MG-325MG Oral Tablet 07/03/2023 Unknown ORAL NEEDED EVERY 4 HOURS 1 TABLET 655054 RxNorm TAKE 1 TABLET ORAL NEEDED EVERY 4 HOURS Ferrous Sulfate 325MG Oral Tablet 07/03/2023 Unknown ORAL DAILY 1 TABLET 809073 RxNorm TAKE 1 TABLET ORAL DAILY Hospital [...] Code System No Known Drug Allergies Active 787535692 SNOMED-CT Plan of Treatment US OB COMPLETE 04/28/2023 US OB COMPLETE 03/31/2023 US OB / TV 12/17/2022 Encounters Encounter Diagnosis Start Date Code Code Sys tem Complication of the [place] 07/03/2023 10748404 SNOMED-CT Personal Care Team Section Performer Name Performer Role Active Date Inactive Da te
[2024-02-18 16:42] LABS: Abs Immature Grans 0.01 10^3/uL (0.0-0.06); Absolute Basophil Count 0.09 10^3/uL (0.0-0.2); Absolute Eosinophil Count 0.07 10^3/uL (0.0-0.7); Absolute Lymphocyte Count 2.07 10^3/uL (1.2-3.4); Basophils % 1.2 %; HCT 45.5 % (36.0-46.0); HGB 14.9 g/dL (11.2-15.7); Immature Grans % 0.1 %; Lymphocytes % 28.2 %; MCH 29.1 pg (27.0-33.0); MCHC 32.7 % (32.0-36.0); MCV 89 fL (80-95); Monocytes % 8.2 %; Neutrophils % 61.3 %; Platelet Count 375 10^3/uL (130-400); RBC 5.12 10^6/uL (3.93-5.22); RDW 13.7 % (11.7-14.6); RDW-SD 44.8 fL; WBC 7.34 10^3/uL (4.4-10.8)
== END 2024-02-18 12:48 | disposition home or self-care (01) ==
LOC: LBN 12:47
PROVIDERS: PCP Nurse Practitioner Family; Visit Provider Obstetrics & Gynecology
DX: N93.9 Abnormal uterine and vaginal bleeding, unspecified (principal)
CPT/HCPCS: 85025

== ENCOUNTER 2024-03-16 17:03 | Outpatient (REF) | payer MEDICAID, SELFPAY ==
[2024-03-16 17:07] LABS: TSH 2.85 uIU/mL (0.36-3.74)
== END 2024-03-16 17:04 | disposition home or self-care (01) ==
LOC: NCHCN 17:03
PROVIDERS: PCP Nurse Practitioner Family; Visit Provider Nurse Practitioner Family
DX: E03.9 Hypothyroidism, unspecified (principal)
CPT/HCPCS: 84443

== ENCOUNTER 2024-05-04 11:30 | Outpatient (REF) | payer MEDICAID, SELFPAY ==
[2024-05-04 15:09] LABS: TSH 3.36 uIU/mL (0.36-3.74)
== END 2024-05-04 11:31 | disposition home or self-care (01) ==
LOC: NCHCN 11:30
PROVIDERS: PCP Nurse Practitioner Family; Visit Provider Nurse Practitioner Family
DX: Z13.29 Encounter for screening for other suspected endocrine disorder (principal)
CPT/HCPCS: 84443

== ENCOUNTER 2024-07-22 09:04 | Outpatient (REF) | payer MEDICAID, SELFPAY ==
[2024-07-22 17:26] LABS: TSH 2.65 uIU/mL (0.36-3.74)
== END 2024-07-22 09:05 | disposition home or self-care (01) ==
LOC: NCHCN 09:04
PROVIDERS: PCP Nurse Practitioner Family; Visit Provider Nurse Practitioner Family
DX: E03.9 Hypothyroidism, unspecified (principal)
CPT/HCPCS: 84443